=== PATIENT | female | born 1960 | race Caucasian/White ===

== ENCOUNTER 2023-02-24 09:19 | Outpatient (OUT) | payer OTHER, SELFPAY ==
--- NOTE | 2023-02-24 09:27 | XR_ITS ---
The [address] [address] Patient Name: JULIA CHAVARRIA MRN: [id number] date: 1960 Sex: F Assigned Patient Location: [facility] Current Patient Location: RAD Accession/Order Number: [id number] Exam Date: 02/24/2023 09:35 Report Date: 02/24/2023 13:32 At the request of: LATHA HERMOSILLO Procedure: XR hip RT min 2V PROCEDURE: XR hip RT min 2V DATE: 02/24/2023 8:35 AM CDT COMPARISONS: CT abdomen pelvis 03/05/2022 CLINICAL INDICATION: Pain In Right Hip M25.551 FINDINGS: There is no evidence of fractures or other acute osseous abnormalities. There is some spurring of the superior lateral acetabulum on the right. There is slight narrowing of the cephalad aspect of the acetabular femoral joint space finding that was also seen on 03/05/2022. There is diffuse bone demineralization. XR/XR hip RT min 2V IMPRESSION: Evidence of mild right hip degenerative changes. No prominent right hip degenerative changes seen. No evidence of acute osseous abnormalities. Electronically authenticated by: DEVIN TERRAZAS Date: 02/24/2023 13:32
== END 2023-02-24 09:20 | disposition home or self-care (01) ==
PROVIDERS: PCP Nurse Practitioner Family; Visit Provider Nurse Practitioner Family
DX: M25.551 Pain in right hip (principal)
CPT/HCPCS: 73502

== ENCOUNTER 2023-03-12 10:05 | Outpatient (OUT) | payer OTHER, SELFPAY ==
--- NOTE | 2023-03-12 10:19 | MR_ITS ---
The [address] [address] Patient Name: JULIA CHAVARRIA MRN: [facility]:[id number] date: 1960 Sex: F Assigned Patient Location: MRI Current Patient Location: MRI Accession/Order Number: [id number] Exam Date: 03/12/2023 11:00 Report Date: 03/12/2023 12:43 At the request of: LATHA HERMOSILLO Procedure: MR hip RT wo con EXAMINATION: MR hip RT wo con HISTORY: Right Hip Pain M25.551 , right back pain, no known injury COMPARISON: No relevant comparison available. TECHNIQUE: A comprehensive examination was performed utilizing a variety of imaging planes and imaging parameters to optimize visualization of suspected pathology. Images were performed without contrast. FINDINGS: FEMORAL HEAD: Normal. No AVN, fracture, or significant arthropathy. ACETABULUM: Mild edema within the superior-lateral aspect of the acetabulum without visible cartilage defect or fracture. OTHER BONES: Normal appearance of the visualized portion of the pelvis. LABRUM: Normal appearance for a patient in this age group, with no visible tear. EFFUSIONS: None. No synovitis or loose bodies. BURSAE: Normal. No evidence of iliopsoas or trochanteric bursitis. TENDONS: Normal. Normal gluteus tendons, iliopsoas tendon, and hamstring origin. MUSCLES: Normal. No tear or strain. No inappropriate atrophy. OTHER: Numerous prominent diverticula involving the descending and sigmoid colon without acute inflammatory changes. MR/MR hip RT wo con IMPRESSION: 1. Mild subchondral edema within lateral aspect of acetabulum; bone bruising versus none visible cartilage tear. Consider follow-up MRI right hip arthrogram for greater diagnostic sensitivity. Electronically authenticated by: MARIA VICTORIA SAUNDERS Date: 03/12/2023 12:43
== END 2023-03-12 10:06 | disposition home or self-care (01) ==
LOC: MRI 10:06
PROVIDERS: PCP Nurse Practitioner Family; Visit Provider Nurse Practitioner Family
DX: M25.551 Pain in right hip (principal)
CPT/HCPCS: 73721

== ENCOUNTER 2023-09-07 10:05 | Outpatient (OUT) | payer OTHER, SELFPAY ==
[2023-09-07 11:17] LABS: Estimated GFR (African America >60 (>=60); Estimated GFR (Non-African Ame >60 (>=60)
== END 2023-09-07 10:06 | disposition home or self-care (01) ==
LOC: LAB 10:06
PROVIDERS: PCP Nurse Practitioner Family; Visit Provider Student in an Organized Health Care Education/Training Program
DX: M47.16 Other spondylosis with myelopathy, lumbar region (principal)
CPT/HCPCS: 36415; 82565; 84520

== ENCOUNTER 2023-10-13 06:32 | Outpatient (OUT) | payer OTHER, SELFPAY ==
--- OUTSIDE RECORDS SUMMARY | 2023-10-13 06:35 | XMS_ITS | CCD ---
Author Organization [facility] Care Team Providers Care Environmental Health Inspector Name Role Phone Codey, Norbert T Primary Care Provider YOVANI CASEY Referring Unavailable CODEY, NORBERT T Primary Care Unavailable CODEY, NORBERT T Primary Care Unavailable JANETT RODRIGUEZ Attending Unavailable CODEY, NORBERT T Referring Unavailable CODEY, NORBERT T Primary Care Unavailable CODEY, NORBERT T Referring Unavailable CODEY, NORBERT T Primary Care Unavailable João Cruz Attending Provider Janet Hermosillo Primary Care Provider Jaime Riojas Unavailable Prabhu Spring Unavailable Charles Jensen Unavailable DR MARIA VICTORIA SAUNDERS Consulting Unavailable JANET HERMOSILLO Admitting Unavailable JANET HERMOSILLO Attending Unavailable KALEB Larios, DR CASTANEDA Primary Care Unavailable JANET HEMROSILLO Consulting Unavailable ADALBERTO CARVALHO Consulting Unavailable KALEB ., DR CASTANEDA Primary Care Unavailable JEEVAN ., CORAL Admitting Unavailable JEEVAN .CORAL Attending Unavailable JEEVAN .WHITLEYIN Consulting Unavailable JANET HERMOSILLO Attending Unavailable DR EFREN CANADA V Consulting Unavailable JANET HERMOSILLO Admitting Unavailable KALEB .DR CASTANEDA Primary Care Unavailable JANET HERMOSILLO Consulting Unavailable JANET HERMOSILLO Consulting Unavailable JANET HERMOSILLO Admitting Unavailable JANET HERMOSILLO Attending Unavailable KALEB ., DR CASTANEDA Primary Care Unavailable KALEB ., DR CASTANEDA Primary Care Unavailable KALEB ., DR CASTANEDA Admitting Unavailable KALEB ., DR CASTANEDA Attending Unavailable KALEB ., DR CASTANEDA Consulting Unavailable RohitCHIN shane Janet Mady Primary Care Provider [phone] MD Jaime Molina II Attending Provider Jaime Molina II Unavailable Ramu Mancuso Unavailable CHIN Hermosillo Primary Care Provider [phone] MD Ramu Mancuso Attending Provider [phone] Ramu Mancuso Attending Unavailable Rohit, Janet Mady Primary Care Unavailable Ramu Mancuso Admitting Unavailable Rohit, Janet Mady Primary Care Unavailable Jaime Molina II Admitting UnavailJaime To II Attending Unavailjessica e Ramu Mancuso Attending Unavailable Rohit, Janet Mady Primary Care Unavailable Ramu Mancuso Admitting Unavailable Ramu Mancuso Attending Unavailable Rohit, Janet Mady Primary Care Unavailable Ramu Mancuso Admitting Unavailable CHIN Hermosillo Primary Care Provider [phone] MD Ramu Mancuso Attending Provider JR. PALOMINO GEORGE C Attending Unavaila roberto carlos PALOMINO JR., GEORGE C Referring Unavaila ble Allergies Allergy Classification Reported Allergen(s) Allergy Type Date of Onset Reaction(s) Facility Sulfonamides (antibiotic) (2 sources) Sulfonamides (Antibiotic) Drug Allergy 0 [facility] (4 sources) Ciprofloxacin Drug Allergy 2 [place], [place] (4 sources) HYDROcodone / Ibuprofen Drug Allergy 2 [place] (4 sources) Penicillins Propensity to adverse reactions to drug 2 [place], [place] (4 sources) Sulfonamides (Antibiotic) Propensity to adverse reactions to drug 2 [place] (4 sources) Clindamycin/Linco mycin Propensity to adverse reactions to drug 2 [place] (15 sources) Sulfacetamide Drug Allergy 4 [facility] (8 sources) Lisinopril Drug Allergy 4 [facility] (1 source) Sulfonamides (Antibiotic) Drug allergy (disorder) [facility] (3 sources) Sulfonamides (Antibiotic); Translations: [Sulfa (Sulfonamide Antibiotics)] Allergy to substance 2 Rash [facility] (1 source) Lisinopril Drug Allergy 4 [facility] (1 source) Sulfacetamide Drug Allergy 4 [facility] Medications Current Medications Medication Drug Class(es) Dates Sig (Normalized) Sig (Original) cholecalciferol 0.025 mg oral tablet (5 sources) Vitamin D Start: 11-19-2020 take 1 tablet by mouth once daily Cholecalciferol (Vitamin D3) (Vitamin D3) 25 mcg (1,000 unit) Tablet Active 2000 UNIT PO Daily November 19, 2020 11:45am Start: 11-19-2020 take 1 tablet by pam once daily Cholecalciferol (Vitamin D3) (Vitamin D3) 25 mcg (1,000 unit) Tablet Active 125 MCG PO Daily November 19, 2020 12:00am erythromycin 500 mg oral tablet (4 sources) Macrolide, Macrolide Antimicrobial Start: 03-17-2016 erythromycin base (E-MYCIN) 500 MG tablet Indications: Status post total left knee replacement Take 2 tabs 1 hour prior to dental appointment or procedure, then 1 tab twice daily until gone 6 tablet 0 03/17/2016 Active gabapentin 100 mg oral capsule (20 sources) Anti-epileptic Agent Start: 11-19-2020 take 300 mg by mouth once daily Gabapentin Active 300 MG PO Daily November 19, 2020 12:00am Start: 11-19-2020 take 100 mg by mouth once reynaldo y Gabapentin Active 100 MG PO Daily November 19, 2020 11:45am take 1 capsule by mo [facility] twice daily gabapentin (NEURONTIN) 100 MG capsule Take 100 mg by mouth 2 times daily 0 Active gemfibrozil 600 mg oral tablet (19 sources) Peroxisome Proliferator Receptor alpha Agonist Start: 11-19-2020 take 600 mg by mouth twice daily Gemfibrozil Active 600 MG PO Twice daily November 19, 2020 12:00am ibuprofen 600 mg oral tablet (3 sources) Nonsteroidal Anti-inflammatory Drug Start: 03-16-2020 take 1 tablet by mouth every six hours as needed for pain ibuprofen (IBU) 600 MG tablet Take 1 tablet by mouth every 6 hours as needed for Pain 30 tablet 0 03/16/2020 Active irbesartan 150 mg oral tablet (10 sources) Angiotensin 2 Receptor Yecenia Start: 11-06-2021 take 150 mg by mouth once daily Irbesartan Active 150 MG PO Daily November 06, 2021 12:00am levothyroxine sodium 0.125 mg oral tablet (10 sources) l-Thyroxine Start: 07-11-2021 take 125 ug by mouth once daily Levothyroxine Active 125 MCG PO Daily July 11, 2021 1:00am Levothyroxine So dium 125 MCG Oral for 30 Days Active Multivitamin preparation (5 sources) Start: 02-19-2020 take 1 tablet by mouth once daily Multivitamin Active 1 TAB PO Daily February 19, 2020 1:43pm Start: 02-19-2020 take 1 tablet by pam th once daily Multivitamin Active 1 TAB PO Daily February 18, 2020 11:00pm Start: 02-19-2020 take 1 tablet by pam th once daily Multivitamin Active 1 TAB PO Daily February 19, 2020 12:00am omeprazole 20 mg delayed release oral capsule (20 sources) Proton Pump Inhibitor Start: 06-23-2014 take 20 mg by mouth once daily Omeprazole Active 20 MG PO Daily February 19, 2020 12:00am vitamin b12 1 mg/ml injectable solution (20 sources) Vitamin B12 Start: 11-19-2020 inject 1000 ug by intramuscular injection every 30 days Cyanocobalamin (Vitamin B-12) Active 1000 MCG IM Q30D November 19, 2020 12:00am Cyanocobalamin 1 000 MCG/ML Injection for 90 Days Active Cyanocobalamin 1 000 MCG/ML Injection for 90 Days Active Vitamin B-12 Act [place] Cyanocobalamin ( VITAMIN B 12 PO) Take by mouth 0 Active Completed/Discontinued Medications Medication Drug Class(es) Dates Sig (Normalized) Sig (Original) acetaminophen 325 mg / HYDROcodone bitartrate 5 mg oral tablet (12 sources) Opioid Agonist Start: 11-19-2020 End: 12-04-2020 take 1 tablet by mouth every four hours Hydrocodone-Acetami nophen Discontinued 1 TAB PO Q4H November 19, 2020 12:00am December 04, 2020 10:02am Start: 11-14-2020 take 1 tablet by pam th every eight hours HYDROcodone-Acetaminophen 5-325 MG 1 tab let as needed Orally every 8 hrs for 7 days November, Active acetaminophen 325 mg / oxyCODONE hydrochloride 5 mg oral tablet (4 sources) Opioid Agonist Start: 12-04-2020 End: 07-11-2021 take 1 tablet by mouth every four to six hours Oxycodone-Acetaminophen (Percocet) 5-325 mg Tablet Discontinued 1 - 2 TAB PO EVERY 4-6 HOURS 40 7 December 04, 2020 July 11, 2021 3:25pm Start: 03-16-2020 End: 03-19-2020 take 1 tablet by mouth every six hours as needed for pain, then take 1 tablet by mouth as needed for pain oxyCODONE-acetaminophen (PERCOCET) 5-325 MG per tablet Indications: Closed head injury, initial encounter Take 1 tablet by mouth every 6 hours as needed for Pain for up to 3 days. Intended supply: 3 days. Take lowest dose possible to manage pain 12 tablet 0 03/16/2020 03/19/2020 Active aspirin 81 mg delayed release oral tablet (5 sources) Platelet Aggregation Inhibitor, Nonsteroidal Anti-inflammatory Drug Start: 12-04-2020 End: 07-11-2021 take 81 mg by mouth twice daily Aspirin Discontinued 81 MG PO Twice daily December 04, 2020 12:00am July 11, 2021 3:22pm End: 03-16-2020 take 1 tablet by mouth once daily aspirin 81 MG EC tablet Indications: Neck abscess Take 81 mg by mouth daily. 0 03/16/2020 Discontinued (LIST CLEANUP) cephalexin 500 mg oral capsule (3 sources) Cephalosporin Antibacterial Start: 08-15-2021 End: 11-06-2021 take 500 mg by mouth three times daily Cephalexin Discontinued 500 MG PO Three times daily August 15, 2021 1:00am November 06, 2021 7:00am hydrOXYzine pamoate 25 mg oral capsule (3 sources) Antihistamine Start: 12-04-2020 End: 07-11-2021 take 25 mg by mouth every eight hours Hydroxyzine Pamoate Discontinued 25 MG PO Q8H December 04, 2020 12:00am July 11, 2021 3:23pm Ketorolac (8 sources) Nonsteroidal Anti-inflammatory Drug, Cyclooxygenase Inhibitor Start: 07-31-2018 Toradol per 15 mg Jul, 30 mg lisinopril 10 mg oral tablet (12 sources) Angiotensin Converting Enzyme Inhibitor Start: 02-19-2020 End: 11-06-2021 take 10 mg by mouth once daily Lisinopril Discontinued 10 MG PO Daily February 19, 2020 12:00am November 06, 2021 7:02am melatonin 1 mg oral tablet (5 sources) Start: 11-19-2020 End: 09-23-2023 take 1 mg by mouth at bedtime Melatonin Discontinued 1 MG PO Bedtime November 19, 2020 12:00am September 23, 2023 9:41am methocarbamol 750 mg oral tablet (7 sources) Muscle Relaxant take 1 tablet by mouth twice daily Methocarbamol 750 MG take 1 tablet by mouth twice a day if needed Oral for 5 Not-Taking methylPREDNISolone 4 mg oral tablet (1 source) Corticosteroid Start: 08-31-2023 End: 09-23-2023 take 1 tablet by mouth once Methylprednisolone (Medrol (Shan)) 4 mg tablets,dose pack Discontinued 0 PO per package directions August 31, 2023 1:00am September 23, 2023 9:41am PO PER PKG DIR 1 ml morphine sulfate 4 mg/ml injection (1 source) Opioid Agonist Start: 03-16-2020 End: 03-16-2020 morphine sulfate (PF) injection 4 mg naproxen 500 mg oral tablet (11 sources) Nonsteroidal Anti-inflammatory Drug Start: 11-06-2021 End: 09-23-2023 take 500 mg by mouth twice daily Naproxen Discontinued 500 MG PO Twice daily November 06, 2021 12:00am September 23, 2023 9:41am Start: 02-19-2020 End: 12-04-2020 take 500 mg by mouth once daily Naproxen Discontinued 500 MG PO Daily February 19, 2020 12:00am December 04, 2020 10:02am take 600 mg by mouth twice daily NAPROXEN PO Take 600 mg by mouth 2 times daily 0 Active ondansetron 4 mg disintegrating oral tablet (7 sources) Serotonin-3 Receptor Antagonist take 1 tablet by mouth every four hours for nausea Ondansetron 4 MG dissolve 1 tablet ON TONGUE every 4 hours if needed for nausea OR vomiting Oral for 5 Not-Taking oxyCODONE hydrochloride 5 mg oral tablet (3 sources) Opioid Agonist Start: 08-15-19 End: 11-07-19 take 5-10 mg by mouth every six hours Oxycodone Discontinued 5 - 10 MG PO Q6H 30 8 August 15, 2021 November 06, 2021 7:04am 50 ml sodium chloride 9 mg/ml injection (1 source) Start: 03-16-20 End: 03-16-20 0.9 % sodium chloride bolus sucralfate 1000 mg oral tablet (5 sources) Aluminum Complex Start: 02-19-20 End: 11-20-19 take 1 g by mouth once daily Sucralfate Discontinued 1 GM PO Daily February 19, 2020 12:00am November 19, 2020 12:04pm thyroid (fdc) 60 mg oral tablet (16 sources) Start: 02-19-20 End: 07-11-19 take 1 tablet by mouth once daily Thyroid (Pork) (Foley Thyroid) 60 mg tablet Discontinued 90 MG PO Daily February 19, 2020 12:00am July 11, 2021 3:26pm take 1 tablet by mouth once reynaldo y [employer] Thyroid 90 MG take 1 tablet by mouth once daily Oral for 30 Active traMADol hydrochloride 50 mg oral tablet (3 sources) Opioid Agonist Start: 11-11-2021 End: 07-27-2023 take 50 mg by mouth every four hours Tramadol Discontinued 50 MG PO Q4H 10 7 November 11, 2021 12:00am July 27, 2023 9:04am triamcinolone acetonide 40 mg/ml injectable suspension (4 sources) Corticosteroid Start: 04-16-2023 Kenalog-40 Apr, 120 mg Problems Active Problems Problem Classification Problem Date Documented Date Episodic/Chronic Abdominal hernia (14 sources) Hiatal hernia; Translations: [Diaphragmatic hernia without obstruction or gangrene] Episodic Asthma (4 sources) Asthma; Translations: [Asthma] Onset: 2 08-17-2011 Chronic Deficiency and other anemia (1 source) Anemia, unspecified; Translations: [ANEMIA UNSPECIFIED] Onset: 3 Episodic Diabetes mellitus without complication (1 source) Other abnormal glucose; Translations: [OTHER ABNORMAL GLUCOSE] Onset: 3 Episodic Disorders of lipid metabolism (1 source) Pure hypercholesterolemia, unspecified; Translations: [PURE HYPERCHOLESTEROLEMIA UNSPEC] Onset: 3 Chronic Esophageal disorders (20 sources) Gastroesophageal reflux disease; Translations: [Gastro-esophageal reflux disease without esophagitis] Onset: 3 02-20-2020 Chronic Essential hypertension (1 source) Essential (primary) hypertension; Translations: [ESSENTIAL PRIMARY HYPERTENSION] Onset: 3 Chronic Intracranial injury (1 source) Concussion with less than 1 hour loss of consciousness; Translations: [Concussion with loss of consciousness of 30 minutes or less, initial encounter] Episodic Nutritional deficiencies (1 source) Vitamin D deficiency, unspecified; Translations: [VITAMIN D DEFICIENCY UNSPECIFIED] Onset: 3 Chronic Osteoarthritis (20 sources) Osteoarthritis; Translations: [Arthropathy of left shoulder] Onset: 2 08-17-2011 Chronic Other bone disease and musculoskeletal deformities (14 sources) Avascular necrosis of bone; 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] Chronic Other connective tissue disease (17 sources) History of total hip arthroplasty; Translations: [Presence of left artificial hip joint] 12-04-2020 Chronic Other connective tissue disease (8 sources) Trigger thumb of right hand; Translations: [Trigger thumb, right thumb] Episodic Other connective tissue disease (2 sources) Trochanteric bursitis, right hip Onset: 2 Resolved: 2 Episodic Other connective tissue disease (3 sources) Triggering of digit; Translations: [Trigger finger, unspecified finger] 11-11-2021 Episodic Other connective tissue disease (3 sources) Trochanteric bursitis; Translations: [Trochanteric bursitis, unspecified hip] Episodic Other connective tissue disease (2 sources) Trochanteric bursitis, unspecified hip Episodic Other connective tissue disease (1 source) Bursitis of hip; Translations: [Trochanteric bursitis, unspecified hip] 08-31-2023 Episodic Other injuries and conditions due to external causes (1 source) Closed injury of head; Translations: [Closed head injury, initial encounter] Episodic Other nervous system disorders (15 sources) Carpal tunnel syndrome of left wrist; Translations: [Carpal tunnel syndrome, left upper limb] 06-16-2023 Chronic Other nervous system disorders (3 sources) Carpal tunnel syndrome, left upper limb Onset: 1 Resolved: 2 Chronic Other nervous system disorders (8 sources) Carpal tunnel syndrome of right wrist; Translations: [Carpal tunnel syndrome, right upper limb] Chronic Other nervous system disorders (1 source) Carpal tunnel syndrome, right upper limb Onset: 2 Resolved: 2 Chronic Other nervous system disorders (2 sources) Carpal tunnel syndrome; Translations: [Carpal tunnel syndrome, left upper limb] 08-15-2021 Chronic Other nervous system disorders (4 sources) Chronic pain; Translations: [Other chronic pain] 08-31-2023 Chronic Other nervous system disorders (4 sources) Other chronic pain; Translations: [Other chronic pain] Chronic Other nervous system disorders (1 source) Other chronic pain; Translations: [Other chronic pain] Onset: 4 Chronic Other non-traumatic joint disorders (1 source) Pain in right hip Episodic Other non-traumatic joint disorders (4 sources) Arthritis of left knee; Translations: [Arthritis of left knee] Onset: 6 08-27-2015 Other non-traumatic joint disorders (4 sources) Pain in left knee; Translations: [Knee pain, left] Onset: 6 08-27-2015 Other screening for suspected conditions (not mental disorders or infectious disease) (5 sources) Encounter for screening mammogram for malignant neoplasm of breast; Translations: [Encounter for screening for malignant neoplasm of rectum] Onset: 3 Episodic Spondylosis; intervertebral disc disorders; other back problems (12 sources) Solitary sacroiliitis; Translations: [Sacroiliitis, not elsewhere classified] Onset: 4 Chronic Spondylosis; intervertebral disc disorders; other back problems (6 sources) Lumbar radiculopathy; Translations: [Cervicalgia] Onset: 4 Resolved: 1 01-17-2014 Episodic Thyroid disorders (4 sources) Hypothyroidism, unspecified; Translations: [HYPOTHYROIDISM UNSPECIFIED] Onset: 3 Chronic Unclassified (3 sources) CONTACT W/AND (SUSP) EXPOS COVID-19; Translations: [CONTACT W/AND (SUSP) EXPOS COVID-19] Onset: 2 Unclassified (1 source) COUGH, UNSPECIFIED; Translations: [COUGH, UNSPECIFIED] Onset: 2 Unclassified (1 source) Pain in right lower leg; Translations: [Pain in right lower leg] Onset: 4 Unclassified (1 source) Pain in right hip; Translations: [Pain in right hip] Onset: 3 Past or Other Problems Problem Classification Problem Date Documented Date Episodic/Chronic Abdominal pain (1 source) Unspecified abdominal pain; Translations: [UNSPECIFIED ABDOMINAL PAIN] Onset: 03-06-2022 Episodic Calculus of urinary tract (1 source) Personal history of urinary calculi; Translations: [PERSONAL HISTORY OF URINARY CALCULI] Onset: 03-06-2022 Episodic Nausea and vomiting (4 sources) Nausea; Translations: [NAUSEA] Onset: 03-05-2022 Episodic Nonspecific chest pain (4 sources) Chest pain, unspecified; Translations: [Other chest pain] Onset: 08-18-2022 Episodic Other aftercare (1 source) Other fci (current) drug therapy; Translations: [OTH BODY STRAIGHTENER CURRENT DRUG THERAPY] Onset: 08-20-2022 Episodic Other circulatory disease (1 source) Other specified symptoms and signs involving the circulatory and respiratory systems; Translations: [OTH SPEC SX SIGNS INVLV CIRC RS] Onset: 07-01-2022 Episodic Other connective tissue disease (4 sources) Rupture of tendon of biceps; Translations: [Biceps tendon rupture] Onset: 04-27-2016 04-27-2016 Episodic Other connective tissue disease (3 sources) Trigger thumb, right thumb Onset: 10-02-2021 Resolved: 11-24-2021 Episodic Other connective tissue disease (1 source) Pain in right hand Onset: 11-03-2021 Resolved: 11-03-2021 Episodic Residual codes; unclassified (1 source) Other specified postprocedural states Onset: 11-24-2021 Resolved: 11-24-2021 Episodic Screening and history of mental health and substance abuse codes (1 source) Personal history of nicotine dependence; Translations: [PERSONAL HISTORY OF NICOTINE DEPEND] Onset: 08-20-2022 Episodic Skin and subcutaneous tissue infections (4 sources) Abscess of neck; Translations: [Neck abscess] Onset: 08-17-2011 08-17-2011 Episodic Unclassified (1 source) CONTACT W/AND (SUSP) EXPOS COVID-19; Translations: [CONTACT W/AND (SUSP) EXPOS COVID-19] Onset: 06-24-2022 Results Test Name Value Interpretation Reference Range Facility US venous duplex LE RTon US venous duplex LE RT [facility] Main [address] [address] Ultrasound Report Signed Patient: Julia Chavarria MR#: [id number] : 1960 Acct:[id number] Age/Sex: 63 / F ADM Date: 09/14/23 Loc: Room: Type: [facility] CLI Attending Dr: Ramu Mancuso MD Ordering Provider: Ramu Mancuso MD Date of Service: 09/14/23 US/US venous duplex LE RT: M79.661 - Pain in right lower leg Copies to: Ramu Mancuso MD RIGHT LOWER EXTREMITY VENOUS DUPLEX INDICATION: Right leg pain and tenderness for 4 days. Unilateral right lower extremity venous duplex Doppler study was obtained utilizing B-mode, color- flow and spectral Doppler. FINDINGS: The right common femoral, femoral, and popliteal veins showed adequate compressibility, color-flow and augmentation. The right posterior tibial and peroneal veins were compressible, as well as proximal greater saphenous vein. The contralateral left common femoral vein was compressible with color-flow and augmentation. US/US venous duplex LE RT IMPRESSION: NO EVIDENCE OF DEEP VENOUS THROMBOSIS IN THE RIGHT LOWER EXTREMITY. NO SUPERFICIAL THROMBOPHLEBITIS WAS NOTED. Impression dictated by: Christopher Subramanian MD09/15/2023 2:44 PM Dictation Location: [place] [address] Tech: Bessiefay Tenorio Transcribed By: AKILAH 09/15/23 1444 Dictated By: Christopher Subramanian MD 09/15/23 1435 Signed By: 09/15/23 1444 Normal [facility] MR lumbar spine wo/w conon 0 09-10-2023 MR lumbar spine wo/w con [facility] Main [address] [address] MRI Report Signed Patient: Julai Chavarria MR#: [id number] : 1960 Acct:[id number] Age/Sex: 62 / F ADM Date: 09/09/23 Loc: Room: Type: [facility] CLI Attending Dr: Ramu Mancuso MD Copies to: Ramu Mancuso MD Ordering Provider: Ramu Mancuso MD Date of Service: 09/09/23 MR/MR lumbar spine wo/w con: M47.16 MRI lumbar spine without and with intravenous contrast CLINICAL DATA: Chronic back pain with right lower extremity radiculopathy worsening over the past several months. COMPARISON: 03/22/2018 Multiecho imaging in the axial and sagittal plane was performed before and after intravenous administration of 16 MLO ProHance. There is levoscoliotic curvature. There is minor retrolisthesis of L5 on S1. There are no acute compression fractures or marrow edema. There are degenerative endplate signal changes and endplate spurring, greatest at L1-2. The conus medullaris is within normal limits for caliber, position and signal intensity, terminating at L1. There is right renal cortical scarring. No paraspinal soft tissue normalities are present. At T9-T10 and T10-11 on the sagittal images, there are disc bulges which are asymmetric in the left parasagittal region extending to the neural foramen. There is some associated thecal sac effacement and inferior foraminal encroachment. At T12-L1, no disc disease or stenosis is identified. At L1-2, there is loss of the disc space. There is continued disco-osteophytic bulging greater at the right lateral recess and neural foramen where there may be a small focal protrusion. Facet hypertrophy is seen, worse on the right. There is mild thecal sac effacement. The left neural foramen is patent. There is moderate to severe narrowing of the neural foramen on the right. At L2-3, there is slight narrowing of the disc space. There is mild annular disc bulging, greater toward the neural foramen and slightly asymmetric extending laterally on the right. There is facet and ligamentous hypertrophy. There is moderate central stenosis. There is mild to moderate narrowing of the neural foramen bilaterally. At L3-4, there is narrowing of the disc space. Annular disc bulging is still visualized, with a continued broad-based protrusion from right parasagittal region through the neural foramen. This is slightly less prominent. Bilateral facet hypertrophy and thickening of ligamentum flavum is seen. There is currently mild to moderate thecal sac effacement. There is also mild to moderate foraminal encroachment, right worse than left. At L4-5, is narrowing of the disc space. There is some endplate spurring, asymmetric laterally on the left. Annular disc bulging is visualized, slightly less prominent than the comparison. Bilateral facet hypertrophy is seen, greater on the left where there is also no asymmetric ligamentous hypertrophy. There is question of interval partial laminectomy on the right. There is mild thecal sac effacement which is improved since the prior. There is still moderate bilateral foraminal encroachment, slightly greater on the left. At the lumbosacral junction, there is narrowing of the disc space. There is mild disco-osteophytic bulging, greater laterally on both sides. There is facet disease and slight thickening of ligamentum flavum. There is minimal thecal sac effacement. There is moderate narrowing of both neural foramen, left slightly worse than right. MR/MR lumbar spine wo/w con IMPRESSION: SCOLIOSIS. MULTILEVEL DISCOVERTEBRAL DEGENERATIVE CHANGES WITH CONTINUED CENTRAL AND FORAMINAL STENOSIS, DESCRIBED. QUESTION OF INTERVAL POSTOPERATIVE CHANGE AT L4-5 HOWEVER THIS IS NOT REPORTED IN THE HISTORY. CORRELATION IS RECOMMENDED. Impression dictated by: Lilly Carroll M.D.09/10/2023 12:36 PM Dictation Location: [place] [address] Transcribed By: [facility] 09/10/23 1236 Dictated By: Lilly Carroll MD 09/10/23 1213 Signed By: 09/10/23 1236 [facility] Creatinine (Bld) [Mass/Vol]O rdered By: Ramu Mancuso on 2023 Creatinine [Mass/Vol] 1.1 mg/dL 0.6-1.3 [facility] Comment on above: ER/ESD physician is notified/shown all ISTAT results.Critical values may be confirmed by laboratory testing ifdeemed necessary by ER attending doctor. ISTAT XRay CREon 2023 Creatinine [Mass/Vol] 1.1 mg/dL Normal 0.6-1.3 [facility] Comment on above: Result Comment: ER/E SD physician is notified/shown all ISTAT results. Critical values may be confirmed by laboratory testing if deemed necessary by ER attending doctor. Performed By: #### I SCRE #### [facility] [address] [place] [address] ISTAT GFR 56.813 [facility] Comment on above: Result Comment: PERF ORMED BY: [place] [address] PATHOLOGIST [employer] CAROLINE ESCOBAR M.D. Performed By: #### I SCRE #### [address] No Panel InformationOrdered By: Ramu Mancuso on 2023 Bedside Estimated GFR (eGFR) 56.813 [facility] XR hip RT min 2V(w/wo pelvis )*on 04-16-2023 XR hip RT min 2V(w/wo pelvis)* [facility] [place] [address] [place] [address] XRay Report Signed Patient: Julia Chavarria MR#: [id number] : 1960 Acct:[id number] Age/Sex: 62 / F ADM Date: 04/16/23 [place]: [facility] [place] Room: Type: [facility] Attending Dr: Jaime Molina II, MD Copies to: Jaime Molina MD Ordering Provider: Jaime Molina MD Date of Service: 04/16/23 XR/XR hip RT min 2V(w/wo pelvis)*: Right hip pain RIGHT HIP - 2 views: CLINICAL HISTORY: Right hip pain and groin with spasms for months. COMPARISON: Right hip MRI 03/12/2023 FINDINGS: Mild degenerative changes of the right hip without acute bony process. Additional degenerative changes seen along the thoracolumbar spine, SI joints and pubic symphysis. 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 XR/XR hip RT min 2V(w/wo pelvis)* IMPRESSION: MILD DEGENERATIVE CHANGES OF THE RIGHT HIP WITHOUT ACUTE PROCESS.. Impression dictated by: Bravo Conde Jr., D.O.04/16/2023 1:20 PM Dictation Location: [place] [address] Transcribed By: [facility] 04/16/23 1320 Dictated By: Bravo Conde Jr DO 04/16/23 1318 Signed By: 04/16/23 1320 [facility] MG MAMM SCREEN 3D BILL CADon 10-29-2022 MG MAMM SCREEN 3D BILL CAD Patient: JULIA CHAVARRIA Exam Date: 10/29/2022 : 1960 Gender:F Ordering : JANET HERMOSILLO [facility] Admission #: [id number] Family : Order #: [id number] CLICK HERE TO VIEW EXAM RADIOLOGY REPORT PROCEDURE: MAMMOGRAM SCREENING 3D BILATERAL CAD COMPARISON: None. INDICATIONS: Screening mammography Calculator Name NCI Breast Cancer Risk Assessment Tool 5 Year Breast Cancer Risk 1.70% Lifetime Breast Cancer Risk 7.70% Personal Breast Cancer No Personal Ovarian Cancer No Treatments None Family Cancers None LOCATION: [facility] BREAST COMPOSITION: Scattered areas fibroglandular density. FINDINGS: DIAGNOSTIC CATEGORY 2--BENIGN FINDING: Scattered benign-appearing calcifications are present. Scattered benign-appearing lymph nodes are present. RIGHT BREAST: No significant suspicious finding. LEFT BREAST: No significant suspicious finding. RECOMMENDATIONS: ROUTINE MAMMOGRAM AND CLINICAL EVALUATION IN 12 MONTHS. PLEASE NOTE: A NORMAL MAMMOGRAM DOES NOT EXCLUDE THE POSSIBILITY OF BREAST CANCER. A CLINICALLY SUSPICIOUS PALPABLE LUMP SHOULD BE BIOPSIED. Dictated by: Efren Canada MD on 12/01/2022 at 07:05 Approved by: Efren Canada MD on 12/01/2022 at 07:07 Normal [facility] INSULINon 10-22-2022 Insulin 8.9 uIU/mL Normal 2.6-24.9 [facility] Comment on above: Performed By: #### I NSULIN #### [facility] [address] [place] [address] Dr. Natalie oSod CBC AUTO DIFFon 10-21-2022 BASO # 0.1 103/ul Normal 0.0-0.1 [facility] Comment on above: Performed By: #### L IPID, TSH, T7, CMP #### [facility] [address] [place] [address] [address] Natalie Sood Basophils/100 WBC (Bld) 0.9 % Normal 0.2-2.0 [facility] Comment on above: Performed By: #### L IPID, TSH, T7, CMP #### [facility] [address] [place] [address] Dr. Natalie Sood EO # 0.2 103/ul Normal 0.0-0.7 [facility] Comment on above: Performed By: #### L IPID, TSH, T7, CMP #### [facility] [address] [place] [address] [address] Natalie Sood Eosinophils/100 WBC (Bld) 3.2 % Normal 0.9-7.0 [facility] Comment on above: Performed By: #### L IPID, TSH, T7, CMP #### [facility] [address] [place] [address] Dr. Natalie Sood Erythrocyte distribution width (RBC) [Ratio] 12.3 % Normal 11.0-15.0 [facility] Comment on above: Performed By: #### L IPID, TSH, T7, CMP #### [facility] [address] [place] [address] Dr. Natalie Sood Hematocrit (Bld) [Volume fraction] 41.4 % Normal 36.0-48.0 [facility] Comment on above: Performed By: #### L IPID, TSH, T7, CMP #### [facility] [address] [place] [address] Dr. Natalie Sood Hemoglobin (Bld) [Mass/Vol] 13.7 g/dL Normal 12.0-16.0 [facility] Comment on above: Performed By: #### L IPID, TSH, T7, CMP #### [facility] [address] [place] [address] Dr. Natalie Sood IG # 0.04 10e3/ul Critically high 0.00-0.03 [facility] Comment on above: Performed By: #### L IPID, TSH, T7, CMP #### [facility] [address] [place] [address] Dr. Natalie Sood IG % 0.6 % Critically high 0.0-0.5 [facility] Comment on above: Performed By: #### L IPID, TSH, T7, CMP #### [facility] [address] [place] [address] Dr. Natalie Sood LYMPH # 2.0 103/ul Normal 1.2-3.8 [facility] Comment on above: Performed By: #### L IPID, TSH, T7, CMP #### [facility] [address] [place] [address] Dr. Natalie Sood Lymphocytes/100 WBC (Bld) 30.7 % Normal 20.5-60.0 [facility] Comment on above: Performed By: #### L IPID, TSH, T7, CMP #### [facility] [address] [place] [address] Dr. Natalie Sood MANUAL DIFF REQ NO Normal [facility] Comment on above: Performed By: #### L IPID, TSH, T7, CMP #### [facility] [address] [place] [address] Dr. Natalie Sood MCH (RBC) [Entitic mass] 31.6 pg Normal 26.7-34.0 [facility] Comment on above: Performed By: #### L IPID, TSH, T7, CMP #### [facility] [address] [place] [address] Dr. Natalie Sood MCHC (RBC) [Mass/Vol] 33.1 g/dL Normal 29.9-35.2 [facility] Comment on above: Performed By: #### L IPID, TSH, T7, CMP #### [facility] [address] [place] [address] Dr. Natalie Sood MCV (RBC) [Entitic vol] 95.6 fL Normal 81.0-99.0 [facility] Comment on above: Performed By: #### L IPID, TSH, T7, CMP #### [facility] [address] [place] [address] Dr. Natalie Sood MONO # 0.6 103/ul Normal 0.3-0.8 [facility] Comment on above: Performed By: #### L IPID, TSH, T7, CMP #### [facility] [address] [place] [address] Dr. Natalie Sood Monocytes/100 WBC (Bld) 9.5 % Normal 1.7-12.0 [facility] Comment on above: Performed By: #### L IPID, TSH, T7, CMP #### [facility] [address] [place] [address] Dr. Natalie Sood NEUT # 3.7 103/ul Normal 1.4-6.5 [facility] Comment on above: Performed By: #### L IPID, TSH, T7, CMP #### [facility] [address] [place] [address] Dr. Natalie Sood Neutrophils/100 WBC (Bld) 55.1 % Normal 43.0-75.0 [facility] Comment on above: Performed By: #### L IPID, TSH, T7, CMP #### [facility] [address] [place] [address] Dr. Natalie Sood Platelet mean volume (Bld) [Entitic vol] 9.8 fL Normal 9.5-13.5 [facility] Comment on above: Performed By: #### L IPID, TSH, T7, CMP #### [facility] [address] [place] [address] Dr. Natalie Sood PLT 293 103/ul Normal 150-450 [facility] Comment on above: Performed By: #### L IPID, TSH, T7, CMP #### [facility] [address] [place] [address] Dr. Natalie Sood RBC 4.33 106/ul Normal 4.20-5.40 [facility] Comment on above: Performed By: #### L IPID, TSH, T7, CMP #### [facility] [address] [place] [address] Dr. Natalie Sood WBC 6.6 103/ul Normal 4.0-11.0 [facility] Comment on above: Performed By: #### L IPID, TSH, T7, CMP #### [facility] [address] [place] [address] Dr. Natalie Sood FREE THYROXINE INDEX T7on FTI 3.36 Normal 1.30-4.50 [facility] Comment on above: Performed By: #### L IPID, TSH, T7, CMP #### [facility] [address] [place] [address] Dr. Natalie Sood T3U 35.0 % Normal 30.0-39.0 [facility] Comment on above: Performed By: #### L IPID, TSH, T7, CMP #### [facility] [address] [place] [address] [address] Natalie Sood T4 [Mass/Vol] 9.60 ug/dL Normal 4.80-13.90 [facility] Comment on above: Performed By: #### L IPID, TSH, T7, CMP #### [facility] [address] [place] [address] [address] Natalie Sood GLYCOHEMOGLOBIN A1Con 2022 ADA RECOMMENDATION SEE BELOW Normal [facility] Comment on above: Result Comment: ADA RECOMMENDED LIMIT 4.0 - 6.0 ADA THERAPEUTIC TARGET < 7.0 ACTION SUGGESTED > 7.0 Performed By: #### A 1C #### [facility] [address] [place] [address] Dr. Natalie Sood Glucose [Mass/Vol] 97 mg/dL Normal [facility] Comment on above: Performed By: #### A 1C #### [facility] [address] [place] [address] Dr. Natalie Sood HbA1c (Bld) [Mass fraction] 5.0 % Normal 4.5-6.2 [facility] Comment on above: Performed By: #### A 1C #### [facility] [address] [place] [address] Dr. Natalie Sood IRONon 10-21-2022 Iron [Mass/Vol] 126.0 ug/dL Normal 50.0-170.0 [facility] Comment on above: Performed By: #### L IPID, TSH, T7, CMP #### [facility] [address] [place] [address] Dr. Natalie Sood LIPID PROFILEon 10-21-2022 CHOL-HDL RATIO NORM SEE BELOW Normal [facility] Comment on above: Result Comment: 3.3 - 4.4 LOW RISK 4.4 - 7.1 AVERAGE RISK 7.1 - 11.0 MODERATE RISK >11.0 HIGH RISK Performed By: #### L IPID, TSH, T7, CMP #### [facility] [address] [place] [address] [address] Natalie Sood Cholesterol [Mass/Vol] 231 mg/dL Critically high <=200 [facility] Comment on above: Performed By: #### L IPID, TSH, T7, CMP #### [facility] [address] [place] [address] [address] Natalie Sood Cholesterol in HDL [Mass/Vol] 59 mg/dL Normal 40-60 [facility] Comment on above: Performed By: #### L IPID, TSH, T7, CMP #### [facility] [address] [place] [address] [address] Natalie Sood Cholesterol in LDL [Mass/Vol] 144.8 mg/dL Normal [facility] Comment on above: Performed By: #### L IPID, TSH, T7, CMP #### [facility] [address] [place] [address] [address] Natalie Sood Cholesterol.total/Chol esterol in HDL [Mass ratio] 3.9 {ratio} Normal [facility] Comment on above: Performed By: #### L IPID, TSH, T7, CMP #### [facility] [address] [place] [address] [address] Natalie Sood HDL NORMAL > or = 60 mg/dl - LO W CARDIOVASCULAR RISK <40 mg/dl - HIGH CARDIOVASCULAR RISK Normal [facility] Comment on above: Performed By: #### L IPID, TSH, T7, CMP #### [facility] [address] [place] [address] [address] Natalie Sood LDL CALC NORMAL SEE BELOW Normal [facility] Comment on above: Result Comment: <100 mg/dl OPTIMAL 100 - 129 mg/dl NEAR OR ABOVE OPTIMAL 130 - 159 mg/dl BORDERLINE HIGH 160 - 189 mg/dl HIGH >190 mg/dl VERY HIGH Performed By: #### L IPID, TSH, T7, CMP #### [facility] [address] [place] [address] [address] Natalie Sood Triglyceride [Mass/Vol] 136 mg/dL Normal <=150 [facility] Comment on above: Performed By: #### L IPID, TSH, T7, CMP #### [facility] [address] [place] [address] Dr. Natalie Sood VLDL CALC 27.2 mg/dL Normal [facility] Comment on above: Performed By: #### L IPID, TSH, T7, CMP #### [facility] [address] [place] [address] Dr. Natalie Sood OCC BLD IMMUNO SCREENon 10-03 OCCULT BLOOD Negative Normal NEGATIVE [facility] Comment on above: Performed By: #### L IPID, TSH, T7, CMP #### [facility] [address] [place] [address] Dr. Natalie Sood PROF 14(COMP METB)on 023 Albumin [Mass/Vol] 4.0 g/dL Normal 3.4-5.0 [facility] Comment on above: Performed By: #### L IPID, TSH, T7, CMP #### [facility] [address] [place] [address] Dr. Natalie Sood Albumin/Globulin [Mass ratio] 1.1 {ratio} Normal [facility] Comment on above: Performed By: #### L IPID, TSH, T7, CMP #### [facility] [address] [place] [address] Dr. Natalie Sood ALP [Catalytic activity/Vol] 73 U/L Normal 46-116 [facility] Comment on above: Performed By: #### L IPID, TSH, T7, CMP #### [facility] [address] [place] [address] Dr. Natalie Sood ALT [Catalytic activity/Vol] 23 U/L Normal 14-59 [facility] Comment on above: Performed By: #### L IPID, TSH, T7, CMP #### [facility] [address] [place] [address] Dr. Natalie Sood Anion gap [Moles/Vol] 15.1 mmol/L Normal [facility] Comment on above: Performed By: #### L IPID, TSH, T7, CMP #### [facility] [address] [place] [address] Dr. Natalie Sood AST [Catalytic activity/Vol] 14 U/L Critically low 15-37 [facility] Comment on above: Performed By: #### L IPID, TSH, T7, CMP #### [facility] [address] [address] [address] Natalie Sood Bilirubin [Mass/Vol] 1.1 mg/dL Critically high 0.2-1.0 [facility] Comment on above: Performed By: #### L IPID, TSH, T7, CMP #### [facility] [address] [place] [address] Dr. Natalie Sood Calcium [Mass/Vol] 9.7 mg/dL Normal 8.5-10.1 [facility] Comment on above: Performed By: #### L IPID, TSH, T7, CMP #### [facility] [address] [place] [address] Dr. Natalie Sood Chloride [Moles/Vol] 106 mmol/L Normal 98-107 [facility] Comment on above: Performed By: #### L IPID, TSH, T7, CMP #### [facility] [address] [place] [address] Dr. Natalie Sood CO2 [Moles/Vol] 27.2 mmol/L Normal 21.0-32.0 [facility] Comment on above: Performed By: #### L IPID, TSH, T7, CMP #### [facility] [address] [place] [address] Dr. Natalie Sood Creatinine [Mass/Vol] 1.00 mg/dL Normal 0.55-1.02 [facility] Comment on above: Performed By: #### L IPID, TSH, T7, CMP #### [facility] [address] [address] [address] Natalie Sood EGFR-AF BHUTANESE >60 Normal >=60 [facility] Comment on above: Performed By: #### L IPID, TSH, T7, CMP #### [facility] [address] [place] [address] Dr. Natalie Sood EGFR-NON AF BHUTANESE 56 mL/min/1.73m2 Critically low >=60 [facility] Comment on above: Performed By: #### L IPID, TSH, T7, CMP #### [facility] [address] [address] [address] Natalie oSod Globulin (S) [Mass/Vol] 3.6 g/dL Normal [facility] Comment on above: Performed By: #### L IPID, TSH, T7, CMP #### [facility] [address] [address] [address] Natalie Sood Glucose [Mass/Vol] 89 mg/dL Normal 74-106 [facility] Comment on above: Performed By: #### L IPID, TSH, T7, CMP #### [facility] [address] [place] [address] Dr. Natalie Sood Potassium [Moles/Vol] 4.3 mmol/L Normal 3.5-5.1 [facility] Comment on above: Performed By: #### L IPID, TSH, T7, CMP #### [facility] [address] [place] [address] Dr. Natalie Sood Protein [Mass/Vol] 7.6 g/dL Normal 6.4-8.2 [facility] Comment on above: Performed By: #### L IPID, TSH, T7, CMP #### [facility] [address] [place] [address] Dr. Natalie Sood Sodium [Moles/Vol] 144 mmol/L Normal 136-145 [facility] Comment on above: Performed By: #### L IPID, TSH, T7, CMP #### [facility] [address] [place] [address] Dr. Natalie Sood Urea nitrogen [Mass/Vol] 18.0 mg/dL Normal 7.0-18.0 [facility] Comment on above: Performed By: #### L IPID, TSH, T7, CMP #### [facility] [address] [place] [address] Dr. Natalie Sood Urea nitrogen/Creatinine [Mass ratio] 18.0 mg/mg Normal [facility] Comment on above: Performed By: #### L IPID, TSH, T7, CMP #### [facility] [address] [place] [address] Dr. Natalie Sood TSHon 10-21-2022 TSH 0.157 uIU/mL Critically low 0.358-3.740 [facility] Comment on above: Performed By: #### L IPID, TSH, T7, CMP #### [facility] [address] [place] [address] Dr. Natalie Sood VITAMIN B12on 10-21-2022 Cobalamin (Vitamin B12) [Mass/Vol] 1101.0 pg/mL Critically high 193.0-986.0 [facility] Comment on above: Performed By: #### L IPID, TSH, T7, CMP #### [facility] [address] [place] [address] Dr. Natalie Sood VITAMIN D 25 OHon 10-21-2022 VIT D 25-OH 68.0 ng/mL Normal [facility] Comment on above: Performed By: #### L IPID, TSH, T7, CMP #### [facility] [address] [place] [address] Dr. Natalie Sood VIT D RANGES SEE BELOW Normal [facility] Comment on above: Result Comment: <20 ng/mL Vit D deficient 20 - <30 ng/mL Vit D insufficient 30 - 100 ng/mL Vit D sufficient >100 ng/mL Potential Toxicity Performed By: #### L IPID, TSH, T7, CMP #### [facility] [address] [place] [address] Dr. Natalie Sood CBC AUTO DIFFon 08-18-2022 BASO # 0.0 103/ul Normal 0.0-0.1 [facility] Comment on above: Performed By: #### L IPID, TSH, T7, CMP #### [facility] [address] [place] [address] Dr. Natalie Sood Basophils/100 WBC (Bld) 0.2 % Normal 0.2-2.0 [facility] Comment on above: Performed By: #### L IPID, TSH, T7, CMP #### [facility] [address] [place] [address] Dr. Natalie Sood EO # 0.2 103/ul Normal 0.0-0.7 [facility] Comment on above: Performed By: #### L IPID, TSH, T7, CMP #### [facility] [address] [address] [address] Natalie Sood Eosinophils/100 WBC (Bld) 1.0 % Normal 0.9-7.0 [facility] Comment on above: Performed By: #### L IPID, TSH, T7, CMP #### [facility] [address] [address] [address] Natalie Sood Erythrocyte distribution width (RBC) [Ratio] 13.1 % Normal 11.0-15.0 [facility] Comment on above: Performed By: #### L IPID, TSH, T7, CMP #### [facility] [address] [address] [address] Natalie Sood Hematocrit (Bld) [Volume fraction] 44.1 % Normal 36.0-48.0 [facility] Comment on above: Performed By: #### L IPID, TSH, T7, CMP #### [facility] [address] [place] [address] Dr. Natalie Sood Hemoglobin (Bld) [Mass/Vol] 14.6 g/dL Normal 12.0-16.0 [facility] Comment on above: Performed By: #### L IPID, TSH, T7, CMP #### [facility] [address] [address] [address] Natalie Sood IG # 0.11 10e3/ul Critically high 0.00-0.03 [facility] Comment on above: Performed By: #### L IPID, TSH, T7, CMP #### [facility] [address] [address] [address] Natalie Sood IG % 0.7 % Critically high 0.0-0.5 [facility] Comment on above: Performed By: #### L IPID, TSH, T7, CMP #### [facility] [address] [address] [address] Natalie Sood LYMPH # 1.0 103/ul Critically low 1.2-3.8 [facility] Comment on above: Performed By: #### L IPID, TSH, T7, CMP #### [facility] [address] [place] [address] Dr. Natalie Sood Lymphocytes/100 WBC (Bld) 6.1 % Critically low 20.5-60.0 [facility] Comment on above: Performed By: #### L IPID, TSH, T7, CMP #### [facility] [address] [place] [address] Dr. Natalie Sood MANUAL DIFF REQ NO Normal [facility] Comment on above: Performed By: #### L IPID, TSH, T7, CMP #### [facility] [address] [place] [address] Dr. Natalie Sood MCH (RBC) [Entitic mass] 31.1 pg Normal 26.7-34.0 [facility] Comment on above: Performed By: #### L IPID, TSH, T7, CMP #### [facility] [address] [place] [address] Dr. Natalie Sood MCHC (RBC) [Mass/Vol] 33.1 g/dL Normal 29.9-35.2 [facility] Comment on above: Performed By: #### L IPID, TSH, T7, CMP #### [facility] [address] [place] [address] Dr. Natalie Sood MCV (RBC) [Entitic vol] 94.0 fL Normal 81.0-99.0 [facility] Comment on above: Performed By: #### L IPID, TSH, T7, CMP #### [facility] [address] [place] [address] Dr. Natalie Sood MONO # 1.0 103/ul Critically high 0.3-0.8 [facility] Comment on above: Performed By: #### L IPID, TSH, T7, CMP #### [facility] [address] [place] [address] Dr. Natalie Sood Monocytes/100 WBC (Bld) 6.3 % Normal 1.7-12.0 [facility] Comment on above: Performed By: #### L IPID, TSH, T7, CMP #### [facility] [address] [place] [address] Dr. Natalie Sood NEUT # 13.9 103/ul Critically high 1.4-6.5 [facility] Comment on above: Performed By: #### L IPID, TSH, T7, CMP #### [facility] [address] [place] [address] Dr. Natalie Sood Neutrophils/100 WBC (Bld) 85.7 % Critically high 43.0-75.0 [facility] Comment on above: Performed By: #### L IPID, TSH, T7, CMP #### [facility] [address] [place] [address] Dr. Natalie Sood Platelet mean volume (Bld) [Entitic vol] 9.9 fL Normal 9.5-13.5 [facility] Comment on above: Performed By: #### L IPID, TSH, T7, CMP #### [facility] [address] [place] [address] Dr. Natalie Sood PLT 338 103/ul Normal 150-450 [facility] Comment on above: Performed By: #### L IPID, TSH, T7, CMP #### [facility] [address] [place] [address] Dr. Natalie Sood RBC 4.69 106/ul Normal 4.20-5.40 [facility] Comment on above: Performed By: #### L IPID, TSH, T7, CMP #### [facility] [address] [place] [place] [address] Dr. Natalie Sood WBC 16.3 103/ul Critically high 4.0-11.0 [facility] Comment on above: Performed By: #### L IPID, TSH, T7, CMP #### [facility] [address] [place] [address] Dr. Natalie Sood CTA CHEST WO W CONon 023 CTA CHEST WO W CON EXAMINATION: CTA CHEST WO W CON, 08/18/2022 HISTORY: CHEST PAIN, UNSPECIFIED COMPARISON: Chest x-ray from 08/08/2020 TECHNIQUE: CT angiography of the pulmonary arteries following the administration of 100 mL Omnipaque 350 iodine intravenous contrast. Coronal and sagittal MIP (maximum intensity projection) images were performed. Dose reduction techniques were achieved by using automated exposure control and/or adjustment of mA and/or kV according to patient size and/or use of iterative reconstruction technique. FINDINGS: The study is partially limited by motion artifacts. The main pulmonary artery, right and left pulmonary arteries and lobar branches are patent and show no major filling defect to suggest pulmonary thromboembolism. Study is limited for evaluation the segmental and subsegmental pulmonary artery branches. The lung windows demonstrate bilateral patchy ground glass infiltrates could be due to atypical or viral pneumonia. Recommend clinical correlation. The central tracheobronchial airways are patent. The mediastinal windows demonstrate minimal atherosclerosis of the thoracic aorta with patent great vessels. No pleural or pericardial effusion. The esophagus is nondilated. No enlarged lymph node in the axilla, hilar or mediastinal lesion. No acute osseous findings. IMPRESSION: 1. No evidence of major pulmonary thromboembolism. 2. Bilateral mild to moderate patchy groundglass infiltrates, could be due to viral or atypical pneumonia. Electronically authenticated by: ADALBERTO CARVALHO Date: 2022-08-18 13:58 Normal [facility] PROF 14(COMP METB)on 023 Albumin [Mass/Vol] 4.4 g/dL Normal 3.4-5.0 [facility] Comment on above: Performed By: #### C BRIAN MEJÍATROPN #### [facility] [address] [address] [address] Natalie Sood Albumin/Globulin [Mass ratio] 1.3 {ratio} Normal [facility] Comment on above: Performed By: #### C KYM HSTROPN #### [facility] [address] [address] [address] Natalie Sood ALP [Catalytic activity/Vol] 86 U/L Normal 46-116 [facility] Comment on above: Performed By: #### C KYM HSTROPN #### [facility] [address] [address] [address] Natalie Sood ALT [Catalytic activity/Vol] 23 U/L Normal 14-59 [facility] Comment on above: Performed By: #### C KYM HSTROPN #### [facility] [address] [address] [address] Natalie Sood Anion gap [Moles/Vol] 13.7 mmol/L Normal [facility] Comment on above: Performed By: #### C MP, HSTROPN #### [facility] [address] [address] [address] Natalie Sood AST [Catalytic activity/Vol] 19 U/L Normal 15-37 [facility] Comment on above: Performed By: #### C MP, HSTROPN #### [facility] [address] [address] [address] Natalie Sood Bilirubin [Mass/Vol] 1.2 mg/dL Critically high 0.2-1.0 [facility] Comment on above: Performed By: #### C MP, HSTROPN #### [facility] [address] [address] [address] Natalie Sood Calcium [Mass/Vol] 9.3 mg/dL Normal 8.5-10.1 [facility] Comment on above: Performed By: #### C MP, HSTROPN #### [facility] [address] [address] [address] Natalie Sood Chloride [Moles/Vol] 105 mmol/L Normal 98-107 [facility] Comment on above: Performed By: #### C MP, HSTROPN #### [facility] [address] [address] [address] Natalie Sood CO2 [Moles/Vol] 26.7 mmol/L Normal 21.0-32.0 [facility] Comment on above: Performed By: #### C MP, HSTROPN #### [facility] [address] [address] [address] Natalie Sood Creatinine [Mass/Vol] 0.97 mg/dL Normal 0.55-1.02 [facility] Comment on above: Performed By: #### C MP, HSTROPN #### [facility] [address] [address] [address] Natalie Sood EGFR-AF BHUTANESE >60 Normal >=60 [facility] Comment on above: Performed By: #### C MP, HSTROPN #### [facility] [address] [address] [address] Natalie Sood EGFR-NON AF BHUTANESE 58 mL/min/1.73m2 Critically low >=60 [facility] Comment on above: Performed By: #### C MP, HSTROPN #### [facility] [address] [address] [address] Natalie Sood Globulin (S) [Mass/Vol] 3.3 g/dL Normal [facility] Comment on above: Performed By: #### C MP, HSTROPN #### [facility] [address] [address] [address] Natalie Sood Glucose [Mass/Vol] 93 mg/dL Normal 74-106 [facility] Comment on above: Performed By: #### C MP, HSTROPN #### [facility] [address] [address] [address] Natalie Sood Potassium [Moles/Vol] 4.4 mmol/L Normal 3.5-5.1 [facility] Comment on above: Performed By: #### C MP, HSTROPN #### [facility] [address] [place] [address] Dr. Natalie Sood Protein [Mass/Vol] 7.7 g/dL Normal 6.4-8.2 [facility] Comment on above: Performed By: #### C MP, HSTROPN #### [facility] [address] [address] [address] Natalie Sood Sodium [Moles/Vol] 141 mmol/L Normal 136-145 [facility] Comment on above: Performed By: #### C MP, HSTROPN #### [facility] [address] [place] [address] Dr. Natalie Sood Urea nitrogen [Mass/Vol] 24.0 mg/dL Critically high 7.0-18.0 [facility] Comment on above: Performed By: #### C MP, HSTROPN #### [facility] [address] [place] [address] Dr. Natalie Sood Urea nitrogen/Creatinine [Mass ratio] 24.7 mg/mg Normal [facility] Comment on above: Performed By: #### C MP, HSTROPN #### [facility] [address] [place] [address] Dr. Natalie Sood PROTIMEon 08-18-2022 INR Coag (PPP) [Relative time] 0.95 {INR} Normal [facility] Comment on above: Performed By: #### L IPID, TSH, T7, CMP #### [facility] [address] [place] [address] Dr. Natalie Sood INR GUIDELINES SEE BELOW Normal [facility] Comment on above: Result Comment: JEROME RED INR: 2.0 - 3.0 CONDITIONS NOT LISTED BELOW 2.5 - 3.5 FOR PROSTHETIC HEART VALVE REPLACEMENT 2.5 - 3.5 RECURRENT THROMBOSIS Performed By: #### L IPID, TSH, T7, CMP #### [facility] [address] [place] [address] Dr. Natalie Sood PT Coag (PPP) [Time] 10.1 s Normal 9.0-11.6 [facility] Comment on above: Performed By: #### L IPID, TSH, T7, CMP #### [facility] [address] [place] [address] Dr. aNtalie Sood PTTon 08-18-2022 aPTT Coag (Bld) [Time] 26.5 s Normal 22.3-36.[address] [facility] Comment on above: Performed By: #### L IPID, TSH, T7, CMP #### [facility] [address] [place] [address] Dr. Natalie Sood TROPONIN, HIGH SENSITIVITYon 08-18-2022 HSTROP 5.5 pg/mL Normal 4.0-51.3 [facility] Comment on above: Result Comment: CUT- OFF POINTS HAVE BEEN ESTABLISHED BASED ON THE FOURTH UNIVERSAL DEFINITIONS OF MYOCARDIAL INFARCTION. THE UPPER REFERENCE LIMIT (URL) OF TROPONIN, DEFINED THE 99TH PERCENTILE OF cTnI DISTRIBUTION IN A REFERENCE POPULATION, HAS BEEN CONFIRMED THE DECISION THRESHOLD FOR CT DIAGNOSIS. Performed By: #### C MP, HSTROPN #### [facility] [address] [place], [place] [address] Dr. Natalie Sood [facility]05 SARS-CoV-2 (COVID-19) RNA JENNIE+probe Ql (Unsp spec) Not detected Normal NOT DETECTED [facility] Comment on above: Result Comment: When diagnostic testing is negative, the possibility of a false negative should be considered in the context of a patient's recent exposures and the presence of clinical signs and symptoms consistent with SARS-CoV-2. This test is not yet approved or cleared by the [place] FDA. When there are no FDA-approved or cleared tests available, and other criteria are met, FDA can make tests available under an emergency access mechanism called an Emergency Use Authorization (EUA). The EUA for this test is supported by the [employer] Instructor of Health and Human Service's declaration that circumstances exist to justify the emergency use of in vitro diagnostics for the detection and/or diagnosis of the virus that causes COVID-19. This EUA will remain in effect for the duration of the COVID-19 declaration justifying emergency of IVDs, unless it is terminated or revoked by the FDA (after which the test may no longer be used). Performed By: #### C VDTB #### [facility] [address] [place] [address] Dr. Natalie Sood INFLUENZA A AND B AGon 06-24 [facility] SEE BELOW Normal [facility] Comment on above: Result Comment: Nega tive for Flu A protein angiten. Infection due to Flu A cannot be ruled out. Flu A angiten in the sample may be below the detection limit of the test. Performed By: #### L IPID, TSH, T7, CMP #### [facility] [address] [place] [address] Dr. Natalie Sood [facility] SEE BELOW Normal [facility] Comment on above: Result Comment: Nega tive for Flu B protein antigen. Infection due to Flu B cannot be ruled out. Flu B antigen in the sample may be below the detection limit of the test. Performed By: #### L IPID, TSH, T7, CMP #### [facility] [address] [address] [address] Natalie Sood INFLUENZA A AG Negative Normal NEGATIVE SEE COMMENT [facility] Comment on above: Performed By: #### L IPID, TSH, T7, CMP #### [facility] [address] [place], [place] [address] Dr. Natalie Sood INFLUENZA B AG Negative Normal NEGATIVE SEE COMMENT [facility] Comment on above: Performed By: #### L IPID, TSH, T7, CMP #### [facility] [address] [address] [address] Natalie Sood INTERNAL CONTROLS Within Normal Limits Normal Wi thin Normal Limits [facility] Comment on above: Performed By: #### L IPID, TSH, T7, CMP #### [facility] [address] [address] [address] ABD/PELVIS WO CONon 03-05 CT ABD/PELVIS WO CON EXAMINATION: CT ABD/PELVIS WO CON HISTORY: H/O: urinary stone ; left flank pain COMPARISON: No relevant comparison available. TECHNIQUE: Axial, Coronal, and Sagittal images were created without IV contrast. Dose reduction techniques were achieved by using automated exposure control and/or adjustment of mA and/or kV according to patient size and/or use of iterative reconstruction technique. FINDINGS: LUNG BASES: No visible pulmonary or pleural disease. LIVER: No enlargement, atrophy, suspicious density, or significant focal lesion. BILIARY: Cholecystectomy. PANCREAS: No lesion, fluid collection, or abnormal duct dilatation. SPLEEN: No enlargement or focal lesion. ADRENALS: No mass or enlargement. KIDNEYS: No mass, obstruction, or calcification. BOWEL/MESENTERY: Marked diverticulosis of sigmoid colon without acute inflammatory changes. Numerous diverticula scattered throughout length of colon. No visible mass, obstruction, or bowel wall thickening. AORTA/VASCULAR: No aneurysm or dissection. RETROPERITONEUM: No mass or adenopathy. LYMPH NODES: No adenopathy. URINARY BLADDER: No visible focal wall thickening, lesion, or calculus. PELVIC ORGANS: No visible mass. Pelvic organs appropriate for patient age. ABDOMINAL WALL: No mass or hernia. BONES: Marked degenerative disc disease at multiple lumbar levels. Left hip replacement. OTHER: Negative. IMPRESSION: 1. No visible urinary tract calculi. Dilation of the distal left ureter is limited by metallic artifact from left hip prosthesis, but no proximal or mid ureter dilation. 2. Marked sigmoid diverticulosis, but no appreciable diverticulitis; left pelvis is slightly limited by artifact from left hip prosthesis. Electronically authenticated by: MARIA VICTORIA SAUNDERS Date: 2022-03-05 17:03 Normal [facility] CULTURE URINEon 03-05-2022 CULTURE URINE Culture Observations : MODERATE GROWTH OF MIXED GENITAL CRYSTAL. NO POTENTIAL PATHOGENS SEEN. Normal [facility] Comment on above: Performed By: #### L IPID, TSH, T7, CMP #### [facility] [address] [address] [address] Natalie Sood UA RANDOM W/MICROSCOPICon BACTERIA NONE SEEN Normal NONE SEEN [facility] Comment on above: Performed By: #### U AMIC #### [facility] [address] [place] [address] Dr. Natalie Sood Bilirubin Ql (U) Negative Normal NEGATIVE [facility] Comment on above: Performed By: #### U AMIC #### [facility] [address] [place] [address] Dr. Natalie Sood CAST NONE SEEN Normal NONE SEEN [facility] Comment on above: Performed By: #### U AMIC #### [facility] [address] [place] [address] Dr. Natalie Sood Clarity (U) SL CLOUDY Abnormal CLEAR [facility] Comment on above: Performed By: #### U AMIC #### [facility] [address] [place] [address] Dr. Natalie Sood Color (U) LT. YELLOW Normal YELLOW [facility] Comment on above: Performed By: #### U AMIC #### [facility] [address] [place] [address] Dr. Natalie Sood Crystals LM Nom (Urine sed) NONE SEEN Normal NONE SEEN [facility] Comment on above: Performed By: #### U AMIC #### [facility] [address] [place] [address] Dr. Natalie Sood Epithelial cells LM Ql (Urine sed) RARE Normal NONE SEEN /RARE [facility] Comment on above: Performed By: #### U AMIC #### [facility] [address] [address] [address] Natalie Sood Glucose Ql (U) Negative Normal NEGATIVE [facility] Comment on above: Performed By: #### U AMIC #### [facility] [address] [address] [address] Natalie Sood Hemoglobin Ql (U) Negative Normal NEGATIVE [facility] Comment on above: Performed By: #### U AMIC #### [facility] [address] [address] [address] Natalie Sood Ketones Ql (U) Negative Normal NEGATIVE [facility] Comment on above: Performed By: #### U AMIC #### [facility] [address] [address] [address] Natalie Sood LEUKOCYTES Negative Normal NEGATIVE [facility] Comment on above: Performed By: #### U AMIC #### [facility] [address] [address] [address] Natalie Sood MUCOUS MODERATE Abnormal NONE SEEN [facility] Comment on above: Performed By: #### U AMIC #### [facility] [address] [address] [address] Natalie Sood Nitrite Ql (U) Negative Normal NEGATIVE [facility] Comment on above: Performed By: #### U AMIC #### [facility] [address] [address] [address] Natalie Sood pH (U) 6.0 [pH] Normal 5-9 [facility] Comment on above: Performed By: #### U AMIC #### [facility] [address] [address] [address] Natalie Sood RBC 0-2 Normal 0-2 [facility] Comment on above: Performed By: #### U AMIC #### [facility] [address] [address] [address] Natalie Sood SPEC GRAVITY <=1.005 Abnormal 1.005-<=1.025 [facility] Comment on above: Performed By: #### U AMIC #### [facility] [address] [address] [address] Natalie Sood UA PROTEIN Negative Normal NEGATIVE/ TRACE [facility] Comment on above: Performed By: #### U AMIC #### [facility] [address] [address] [address] Natalie Sood Urobilinogen Qn (U) 0.2 {Carlos'U}/dL Normal 0.2 - 1. 0 [facility] Comment on above: Performed By: #### U AMIC #### [facility] [address] [address] [address] Natalie Sood WBC 0-2 Abnormal NONE SEEN [facility] Comment on above: Performed By: #### U AMIC #### [facility] [address] [address] [address] Natalie Sood Basophils Auto (Bld) [#/Vol] on 11-19-2020 Basophils (Bld) [#/Vol] 0.0 10*3/uL 0.0-0.[address] [facility] Basophils/100 WBC Auto (Bld) on 11-19-2020 Basophils/100 WBC (Bld) 0.6 % [facility] Bilirubin Test strip Ql (U)o n 11-19-2020 Bilirubin Ql (U) Negative Negative [facility] Blood hemoglobin measurement (mass/volume)on 11-19-2020 Hemoglobin (Bld) [Mass/Vol] 13.7 g/dL 11.8-15.[address] [facility] Blood leukocytes automated c ount (number/volume)on 11-19-2020 WBC (Bld) [#/Vol] 6.7 10*3/uL 4.5-11.0 [facility] Color Auto (U)on 11-19-2020 Color (U) Yellow Yellow [facility] Creatinine and Glomerular fi ltration rate.predicted panel (S/P/Bld)on 11-19-2020 Creatinine [Mass/Vol] 0.86 mg/dL 0.44-1.03 [facility] Eosinophils Auto (Bld) [#/Vo l]on 11-19-2020 Eosinophils (Bld) [#/Vol] 0.1 10*3/uL 0.0-0.[address] [facility] Eosinophils/100 WBC Auto (Bl d)on 11-19-2020 Eosinophils/100 WBC (Bld) 1.0 % [facility] Erythrocyte distribution wid th Auto (RBC) [Ratio]on 11-19-2020 Erythrocyte distribution width (RBC) [Ratio] 12.2 % 11.9-15.[address] [facility] Estimated glomerular filtrat ion rate (GFR) non- Americanon 11-19-2020 GFR/1.73 sq M.predicted among non-blacks MDRD (S/P/Bld) [Vol rate/Area] > 60 mL/Min [facility] Hematocrit Auto (Bld) [Volum e fraction]on 11-19-2020 Hematocrit (Bld) [Volume fraction] 39.8 % 34.0-46.[address] [facility] Ketones Auto test strip (U) [Mass/Vol]on 11-19-2020 Ketones (U) [Mass/Vol] Negative Negative Fi [facility] - Hematology and Cell countson 11-19-2020 Nucleated RBC/100 WBC (Bld) [Ratio] 0.2 % 0-0.[address] [facility] Lymphocytes Auto (Bld) [#/Vo l]on 11-19-2020 Lymphocytes (Bld) [#/Vol] 2.1 10*3/uL 1.00-4.[address] [facility] Lymphocytes/100 WBC Auto (Bl d)on 11-19-2020 Lymphocytes/100 WBC (Bld) 31.5 % [facility] MCH Auto (RBC) [Entitic mass ]on 11-19-2020 MCH (RBC) [Entitic mass] 32.0 pg 24.7-34.[address] [facility] MCHC Auto (RBC) [Mass/Vol]on 11-19-2020 MCHC (RBC) [Mass/Vol] 34.4 g/dL 32.0-35.0 [facility] MCV Auto (RBC) [Entitic vol] on 11-19-2020 MCV (RBC) [Entitic vol] 93.1 fL 80-[address] [facility] Monocytes Auto (Bld) [#/Vol] on 11-19-2020 Monocytes (Bld) [#/Vol] 0.5 10*3/uL 0.0-0.[address] [facility] Monocytes/100 WBC Auto (Bld) on 11-19-2020 Monocytes/100 WBC (Bld) 8.1 % [facility] Neutrophils Auto (Bld) [#/Vo l]on 11-19-2020 Neutrophils (Bld) [#/Vol] 3.9 10*3/uL 1.8-7.[address] [facility] Neutrophils/100 WBC Auto (Bl d)on 11-19-2020 Neutrophils/100 WBC (Bld) 58.8 % [facility] Nitrite Test strip Ql (U)on 11-19-2020 Nitrite Ql (U) Negative Negative [facility] No Panel Informationon 11-19 Estimated GFR () > 60 mL/Min [facility] Comment on above: GFR estimated refere nce range: According to KDOQI guidelines, <60 ml/min/1.73m2 is sufficient to diagnose a patient with chronic kidney disease. Pharmacy Creatinine Clearance (Chem N/A [facility] Platelet mean volume Auto (B ld) [Entitic vol]on 11-19-2020 Platelet mean volume (Bld) [Entitic vol] 8.0 fL 6.3-10.[address] [facility] Platelets Auto (Bld) [#/Vol] on 11-19-2020 Platelets (Bld) [#/Vol] 339 10*3/uL 150-[address] [facility] Protein Auto test strip (U) [Mass/Vol]on 11-19-2020 Protein (U) [Mass/Vol] Negative Negative [facility] RBC Auto (Bld) [#/Vol]on RBC (Bld) [#/Vol] 4.28 10*6/uL 3.60-5.00 [facility] Serum or plasma calcium tania urement (mass/volume)on 11-19-2020 Calcium [Mass/Vol] 10.2 mg/dL 8.2-10.2 [facility] Serum or plasma chloride parvin surement (moles/volume)on 11-19-2020 Chloride [Moles/Vol] 100 mmol/L 95-114 [facility] Serum or plasma glucose tania urement (mass/volume)on 11-19-2020 Glucose [Mass/Vol] 91 mg/dL 70-100 [facility] Comment on above: ADA recommended refe rence rangeRandom Glucose Reference Range is dependent on time and content of last meal. Glucose of more than 200 mg/dL in a nonstressed, ambulatory subject supports the diagnosis of Diabetes Mellitus. Serum or plasma potassium me asurement (moles/volume)on 11-19-2020 Potassium [Moles/Vol] 4.1 mmol/L 3.5-5.1 [facility] Serum or plasma sodium measu rement (moles/volume)on 11-19-2020 Sodium [Moles/Vol] 139 mmol/L 136-146 [facility] Serum or plasma total carbon dioxide measurement (moles/volume)on 11-19-2020 CO2 [Moles/Vol] 27.6 mmol/L 22.0-30.0 [facility] Serum or plasma urea nitroge n measurement (mass/volume)on 11-19-2020 Urea nitrogen [Mass/Vol] 9 mg/dL 9-[address] [facility] Specific gravity Auto test s trip (U) [Rel density]on 11-19-2020 Specific gravity (U) [Rel density] 1.009 1.001-1.[address] [facility] Urine clarity by refractomet ry automatedon 11-19-2020 Clarity Refractometry automated (U) Clear Clear [facility] Urine glucose measurement by automated test strip (mass/volume)on 11-19-2020 Glucose Auto test strip (U) [Mass/Vol] Normal mg/dL Normal [facility] Urine hemoglobin detection b y automated test stripon 11-19-2020 Hemoglobin Auto test strip Ql (U) Negative Negative [facility] Urine leukocyte esterase det ection by automated test stripon 11-19-2020 Leukocyte esterase Auto test strip Ql (U) Negative Negative [facility] Urobilinogen Auto test strip (U) [Mass/Vol]on 11-19-2020 Urobilinogen (U) [Mass/Vol] Normal mg/dL Normal [facility] pH Auto test strip (U)on pH (U) 7.5 [pH] 5.0-9.0 [facility] Otheron 03-18-2020 1. Lumbar spine: No evidence of acute compression fracture or malalignment. Severe multilevel degenerative changes. 2. Sacrum/coccyx: No acute osseous abnormality. [facility] [place] EXAMINATION: THREE XRAY VIEWS OF THE SACRUM/COCCYX; THREE XRAY VIEWS OF THE LUMBAR SPINE 03/18/2020 12:07 pm COMPARISON: Lumbar spine radiographs dated 05/16/2018 and 01/03/2014, CT abdomen and pelvis dated 01/18/2018 HISTORY: ORDERING SYSTEM PROVIDED HISTORY: Concussion with loss of consciousness of 30 minutes or less, initial encounter TECHNOLOGIST PROVIDED HISTORY: Reason for Exam: Pain, LOC Acuity: Acute Type of Exam: Initial Mechanism of Injury: Fall backwards down stairs x 2 days FINDINGS: Lumbar spine: The vertebral body heights are preserved. There is severe multilevel disc space narrowing, endplate spurring, and facet arthropathy, which has progressed from previous radiographs. There are punctate calcifications in the mid abdomen, possibly pancreatic calcifications versus ingested material. Surgical clips noted in the right upper quadrant. Sacrum/coccyx: Arcuate lines of the sacrum are preserved. Sacroiliac joints are symmetric. Sacrococcygeal alignment is stable. [place], [place] Jimmy, [facility] Incoming Radiant Results From [employer] - 03/18/2020 4:50 PM EDT EXAMINATION: THREE XRAY VIEWS OF THE SACRUM/COCCYX; THREE XRAY VIEWS OF THE LUMBAR SPINE 03/18/2020 12:07 pm COMPARISON: Lumbar spine radiographs dated 05/16/2018 and 01/03/2014, CT abdomen and pelvis dated 01/18/2018 HISTORY: ORDERING SYSTEM PROVIDED HISTORY: Concussion with loss of consciousness of 30 minutes or less, initial encounter TECHNOLOGIST PROVIDED HISTORY: Reason for Exam: Pain, LOC Acuity: Acute Type of Exam: Initial Mechanism of Injury: Fall backwards down stairs x 2 days FINDINGS: Lumbar spine: The vertebral body heights are preserved. There is severe multilevel disc space narrowing, endplate spurring, and facet arthropathy, which has progressed from previous radiographs. There are punctate calcifications in the mid abdomen, possibly pancreatic calcifications versus ingested material. Surgical clips noted in the right upper quadrant. Sacrum/coccyx: Arcuate lines of the sacrum are preserved. Sacroiliac joints are symmetric. Sacrococcygeal alignment is stable. IMPRESSION: 1. Lumbar spine: No evidence of acute compression fracture or malalignment. Severe multilevel degenerative changes. 2. Sacrum/coccyx: No acute osseous abnormality. [facility] [place] XR CERVICAL SPINE (2-3 VIEWS )on 03-18-2020 XR CERVICAL SPINE (2-3 VIEWS) EXAMINATION: 4 XRAY VIEWS OF THE CERVICAL SPINE 03/18/2020 12:07 pm COMPARISON: None. HISTORY: ORDERING SYSTEM PROVIDED HISTORY: Concussion with loss of consciousness of 30 minutes or less, initial encounter TECHNOLOGIST PROVIDED HISTORY: Reason for Exam: Pain, LOC Acuity: Acute Type of Exam: Initial Mechanism of Injury: Fall backwards down stairs x 2 days FINDINGS: Bones are grossly demineralized limiting evaluation. Straightening of the normal cervical lordosis which may relate to muscle spasm. No acute bony process or subluxation is seen. Moderate spondylosis C4 through C7 with associated endplate, uncovertebral and facet joint degenerative changes. No prevertebral soft tissue swelling. Visualized lung apices are clear. IMPRESSION: 1. No acute bony process. 2. Straightening of the normal cervical lordosis which may relate to muscle spasm. 3. Moderate spondylosis C4 through C7. Interpreted by: Bravo Conde Jr., DO Signed by: Bravo Conde Jr., DO 03/18/20 Final result Normal [facility] 1. No acute bony process. 2. Straightening of the normal cervical lordosis which may relate to muscle spasm. 3. Moderate spondylosis C4 through C7. [place] EXAMINATION: 4 XRAY VIEWS OF THE CERVICAL SPINE 03/18/2020 12:07 pm COMPARISON: None. HISTORY: ORDERING SYSTEM PROVIDED HISTORY: Concussion with loss of consciousness of 30 minutes or less, initial encounter TECHNOLOGIST PROVIDED HISTORY: Reason for Exam: Pain, LOC Acuity: Acute Type of Exam: Initial Mechanism of Injury: Fall backwards down stairs x 2 days FINDINGS: Bones are grossly demineralized limiting evaluation. Straightening of the normal cervical lordosis which may relate to muscle spasm. No acute bony process or subluxation is seen. Moderate spondylosis C4 through C7 with associated endplate, uncovertebral and facet joint degenerative changes. No prevertebral soft tissue swelling. Visualized lung apices are clear. [place], [place] Jimmy, Mhpn Incoming Radiant Results From [employer] - 03/18/2020 12:37 PM EDT EXAMINATION: 4 XRAY VIEWS OF THE CERVICAL SPINE 03/18/2020 12:07 pm COMPARISON: None. HISTORY: ORDERING SYSTEM PROVIDED HISTORY: Concussion with loss of consciousness of 30 minutes or less, initial encounter TECHNOLOGIST PROVIDED HISTORY: Reason for Exam: Pain, LOC Acuity: Acute Type of Exam: Initial Mechanism of Injury: Fall backwards down stairs x 2 days FINDINGS: Bones are grossly demineralized limiting evaluation. Straightening of the normal cervical lordosis which may relate to muscle spasm. No acute bony process or subluxation is seen. Moderate spondylosis C4 through C7 with associated endplate, uncovertebral and facet joint degenerative changes. No prevertebral soft tissue swelling. Visualized lung apices are clear. IMPRESSION: 1. No acute bony process. 2. Straightening of the normal cervical lordosis which may relate to muscle spasm. 3. Moderate spondylosis C4 through C7. [facility], [place] XR LUMBAR SPINE (2-3 VIEWS)o n 03-18-2020 XR LUMBAR SPINE (2-3 VIEWS) EXAMINATION: THREE XRAY VIEWS OF THE SACRUM/COCCYX; THREE XRAY VIEWS OF THE LUMBAR SPINE 03/18/2020 12:07 pm COMPARISON: Lumbar spine radiographs dated 05/16/2018 and 01/03/2014, CT abdomen and pelvis dated 01/18/2018 HISTORY: ORDERING SYSTEM PROVIDED HISTORY: Concussion with loss of consciousness of 30 minutes or less, initial encounter TECHNOLOGIST PROVIDED HISTORY: Reason for Exam: Pain, LOC Acuity: Acute Type of Exam: Initial Mechanism of Injury: Fall backwards down stairs x 2 days FINDINGS: Lumbar spine: The vertebral body heights are preserved. There is severe multilevel disc space narrowing, endplate spurring, and facet arthropathy, which has progressed from previous radiographs. There are punctate calcifications in the mid abdomen, possibly pancreatic calcifications versus ingested material. Surgical clips noted in the right upper quadrant. Sacrum/coccyx: Arcuate lines of the sacrum are preserved. Sacroiliac joints are symmetric. Sacrococcygeal alignment is stable. IMPRESSION: 1. Lumbar spine: No evidence of acute compression fracture or malalignment. Severe multilevel degenerative changes. 2. Sacrum/coccyx: No acute osseous abnormality. Interpreted by: Francheska Box DO Signed by: Francheska Box DO 03/18/20 Final result Normal [facility] XR SACRUM COCCYX (MIN 2 VIEW S)on 03-18-2020 XR SACRUM COCCYX (MIN 2 VIEWS) EXAMINATION: THREE XRAY VIEWS OF THE SACRUM/COCCYX; THREE XRAY VIEWS OF THE LUMBAR SPINE 03/18/2020 12:07 pm COMPARISON: Lumbar spine radiographs dated 05/16/2018 and 01/03/2014, CT abdomen and pelvis dated 01/18/2018 HISTORY: ORDERING SYSTEM PROVIDED HISTORY: Concussion with loss of consciousness of 30 minutes or less, initial encounter TECHNOLOGIST PROVIDED HISTORY: Reason for Exam: Pain, LOC Acuity: Acute Type of Exam: Initial Mechanism of Injury: Fall backwards down stairs x 2 days FINDINGS: Lumbar spine: The vertebral body heights are preserved. There is severe multilevel disc space narrowing, endplate spurring, and facet arthropathy, which has progressed from previous radiographs. There are punctate calcifications in the mid abdomen, possibly pancreatic calcifications versus ingested material. Surgical clips noted in the right upper quadrant. Sacrum/coccyx: Arcuate lines of the sacrum are preserved. Sacroiliac joints are symmetric. Sacrococcygeal alignment is stable. IMPRESSION: 1. Lumbar spine: No evidence of acute compression fracture or malalignment. Severe multilevel degenerative changes. 2. Sacrum/coccyx: No acute osseous abnormality. Interpreted by: Francheska Box DO Signed by: Francheska Box DO 03/18/20 Final result Normal [facility] Basic Metabolic Panelon 03-05 Anion gap [Moles/Vol] 13 mmol/L 9 - 17 mmol/L [place] Calcium [Mass/Vol] 9.5 mg/dL 8.6 - 10. 4 mg/dL [place] Chloride [Moles/Vol] 101 mmol/L 98 - 10 7 mmol/L [place] CO2 [Moles/Vol] 24 mmol/L 20 - 31 mmol/L [place] Creatinine [Mass/Vol] 0.96 mg/dL High 0.5 - 0.9 mg/dL [place] GFR >60 >60 mL/min [place] GFR Non- 60 mL/min Low >60 [place] GFR/1.73 sq M predicted among non-blacks MDRD (S/P/Bld) [Vol rate/Area] NOT REPORTED [place] GFR/1.73 sq M predicted among non-blacks MDRD (S/P/Bld) [Vol rate/Area] [place] Comment on above: Average GFR for 50-5 9 years old: 93 mL/min/1.73sq m Chronic Kidney Disease: <60 mL/min/1.73sq m Kidney failure: <15 mL/min/1.73sq m eGFR calculated using average adult body mass. Additional eGFR calculator available at: http://www.[employer]/multiple_crcl_2012.htm Glucose [Mass/Vol] 97 mg/dL 70 - 99 mg/dL [place] Interpretation and review of laboratory results Abnormal [place] Potassium [Moles/Vol] 3.9 mmol/L 3.7 - 5.3 mmol/L [place] Sodium [Moles/Vol] 138 mmol/L 135 - 144 mmol/L [place] Urea nitrogen [Mass/Vol] 14 mg/dL 6 - 20 mg/dL [place] Basic Metabolic Profon 03-16 (cont.) Normal [facility] Comment on above: Result Comment: Aver age GFR for 50-59 years old: 93 mL/min/1.73sq m Chronic Kidney Disease: <60 mL/min/1.73sq m Kidney failure: <15 mL/min/1.73sq m eGFR calculated using average adult body mass. Additional eGFR calculator available at: http://www.[employer]/multiple_crcl_2012.htm Performed By: #### B YVONNE MEJÍA, CDP #### [facility] [address] [place] [address] Zinc Skimmer: Rell Gonzalez DO Anion gap [Moles/Vol] 13 mmol/L Normal 9-17 [facility] Comment on above: Performed By: #### B YVONNE MEJÍA, CDP #### [facility] [address] [place] [address] Zinc Skimmer: Rell Gonzalez DO Calcium [Mass/Vol] 9.5 mg/dL Normal 8.6-10.4 [facility] Comment on above: Performed By: #### B YVONNE MEJÍA, CDP #### [facility] [address] [place] [address] Zinc Skimmer: Rell Gonzalez DO Chloride [Moles/Vol] 101 mmol/L Normal 98-107 [facility] Comment on above: Performed By: #### B YVONNE MEJÍA, CDP #### [facility] [address] [place] [address] Zinc Skimmer: Rell Gonzalez DO CO2 [Moles/Vol] 24 mmol/L Normal 20-31 [facility] Comment on above: Performed By: #### B YVONNE MEJÍA, CDP #### [facility] [address] [place] [address] Zinc Skimmer: Rell Gonzalez DO Creatinine [Mass/Vol] 0.96 mg/dL High 0.50-0.90 [facility] Comment on above: Performed By: #### B YVONNE MEJÍA, CDP #### [facility] [address] [place] [address] Zinc Skimmer: Rell Gonzalez DO GFR, Amer >60 Normal >60 [facility] Comment on above: Performed By: #### B YVONNE MEJÍA, CDP #### [facility] [address] [place] [address] Zinc Skimmer: Rell Gonzalez DO GFR,non Amer 60 mL/min Low >60 [facility] Comment on above: Performed By: #### B KYM, ECBRADY, CDP #### [facility] [address] [place] [address] Zinc Skimmer: Rell Gonzalez DO Glucose [Mass/Vol] 97 mg/dL Normal 70-99 [facility] Comment on above: Performed By: #### B YVONNE MEJÍA, PATTI #### [facility] [address] [place] [address] Zinc Skimmer: Rell Gonzalez DO Potassium [Moles/Vol] 3.9 mmol/L Normal 3.7-5.3 [facility] Comment on above: Performed By: #### B YVONNE MEJÍA, PATTI #### [facility] [address] [place] [address] Zinc Skimmer: Rell Gonzalez DO Sodium [Moles/Vol] 138 mmol/L Normal 135-144 [facility] Comment on above: Performed By: #### B YVONNE MEJÍA, PATTI #### [facility] [address] [place] [address] Zinc Skimmer: Rell Gonzalez DO Urea nitrogen [Mass/Vol] 14 mg/dL Normal 6-20 [facility] Comment on above: Performed By: #### B YVONNE MEJÍA, PATTI #### [facility] [facility] [place] [address] Zinc Skimmer: Rell Gonzalez DO Staging: NOT REPORTED Normal [facility] Comment on above: Performed By: #### B YVONNE MEJÍA, PATTI #### [facility] [address] [facility] [place] [address] Zinc Skimmer: Rell Gonzalez DO Bun/Cre Ratio NOT REPORTED Normal 9-20 [facility] [place] Comment on above: Performed By: #### B YVONNE MEJÍA, CDP #### [facility] [address] [place] [address] Zinc Skimmer: Rell Gonzalez DO CBC Auto Differentialon 03-05 Absolute Bands # 0.10 [place] Bands 1 % 0 - 10 % [place] Basophils (Bld) [#/Vol] 0.00 10*3/uL [place] Basophils/100 WBC (Bld) 0 % 0 - 2 % [place] Differential Type NOT REPORTED [place] Eosinophils (Bld) [#/Vol] 0.19 10*3/uL [place] Eosinophils/100 WBC (Bld) 2 % 0 - 4 % [place] Erythrocyte distribution width (RBC) [Ratio] 12.6 % 11.5 - 14.9 % [place] Hematocrit (Bld) [Volume fraction] 39.6 % 36 - 46 % [place] Hemoglobin (Bld) [Mass/Vol] 13.5 g/dL 12 - 16 g/dL [place] Interpretation and review of laboratory results Abnormal [place] Lymphocytes (Bld) [#/Vol] 2.19 10*3/uL [place] Lymphocytes/100 WBC (Bld) 23 % Low 24 - 44 % [place] MCH (RBC) [Entitic mass] 31.3 pg 26 - 34 pg [place] MCHC (RBC) [Mass/Vol] 34.1 g/dL 31 - 37 g/dL [place] MCV (RBC) [Entitic vol] 91.7 fL 80 - 100 fL [place] Metamyelocytes 2 % High 0 [place], [place] Metamyelocytes Absolute 0.19 High 0 k/uL [place] Monocytes (Bld) [#/Vol] 0.38 10*3/uL [place] Monocytes/100 WBC (Bld) 4 % 1 - 7 % [place] Morphology Reginald (Bld) [Interp] Normal [place] Platelet mean volume (Bld) [Entitic vol] 8.2 fL 6 - 12 fL [place] Platelets (Bld) [#/Vol] 250 10*3/uL [place] RBC (Bld) [#/Vol] 4.32 10*6/uL 4 - 5.2 m/uL [place] Segmented neutrophils/100 WBC (Bld) 68 % High 36 - 66 % [place] Segs Absolute 6.45 [place] WBC (Bld) [#/Vol] NOT REPORTED per 100 WBC [place] WBC (Bld) [#/Vol] 9.5 10*3/uL [place] CBC with Diffon 03-16-2020 Abs. Bands 0.10 k/uL Normal 0.0-1.0 [facility] Comment on above: Performed By: #### B YVONNE MEJÍA, PATTI #### [facility] [place] [address] Zinc Skimmer: eRll Gonzalez DO Abs. Basophil 0.00 k/uL Normal 0.0-0.2 [facility] Comment on above: Performed By: #### B YVONNE MEJÍA, CDP #### [facility] [address] [place] [address] Zinc Skimmer: Rell Gonzalez DO Abs. [place] 0.19 k/uL High 0 [facility] Comment on above: Performed By: #### B YVONNE MEJÍA, PATTI #### [facility] [facility] [place] [address] Zinc Skimmer: Rell Gonzalez DO Abs.Neutrophil (Seg) 6.45 k/uL Normal 1.3-9.1 [facility] Comment on above: Performed By: #### B YVONNE MEJÍA, PATTI #### [facility] [place] [address] Zinc Skimmer: Rell Gonzalez DO Bands 1 % Normal 0-10 [facility] Comment on above: Performed By: #### B YVONNE MEJÍA, CDP #### [facility] [address] [facility] [place] [address] Zinc Skimmer: Rell Gonzalez DO Basophils/100 WBC (Bld) 0 % Normal 0-2 [facility] Comment on above: Performed By: #### B YVONNE MEJÍA, CDP #### [facility] [address] [facility] [place] [address] Zinc Skimmer: Rell Gonzalez DO Eosinophils (Bld) [#/Vol] 0.19 10*3/uL Normal 0.0-0.4 [facility] Comment on above: Performed By: #### B YVONNE MEJÍA, CDP #### [facility] [facility] [place] [address] Zinc Skimmer: Rell Gonzalez DO Eosinophils/100 WBC (Bld) 2 % Normal 0-4 [facility] Comment on above: Performed By: #### B YVONNE MEJÍA, CDP #### [facility] [address] [facility] [place] [address] Zinc Skimmer: Rell Gonzalez DO Lymphocytes (Bld) [#/Vol] 2.19 10*3/uL Normal 1.0-4.8 [facility] Comment on above: Performed By: #### B YVONNE MEJÍA, CDP #### [facility] [facility] [place] [address] Zinc Skimmer: Rell Gonzalez DO Lymphocytes/100 WBC (Bld) 23 % Low 24-44 [facility] Comment on above: Performed By: #### B KYM ECBRADY, CDP #### [facility] [facility] [place] [address] Zinc Skimmer: Rell Gonzalez DO Metamyelocytes/100 WBC (Bld) 2 % High 0 [facility] Comment on above: Performed By: #### B KYM ECBRADY, CDP #### [facility] [address] [facility] [place] [address] Zinc Skimmer: Rell Gonzalez DO Monocytes (Bld) [#/Vol] 0.38 10*3/uL Normal 0.1-1.3 [facility] Comment on above: Performed By: #### B YVONNE MEJÍA, CDP #### [facility] [address] [place] [address] Zinc Skimmer: Rell Gonzalez DO Monocytes/100 WBC (Bld) 4 % Normal 1-7 [facility] Comment on above: Performed By: #### B YVONNE MEJÍA, CDP #### [facility] [facility] [place] [address] Zinc Skimmer: Rell Gonzalez DO Morphology Reginald (Bld) [Interp] Normal Normal [facility] Comment on above: Performed By: #### B YVONNE MEJÍA, CDP #### [facility] [address] [facility] [place] [address] Zinc Skimmer: Rell Gonzalez DO Neutrophil (Seg) 68 % High 36-66 [facility] Comment on above: Performed By: #### B YVONNE MEJÍA, CDP #### [facility] [place] [address] Zinc Skimmer: Rell Gonzalez DO Erythrocyte distribution width (RBC) [Ratio] 12.6 % Normal 11.5-14.9 [facility] Comment on above: Performed By: #### B YVONNE MEJÍA, CDP #### [facility] [facility] [place] [address] Zinc Skimmer: Rell Gonzalez DO Hematocrit (Bld) [Volume fraction] 39.6 % Normal 36-46 [facility] Comment on above: Performed By: #### B YVONNE MEJÍA, CDP #### [facility] [address] [place] [address] Zinc Skimmer: Rell Gonzalez DO Hemoglobin (Bld) [Mass/Vol] 13.5 g/dL Normal 12.0-16.0 [facility] Comment on above: Performed By: #### B YVONNE MEJÍA, PATTI #### [facility] [address] [place] [address] Zinc Skimmer: Rell Gonzalez DO MCH (RBC) [Entitic mass] 31.3 pg Normal 26-34 [facility] Comment on above: Performed By: #### B YVONNE MEJÍA, CDP #### [facility] [address] [place] [address] Zinc Skimmer: Rell Gonzalez DO MCHC (RBC) [Mass/Vol] 34.1 g/dL Normal 31-37 [facility] Comment on above: Performed By: #### B YVONNE MEJÍA, PATTI #### [facility] [address] [place] [address] Zinc Skimmer: Rell Gonzalez DO MCV (RBC) [Entitic vol] 91.7 fL Normal 80-100 [facility] Comment on above: Performed By: #### B YVONNE MEJÍA, PATTI #### [facility] [address] [place] [address] Zinc Skimmer: Rell Gonzalez DO Platelet mean volume (Bld) [Entitic vol] 8.2 fL Normal 6.0-12.0 [facility] Comment on above: Performed By: #### B YVONNE MEJÍA, CDP #### [facility] [address] [place] [address] Zinc Skimmer: Rell Gonzalez DO Platelets (Bld) [#/Vol] 250 10*3/uL Normal 150-450 [facility] Comment on above: Performed By: #### B MP, ECENZ, CDP #### [facility] [address] [place] [address] Zinc Skimmer: Rell Gonzalez DO RBC (Bld) [#/Vol] 4.32 10*6/uL Normal 4.0-5.2 [facility] Comment on above: Performed By: #### B YVONNE MEJÍA, CDP #### [facility] [address] [facility] [place] [address] Zinc Skimmer: Rell Gonzalez DO WBC (Bld) [#/Vol] 9.5 10*3/uL Normal 3.5-11.0 [facility] Comment on above: Performed By: #### B YVONNE MEJÍA, CDP #### [facility] [address] [place] [address]. [place] [address] Zinc Skimmer: Rell Gonzalez DO Abs.Imm.Granulocyte NOT REPORTED Normal 0.00-0.30 [facility] Comment on above: Performed By: #### B YVONNE MEJÍA, CDP #### [facility] [address] [place] [address]. [place] [address] Zinc Skimmer: Rell Gonzalez DO Auto Diff Performed NOT REPORTED Normal [facility] Comment on above: Performed By: #### B YVONNE MEJÍA, CDP #### [facility] [address] [place] [address]. [place] [address] Zinc Skimmer: Rell Gonzalez DO NRBC Automated NOT REPORTED Normal [facility] Comment on above: Performed By: #### B YVONNE MEJÍA, CDP #### [facility] [address] [place] [address]. [place] [address] Zinc Skimmer: Rell Gonzalez DO Immature granulocytes (Bld) [#/Vol] NOT REPORTED Normal 0 [facility], [place] Comment on above: Performed By: #### B YVONNE MEJÍA, CDP #### [facility] [address] [place] [address] Zinc Skimmer: Rell Gonzalez DO Platelets (Bld) [#/Vol] NOT REPORTED Normal [facility], [place] Comment on above: Performed By: #### B YVONNE MEJÍA, CDP #### [facility] [address] [facility] [place] [address] Zinc Skimmer: Rell Gonzalez DO RBC morphology finding Nom (Bld) NOT REPORTED Normal [facility] [place], [place] Comment on above: Performed By: #### B YVONNE MEJÍA, PATTI #### [facility] [address] [facility] [place] [address] Zinc Skimmer: Rell Gonzalez DO WBC Morphology NOT REPORTED Normal [facility] [place], [place] Comment on above: Performed By: #### B YVONNE MEJÍA, CDP #### [facility] [address] [facility] [place] [address] Zinc Skimmer: Rell Gonzalez DO CT HEAD WO CONTRASTon 2019 CT HEAD WO CONTRAST EXAMINATION: CT OF THE HEAD WITHOUT CONTRAST 03/16/2020 12:18 pm TECHNIQUE: CT of the head was performed without the administration of intravenous contrast. Dose modulation, iterative reconstruction, and/or weight based adjustment of the mA/kV was utilized to reduce the radiation dose to as low as reasonably achievable. COMPARISON: 10/25/2012 HISTORY: ORDERING SYSTEM PROVIDED HISTORY: Fall, DISLA TECHNOLOGIST PROVIDED HISTORY: Fall, DISLA Reason for Exam: fall today down three steps his the back of her head and has frontal headache Acuity: Acute Type of Exam: Initial FINDINGS: BRAIN/VENTRICLES: There is no acute intracranial hemorrhage, mass effect or midline shift. No abnormal extra-axial fluid collection. The hernandez-white differentiation is maintained without evidence of an acute infarct. There is no evidence of hydrocephalus. ORBITS: The visualized portion of the orbits demonstrate no acute abnormality. SINUSES: The visualized paranasal sinuses and mastoid air cells demonstrate no acute abnormality. SOFT TISSUES/SKULL: Soft tissue injury overlying the left frontal bone. IMPRESSION: No acute intracranial abnormality. Interpreted by: Poli Guevara MD Signed by: Poli Guevara MD 03/16/20 Final result Normal [facility] Jimmy, M[facility]pn Incoming Radiant Results From [employer] - 03/16/2020 12:30 PM EDT EXAMINATION: CT OF THE HEAD WITHOUT CONTRAST 03/16/2020 12:18 pm TECHNIQUE: CT of the head was performed without the administration of intravenous contrast. Dose modulation, iterative reconstruction, and/or weight based adjustment of the mA/kV was utilized to reduce the radiation dose to as low as reasonably achievable. COMPARISON: 10/25/2012 HISTORY: ORDERING SYSTEM PROVIDED HISTORY: Fall DISLA TECHNOLOGIST PROVIDED HISTORY: Fall, DISLA Reason for Exam: fall today down three steps his the back of her head and has frontal headache Acuity: Acute Type of Exam: Initial FINDINGS: BRAIN/VENTRICLES: There is no acute intracranial hemorrhage, mass effect or midline shift. No abnormal extra-axial fluid collection. The hernandez-white differentiation is maintained without evidence of an acute infarct. There is no evidence of hydrocephalus. ORBITS: The visualized portion of the orbits demonstrate no acute abnormality. SINUSES: The visualized paranasal sinuses and mastoid air cells demonstrate no acute abnormality. SOFT TISSUES/SKULL: Soft tissue injury overlying the left frontal bone. IMPRESSION: No acute intracranial abnormality. [facility] [place] EXAMINATION: CT OF THE HEAD WITHOUT CONTRAST 03/16/2020 12:18 pm TECHNIQUE: CT of the head was performed without the administration of intravenous contrast. Dose modulation, iterative reconstruction, and/or weight based adjustment of the mA/kV was utilized to reduce the radiation dose to as low as reasonably achievable. COMPARISON: 10/25/2012 HISTORY: ORDERING SYSTEM PROVIDED HISTORY: Eduarda DISLA TECHNOLOGIST PROVIDED HISTORY: Fall, DISLA Reason for Exam: fall today down three steps his the back of her head and has frontal headache Acuity: Acute Type of Exam: Initial FINDINGS: BRAIN/VENTRICLES: There is no acute intracranial hemorrhage, mass effect or midline shift. No abnormal extra-axial fluid collection. The hernandez-white differentiation is maintained without evidence of an acute infarct. There is no evidence of hydrocephalus. ORBITS: The visualized portion of the orbits demonstrate no acute abnormality. SINUSES: The visualized paranasal sinuses and mastoid air cells demonstrate no acute abnormality. SOFT TISSUES/SKULL: Soft tissue injury overlying the left frontal bone. [place] No acute intracrania l abnormality. [place] TROP/MYOGLOBINon 03-16-2020 Interpretation and review of laboratory results Abnormal [place] Myoglobin [Mass/Vol] 504 ng/mL High 25 - 58 ng/mL [place] Troponin, High Sensitivity 10 ng/L 0 - 14 ng/L [place] Comment on above: High Sensitivity Troponin values cannot be compared with other Troponin methodologies. Patients with high levels of Biotin oral intake (i.e >5mg/day) may have falsely decreased Troponin levels. Samples collected within 8 hours of biotin intake may require additional information for diagnosis. Trop/Myoglobinon 03-16-2020 Myoglobin [Mass/Vol] 504 ng/mL High 25-58 [facility] Comment on above: Performed By: #### B YVONNE MEJÍA, PATTI #### [facility] [address] [place] [address] Zinc Skimmer: Rell Gonzalez DO Troponin, High Sens 10 ng/L Normal 0-14 [facility] Comment on above: Result Comment: High Sensitivity Troponin values cannot be compared with other Troponin methodologies. Patients with high levels of Biotin oral intake (i.e >5mg/day) may have falsely decreased Troponin levels. Samples collected within 8 hours of biotin intake may require additional information for diagnosis. Performed By: #### B YVONNE MEJÍA, PATTI #### [facility] [address] [place] [address] Zinc Skimmer: Rell Gonzalez DO Troponin I.cardiac [Mass/Vol] NOT REPORTED Normal [place] Comment on above: Performed By: #### B YVONNE MEJÍA, PATTI #### [facility] [address] [place] [address] Zinc Skimmer: Rell Gonzalez DO Troponin T.cardiac [Mass/Vol] NOT REPORTED Normal <0.03 [place] Comment on above: Performed By: #### B YVONNE MEJÍA, CDP #### [facility] [address] [place] [address] Zinc Skimmer: Rell Gonzalez DO XR CHEST PORTABLEon 03-16-20 20 XR CHEST PORTABLE EXAMINATION: ONE XRAY VIEW OF THE CHEST 03/16/2020 12:25 pm COMPARISON: 10/09/2012 HISTORY: ORDERING SYSTEM PROVIDED HISTORY: Syncope TECHNOLOGIST PROVIDED HISTORY: Syncope Reason for Exam: syncope Acuity: Acute Type of Exam: Initial FINDINGS: Shallow inflation. The cardiomediastinal silhouette is within normal limits. There is no consolidation, pneumothorax or evidence for edema. No evidence for effusion. No acute osseous abnormality is identified. IMPRESSION: No acute airspace disease identified. Interpreted by: Bao Sher MD Signed by: Bao Sher MD 03/16/20 Final result Normal [facility] Jimmy, [facility] Incoming Radiant Results From [employer] - 03/16/2020 12:32 PM EDT EXAMINATION: ONE XRAY VIEW OF THE CHEST 03/16/2020 12:25 pm COMPARISON: 10/09/2012 HISTORY: ORDERING SYSTEM PROVIDED HISTORY: Syncope TECHNOLOGIST PROVIDED HISTORY: Syncope Reason for Exam: syncope Acuity: Acute Type of Exam: Initial FINDINGS: Shallow inflation. The cardiomediastinal silhouette is within normal limits. There is no consolidation, pneumothorax or evidence for edema. No evidence for effusion. No acute osseous abnormality is identified. IMPRESSION: No acute airspace disease identified. [place] EXAMINATION: ONE XRA Y VIEW OF THE CHEST 03/16/2020 12:25 pm COMPARISON: 10/09/2012 HISTORY: ORDERING SYSTEM PROVIDED HISTORY: Syncope TECHNOLOGIST PROVIDED HISTORY: Syncope Reason for Exam: syncope Acuity: Acute Type of Exam: Initial FINDINGS: Shallow inflation. The cardiomediastinal silhouette is within normal limits. There is no consolidation, pneumothorax or evidence for edema. No evidence for effusion. No acute osseous abnormality is identified. [place] No acute airspace disease identified. [place] Vital Signs Date Time Vital Sign Value Performing Clinician Facility 09-23-2023 09:29-0400 Body height 162.56 cm HELP DESK ENGINEER-C Janet Hermosillo Work Phone: [facility] 09-23-2023 09:29-0400 Body mass index (BMI) [Ratio] 30.9 kg/m2 HELP DESK ENGINEER-C Janet Rohit Work Phone: [facility] 09-23-2023 09:29-0400 Body weight 81.64 kg HELP DESK ENGINEER-C Janet Rohit Work Phone: [facility] 2023 12:35-0500 Body height 162.56 cm HELP DESK ENGINEER-C Janet Rohit Work Phone: [facility] 2023 12:35-0500 Body weight 77.11 kg HELP DESK ENGINEER-C Janet Rohit Work Phone: [facility] 07-27-2023 09:43-0500 Diastolic blood pressure 77 mm[Hg] HELP DESK ENGINEER-C Janet Rohit Work Phone: [facility] 07-27-2023 09:43-0500 Heart rate 95 /min HELP DESK ENGINEER-C Janet Rohit Work Phone: [facility] 07-27-2023 09:43-0500 Respiratory rate 16 /min HELP DESK ENGINEER-C Janet Rohit Work Phone: [facility] 07-27-2023 09:43-0500 SaO2% (BldA) [Mass fraction] 91 % HELP DESK ENGINEER-C Janet Rohit Work Phone: [facility] 07-27-2023 09:43-0500 Systolic blood pressure 111 mm[Hg] HELP DESK ENGINEER-C Janet Rohit Work Phone: [facility] 07-27-2023 09:06-0500 Inhaled oxygen flow rate 3 L/min HELP DESK ENGINEER-C Janet Rohit Work Phone: [facility] 07-27-2023 07:58-0500 Body height 162.56 cm HELP DESK ENGINEER-C Janet Rohit Work Phone: [facility] 07-27-2023 07:58-0500 Body weight 77.11 kg HELP DESK ENGINEER-C Janet Rohit Work Phone: [facility] 11-24-2021 16:00-0400 Body height 161.29 cm Charles Dacosta [facility] Other 11-24-2021 16:00-0400 Body mass index (BMI) [Ratio] 29.64 kg/m2 Charles Jensen Other [facility] Other 11-24-2021 16:00-0400 Body weight 77.11 kg Charles Jensen Other [facility] Other 11-03-2021 15:00-0400 Body height 161.29 cm Charles Jensen Other [facility] Other 11-03-2021 15:00-0400 Body mass index (BMI) [Ratio] 29.64 kg/m2 Charles Jensen Other [facility] Other 11-03-2021 15:00-0400 Body weight 77.11 kg Charles Jensen Other [facility] Other 10-02-2021 16:40-0400 Body height 161.29 cm Jaime Riojas Other [facility] Other 10-02-2021 16:40-0400 Body mass index (BMI) [Ratio] 29.99 kg/m2 Jaime Riojas Other [facility] Other 10-02-2021 16:40-0400 Body weight 78.02 kg Jaime Riojas Other [facility] Other 08-25-2021 11:30-0500 Body height 161.29 cm Prabhu Spring Other [facility] Other 08-25-2021 11:30-0500 Body mass index (BMI) [Ratio] 29.99 kg/m2 Prabhu Spring Other [facility] Other 08-25-2021 11:30-0500 Body weight 78.02 kg Prbahu Spring Other [facility] Other 07-01-2021 10:00-0500 Body height 161.29 cm Jaime Riojas Other [facility] Other 07-01-2021 10:00-0500 Body mass index (BMI) [Ratio] 29.99 kg/m2 Jaime Riojas Other [facility] Other 07-01-2021 10:00-0500 Body weight 78.02 kg Jaimekalyn Riojas Other [facility] Other 05-23-2021 11:00-0500 Body height 161.29 cm Jaime Riojas Other [facility] Other 05-23-2021 11:00-0500 Body mass index (BMI) [Ratio] 29.99 kg/m2 Jaime Riojas Other [facility] Other 05-23-2021 11:00-0500 Body weight 78.02 kg Jaime Riojas Other [facility] Other 05-23-2021 11:00-0500 Diastolic blood pressure 69 mm[Hg] Jaime Riojas Other [facility] Other 05-23-2021 11:00-0500 Systolic blood pressure 126 mm[Hg] Jaime Riojas Other [facility] Other 03-16-2020 14:31-0400 BP Diastolic 74 mm[Hg] [facility] [place] 03-16-2020 14:31-0400 BP Systolic 132 mm[Hg] [facility] [place] , [place] 03-16-2020 14:31-0400 Pulse (Heart Rate) 81 /min Janett Manriquez [facility], [place] 03-16-2020 14:31-0400 Pulse Oximetry 94 % Janett Manriquez [facility] , [place] 03-16-2020 14:31-0400 Respiratory Rate 16 /min Janett Manriquez [facility] [place] 03-16-2020 11:34-0400 BMI (Body Mass Index) 32.27 kg/m2 Janett Manriquez [facility], [place] 03-16-2020 11:34-0400 Body Temperature 98.01 [degF] Janett Manriquez [facility] [place] 03-16-2020 11:34-0400 Body weight 85.28 kg Janett Manriquez [facility] , [place] 03-16-2020 11:34-0400 Height 162.6 cm Janett Manriquez [facility] , [place] Encounters Encounter Date Encounter Type Care Provider Facility Start: 09-27-2023 End: 09-27-2023 ambulatory SAMMIE ABBOTT Not Available Start: 09-23-2023 End: 09-23-2023 ambulatory HELP DESK ENGINEER-C Janet Hermosillo Work Phone: [facility] Work Phone: Start: 09-23-2023 End: 09-23-2023 Patient encounter procedure HELP DESK ENGINEER-C Janet Hermosillo Work Phone: [facility] Work Phone: Start: 09-14-2023 End: 09-14-2023 ambulatory Ramu Mancuso Facility:[facility] Start: 09-14-2023 End: 09-14-2023 Patient encounter procedure HELP DESK ENGINEER-C Janet Hermosillo Work Phone: [facility] [place] Work Phone: Start: 09-14-2023 End: 09-14-2023 Patient encounter procedure HELP DESK ENGINEER-C Janet Hermosillo Work Phone: [facility] [place] Work Phone: Start: 2023 End: 2023 ambulatory Ramu Velasquezer Facility:[facility] Start: 2023 End: 2023 Patient encounter procedure HELP DESK ENGINEER-C Janet Hermosillo Work Phone: [facility]MRI [facility] [place] Work Phone: Start: 08-31-2023 End: 08-31-2023 Patient encounter procedure HELP DESK ENGINEER-C Janet Hermosillo Work Phone: [facility] Work Phone: Start: 08-04-2023 End: 08-04-2023 ambulatory Ramu Velasquezer Other [facility] Other Start: 08-04-2023 Office outpatient vi sit 25 minutes Ramu Velasquezer [facility] [place] Start: 08-04-2023 Patient encounter procedure HELP DESK ENGINEER-C Janet Hermosillo Work Phone: [facility]- Start: 07-27-2023 (Procedure) Short Ramu Velasquezartur [facility] Start: 07-27-2023 End: 07-27-2023 ambulatory Ramu Velasquezer Facility:[facility] Start: 07-27-2023 End: 07-27-2023 Admission to same day surgery center HELP DESK ENGINEER-C Janet Hermosillo Work Phone: [facility]Digestive Health Work Phone: Start: 07-27-2023 End: 07-27-2023 ambulatory HELP DESK ENGINEER-C Janet Hermosillo Work Phone: [facility] Work Phone: Start: 07-19-2023 End: 07-19-2023 ambulatory Ramu Velasquezer Other [facility] Other Start: 07-19-2023 Office outpatient vi sit 25 minutes Ramu Velasquezartur [facility] [place] Start: 07-19-2023 End: 07-19-2023 Patient encounter procedure HELP DESK ENGINEER-C Janet Hermosillo Work Phone: [facility] [place] Work Phone: Start: 06-16-2023 End: 06-16-2023 ambulatory Jaime Jesse LUCERO Other [facility] Other Start: 06-16-2023 Office outpatient vi sit 15 minutes Jaime Molina II [facility] Start: 04-16-2023 End: 04-16-2023 ambulatory Janet Tejadae Rohit Facility:[facility] Start: 04-16-2023 End: 04-16-2023 ambulatory HELP DESK ENGINEER-C Janet Hermosillo Work Phone: [facility] Work Phone: Start: 04-16-2023 End: 04-16-2023 Patient encounter procedure HELP DESK ENGINEER-C Janet Arayamer Work Phone: [facility] Start: 10-29-2022 End: 10-30-2022 ambulatory JANET HERMOSILLO Facility:[facility] Start: 10-21-2022 End: 10-22-2022 ambulatory JANET HERMOSILLO Facility:[facility] Start: 08-18-2022 End: 08-18-2022 ambulatory ADALBERTO CARVALHO Facility:[facility] Start: 06-24-2022 End: 06-24-[address] LEONEL MANUEL . Facility:[facility] Start: 03-05-2022 End: 03-06-[address] MARIA VICTORIA SAUNDERS Facility:[facility] Start: 11-24-2021 End: 11-24-2021 ambulatory Charles Jensen Other [facility] Other Start: 11-24-2021 Postop follow up vis it related to original px Charles Jensen [facility] Start: 11-04-2021 End: 11-04-2021 ambulatory Charles Jensen Other [facility] Other Start: 11-04-2021 Telephone encounter Charles PATTERSON [employer] Start: 11-03-2021 End: 11-03-2021 ambulatory Charles Jensen Other [facility] Other Start: 11-03-2021 Encounter for other preprocedural examination Charles Jensen [facility] Start: 11-03-2021 Office outpatient vi sit 15 minutes Charles Jensen [facility] Start: 10-02-2021 End: 10-02-2021 ambulatory Jaime Riojas Other [facility] Other Start: 10-02-2021 Postop follow up vis it related to original px Jaime Riojas [facility] Neurosurgery Start: 08-25-2021 End: 08-25-2021 ambulatory Prabhu Spring Other [facility] Other Start: 08-25-2021 Postop follow up vis it related to original px Prabhu Spring [facility] Start: 08-15-2021 Admission to [facility] Jaime Riojas [facility] Neurosurgery Start: 08-15-2021 End: 08-15-2021 ambulatory Jaime Riojas Other [facility] Other Start: 08-06-2021 End: 08-06-2021 ambulatory Jaime Riojas Other [facility] Other Start: 08-06-2021 Telephone encounter Jaime Riojas [facility] Neurosurgery Start: 07-08-2021 End: 07-08-2021 ambulatory Jaime Riojas Other [facility] Other Start: 07-08-2021 Telephone encounter Jaime Riojas [facility] Neurosurgery Start: 07-01-2021 End: 07-01-2021 ambulatory Jaime Riojas Other [facility] Other Start: 07-01-2021 Office outpatient ne w 45 minutes Jaime Riojas [facility] Neurosurgery Start: 05-23-2021 End: 05-23-2021 ambulatory Jaime Riojas Other [facility] Other Start: 05-23-2021 Office outpatient vi sit 15 minutes Jaime BRADFORD [facility] Neurosurgery Start: 11-27-2020 End: 11-27-2020 Patient encounter procedure João Cruz Work Phone: -[facility] Start: 11-27-2020 Registered Recurring João montanez Work Phone: -Physical Therapy [place] Start: 11-19-2020 End: 11-19-2020 Patient encounter procedure João Cruz Work Phone: -Pre-Surgical Testing Start: 03-18-2020 End: 03-21-2020 Patient encounter procedure [facility] Start: 03-18-2020 End: 03-20-2020 Subsequent hospital visit by physician Kevin Xr Room 4 [facility] Comment on above: Concussion with loss of consciousness of 30 minutes or less, initial encounter Start: 03-16-2020 End: 03-16-2020 Emergency department patient visit [facility] Start: 03-16-2020 End: 03-16-2020 Emergency department patient visit Janett Solorio Jeevan [facility] Comment on above: Closed head injury, initial encounter (Primary Dx) Start: 02-10-2020 End: 02-15-2020 Patient encounter procedure YOVANI Fonseca CASEY [facility] Start: 02-10-2020 End: 02-14-2020 Subsequent hospital visit by physician Zachary Andres Rm 4 [facility] PRE-ADMIT TESTING Procedures Date Procedure Procedure Detail Performing Clinician Start: 09-14-2023 Duplex scan of lower limb veins HELP DESK ENGINEER-C Janet Hermosillo Work Phone: Start: 2023 MRI of lumbar spine with contrast HELP DESK ENGINEER-C Janet Hermosillo Work Phone: Start: 07-27-2023 Injection of local anesthetic into sacroiliac joint HELP DESK ENGINEER-C Janet Hermosillo Work Phone: Start: 04-16-2023 Plain X-ray of right hip HELP DESK ENGINEER-C Janet Hermosillo Work Phone: Start: 11-27-2020 Plain X-ray of left hip João Cruz Work Phone: Start: 03-18-2020 Radex sacrum & coccy x minimum 2 views NORBERT CODEY Start: 03-18-2020 Radex spine cervical 2 or 3 views NORBERT CODEY Start: 03-18-2020 Radex spine lumbosac ral 2/3 views NORBERT CODEY Start: 03-18-2020 Radex sacrum & coccy x minimum 2 views Norbert T Codey Other Phone: Start: 03-18-2020 Radex spine cervical 2 or 3 views Norbert T Codey Other Phone: Start: 03-18-2020 Radex spine lumbosac ral 2/3 views Norbert T Codey Other Phone: Start: 03-16-2020 Radiologic exam ches t single view NORBERT CODEY Start: 03-16-2020 Ct head/brain w/o co ntrast material NORBERT CODEY Start: 03-16-2020 TROP/MYOGLOBIN NORBERT O DEH Start: 03-16-2020 Ecg routine ecg w/le ast 12 lds w/i&r NORBERT CODEY Start: 03-16-2020 INSERT PERIPHERAL IV NE CARRIE CODEY Start: 03-16-2020 Radiologic exam ches t single view Janett R Jeevan Start: 03-16-2020 Ct head/brain w/o co ntrast material Janett R Jeevan Start: 03-16-2020 Basic metabolic pane l calcium total Janett R Jeevan Start: 03-16-2020 Blood count complete auto&auto difrntl wbc Janett R Jeevan Start: 03-16-2020 TROP/MYOGLOBIN Janett R Jeevan Start: 03-16-2020 Ecg routine ecg w/le ast 12 lds w/i&r Janett R Jeevan Start: 02-09-2020 COVID-19 YOVANI HAGAN Plan of Treatment Date Care Activity Detail Author Start: 07-27-2023 [facility] Start: 10-24-2022 Screening for malign ant neoplasm of colon Colon cancer screen colonoscopy [place] Start: 04-04-2021 Lipid panel Lipid screen [place], [place] Start: 03-05-2020 Influenza vaccination Flu vaccine (# 1) [place] Start: 04-02-2018 Screening for malign ant neoplasm of breast Breast cancer screen [place] Start: 2010 Shingles Vaccine (1 of 2) Shingles Vaccine (1 of 2) [place] Start: 2000 Diabetes screen Diabetes screen [place], [place] Start: 1981 Screening for malign ant neoplasm of cervix Cervical cancer screen [place] Start: 09-10-1979 DTaP/Tdap/Td vaccine (1 - Tdap) DTaP/Tdap/Td vaccine (1 - Tdap) [place] Start: 1966 Pneumococcal 0-64 ye ars Vaccine (1 of 1 - PPSV23) Pneumococcal 0-64 years Vaccine (1 of 1 - PPSV23) [place] Start: 1960 Hepatitis C screening Hepatitis C sc reen [place] End: 02-10-2020 COVID-19 COVID-19 Lab Routine Tomorrow AM for 1 Occurrences starting 02/10/2020 until 02/10/2020 [place] Comment on above: Tomorrow AM for 1 Oc currences starting 02/10/2020 until 02/10/2020 End: 03-16-2020 EKG 12 Lead EKG 12 Lead ECG STAT Every 2hr for 2 Occurrences starting 03/16/2020 until 03/16/2020, 1 completed [place] Comment on above: Every 2hr for 2 Occu rrences starting 03/16/2020 until 03/16/2020, 1 completed EKG 12 Lead EKG 12 Lead ECG STAT 03/16/2020 11:50 AM EDT [place] MR Lumbar spine WO a nd W contrast IV [facility] Patient Education Felter Non Gabriella gnostic Block [facility] Work Phone: Patient referral [facility] Work Phone: Immunizations Immunization Date Immunization Notes Care Provider Rufino ramos 08-13-2021 COVID-19 John mcguire Other [facility] 10-12-2020 COVID-19 mRNA-1273 (Moderna) João Cruz Work Phone: [facility] 09-14-2020 COVID-19 mRNA-1273 (Moderna) João Cruz Work Phone: [facility] Payers Date Payer Category Payer [employer] others) [id number] 2023 [employer] ( [employer] others) [id number] 2023 Self-pay [id number] 2017 [employer] ( and others) [id number] 2015 Unknown [id number] 1960 Unknown [id number] [id number] 1960 Unknown [id number] [id number] 1960 Unknown [id number] [id number] 1960 Unknown [id number] [id number] 1960 Unknown [id number] [id number] 1960 Unknown [id number] [id number] 1960 Unknown [id number] [id number] 1960 Unknown [id number] [id number] 1960 Unknown [id number] [id number] 1960 Unknown [id number] [id number] 1960 Unknown [id number] 1959 [employer] ( and others) [id number] [employer] ( and others) [id number] Unknown [id number] Unknown [id number] Unknown [id number] Unknown [id number] Social History Date Type Detail Facility Start: 04-27-2016 End: 07-27-2023 Tobacco smoking status NHIS Former smoker [facility] End: 07-05-1993 History of tobacco use Current smoker [place] Start: 04-27-2016 End: 03-16-2020 Cigarettes smoked current (pack per day) - Reported [place] Start: 04-27-2016 End: 03-16-2020 Tobacco use and exposure Never used [place] Start: 04-27-2016 End: 03-16-2020 Alcohol intake Current drinker of alcohol (finding) [place] Start: 01-19-2013 Alcohol Comment occasionally [place] Sex Assigned At Not on file [place] Exposure to SARS-CoV -2 (event) Not sure [place] Start: 1960 Sex Assigned At Female [facility] Sex Assigned At Sex Assigned At Bir [facility] Other Medical Equipment Procedure Code Equipment Code Equipment Origin al Text Equipment Identifier Dates Arthroplasty, hip, total, anterior approach Acetabular shell [id number] FDA Start: 12-03-2020 Arthroplasty, hip, total, anterior approach Non-constrained polyethylene acetabular liner ()[id number] FDA Start: 12-03-2020 Arthroplasty, hip, total, anterior approach Coated hip femur prosthesis, modular ()[id number] FDA Start: 12-03-2020 Arthroplasty, hip, total, anterior approach Ceramic femoral head prosthesis ()[id number] FDA Start: 12-03-2020 Arthroplasty, hip, total, anterior approach Orthopaedic bone screw, non-bioabsorbable, sterile ()[id number] FDA Start: 12-03-2020 Arthroplasty, hip, total, anterior approach Orthopaedic bone wire ()[id number] FDA Start: 12-03-2020 Goals Date Patient Goal Desired Activity /State Clinical Notes 05-23-2021 to 08-04-2023 Note Date & Type Note Facility 08-04-2023 Evaluation note Encounter Date Diagnosis Assessment Notes Jul, Sacroiliitis (ICD-10 - M46.1) Patients primary complaint today remains severe right lumbar and gluteal pain. She shows notable tenderness over the right sacroiliac joint on exam. Based on recent positive results, as well as location of pain and exam findings, patient is a candidate for a right sacral lateral branch block which we will proceed with. Risks and benefits of procedure explained to patient; patient verbalizes understanding. It was further explained should this provide significant, short term relief we will proceed with a non-pulsed radiofrequency ablation. Anatomy of spine discussed in detail with patient in regards to patients condition. Jul, Trochanteric bursitis (ICD-10 - M70.60) Tolerable at this time following recent trochanteric bursa injection. We will continue to monitor. Jul, Osteoarthritis of right hip (ICD-10 - M16.11) Patient was recently experiencing right hip and groin pain however this has largely resolved following a previous intra-articular steroid injection with orthopedics. We will continue to monitor. Jul, Other chronic pain (ICD-10 - G89.29) Jul, Other Above note written by Jer Sepulveda MA, [employer]. Edited and approved by Dr. Rmau Mancuso MD. [facility] Other 01-15-2024 Evaluation note* Encounter Date Diagnosis Assessment Notes Treatment Notes Treatment Clinical Notes Jul, Sacroiliitis (ICD-10 - M46.1) Patients primary complaint today is severe right lumbar and gluteal pain. She shows notable tenderness over the right sacroiliac joint on exam. Based on location of pain and exam findings, patient is a candidate for a right sacroiliac joint injection which we will proceed with. Risks and benefits of procedure explained to patient; patient verbalizes understanding. Anatomy of spine discussed in detail with patient in regards to patients condition. Jul, Trochanteric bursitis (ICD-10 - M70.60) Patient is also experiencing some pain over the lateral right hip, consistent with trochanteric bursitis. Based on location of pain and exam findings, patient is a candidate for a right trochanteric bursa injection which we will proceed with. Risks and benefits of procedure explained to patient; patient verbalizes understanding. Jul, Osteoarthritis of right hip (ICD-10 - M16.11) Patient was recently experiencing right hip and groin pain however this has largely resolved following a previous intra-articular steroid injection with orthopedics. We will continue to monitor. Jul, Other chronic pain (ICD-10 - G89.29) Jul, Other Above note written by Jer Sepulveda MA, [employer]. Edited and approved by Dr. Ramu Mancuso MD. Medical decision making shows a new problem to me with further workup planned or suggested with the potential for extensive treatment options that were considered with the most applicable given this patient's situation as noted above. Treatment options considered include a combination of physical therapy approaches, pharmacologic management, and interventional procedures. Those most applicable to the patient were discussed at this time. Risk of complications and/or morbidity and mortality is high given that acute and chronic pain poses a threat to life and bodily function if undertreated, poorly treated or with failure to maintain adequate treatment and timely followup. Given the serious and fluctuating nature of pain with extensive consideration for whenever pain changes, there always remains the possibility of prolonged functional impairment requiring constant patient reassessment and high-level medical decision making. The amount and complexity of data reviewed is high given that patient labs, radiology reports, and other test were obtained, reviewed and summarized as applicable from the physician portal and/or outside medical records. Pertinent positive and negative findings were considered in medical decision-making. [facility] Other 12-13-2023 Evaluation note* Encounter Date Diagnosis Assessment Notes Treatment Notes Treatment Clinical Notes Jun, Right hip pain (ICD-10 - M25.551) Jun, Primary osteoarthritis of right hip (ICD-10 - M16.11) Jun, Greater trochanteric bursitis of right hip (ICD-10 - M70.61) Jun, Pain of right sacroiliac joint (ICD-10 - M53.3) Jun, Other In regards to h er right hip osteoarthritis and explained to her again that I think this is very mild based on her x-rays and her MRI. Fortunately it sounds like her groin pain has improved drastically with the intra-articular injection. Unfortunately, her right SI joint seems to be inflamed and her right hip bursa seems to be inflamed as well. I would recommend evaluation by Dr. Mancuso for consideration of right SI joint and right bursa steroid injections. [facility] Other 05-23-2022 Evaluation note* Encounter Date Diagnosis Assessment Notes Treatment Notes Treatment Clinical Notes November, Trigger finger of right thumb (ICD-10 - M65.311) Alessandra returns 1 week s/p right thumb trigger finger release. She is doing great. Her incision is benign and sutures been removed. Her range of motion is pretty much full right now without any active triggering. She is slowly returning to normal activities without issues. She is very happy with where she is at. I will have her follow-up as needed for now. Patient is to continue to exercise the hand/fingers to prevent stiffness. She can f/u prn in the future if needed. November, Other specified postprocedural states (ICD-10 - Z98.890) November, Other See orders for this visit as documented in the electronic medical record. [facility] Other 05-02-2022 Evaluation note* Encounter Date Diagnosis Assessment Notes Treatment Notes Treatment Clinical Notes November, Right hand pain (ICD-10 - M79.641) November, Trigger finger of right thumb (ICD-10 - M65.311) Julia presents with right thumb trigger finger. This was supposedly released years ago but has returned. At this juncture we have discussed the findings and diagnosis as well as personally reviewed appropriate imaging and performed interpretation of related testing and examination with the patient in office today. Prior medical notes from [facility] and history have been reviewed. At this time I would recommend trigger finger release. The finding and diagnosis of trigger finger has been discussed at length with the patient. The mechanism of stenosing tenosynovitis and the effect on smooth tendon glide at the level of the A1 crescencio have been discussed with the patient. Nonoperative treatment including splinting, activity modification and NSAIDs have been discussed with the patient. Cortisone injections have been discussed and offered as well and the risks of fat atrophy, tendon rupture and transient hyperglycemia were discussed and understood. The surgical release of the A1 cresecncio has been discussed along with possible complications and risks including digital nerve injury, bowstringing, wound healing issues, postoperative pain and stiffness and the possibility of the need for therapy. At this time the patient elects to proceed with trigger finger release at this time. At this juncture we have discussed the findings and diagnosis as well as reviewed appropriate imaging and performed interpretation of testing. Surgical intervention is recommended. Prior medical notes and history have been reviewed. Surgical versus non-operative management have been discussed in detail and non-operative management was given as an option. The risks of surgical intervention were given. Pre-operative optimization will be done prior to surgical procedure to limit ann marie-operative risks. I have discussed the planned procedure, how and who performs the procedure, and the personnel involved. Cardiovascular, pulmonary, and other life threatening episodes can occur during surgery although there is a low risk of these happening. Surgical risks including bleeding, neurovascular injury, wound closure problems and infection were discussed. Ann Marie-operative risks including infection, bleeding, wound healing problems, and need for further surgery were discussed. It was discussed that there is a possibility of blood transfusion with any surgical procedure and the risks involved in receiving a blood transfusion. Possibility of, and need for, future bracing or DME use, physical or occupational therapy, mental therapy, rehabilitation, pain management and need for secondary procedures was discussed. I have warned against smoking and the use of tobacco products due to the risks associated with them, in particular, poor healing. I have advised against the manager intermediate use of narcotic pain medication. I have advised to follow all post-operative instructions in order to obtain the best outcome. Informed consent has been verbally affirmed and signed as indicated. The patient has been involved in our cooperative treatment plan and agrees to move forward with treatment at this time. All treatment options as well as risks of the proposed procedure were thoroughly discussed with the patient including bleeding, nerve and vessel injury, infection, persistent pain, stiffness, failure of procedure, mechanical failure, need for further surgery, DVT, as well as risks of anesthesia. Patient has admitted full understanding of these risks and would like to proceed. Discussed with patient to call for off work note November, Pre-op examination (ICD-10 - Z01.818) November, Other See orders for this visit as documented in the electronic medical record. [facility] Other 03-31-2022 Evaluation note* Encounter Date Diagnosis Assessment Notes Treatment Notes Treatment Clinical Notes Sep, Right carpal tunnel syndrome (ICD-10 - G56.01) This patient has good range of motion of her right hand, carpal tunnel symptoms have resolved, and she has done well. Sep, Trigger finger of right thumb (ICD-10 - M65.311) She has apparently a recurrent trigger finger on her right thumb which is easily visible. I will send her to a hand surgeon. Sep, Greater trochanteric bursitis of right hip (ICD-10 - M70.61) She also has tenderness on the right lateral hip which is consistent with trochanteric bursitis on the right. I explained to her the issues [facility] Other 02-21-2022 Evaluation note* Encounter Date Diagnosis Assessment Notes Treatment Notes Treatment Clinical Notes Aug, Left carpal tunnel syndrome (ICD-10 - G56.02) Patient will begin to increase use of her hand, she will still keep it covered and protected to keep it mostly dry and we will see her back in 1 month's time. [facility] Other 12-28-2021 Evaluation note* Encounter Date Diagnosis Assessment Notes Treatment Notes Treatment Clinical Notes Jun, Left carpal tunnel syndrome (ICD-10 - G56.02) I have independently reviewed the EMG of the left upper extremity and the report. On physical exam the patient has a positive Phalen's on the left. She has overall good median nerve strength. She is significantly bothered by carpal tunnel symptoms on a nightly basis and would like decompression she understands the indication operation postop course risk benefits of surgery to include RSD of the nerve infection or incomplete relief of symptoms. Patient would like to proceed with surgical intervention. [facility] Other 11-19-2021 Evaluation note* Encounter Date Diagnosis Assessment Notes Treatment Notes Treatment Clinical Notes May, Left carpal tunnel syndrome (ICD-10 - G56.02) Clinically and by physical exam this patient has a left carpal tunnel syndrome. She is now aware of this and will pay attention to her symptoms; at this point she does not desire surgical decompression. I did refer her for a EMG of the left upper extremity to determine the extent. I will see her back once results are available May, Neck pain (ICD-10 - M54.2) I have independently reviewed the MRI of the cervical spine and the report. 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 Overall canal diameter is adequate without cervical cord compression. She does not have a true radiculopathy. I think her pain would best be treated with pain management and this has been discussed and a referral given. [facility] Other evaluation noteNo assessment information available [facility] noteNo InformationNort [employer] Other evaluation note* Diagnosis Onset Date Resolution Status Lumbar spondylosis with myelopathy acute Other chronic pain acute Sacroiliitis acute Lumbar spondylosis with myelopathy acute Other chronic pain acute Sacroiliitis acute [facility] Work Phone: History general Narrative - Reported* Type Description Date Medical History vitamin B12 deficiency Medical History Hypothyroidism Medical History HTN Medical History acid reflux Medical History Hiatal hernia Medical History Arthritis Medical History degenerative disc disease Surgical History back surgery Surgical History cholecystectomy Surgical History appendectomy Surgical History ureters replanted in bladder Surgical History left knee arthroplasty Surgical History C section Surgical History left total hip 12/03/20 Hospitalization History see above [employer] Other Advance Directives No Advanced Directives Records FoundDocuments on File Type Date Recorded Patient Vegetable Washer Expl anation Advance Directives and Living Will Power of Assistant Executive Housekeeper Latest Code Status on File Code Status Date Activated Date Inactivated Comments Full Code 11/06/2015 11:33 AM 11/08/2015 6:10 PM Documents on File Type Date Recorded Patient Vegetable Washer Expl anation ACP-Advance Directive ACP-Power of Assistant Executive Housekeeper Advance Directive Response Recorded Date/ Time Advance Directives No November 12 10:57am Advance Directive Response Recorded Date/ Time Advance Directives No November 12 9:57am Summary Purpose Family History No Family History Records Found Relationship Condition Age at Onset Recorded Date/T tulio natural son Status post reimplantation of ureter Unkn own father Myocardial infarction Unknown Not Specified Atrial fibrillation Unknown grandparent Malignant neoplasm Unknown Heart disease Unknown Relationship Condition Age at Onset Recorded Date/T tulio natural son Status post reimplantation of ureter Unkn own father Myocardial infarction Unknown Not Specified Atrial fibrillation Unknown grandparent Malignant neoplasm Unknown Heart disease Unknown father Unknown Not Specified Unknown Discharge Instructions * Attachments The following attachments cannot be sent through Care Everywhere. * Head Injury: Closed: General Info (Japanese) documented in this encounter Assessments Diagnosis Closed head injury, initial encounter Diagnosis Concussion with loss of consciousness of 30 minutes or less, initial encounter Chief Complaint and Reason for Visit Chief Complaint Hip pain Chief Complaint Hip pain Left MARIZOL/pre-op Chief Complaint Consult Dr Molina Discuss Rt Si Joint Pain Chief Complaint Consult Dr Molina Discuss Rt Si Joint Pain M47.16 mri results M79.661 - Pain in right lower leg low back pain, mri done 09/09/23 Reason for Visit Lumbar spondylosis w ith myelopathy Other chronic pain Sacroiliitis Lumbar spondylosis with myelopathy Other chronic pain Sacroiliitis Reason for Referral Reason *FU 06/11 Evaluate EMG LUE Diagnosis 1 Left carpal tunnel s yndrome (G56.02) Referral Organization [facility] urosurgery Referring Provider First Name Jaime Referring Provider Last Name Shine Referring Provider Specialty Neurologica l Surgery Referred Organization [facility] Referred Provider José Miguel Bryan Referred Address [address] [place],[id number] Referred Provider Specialty Neurology Referral Priority Routine General Notes Lucinda Infante 11:18:02 AM >Received today. Went to get prior auth forNeurology but stated; Auth Not RequiredThis patient is not enrolled in [facility] so no referral is required for the requested services.Lucinda Infante 05/27/2021 11:25:55 AM >[facility] be [facility] 02:24:04 PM >[facility] request us to fill out their form and attach to Referral and send it to them and they will call patient to schedule. Referral was sent P2P Reason *FU 06/11 Evaluate and Treat Diagnosis 1 Neck pain (M54.2) Referral Organization [facility] urosurgery Referring Provider First Name Jaime Referring Provider Last Name Shine Referring Provider Specialty Neurologica l Surgery Referred Organization [facility] Referred Provider Jr. Lomeli William Referred Address [address] Referred Provider Specialty Pain Medicin e Referral Priority Routine General Notes Lucinda Infante 11:18:47 AM >Received today. Went to get prior auth for Pain Medicine but stated; Auth Not RequiredThis patient is not enrolled in [facility] so no referral is required for the requested services.Lucinda Infante 05/27/2021 11:28:48 AM >Waiting for office notes to be locked [facility] 06/03/2021 02:23:26 PM >Dr. Lomeli's office request us to fill out form and fax referral to them and they will review the referral and call patient. Referral was fax Reason *Waiting for appt Evaluate and Treat Diagnosis 1 Trigger finger of ri ght thumb (M65.311) Referral Organization [facility] u[facility]urgery Referring Provider First Name Jaime Referring Provider Last Name Shine Referring Provider Specialty Neurologica l Surgery Referred Organization [facility] Referred Provider Erica Prasad Referred Address [address] [place],[address] Referred Provider Specialty Hand Surgery Referral Priority Routine General Notes Lucinda Infante 022 04:02:06 PM >Received today. Per [employer] : Auth Not RequiredThis patient is not enrolled in [facility] so no referral is required for the requested services. Referral was sent P2P Additional Source Comments INFORMATION SOURCE (unrecogn ized section and content) DATE [facility] DATE CREATED AUTHOR AUTHOR'S ORGANIZ ATION 03/21/2020 [facility] DATE CREATED AUTHOR AUTHOR'S ORGANIZ ATION 12/11/2022 [facility] DATE CREATED AUTHOR AUTHOR'S ORGANIZ ATION 09/17/2023 [facility] DATE CREATED AUTHOR AUTHOR'S ORGANIZ ATION 09/27/2023 [facility] EPIC Reason for Visit (unrecogniz ed section and content) Reason Comments Fall Loss of Consciousness Goals (unrecognized section and content) Goals may be documented in a n alternate sectionGoals may be documented in an alternate sectionNo InformationNo InformationNo InformationNo InformationNo InformationNo InformationNo InformationNo InformationNo InformationNo InformationGoals may be documented in an alternate sectionNo InformationNo InformationNo InformationNo Information Care Teams (unrecognized sec tion and content) Team Status: Active Member Role Status Dates Janet Hermosillo NP-[facility] Primary Care Provider Active Team Status: Inactive Member Role Status Dates Janet Hermosillo NP-[facility] Primary Care Provider Active Jaime Molina II, MD Attending Provider Active Team Status: Inactive Member Role Status Dates Ramu Mancuso MD Attending Provider Active Sta rt: July 19, 2023 End: July 19, 2023 Team Status: Inactive Member Role Status Dates CHIN Hartman Primary Care Provider Active Start: July 27, 2023 End: July 27, 2023 Ramu Mancuso MD Attending Provider Active Sta rt: July 27, 2023 End: July 27, 2023 Team Status: Active Member Role Status Dates Provider Conversion Attending Provider Active St art: August 04, 2023 Team Status: Inactive Member Role Status Dates CHIN Hartman Primary Care Provider Active Start: August 31, 2023 End: August 31, 2023 Ramu Mancuso MD Attending Provider Active Sta rt: August 31, 2023 End: August 31, 2023 Team Status: Inactive Member Role Status Dates CHIN Hartman Primary Care Provider Active Start: 2023 End: 2023 Ramu Mancuso MD Attending Provider Active Sta rt: 2023 End: 2023 Team Status: Inactive Member Role Status Dates CHIN Hartman Primary Care Provider Active Start: September 14, 2023 End: September 14, 2023 Ramu Mancuso MD Attending Provider Active Sta rt: September 14, 2023 End: September 14, 2023 Team Status: Inactive Member Role Status Dates CHIN Hartman Primary Care Provider Active Start: September 23, 2023 End: September 23, 2023 Jaime Riojas MD Attending Provider Active Star t: September 23, 2023 End: September 23, 2023 FOR RECORDS PERTAINING TO PATIENTS WHO ARE OR HAVE BEEN ENROLLED IN A CHEMICAL DEPENDENCY/SUBSTANCEABUSE PROGRAM, SOME INFORMATION MAY BE OMITTED. This clinical summary was aggregated from multiple sources. Caution should be exercised in using it in the provision of clinical care. This summary normalizes information from multiple sources, and as a consequence, information in this document may materially change the coding, format and clinical context of patient data. In addition, data may be omitted in some cases. CLINICAL DECISIONS SHOULD BE BASED ON THE PRIMARY CLINICAL RECORDS. [facility] [employer] [facility]. provides no warranty or guarantee of the accuracy or completeness of information in this document.
--- NOTE | 2023-10-13 07:30 | CA_ITS ---
[facility] Test Date: 2023-10-13 Pat Name: JULIA CHAVARRIA Department: Room: - Gender: Female Account Retention Representative: : 1960 Requested By: 2050 Order Number: [id number] Reading MD: JARRED BRYAN Interpretive Statements Biphasic doppler waveforms. PVR waveforms with normal upstroke, amplitude and dicrotic notch. Right: - significant pressure gradient between the thigh and calf cuff - normal ELIZABETH Left: - significant pressure gradient between the thigh and calf cuff - normal ELIZABETH Impression: - increased indices (B/L thigh, left calf) consistent with calcified, noncompressible arterial tran, which may underestimate the degree of arterial disease present - normal artrial evaluation of the lower extremities without hemodynamic impairment of the B/L lower extremities at rest (right ELIZABETH 1.12, left ELIZABETH 1.20) Electronically Signed On 10-14-2023 7:04:04 EDT by JARRED BRYAN
== END 2023-10-13 06:33 | disposition home or self-care (01) ==
LOC: CARD 06:32
PROVIDERS: PCP Nurse Practitioner Family; Visit Provider Orthopaedic Surgery
DX: I73.9 Peripheral vascular disease, unspecified (principal); Z01.89 Encounter for other specified special examinations
CPT/HCPCS: 36415; 80053; 80061; 82306; 83036; 83525; 83540; 84436; 84443; 84481; 85025; 93923

== ENCOUNTER 2023-10-13 06:35 | Outpatient (OUT) | payer OTHER, SELFPAY ==
--- OUTSIDE RECORDS SUMMARY | 2023-10-13 06:39 | XMS_ITS | CCD ---
Author Organization [facility] Care Team Providers Care [employer] Dowel Drawing Operator Name Role Phone Codey, Norbert T Primary Care Provider [phone] YOVANI CASEY Referring Unavailable CODEY, NORBERT T Primary Care Unavailable CODEY, NORBERT T Primary Care Unavailable JANETT RODRIGUEZ Attending Unavailable CODEY, NORBERT T Referring Unavailable CODEY, NORBERT T Primary Care Unavailable CODEY, NORBERT T Referring Unavailable CODEY, NORBERT T Primary Care Unavailable Jãoo Cruz Attending Provider [phone] Janet Hermosillo Primary Care Provider [phone] Jaime Riojas Unavailable Prabhu [place] Unavailable Charles Jensen Unavailable DR MARIA VICTORIA SAUNDERS Consulting Unavailable JANET HERMOSILLO Admitting Unavailable JANET HERMOSILLO Attending Unavailable KALEB Larios, DR CASTANEDA Primary Care Unavailable JANET HERMOSILLO Consulting Unavailable ADALBERTO CARVALHO Consulting Unavailable KALEB [...] RohitCHIN shane Janet Mady Primary Care Provider MD Jaime Molina II Attending Provider Jaime Molina II Unavailable Ramu Mancuso Unavailable CHIN Hermosillo Primary Care Provider [phone] MD Ramu Mancuso Attending Provider Ramu Mancuso Attending Unavailable Rohit, Janet Mady [...] Unavailable CHIN Hermosillo Primary Care Provider [phone] MD Ramu Mancuso Attending Provider [phone] PALOM[address] GEORGE C Attending Unavaila roberto carlos PALOMINO JR., GEORGE C Referring Unavaila ble Allergies Allergy Classification Reported Allergen(s) Allergy Type Date of Onset Reaction(s) Facility Sulfonamides (antibiotic) (2 sources) Sulfonamides (Antibiotic) Drug Allergy 0 [facility] (4 sources) Ciprofloxacin Drug Allergy 2 [place] (4 sources) HYDROcodone / Ibuprofen Drug Allergy 2 [place] (4 sources) Penicillins Propensity to adverse reactions to drug 2 [place], [place] (4 sources) Sulfonamides (Antibiotic) Propensity to adverse reactions to drug 2 [place] (4 sources) Clindamycin/Linco mycin Propensity to adverse reactions to drug 2 [place] (15 sources) Sulfacetamide Drug Allergy 4 [facility] (8 sources) Lisinopril Drug Allergy 4 [facility] (1 source) Sulfonamides (Antibiotic) Drug allergy (disorder) [facility] (3 sources) Sulfonamides (Antibiotic); Translations: [Sulfa (Sulfonamide Antibiotics)] Allergy to substance 2 Rash [facility] (1 source) Lisinopril Drug Allergy 4 [facility] Rep[facility] (1 source) Sulfacetamide Drug Allergy 4 [facility] Repository Medications Current Medications Medication Drug Class(es) [...] 2020 11:45am take 1 capsule by mo [facility] twice daily gabapentin (NEURONTIN) 100 MG capsule [...] 2020 12:00am November 19, 2020 12:04pm thyroid (fci) 60 mg oral tablet (16 sources) Start: 02-19-20 End: 07-11-19 take 1 tablet by mouth once daily Thyroid (Pork) ([place] Thyroid) 60 mg tablet Discontinued 90 MG PO Daily February 19, 2020 12:00am July 11, 2021 3:26pm take 1 tablet by mouth once reynaldo y G[employer]ING [employer]OX PERSON Thyroid 90 MG take 1 tablet by [...] 08-18-2022 Episodic Other aftercare (1 source) Other fpc (current) drug therapy; 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] Onset: 08-20-2022 Episodic Other [...] LE RTon US venous duplex LE RT [facility] Main [address] [address] Ultrasound Report Signed Patient: Julia Chavarria MR#: [id number] : 1960 Acct:[id number] Age/Sex: 63 / F ADM Date: 09/14/23 Loc: Room: Type: [facility] CLI Attending Dr: Ramu Mancuso MD Ordering [...] Christopher Subramanian MD09/15/2023 2:44 PM Dictation Location: [place] [address] Tech: Bessiefay Tenorio Transcribed By: AKILAH 09/15/23 1444 Dictated By: Christopher Subramanian MD 09/15/23 1435 Signed By: 09/15/23 1444 Normal [facility] MR lumbar spine wo/w conon 0 09-10-2023 MR lumbar spine wo/w con [facility] Main [address] [address] MRI Report Signed Patient: Julia Chavarria MR#: [id number] : 1960 Acct:[id number] Age/Sex: 62 / F ADM Date: 09/09/23 Loc: Room: Type: [facility] CLI Attending Dr: Ramu Mancuso MD Copies [...] Lilly Carroll M.D.09/10/2023 12:36 PM Dictation Location: [place] [address] Transcribed By: [facility] 09/10/23 1236 Dictated By: Lilly Carroll MD 09/10/23 1213 Signed By: 09/10/23 1236 [facility] Creatinine (Bld) [Mass/Vol]O rdered By: Ramu Mancuso on 2023 Creatinine [Mass/Vol] 1.1 mg/dL 0.6-1.3 [facility] Comment on above: ER/ESD physician is notified/shown all ISTAT results.Critical values may be confirmed by laboratory testing ifdeemed necessary by ER attending doctor. ISTAT XRay CREon 2023 Creatinine [Mass/Vol] 1.1 mg/dL Normal 0.6-1.3 [facility] Comment on above: Result Comment: ER/E SD physician is notified/shown all ISTAT results. Critical values may be confirmed by laboratory testing if deemed necessary by ER attending doctor. Performed By: #### I SCRE #### [facility] [address] [place] [address] ISTAT GFR 56.813 [facility] Comment on above: Result Comment: PERF ORMED BY: [place] [address] PATHOLOGIST PATROL DEPUTY SHERIFF CAROLINE ESCOBAR M.D. Performed By: #### I SCRE #### [address] No Panel InformationOrdered By: Ramu Mancuso on 2023 Bedside Estimated GFR (eGFR) 56.813 [facility] XR hip RT min 2V(w/wo pelvis )*on 04-16-2023 XR hip RT min 2V(w/wo pelvis)* [facility] Main [place] [address] [place] [address] XRay Report Signed Patient: Julia Chavarria MR#: [id number] : 1960 Acct:[id number] Age/Sex: 62 / F ADM Date: 04/16/23 Loc: [facility] Room: Type: [facility] Attending Dr: Jaime Molina II, MD Copies [...] Conde Jr., D.O.04/16/2023 1:20 PM Dictation Location: [place] [address] Transcribed By: [facility] 04/16/23 1320 Dictated By: Bravo Conde Jr DO 04/16/23 1318 Signed By: 04/16/23 1320 [facility] MG MAMM SCREEN 3D BILL CADon 10-29-2022 MG MAMM SCREEN 3D BILL CAD Patient: JULIA CHAVARRIA Exam Date: 10/29/2022 : 1960 Gender:F Ordering : JANET HERMOSILLO [facility] Admission #: [id number] Family : Order #: [id number] CLICK HERE TO VIEW EXAM RADIOLOGY REPORT PROCEDURE: MAMMOGRAM SCREENING 3D BILATERAL CAD COMPARISON: None. INDICATIONS: Screening mammography Calculator Name NCI Breast Cancer Risk Assessment Tool 5 Year Breast Cancer Risk 1.70% Lifetime Breast Cancer Risk 7.70% Personal Breast Cancer No Personal Ovarian Cancer No Treatments None Family Cancers None LOCATION: [facility] BREAST COMPOSITION: Scattered areas fibroglandular density. FINDINGS: [...] MD on 12/01/2022 at 07:07 Normal [facility] INSULINon 10-22-2022 Insulin 8.9 uIU/mL Normal 2.6-24.9 [facility] Comment on above: Performed By: #### I NSULIN #### [facility] [address] [place] [address] Dr. Natalie Sood CBC AUTO DIFFon 10-21-2022 BASO # 0.1 103/ul Normal 0.0-0.1 [facility] Comment on above: Performed By: #### L IPID, TSH, T7, CMP #### [facility] [address] [place] [address] [address] Natalei Sood Basophils/100 WBC (Bld) 0.9 % Normal 0.2-2.0 [facility] Comment on above: Performed By: #### L IPID, TSH, T7, CMP #### [facility] [address] [place] [address] Dr. Natalie Sood EO # 0.2 103/ul Normal 0.0-0.7 [facility] Comment on above: Performed By: #### L IPID, TSH, T7, CMP #### [facility] [address] [place] [address] [address] Natalie Sood Eosinophils/100 WBC (Bld) 3.2 % Normal 0.9-7.0 [facility] Comment on above: Performed By: #### L IPID, TSH, T7, CMP #### [facility] [address] [place] [address] Dr. Natalie Sood Erythrocyte distribution width (RBC) [Ratio] 12.3 % Normal 11.0-15.0 [facility] Comment on above: Performed By: #### L IPID, TSH, T7, CMP #### [facility] [address] [place] [address] Dr. Natalie Sood Hematocrit (Bld) [Volume fraction] 41.4 % Normal 36.0-48.0 [facility] Comment on above: Performed By: #### L IPID, TSH, T7, CMP #### [facility] [address] [place] [address] Dr. Natalie Sood Hemoglobin (Bld) [Mass/Vol] 13.7 g/dL Normal 12.0-16.0 [facility] Comment on above: Performed By: #### L IPID, TSH, T7, CMP #### [facility] [address] [place] [address] Dr. Natalie Sood IG # 0.04 10e3/ul Critically high 0.00-0.03 [facility] Comment on above: Performed By: #### L IPID, TSH, T7, CMP #### [facility] [address] [place] [address] Dr. Natalie Sood IG % 0.6 % Critically high 0.0-0.5 [facility] Comment on above: Performed By: #### L IPID, TSH, T7, CMP #### [facility] [address] [place] [address] Dr. Natalie Sood LYMPH # 2.0 103/ul Normal 1.2-3.8 [facility] Comment on above: Performed By: #### L IPID, TSH, T7, CMP #### [facility] [address] [place] [address] Dr. Natalie Sood Lymphocytes/100 WBC (Bld) 30.7 % Normal 20.5-60.0 [facility] Comment on above: Performed By: #### L IPID, TSH, T7, CMP #### [facility] [address] [place] [address] Dr. Natalie Sood MANUAL DIFF REQ NO Normal [facility] Comment on above: Performed By: #### L IPID, TSH, T7, CMP #### [facility] [address] [place] [address] Dr. Natalie Sood MCH (RBC) [Entitic mass] 31.6 pg Normal 26.7-34.0 [facility] Comment on above: Performed By: #### L IPID, TSH, T7, CMP #### [facility] [address] [place] [address] Dr. Natalie Sood MCHC (RBC) [Mass/Vol] 33.1 g/dL Normal 29.9-35.2 [facility] Comment on above: Performed By: #### L IPID, TSH, T7, CMP #### [facility] [address] [place] [address] Dr. Natalie Sood MCV (RBC) [Entitic vol] 95.6 fL Normal 81.0-99.0 [facility] Comment on above: Performed By: #### L IPID, TSH, T7, CMP #### [facility] [address] [place] [address] Dr. Natalie Sood MONO # 0.6 103/ul Normal 0.3-0.8 [facility] Comment on above: Performed By: #### L IPID, TSH, T7, CMP #### [facility] [address] [place] [address] Dr. Natalie Sood Monocytes/100 WBC (Bld) 9.5 % Normal 1.7-12.0 [facility] Comment on above: Performed By: #### L IPID, TSH, T7, CMP #### [facility] [address] [place] [address] Dr. Natalie Sood NEUT # 3.7 103/ul Normal 1.4-6.5 [facility] Comment on above: Performed By: #### L IPID, TSH, T7, CMP #### [facility] [address] [place] [address] Dr. Natalie Sood Neutrophils/100 WBC (Bld) 55.1 % Normal 43.0-75.0 [facility] Comment on above: Performed By: #### L IPID, TSH, T7, CMP #### [facility] [address] [place] [address] Dr. Natalie Sood Platelet mean volume (Bld) [Entitic vol] 9.8 fL Normal 9.5-13.5 [facility] Comment on above: Performed By: #### L IPID, TSH, T7, CMP #### [facility] [address] [place] [address] Dr. Natalie Sood PLT 293 103/ul Normal 150-450 [facility] Comment on above: Performed By: #### L IPID, TSH, T7, CMP #### [facility] [address] [place] [address] Dr. Natalie Sood RBC 4.33 106/ul Normal 4.20-5.40 [facility] Comment on above: Performed By: #### L IPID, TSH, T7, CMP #### [facility] [address] [place] [address] Dr. Natalie Sood WBC 6.6 103/ul Normal 4.0-11.0 [facility] Comment on above: Performed By: #### L IPID, TSH, T7, CMP #### [facility] [address] [place] [address] Dr. Natalie Sood FREE THYROXINE INDEX T7on FTI 3.36 Normal 1.30-4.50 [facility] Comment on above: Performed By: #### L IPID, TSH, T7, CMP #### [facility] [address] [place] [address] Dr. Natalie Sood T3U 35.0 % Normal 30.0-39.0 [facility] Comment on above: Performed By: #### L IPID, TSH, T7, CMP #### [facility] [address] [place] [address] [address] Natalie Sood T4 [Mass/Vol] 9.60 ug/dL Normal 4.80-13.90 [facility] Comment on above: Performed By: #### L IPID, TSH, T7, CMP #### [facility] [address] [place] [address] [address] Natalie Sood GLYCOHEMOGLOBIN A1Con 2022 ADA RECOMMENDATION SEE BELOW Normal [facility] Comment on above: Result Comment: ADA RECOMMENDED LIMIT 4.0 - 6.0 ADA THERAPEUTIC TARGET < 7.0 ACTION SUGGESTED > 7.0 Performed By: #### A 1C #### [facility] [address] [place] [address] Dr. Natalie Sood Glucose [Mass/Vol] 97 mg/dL Normal [facility] Comment on above: Performed By: #### A 1C #### [facility] [address] [place] [address] Dr. Natalie Sood HbA1c (Bld) [Mass fraction] 5.0 % Normal 4.5-6.2 [facility] Comment on above: Performed By: #### A 1C #### [facility] [address] [place] [address] Dr. Natalie Sood IRONon 10-21-2022 Iron [Mass/Vol] 126.0 ug/dL Normal 50.0-170.0 [facility] Comment on above: Performed By: #### L IPID, TSH, T7, CMP #### [facility] [address] [place] [address] Dr. Natalie Sood LIPID PROFILEon 10-21-2022 CHOL-HDL RATIO NORM SEE BELOW Normal [facility] Comment on above: Result Comment: 3.3 - 4.4 LOW RISK 4.4 - 7.1 AVERAGE RISK 7.1 - 11.0 MODERATE RISK >11.0 HIGH RISK Performed By: #### L IPID, TSH, T7, CMP #### [facility] [address] [place] [address] [address] Natalie Sood Cholesterol [Mass/Vol] 231 mg/dL Critically high <=200 [facility] Comment on above: Performed By: #### L IPID, TSH, T7, CMP #### [facility] [address] [place] [address] [address] Natalie Sood Cholesterol in HDL [Mass/Vol] 59 mg/dL Normal 40-60 [facility] Comment on above: Performed By: #### L IPID, TSH, T7, CMP #### [facility] [address] [place] [address] [address] Natalie Sood Cholesterol in LDL [Mass/Vol] 144.8 mg/dL Normal [facility] Comment on above: Performed By: #### L IPID, TSH, T7, CMP #### [facility] [address] [place] [address] [address] Natalie Sood Cholesterol.total/Chol esterol in HDL [Mass ratio] 3.9 {ratio} Normal [facility] Comment on above: Performed By: #### L IPID, TSH, T7, CMP #### [facility] [address] [place] [address] [address] Natalie Sood HDL NORMAL > or = 60 mg/dl - LO W CARDIOVASCULAR RISK <40 mg/dl - HIGH CARDIOVASCULAR RISK Normal [facility] Comment on above: Performed By: #### L IPID, TSH, T7, CMP #### [facility] [address] [place] [address] [address] Natalie Sood LDL CALC NORMAL SEE BELOW Normal [facility] Comment on above: Result Comment: <100 mg/dl OPTIMAL 100 - 129 mg/dl NEAR OR ABOVE OPTIMAL 130 - 159 mg/dl BORDERLINE HIGH 160 - 189 mg/dl HIGH >190 mg/dl VERY HIGH Performed By: #### L IPID, TSH, T7, CMP #### [facility] [address] [place] [address] [address] Natalie Sood Triglyceride [Mass/Vol] 136 mg/dL Normal <=150 [facility] Comment on above: Performed By: #### L IPID, TSH, T7, CMP #### [facility] [address] [place] [address] Dr. Natalie Sood VLDL CALC 27.2 mg/dL Normal [facility] Comment on above: Performed By: #### L IPID, TSH, T7, CMP #### [facility] [address] [place] [address] Dr. Natalie Sood OCC BLD IMMUNO SCREENon 10-03 OCCULT BLOOD Negative Normal NEGATIVE [facility] Comment on above: Performed By: #### L IPID, TSH, T7, CMP #### [facility] [address] [place] [address] Dr. Natalie Sood PROF 14(COMP METB)on 023 Albumin [Mass/Vol] 4.0 g/dL Normal 3.4-5.0 [facility] Comment on above: Performed By: #### L IPID, TSH, T7, CMP #### [facility] [address] [place] [address] Dr. Natalie Sood Albumin/Globulin [Mass ratio] 1.1 {ratio} Normal [facility] Comment on above: Performed By: #### L IPID, TSH, T7, CMP #### [facility] [address] [place] [address] Dr. Natalie Sood ALP [Catalytic activity/Vol] 73 U/L Normal 46-116 [facility] Comment on above: Performed By: #### L IPID, TSH, T7, CMP #### [facility] [address] [place] [address] Dr. Natalie Sood ALT [Catalytic activity/Vol] 23 U/L Normal 14-59 [facility] Comment on above: Performed By: #### L IPID, TSH, T7, CMP #### [facility] [address] [place] [address] Dr. Natalie Sood Anion gap [Moles/Vol] 15.1 mmol/L Normal [facility] Comment on above: Performed By: #### L IPID, TSH, T7, CMP #### [facility] [address] [place] [address] Dr. Natalie Sood AST [Catalytic activity/Vol] 14 U/L Critically low 15-37 [facility] Comment on above: Performed By: #### L IPID, TSH, T7, CMP #### [facility] [address] [place] [address] [address] Natalie Sood Bilirubin [Mass/Vol] 1.1 mg/dL Critically high 0.2-1.0 [facility] Comment on above: Performed By: #### L IPID, TSH, T7, CMP #### [facility] [address] [place] [address] Dr. Natalie Sood Calcium [Mass/Vol] 9.7 mg/dL Normal 8.5-10.1 [facility] Comment on above: Performed By: #### L IPID, TSH, T7, CMP #### [facility] [address] [place] [address] Dr. Natalie Sood Chloride [Moles/Vol] 106 mmol/L Normal 98-107 [facility] Comment on above: Performed By: #### L IPID, TSH, T7, CMP #### [facility] [address] [place] [address] Dr. Natalie Sood CO2 [Moles/Vol] 27.2 mmol/L Normal 21.0-32.0 [facility] Comment on above: Performed By: #### L IPID, TSH, T7, CMP #### [facility] [address] [place] [address] Dr. Natalie Sood Creatinine [Mass/Vol] 1.00 mg/dL Normal 0.55-1.02 [facility] Comment on above: Performed By: #### L IPID, TSH, T7, CMP #### [facility] [address] [place] [address] [address] Natalie Sood EGFR-AF HONDURAN >60 Normal >=60 [facility] Comment on above: Performed By: #### L IPID, TSH, T7, CMP #### [facility] [address] [place] [address] Dr. Natalie Sood EGFR-NON AF HONDURAN 56 mL/min/1.73m2 Critically low >=60 [facility] Comment on above: Performed By: #### L IPID, TSH, T7, CMP #### [facility] [address] [address] [address] Natalie Sood Globulin (S) [Mass/Vol] 3.6 g/dL Normal [facility] Comment on above: Performed By: #### L IPID, TSH, T7, CMP #### [facility] [address] [address] [address] Natalie Sood Glucose [Mass/Vol] 89 mg/dL Normal 74-106 [facility] Comment on above: Performed By: #### L IPID, TSH, T7, CMP #### [facility] [address] [place] [address] Dr. Natalie Sood Potassium [Moles/Vol] 4.3 mmol/L Normal 3.5-5.1 [facility] Comment on above: Performed By: #### L IPID, TSH, T7, CMP #### [facility] [address] [place] [address] Dr. Natalie Sood Protein [Mass/Vol] 7.6 g/dL Normal 6.4-8.2 [facility] Comment on above: Performed By: #### L IPID, TSH, T7, CMP #### [facility] [address] [place] [address] Dr. Natalie Sood Sodium [Moles/Vol] 144 mmol/L Normal 136-145 [facility] Comment on above: Performed By: #### L IPID, TSH, T7, CMP #### [facility] [address] [place] [address] Dr. Natalie Sood Urea nitrogen [Mass/Vol] 18.0 mg/dL Normal 7.0-18.0 [facility] Comment on above: Performed By: #### L IPID, TSH, T7, CMP #### [facility] [address] [place] [address] Dr. Natalie Sood Urea nitrogen/Creatinine [Mass ratio] 18.0 mg/mg Normal [facility] Comment on above: Performed By: #### L IPID, TSH, T7, CMP #### [facility] [address] [place] [address] Dr. Natalie Sood TSHon 10-21-2022 TSH 0.157 uIU/mL Critically low 0.358-3.740 [facility] Comment on above: Performed By: #### L IPID, TSH, T7, CMP #### [facility] [address] [place] [address] Dr. Natalie Sood VITAMIN B12on 10-21-2022 Cobalamin (Vitamin B12) [Mass/Vol] 1101.0 pg/mL Critically high 193.0-986.0 [facility] Comment on above: Performed By: #### L IPID, TSH, T7, CMP #### [facility] [address] [place] [address] Dr. Natalie Sood VITAMIN D 25 OHon 10-21-2022 VIT D 25-OH 68.0 ng/mL Normal [facility] Comment on above: Performed By: #### L IPID, TSH, T7, CMP #### [facility] [address] [place] [address] Dr. Natalie Sood VIT D RANGES SEE BELOW Normal [facility] Comment on above: Result Comment: <20 ng/mL Vit D deficient 20 - <30 ng/mL Vit D insufficient 30 - 100 ng/mL Vit D sufficient >100 ng/mL Potential Toxicity Performed By: #### L IPID, TSH, T7, CMP #### [facility] [address] [place] [address] Dr. Natalie Sood CBC AUTO DIFFon 08-18-2022 BASO # 0.0 103/ul Normal 0.0-0.1 [facility] Comment on above: Performed By: #### L IPID, TSH, T7, CMP #### [facility] [address] [place] [address] Dr. Natalie Sood Basophils/100 WBC (Bld) 0.2 % Normal 0.2-2.0 [facility] Comment on above: Performed By: #### L IPID, TSH, T7, CMP #### [facility] [address] [place] [address] Dr. Natalie Sood EO # 0.2 103/ul Normal 0.0-0.7 [facility] Comment on above: Performed By: #### L IPID, TSH, T7, CMP #### [facility] [address] [address] [address] Natalie Sood Eosinophils/100 WBC (Bld) 1.0 % Normal 0.9-7.0 [facility] Comment on above: Performed By: #### L IPID, TSH, T7, CMP #### [facility] [address] [address] [address] Natalie Sood Erythrocyte distribution width (RBC) [Ratio] 13.1 % Normal 11.0-15.0 [facility] Comment on above: Performed By: #### L IPID, TSH, T7, CMP #### [facility] [address] [address] [address] Natalie Sood Hematocrit (Bld) [Volume fraction] 44.1 % Normal 36.0-48.0 [facility] Comment on above: Performed By: #### L IPID, TSH, T7, CMP #### [facility] [address] [place] [address] Dr. Natalie Sood Hemoglobin (Bld) [Mass/Vol] 14.6 g/dL Normal 12.0-16.0 [facility] Comment on above: Performed By: #### L IPID, TSH, T7, CMP #### [facility] [address] [address] [address] Natalie Sood IG # 0.11 10e3/ul Critically high 0.00-0.03 [facility] Comment on above: Performed By: #### L IPID, TSH, T7, CMP #### [facility] [address] [address] [address] Natalie Sood IG % 0.7 % Critically high 0.0-0.5 [facility] Comment on above: Performed By: #### L IPID, TSH, T7, CMP #### [facility] [address] [address] [address] Natalie Sood LYMPH # 1.0 103/ul Critically low 1.2-3.8 [facility] Comment on above: Performed By: #### L IPID, TSH, T7, CMP #### [facility] [address] [place] [address] Dr. Natalie Sood Lymphocytes/100 WBC (Bld) 6.1 % Critically low 20.5-60.0 [facility] Comment on above: Performed By: #### L IPID, TSH, T7, CMP #### [facility] [address] [place] [address] Dr. Natalie Sood MANUAL DIFF REQ NO Normal [facility] Comment on above: Performed By: #### L IPID, TSH, T7, CMP #### [facility] [address] [place] [address] Dr. Natalie Sood MCH (RBC) [Entitic mass] 31.1 pg Normal 26.7-34.0 [facility] Comment on above: Performed By: #### L IPID, TSH, T7, CMP #### [facility] [address] [place] [address] Dr. Natalie Sood MCHC (RBC) [Mass/Vol] 33.1 g/dL Normal 29.9-35.2 [facility] Comment on above: Performed By: #### L IPID, TSH, T7, CMP #### [facility] [address] [place] [address] Dr. Natalie Sood MCV (RBC) [Entitic vol] 94.0 fL Normal 81.0-99.0 [facility] Comment on above: Performed By: #### L IPID, TSH, T7, CMP #### [facility] [address] [place] [address] Dr. Natalie Sood MONO # 1.0 103/ul Critically high 0.3-0.8 [facility] Comment on above: Performed By: #### L IPID, TSH, T7, CMP #### [facility] [address] [place] [address] Dr. Natalie Sood Monocytes/100 WBC (Bld) 6.3 % Normal 1.7-12.0 [facility] Comment on above: Performed By: #### L IPID, TSH, T7, CMP #### [facility] [address] [place] [address] Dr. Natalie Sood NEUT # 13.9 103/ul Critically high 1.4-6.5 [facility] Comment on above: Performed By: #### L IPID, TSH, T7, CMP #### [facility] [address] [place] [address] Dr. Natalie Sood Neutrophils/100 WBC (Bld) 85.7 % Critically high 43.0-75.0 [facility] Comment on above: Performed By: #### L IPID, TSH, T7, CMP #### [facility] [address] [place] [address] Dr. Natalie Sood Platelet mean volume (Bld) [Entitic vol] 9.9 fL Normal 9.5-13.5 [facility] Comment on above: Performed By: #### L IPID, TSH, T7, CMP #### [facility] [address] [place] [address] Dr. Natalie Sood PLT 338 103/ul Normal 150-450 [facility] Comment on above: Performed By: #### L IPID, TSH, T7, CMP #### [facility] [address] [place] [address] Dr. Natalie Sood RBC 4.69 106/ul Normal 4.20-5.40 [facility] Comment on above: Performed By: #### L IPID, TSH, T7, CMP #### [facility] [address] [place] [address] Dr. Natalie Sood WBC 16.3 103/ul Critically high 4.0-11.0 [facility] Comment on above: Performed By: #### L IPID, TSH, T7, CMP #### [facility] [address] [place] [address] Dr. Natalie Sood CTA CHEST WO W [...] ADALBERTO CARVALHO Date: 2022-08-18 13:58 Normal [facility] PROF 14(COMP METB)on 023 Albumin [Mass/Vol] 4.4 g/dL Normal 3.4-5.0 [facility] Comment on above: Performed By: #### C BRIAN MEJÍATROPN #### [facility] [address] [address] [address] Natalie Sood Albumin/Globulin [Mass ratio] 1.3 {ratio} Normal [facility] Comment on above: Performed By: #### C KYM HSTROPN #### [facility] [address] [address] [address] Natalie Sood ALP [Catalytic activity/Vol] 86 U/L Normal 46-116 [facility] Comment on above: Performed By: #### C KYM HSTROPN #### [facility] [address] [address] [address] Natalie Sood ALT [Catalytic activity/Vol] 23 U/L Normal 14-59 [facility] Comment on above: Performed By: #### C KYM HSTROPN #### [facility] [address] [address] [address] Natalie Sood Anion gap [Moles/Vol] 13.7 mmol/L Normal [facility] Comment on above: Performed By: #### C MP, HSTROPN #### [facility] [address] [address] [address] Natalie Sood AST [Catalytic activity/Vol] 19 U/L Normal 15-37 [facility] Comment on above: Performed By: #### C MP, HSTROPN #### [facility] [address] [address] [address] Natalie Sood Bilirubin [Mass/Vol] 1.2 mg/dL Critically high 0.2-1.0 [facility] Comment on above: Performed By: #### C MP, HSTROPN #### [facility] [address] [address] [address] Natalie Sood Calcium [Mass/Vol] 9.3 mg/dL Normal 8.5-10.1 [facility] Comment on above: Performed By: #### C MP, HSTROPN #### [facility] [address] [address] [address] Natalie Sood Chloride [Moles/Vol] 105 mmol/L Normal 98-107 [facility] Comment on above: Performed By: #### C MP, HSTROPN #### [facility] [address] [address] [address] Natalie Sood CO2 [Moles/Vol] 26.7 mmol/L Normal 21.0-32.0 [facility] Comment on above: Performed By: #### C MP, HSTROPN #### [facility] [address] [address] [address] Natalie Sood Creatinine [Mass/Vol] 0.97 mg/dL Normal 0.55-1.02 [facility] Comment on above: Performed By: #### C MP, HSTROPN #### [facility] [address] [address] [address] Natalie Sood EGFR-AF HONDURAN >60 Normal >=60 [facility] Comment on above: Performed By: #### C MP, HSTROPN #### [facility] [address] [address] [address] Natalie Sood EGFR-NON AF HONDURAN 58 mL/min/1.73m2 Critically low >=60 [facility] Comment on above: Performed By: #### C MP, HSTROPN #### [facility] [address] [address] [address] Natalie Sood Globulin (S) [Mass/Vol] 3.3 g/dL Normal [facility] Comment on above: Performed By: #### C MP, HSTROPN #### [facility] [address] [address] [address] Natalie Sood Glucose [Mass/Vol] 93 mg/dL Normal 74-106 [facility] Comment on above: Performed By: #### C MP, HSTROPN #### [facility] [address] [address] [address] Natalie Sood Potassium [Moles/Vol] 4.4 mmol/L Normal 3.5-5.1 [facility] Comment on above: Performed By: #### C MP, HSTROPN #### [facility] [address] [place] [address] Dr. Natalie Sood Protein [Mass/Vol] 7.7 g/dL Normal 6.4-8.2 [facility] Comment on above: Performed By: #### C MP, HSTROPN #### [facility] [address] [address] [address] Natalie Sood Sodium [Moles/Vol] 141 mmol/L Normal 136-145 [facility] Comment on above: Performed By: #### C MP, HSTROPN #### [facility] [address] [place] [address] Dr. Natalie Sood Urea nitrogen [Mass/Vol] 24.0 mg/dL Critically high 7.0-18.0 [facility] Comment on above: Performed By: #### C MP, HSTROPN #### [facility] [address] [place] [address] Dr. Natalie Sood Urea nitrogen/Creatinine [Mass ratio] 24.7 mg/mg Normal [facility] Comment on above: Performed By: #### C MP, HSTROPN #### [facility] [address] [place] [address] Dr. Natalie Sood PROTIMEon 08-18-2022 INR Coag (PPP) [Relative time] 0.95 {INR} Normal [facility] Comment on above: Performed By: #### L IPID, TSH, T7, CMP #### [facility] [address] [place] [address] Dr. Natalie Sood INR GUIDELINES SEE BELOW Normal [facility] Comment on above: Result Comment: JEROME RED INR: 2.0 - 3.0 CONDITIONS NOT LISTED BELOW 2.5 - 3.5 FOR PROSTHETIC HEART VALVE REPLACEMENT 2.5 - 3.5 RECURRENT THROMBOSIS Performed By: #### L IPID, TSH, T7, CMP #### [facility] [address] [place] [address] Dr. Natalie Sood PT Coag (PPP) [Time] 10.1 s Normal 9.0-11.6 [facility] Comment on above: Performed By: #### L IPID, TSH, T7, CMP #### [facility] [address] [place] [address] Dr. Natalie Sood PTTon 08-18-2022 aPTT Coag (Bld) [Time] 26.5 s Normal 22.3-36.2 [facility] Comment on above: Performed By: #### L IPID, TSH, T7, CMP #### [facility] [address] [place] [address] Dr. Natalie Sood TROPONIN, HIGH SENSITIVITYon 08-18-2022 HSTROP 5.5 pg/mL Normal 4.0-51.3 [facility] Comment on above: Result Comment: CUT- OFF POINTS HAVE BEEN ESTABLISHED BASED ON THE FOURTH UNIVERSAL DEFINITIONS OF MYOCARDIAL INFARCTION. THE UPPER REFERENCE LIMIT (URL) OF TROPONIN, DEFINED THE 99TH PERCENTILE OF cTnI DISTRIBUTION IN A REFERENCE POPULATION, HAS BEEN CONFIRMED THE DECISION THRESHOLD FOR [place] DIAGNOSIS. Performed By: #### C MP, HSTROPN #### [facility] [address] [place], [place] [address] Dr. Natalie Sood Covid-19 PCR ([facility])on 06-05 SARS-CoV-2 (COVID-19) RNA JENNIE+probe Ql (Unsp spec) Not detected Normal NOT DETECTED [facility] Comment on above: Result Comment: When diagnostic [...] for this test is supported by the [place] of Health and Human Service's declaration that [...] used). Performed By: #### C VDTB #### [facility] [address] [place] [address] Dr. Natalie Sood INFLUENZA A AND B AGon 06-24 [facility] SEE BELOW Normal [facility] Comment on above: Result Comment: Nega tive for Flu A protein angiten. Infection due to Flu A cannot be ruled out. Flu A angiten in the sample may be below the detection limit of the test. Performed By: #### L IPID, TSH, T7, CMP #### [facility] [address] [place] [address] Dr. Natalie [facility]OW Normal [facility] Comment on above: Result Comment: Nega tive for Flu B protein antigen. Infection due to Flu B cannot be ruled out. Flu B antigen in the sample may be below the detection limit of the test. Performed By: #### L IPID, TSH, T7, CMP #### [facility] [address] [address] [address] Natalie Sood INFLUENZA A AG Negative Normal NEGATIVE SEE COMMENT [facility] Comment on above: Performed By: #### L IPID, TSH, T7, CMP #### [facility] [address] [place], [place] [address] Dr. Natalie Sood INFLUENZA B AG Negative Normal NEGATIVE SEE COMMENT [facility] Comment on above: Performed By: #### L IPID, TSH, T7, CMP #### [facility] [address] [address] [address] Natalie Sood INTERNAL CONTROLS Within Normal Limits Normal Wi thin Normal Limits [facility] Comment on above: Performed By: #### L IPID, TSH, T7, CMP #### [facility] [address] [address] [address] ABD/PELVIS WO CONon [...] VICTORIA SAUNDERS Date: 2022-03-05 17:03 Normal [facility] CULTURE URINEon 03-05-2022 CULTURE URINE Culture Observations : MODERATE GROWTH OF MIXED GENITAL CRYSTAL. NO POTENTIAL PATHOGENS SEEN. Normal [facility] Comment on above: Performed By: #### L IPID, TSH, T7, CMP #### [facility] [address] [address] [address] Natalie Sood UA RANDOM W/MICROSCOPICon BACTERIA NONE SEEN Normal NONE SEEN [facility] Comment on above: Performed By: #### U AMIC #### [facility] [address] [place] [address] Dr. Natalie Sood Bilirubin Ql (U) Negative Normal NEGATIVE [facility] Comment on above: Performed By: #### U AMIC #### [facility] [address] [place] [address] Dr. Natalie Sood CAST NONE SEEN Normal NONE SEEN [facility] Comment on above: Performed By: #### U AMIC #### [facility] [address] [place] [address] Dr. Natalie Sood Clarity (U) SL CLOUDY Abnormal CLEAR [facility] Comment on above: Performed By: #### U AMIC #### [facility] [address] [place] [address] Dr. Natalie Sood Color (U) LT. YELLOW Normal YELLOW [facility] Comment on above: Performed By: #### U AMIC #### [facility] [address] [place] [address] Dr. Natalie Sood Crystals LM Nom (Urine sed) NONE SEEN Normal NONE SEEN [facility] Comment on above: Performed By: #### U AMIC #### [facility] [address] [place] [address] Dr. Natalie Sood Epithelial cells LM Ql (Urine sed) RARE Normal NONE SEEN /RARE [facility] Comment on above: Performed By: #### U AMIC #### [facility] [address] [address] [address] Natalie Sood Glucose Ql (U) Negative Normal NEGATIVE [facility] Comment on above: Performed By: #### U AMIC #### [facility] [address] [address] [address] Natalie Sood Hemoglobin Ql (U) Negative Normal NEGATIVE [facility] Comment on above: Performed By: #### U AMIC #### [facility] [address] [address] [address] Natalie Sood Ketones Ql (U) Negative Normal NEGATIVE [facility] Comment on above: Performed By: #### U AMIC #### [facility] [address] [address] [address] Natalie Sood LEUKOCYTES Negative Normal NEGATIVE [facility] Comment on above: Performed By: #### U AMIC #### [facility] [address] [address] [address] Natalie Sood MUCOUS MODERATE Abnormal NONE SEEN [facility] Comment on above: Performed By: #### U AMIC #### [facility] [address] [address] [address] Natalie Sood Nitrite Ql (U) Negative Normal NEGATIVE [facility] Comment on above: Performed By: #### U AMIC #### [facility] [address] [address] [address] Natalie Sood pH (U) 6.0 [pH] Normal 5-9 [facility] Comment on above: Performed By: #### U AMIC #### [facility] [address] [address] [address] Natalie Sood RBC 0-2 Normal 0-2 [facility] Comment on above: Performed By: #### U AMIC #### [facility] [address] [address] [address] Natalie Sood SPEC GRAVITY <=1.005 Abnormal 1.005-<=1.025 [facility] Comment on above: Performed By: #### U AMIC #### [facility] [address] [address] [address] Natalie Sood UA PROTEIN Negative Normal NEGATIVE/ TRACE [facility] Comment on above: Performed By: #### U AMIC #### [facility] [address] [address] [address] Natalie Sood Urobilinogen Qn (U) 0.2 {Carlos'U}/dL Normal 0.2 - 1. 0 [facility] Comment on above: Performed By: #### U AMIC #### [facility] [address] [address] [address] Natalie Sood WBC 0-2 Abnormal NONE SEEN [facility] Comment on above: Performed By: #### U AMIC #### [facility] [address] [address] [address] Natalie Sood Basophils Auto (Bld) [#/Vol] on 11-19-2020 Basophils (Bld) [#/Vol] 0.0 10*3/uL 0.0-0.2 [facility] Basophils/100 WBC Auto (Bld) on 11-19-2020 Basophils/100 WBC (Bld) 0.6 % [facility] Bilirubin Test strip Ql (U)o n 11-19-2020 Bilirubin Ql (U) Negative Negative [facility] Blood hemoglobin measurement (mass/volume)on 11-19-2020 Hemoglobin (Bld) [Mass/Vol] 13.7 g/dL 11.8-15.4 [facility] Blood leukocytes automated c ount (number/volume)on 11-19-2020 WBC (Bld) [#/Vol] 6.7 10*3/uL 4.5-11.0 [facility] Color Auto (U)on 11-19-2020 Color (U) Yellow Yellow [facility] Creatinine and Glomerular fi ltration rate.predicted panel (S/P/Bld)on 11-19-2020 Creatinine [Mass/Vol] 0.86 mg/dL 0.44-1.03 [facility] Eosinophils Auto (Bld) [#/Vo l]on 11-19-2020 Eosinophils (Bld) [#/Vol] 0.1 10*3/uL 0.0-0.45 [facility] Eosinophils/100 WBC Auto (Bl d)on 11-19-2020 Eosinophils/100 WBC (Bld) 1.0 % [facility] Erythrocyte distribution wid th Auto (RBC) [Ratio]on 11-19-2020 Erythrocyte distribution width (RBC) [Ratio] 12.2 % 11.9-15.3 [facility] Estimated glomerular filtrat ion rate (GFR) non- Americanon 11-19-2020 GFR/1.73 sq M.predicted among non-blacks MDRD (S/P/Bld) [Vol rate/Area] > 60 mL/Min [facility] Hematocrit Auto (Bld) [Volum e fraction]on 11-19-2020 Hematocrit (Bld) [Volume fraction] 39.8 % 34.0-46.4 [facility] Ketones Auto test strip (U) [Mass/Vol]on 11-19-2020 Ketones (U) [Mass/Vol] Negative Negative Fi [facility] - Hematology and Cell countson 11-19-2020 Nucleated RBC/100 WBC (Bld) [Ratio] 0.2 % 0-0.5 [facility] Lymphocytes Auto (Bld) [#/Vo l]on 11-19-2020 Lymphocytes (Bld) [#/Vol] 2.1 10*3/uL 1.00-4.8 [facility] Lymphocytes/100 WBC Auto (Bl d)on 11-19-2020 Lymphocytes/100 WBC (Bld) 31.5 % [facility] MCH Auto (RBC) [Entitic mass ]on 11-19-2020 MCH (RBC) [Entitic mass] 32.0 pg 24.7-34.3 [facility] MCHC Auto (RBC) [Mass/Vol]on 11-19-2020 MCHC (RBC) [Mass/Vol] 34.4 g/dL 32.0-35.0 [facility] MCV Auto (RBC) [Entitic vol] on 11-19-2020 MCV (RBC) [Entitic vol] 93.1 fL 80-100 [facility] Monocytes Auto (Bld) [#/Vol] on 11-19-2020 Monocytes (Bld) [#/Vol] 0.5 10*3/uL 0.0-0.8 [facility] Monocytes/100 WBC Auto (Bld) on 11-19-2020 Monocytes/100 WBC (Bld) 8.1 % [facility] Neutrophils Auto (Bld) [#/Vo l]on 11-19-2020 Neutrophils (Bld) [#/Vol] 3.9 10*3/uL 1.8-7.7 [facility] Neutrophils/100 WBC Auto (Bl d)on 11-19-2020 Neutrophils/100 WBC (Bld) 58.8 % [facility] Nitrite Test strip Ql (U)on 11-19-2020 Nitrite Ql (U) Negative Negative [facility] No Panel Informationon 11-19 Estimated GFR () > 60 mL/Min [facility] Comment on above: GFR estimated refere nce range: According to KDOQI guidelines, <60 ml/min/1.73m2 is sufficient to diagnose a patient with chronic kidney disease. Pharmacy Creatinine Clearance (Chem N/A [facility] Platelet mean volume Auto (B ld) [Entitic vol]on 11-19-2020 Platelet mean volume (Bld) [Entitic vol] 8.0 fL 6.3-10.7 [facility] Platelets Auto (Bld) [#/Vol] on 11-19-2020 Platelets (Bld) [#/Vol] 339 10*3/uL 150-450 [facility] Protein Auto test strip (U) [Mass/Vol]on 11-19-2020 Protein (U) [Mass/Vol] Negative [facility] RBC Auto (Bld) [#/Vol]on RBC (Bld) [#/Vol] 4.28 10*6/uL 3.60-5.00 [facility] Serum or plasma calcium tania urement (mass/volume)on 11-19-2020 Calcium [Mass/Vol] 10.2 mg/dL 8.2-10.2 [facility] Serum or plasma chloride parvin surement (moles/volume)on 11-19-2020 Chloride [Moles/Vol] 100 mmol/L 95-114 [facility] Serum or plasma glucose tania urement (mass/volume)on 11-19-2020 Glucose [Mass/Vol] 91 mg/dL 70-100 [facility] Comment on above: ADA recommended refe rence rangeRandom Glucose Reference Range is dependent on time and content of last meal. Glucose of more than 200 mg/dL in a nonstressed, ambulatory subject supports the diagnosis of Diabetes Mellitus. Serum or plasma potassium me asurement (moles/volume)on 11-19-2020 Potassium [Moles/Vol] 4.1 mmol/L 3.5-5.1 [facility] Serum or plasma sodium measu rement (moles/volume)on 11-19-2020 Sodium [Moles/Vol] 139 mmol/L 136-146 [facility] Serum or plasma total carbon dioxide measurement (moles/volume)on 11-19-2020 CO2 [Moles/Vol] 27.6 mmol/L 22.0-30.0 [facility] Serum or plasma urea nitroge n measurement (mass/volume)on 11-19-2020 Urea nitrogen [Mass/Vol] 9 mg/dL 9-23 [facility] Specific gravity Auto test s trip (U) [Rel density]on 11-19-2020 Specific gravity (U) [Rel density] 1.009 1.001-1.030 [facility] Urine clarity by refractomet ry automatedon 11-19-2020 Clarity Refractometry automated (U) Clear Clear [facility] Urine glucose measurement by automated test strip (mass/volume)on 11-19-2020 Glucose Auto test strip (U) [Mass/Vol] Normal mg/dL Normal [facility] Urine hemoglobin detection b y automated test stripon 11-19-2020 Hemoglobin Auto test strip Ql (U) Negative Negative [facility] Urine leukocyte esterase det ection by automated test stripon 11-19-2020 Leukocyte esterase Auto test strip Ql (U) Negative Negative [facility] Urobilinogen Auto test strip (U) [Mass/Vol]on 11-19-2020 Urobilinogen (U) [Mass/Vol] Normal mg/dL Normal [facility] pH Auto test strip (U)on pH (U) 7.5 [pH] 5.0-9.0 [facility] Otheron 03-18-2020 1. Lumbar spine: No evidence of acute compression fracture or malalignment. Severe multilevel degenerative changes. 2. Sacrum/coccyx: No acute osseous abnormality. [facility] [place] EXAMINATION: THREE XRAY VIEWS OF THE SACRUM/COCCYX; [...] joints are symmetric. Sacrococcygeal alignment is stable. [place], [place] Jimmy, Mhpn Incoming Radiant Results From [employer] - 03/18/2020 4:50 PM EDT EXAMINATION: THREE [...] changes. 2. Sacrum/coccyx: No acute osseous abnormality. [facility] XR CERVICAL SPINE (2-3 VIEWS )on 03-18-2020 [...] Conde Jr., DO 03/18/20 Final result Normal [facility] 1. No acute bony process. 2. Straightening of the normal cervical lordosis which may relate to muscle spasm. 3. Moderate spondylosis C4 through C7. [place], [place] EXAMINATION: 4 XRAY VIEWS OF THE [...] tissue swelling. Visualized lung apices are clear. [place], [place] Jimmy, Mhpn Incoming Radiant Results From [employer] - 03/18/2020 12:37 PM EDT EXAMINATION: 4 [...] spasm. 3. Moderate spondylosis C4 through C7. [facility] [place] XR LUMBAR SPINE (2-3 VIEWS)o n 03-18-2020 [...] Francheska Box DO 03/18/20 Final result Normal [facility] XR SACRUM COCCYX (MIN 2 VIEW S)on [...] Francheska Box DO 03/18/20 Final result Normal [facility] Basic Metabolic Panelon 03-05 Anion gap [Moles/Vol] 13 mmol/L 9 - 17 mmol/L [place], [place] Calcium [Mass/Vol] 9.5 mg/dL 8.6 - 10. 4 mg/dL [place] Chloride [Moles/Vol] 101 mmol/L 98 - 10 7 mmol/L [place] CO2 [Moles/Vol] 24 mmol/L 20 - 31 mmol/L [place] Creatinine [Mass/Vol] 0.96 mg/dL High 0.5 - 0.9 mg/dL [place] GFR >60 >60 mL/min [place], [place] GFR Non- 60 mL/min Low >60 [place] GFR/1.73 sq M predicted among non-blacks MDRD (S/P/Bld) [Vol rate/Area] NOT REPORTED [place] GFR/1.73 sq M predicted among non-blacks MDRD (S/P/Bld) [Vol rate/Area] [place] Comment on above: Average GFR for 50-5 9 years old: 93 mL/min/1.73sq m Chronic Kidney Disease: <60 mL/min/1.73sq m Kidney failure: <15 mL/min/1.73sq m eGFR calculated using average adult body mass. Additional eGFR calculator available at: http://www.CultureMap/multiple_crcl_2012.htm Glucose [Mass/Vol] 97 mg/dL 70 - 99 mg/dL [place], [place] Interpretation and review of laboratory results Abnormal [place] Potassium [Moles/Vol] 3.9 mmol/L 3.7 - 5.3 mmol/L [place] Sodium [Moles/Vol] 138 mmol/L 135 - 144 mmol/L [place] Urea nitrogen [Mass/Vol] 14 mg/dL 6 - 20 mg/dL [place] Basic Metabolic Profon 03-16 (cont.) Normal [facility] Comment on above: Result Comment: Aver age GFR for 50-59 years old: 93 mL/min/1.73sq m Chronic Kidney Disease: <60 mL/min/1.73sq m Kidney failure: <15 mL/min/1.73sq m eGFR calculated using average adult body mass. Additional eGFR calculator available at: http://www.CultureMap/multiple_crcl_2012.htm Performed By: #### B YVONNE MEJÍA, CDP #### [facility] [address] [facility] [place] [address] Load Builder: Rell Gonzalez DO Anion gap [Moles/Vol] 13 mmol/L Normal 9-17 [facility] Comment on above: Performed By: #### B YVONNE MEJÍA, CDP #### [facility] [address] [facility] [place] [address] Load Builder: Rell Gonzalez DO Calcium [Mass/Vol] 9.5 mg/dL Normal 8.6-10.4 [facility] Comment on above: Performed By: #### B YVONNE MEJÍA, CDP #### [facility] [address] [address] Load Builder: Rell Gonzalez DO Chloride [Moles/Vol] 101 mmol/L Normal 98-107 [facility] Comment on above: Performed By: #### B YVONNE MEJÍA, CDP #### [facility] [address] [place] [address] Load Builder: Rell Gonzalez DO CO2 [Moles/Vol] 24 mmol/L Normal 20-31 [facility] Comment on above: Performed By: #### B YVONNE MEJÍA, CDP #### [facility] [address] [place] [address] Load Builder: Rell Gonzalez DO Creatinine [Mass/Vol] 0.96 mg/dL High 0.50-0.90 [facility] Comment on above: Performed By: #### B YVONNE MEJÍA, CDP #### [facility] [address] [place] [address] Load Builder: Rell Gonzalez DO GFR, Amer >60 Normal >60 [facility] Comment on above: Performed By: #### B YVONNE MEJÍA, CDP #### [facility] [address] [place] [address] Load Builder: Rell Gonzalez DO GFR,non Amer 60 mL/min Low >60 [facility] Comment on above: Performed By: #### B KYM, ECBRADY, CDP #### [facility] [address] [place] [address] Load Builder: Rell Gonzalez DO Glucose [Mass/Vol] 97 mg/dL Normal 70-99 [facility] Comment on above: Performed By: #### B YVONNE MEJÍA, PATTI #### [facility] [address] [place] [address] Load Builder: Rell Gonzalez DO Potassium [Moles/Vol] 3.9 mmol/L Normal 3.7-5.3 [facility] Comment on above: Performed By: #### B YVONNE MEJÍA, PATTI #### [facility] [address] [facility] [place] [address] Load Builder: Rell Gonzalez DO Sodium [Moles/Vol] 138 mmol/L Normal 135-144 [facility] Comment on above: Performed By: #### B YVONNE MEJÍA, PATTI #### [facility] [address] [facility] [place] [address] Load Builder: Rell Gonzalez DO Urea nitrogen [Mass/Vol] 14 mg/dL Normal 6-20 [facility] Comment on above: Performed By: #### B YVONNE MEJÍA, PATTI #### [facility] Formerly named [facility] [address] [facility] [place] [address] Load Builder: Rell Gonzalez DO Staging: NOT REPORTED Normal [facility] Comment on above: Performed By: #### B YVONNE MEJÍA, PATTI #### [facility] [address] [facility] [place] [address] Load Builder: Rell Gonzalez DO Bun/Cre Ratio NOT REPORTED Normal 9-20 [facility] [place] Comment on above: Performed By: #### B YVONNE MEJÍA, CDP #### [facility] [address] [facility] [place] [address] Load Builder: Rell Gonzalez DO CBC Auto Differentialon 03-05 Absolute Bands # 0.10 [place] Bands 1 % 0 - 10 % [place] Basophils (Bld) [#/Vol] 0.00 10*3/uL [place] Basophils/100 WBC (Bld) 0 % 0 - 2 % [place] Differential Type NOT REPORTED [place] Eosinophils (Bld) [#/Vol] 0.19 10*3/uL [place] Eosinophils/100 WBC (Bld) 2 % 0 - 4 % [place] Erythrocyte distribution width (RBC) [Ratio] 12.6 % 11.5 - 14.9 % [place] Hematocrit (Bld) [Volume fraction] 39.6 % 36 - 46 % [place] Hemoglobin (Bld) [Mass/Vol] 13.5 g/dL 12 - 16 g/dL [place] Interpretation and review of laboratory results Abnormal [place] Lymphocytes (Bld) [#/Vol] 2.19 10*3/uL [place] Lymphocytes/100 WBC (Bld) 23 % Low 24 - 44 % [place] MCH (RBC) [Entitic mass] 31.3 pg 26 - 34 pg [place] MCHC (RBC) [Mass/Vol] 34.1 g/dL 31 - 37 g/dL [place] MCV (RBC) [Entitic vol] 91.7 fL 80 - 100 fL [place] Metamyelocytes 2 % High 0 [place], [place] Metamyelocytes Absolute 0.19 High 0 k/uL [place] Monocytes (Bld) [#/Vol] 0.38 10*3/uL [place] Monocytes/100 WBC (Bld) 4 % 1 - 7 % [place] Morphology Reginald (Bld) [Interp] Normal [place] Platelet mean volume (Bld) [Entitic vol] 8.2 fL 6 - 12 fL [place] Platelets (Bld) [#/Vol] 250 10*3/uL [place] RBC (Bld) [#/Vol] 4.32 10*6/uL 4 - 5.2 m/uL [place] Segmented neutrophils/100 WBC (Bld) 68 % High 36 - 66 % [place] Segs Absolute 6.45 [place], [place] WBC (Bld) [#/Vol] NOT REPORTED per 100 WBC [place] WBC (Bld) [#/Vol] 9.5 10*3/uL [place] CBC with Diffon 03-16-2020 Abs. Bands 0.10 k/uL Normal 0.0-1.0 [facility] Comment on above: Performed By: #### B YVONNE MEJÍA, PATTI #### [facility] Former[facility] [place] [address] Load Builder: Rell Gonzalez DO Abs. Basophil 0.00 k/uL Normal 0.0-0.2 [facility] Comment on above: Performed By: #### B YVNONE MEJÍA, CDP #### [facility] [address] [facility] [place] [address] Load Builder: Rell Gonzalez DO Abs. Grubbs 0.19 k/uL High 0 [facility] Comment on above: Performed By: #### B YVONNE MEJÍA, PATTI #### [facility] Former[facility] named [facility]0 [facility] [place] [address] Load Builder: Rell Gonzalez DO Abs.Neutrophil (Seg) 6.45 k/uL Normal 1.3-9.1 [facility] Comment on above: Performed By: #### B YVONNE MEJÍA, PATTI #### [facility] Formerly named [facility] [place] [address] Load Builder: Rell Gonzalez DO Bands 1 % Normal 0-10 [facility] Comment on above: Performed By: #### B YVONNE MEJÍA, CDP #### [facility] [address] [facility] [place] [address] Load Builder: Rell Gonzalez DO Basophils/100 WBC (Bld) 0 % Normal 0-2 [facility] Comment on above: Performed By: #### B YVONNE MEJÍA, CDP #### [facility] [address] [facility] [place] [address] Load Builder: Rell Gonzalez DO Eosinophils (Bld) [#/Vol] 0.19 10*3/uL Normal 0.0-0.4 [facility] Comment on above: Performed By: #### B YVONNE MEJÍA, CDP #### [facility] Formerly named [facility]0 [facility] [place] [address] Load Builder: Rell Gonzalez DO Eosinophils/100 WBC (Bld) 2 % Normal 0-4 [facility] Comment on above: Performed By: #### B YVONNE MEJÍA, CDP #### [facility] [address] [facility] [place] [address] Load Builder: Rell Gonzalez DO Lymphocytes (Bld) [#/Vol] 2.19 10*3/uL Normal 1.0-4.8 [facility] Comment on above: Performed By: #### B YVONNE MEJÍA, CDP #### [facility] Former[facility] named [facility] [place] [address] Load Builder: Rell Gonzalez DO Lymphocytes/100 WBC (Bld) 23 % Low 24-44 [facility] Comment on above: Performed By: #### B KYM ECBRADY, CDP #### [facility] Formerly named [facility] [place] [address] Load Builder: Rell Gonzalez DO Metamyelocytes/100 WBC (Bld) 2 % High 0 [facility] Comment on above: Performed By: #### B KYM ECBRADY, CDP #### [facility] [address] [facility] [place] [address] Load Builder: Rell Gonzalez DO Monocytes (Bld) [#/Vol] 0.38 10*3/uL Normal 0.1-1.3 [facility] Comment on above: Performed By: #### B YVONNE MEJÍA, CDP #### [facility] [address] [facility] [place] [address] Load Builder: Rell Gonzalez DO Monocytes/100 WBC (Bld) 4 % Normal 1-7 [facility] Comment on above: Performed By: #### B YVONNE MEJÍA, CDP #### [facility] Formerly named [facility] [place] [address] Load Builder: Rell Gonzalez DO Morphology Reginald (Bld) [Interp] Normal Normal [facility] Comment on above: Performed By: #### B YVONNE MEJÍA, CDP #### [facility] [address] [facility] [place] [address] Load Builder: Rell Gonzalez DO Neutrophil (Seg) 68 % High 36-66 [facility] Comment on above: Performed By: #### B YVONNE MEJÍA, CDP #### [facility] Formerly named [facility] [place] [address] Load Builder: Rell Gonzalez DO Erythrocyte distribution width (RBC) [Ratio] 12.6 % Normal 11.5-14.9 [facility] Comment on above: Performed By: #### B YVONNE MEJÍA, CDP #### [facility] Formerly named [facility]0 [facility] [place] [address] Load Builder: Rell Gonzalez DO Hematocrit (Bld) [Volume fraction] 39.6 % Normal 36-46 [facility] Comment on above: Performed By: #### B YVONNE MEJÍA, CDP #### [facility] [address] [place] [address] Load Builder: Rell Gonzalez DO Hemoglobin (Bld) [Mass/Vol] 13.5 g/dL Normal 12.0-16.0 [facility] Comment on above: Performed By: #### B YVONNE MEJÍA, PATTI #### [facility] [address] [place] [address] Load Builder: Rell Gonzalez DO MCH (RBC) [Entitic mass] 31.3 pg Normal 26-34 [facility] Comment on above: Performed By: #### B YVONNE MEJÍA, CDP #### [facility] [address] [place] [address] Load Builder: Rell Gonzalez DO MCHC (RBC) [Mass/Vol] 34.1 g/dL Normal 31-37 [facility] Comment on above: Performed By: #### B YVONNE MEJÍA, PATTI #### [facility] [address] [place] [address] Load Builder: Rell Gonzalez DO MCV (RBC) [Entitic vol] 91.7 fL Normal 80-100 [facility] Comment on above: Performed By: #### B YVONNE MEJÍA, PATTI #### [facility] [address] [place] [address] Load Builder: Rell Gonzalez DO Platelet mean volume (Bld) [Entitic vol] 8.2 fL Normal 6.0-12.0 [facility] Comment on above: Performed By: #### B YVONNE MEJÍA, CDP #### [facility] [address] [place] [address] Load Builder: Rell Gonzalez DO Platelets (Bld) [#/Vol] 250 10*3/uL Normal 150-450 [facility] Comment on above: Performed By: #### B MP, ECENZ, CDP #### [facility] [address] [facility] [place] [address] Load Builder: Rell Gonzalez DO RBC (Bld) [#/Vol] 4.32 10*6/uL Normal 4.0-5.2 [facility] Comment on above: Performed By: #### B YVONNE MEJÍA, CDP #### [facility] [address] [facility] [place] [address] Load Builder: Rell Gonzalez DO WBC (Bld) [#/Vol] 9.5 10*3/uL Normal 3.5-11.0 [facility] Comment on above: Performed By: #### B YVONNE MEJÍA, CDP #### [facility] [address] [place] [address]. [place] [address] Load Builder: Rell oGnzalez DO Abs.Imm.Granulocyte NOT REPORTED Normal 0.00-0.30 [facility] Comment on above: Performed By: #### B YVONNE MJEÍA, CDP #### [facility] [address] [place] [address]. [place] [address] Load Builder: Rell Gonzalez DO Auto Diff Performed NOT REPORTED Normal [facility] Comment on above: Performed By: #### B YVONNE MEJÍA, CDP #### [facility] [address] [place] [address]. [place] [address] Load Builder: Rell Gonzalez DO NRBC Automated NOT REPORTED Normal [facility] Comment on above: Performed By: #### B YVONNE MEJÍA, CDP #### [facility] [address] [place] [address]. [place] [address] Load Builder: Rell Gonzalez DO Immature granulocytes (Bld) [#/Vol] NOT REPORTED Normal 0 [facility], [place] Comment on above: Performed By: #### B YVONNE MEJÍA, CDP #### [facility] [address] [place] [address] Load Builder: Rell Gonzalez DO Platelets (Bld) [#/Vol] NOT REPORTED Normal [facility], [place] Comment on above: Performed By: #### B YVONNE MEJÍA, CDP #### [facility] [address] [facility] [place] [address] Load Builder: Rell Gonazlez DO RBC morphology finding Nom (Bld) NOT REPORTED Normal [facility] [place], [place] Comment on above: Performed By: #### B YVONNE MEJÍA, PATTI #### [facility] [address] [facility] [place] [address] Load Builder: Rell Gonzalez DO WBC Morphology NOT REPORTED Normal [facility] [place], [place] Comment on above: Performed By: #### B YVONNE MEJÍA, CDP #### [facility] [address] [facility] [place] [address] Load Builder: Rell Gonzalez DO CT HEAD WO CONTRASTon [...] Poli Guevara MD 03/16/20 Final result Normal [facility] Jimmy, Mhpn Incoming Radiant Results From [facility] - 03/16/2020 12:30 PM EDT EXAMINATION: CT [...] frontal bone. IMPRESSION: No acute intracranial abnormality. [facility] [place] EXAMINATION: CT OF THE HEAD WITHOUT CONTRAST [...] tissue injury overlying the left frontal bone. [place] No acute intracrania l abnormality. [place] TROP/MYOGLOBINon 03-16-2020 Interpretation and review of laboratory results Abnormal [place] Myoglobin [Mass/Vol] 504 ng/mL High 25 - 58 ng/mL [place] Troponin, High Sensitivity 10 ng/L 0 - 14 ng/L [place] Comment on above: High Sensitivity Troponin values cannot be compared with other Troponin methodologies. Patients with high levels of Biotin oral intake (i.e >5mg/day) may have falsely decreased Troponin levels. Samples collected within 8 hours of biotin intake may require additional information for diagnosis. Trop/Myoglobinon 03-16-2020 Myoglobin [Mass/Vol] 504 ng/mL High 25-58 [facility] Comment on above: Performed By: #### B YVONNE MEJÍA, PATTI #### [facility] [address] [facility] [place] [address] Load Builder: Rell Gonzalez DO Troponin, High Sens 10 ng/L Normal 0-14 [facility] Comment on above: Result Comment: High Sensitivity Troponin values cannot be compared with other Troponin methodologies. Patients with high levels of Biotin oral intake (i.e >5mg/day) may have falsely decreased Troponin levels. Samples collected within 8 hours of biotin intake may require additional information for diagnosis. Performed By: #### B YVONNE MEJÍA, PATTI #### [facility] [address] [facility] [place] [address] Load Builder: Rell Gonzalez DO Troponin I.cardiac [Mass/Vol] NOT REPORTED Normal [place] Comment on above: Performed By: #### B YVONNE MEJÍA, PATTI #### [facility] [address] [facility] [place] [address] Load Builder: Rell Gonzalez DO Troponin T.cardiac [Mass/Vol] NOT REPORTED Normal <0.03 [place] Comment on above: Performed By: #### B YVONNE MEJÍA, CDP #### [facility] [address] [place] [address] Load Builder: Rell Gonzalez DO XR CHEST PORTABLEon 03-16-20 [...] Bao Sher MD 03/16/20 Final result Normal [facility] Jimmy, M[facility]pn Incoming Radiant Results From [facility] - 03/16/2020 12:32 PM EDT EXAMINATION: ONE [...] identified. IMPRESSION: No acute airspace disease identified. [place] EXAMINATION: ONE XRA Y VIEW OF THE CHEST 03/16/2020 12:25 pm COMPARISON: 10/09/2012 HISTORY: ORDERING SYSTEM PROVIDED HISTORY: Syncope TECHNOLOGIST PROVIDED HISTORY: Syncope Reason for Exam: syncope Acuity: Acute Type of Exam: Initial FINDINGS: Shallow inflation. The cardiomediastinal silhouette is within normal limits. There is no consolidation, pneumothorax or evidence for edema. No evidence for effusion. No acute osseous abnormality is identified. [place] No acute airspace disease identified. [place] Vital Signs Date Time Vital Sign Value Performing Clinician Facility 09-23-2023 09:29-0400 Body height 162.56 cm [employer] Janet Hermosillo Work Phone: [facility] 09-23-2023 09:29-0400 Body mass index (BMI) [Ratio] 30.9 kg/m2 [employer] Janet Rohit Work Phone: [facility] 09-23-2023 09:29-0400 Body weight 81.64 kg [employer] Janet Rohit Work Phone: [facility] 2023 12:35-0500 Body height 162.56 cm [employer] Janet Rohit Work Phone: [facility] 2023 12:35-0500 Body weight 77.11 kg [employer] Janet Rohit Work Phone: [facility] 07-27-2023 09:43-0500 Diastolic blood pressure 77 mm[Hg] [employer] Janet Rohit Work Phone: [facility] 07-27-2023 09:43-0500 Heart rate 95 /min [employer] Janet Rohit Work Phone: [facility] 07-27-2023 09:43-0500 Respiratory rate 16 /min [employer] Janet Orhit Work Phone: [facility] 07-27-2023 09:43-0500 SaO2% (BldA) [Mass fraction] 91 % [employer] Janet Rohit Work Phone: [facility] 07-27-2023 09:43-0500 Systolic blood pressure 111 mm[Hg] [employer] Janet Rohit Work Phone: [facility] 07-27-2023 09:06-0500 Inhaled oxygen flow rate 3 L/min [employer] Janet Rohit Work Phone: [facility] 07-27-2023 07:58-0500 Body height 162.56 cm [employer] Janet Rohit Work Phone: [facility] 07-27-2023 07:58-0500 Body weight 77.11 kg [employer] Janet Rohit Work Phone: [facility] 11-24-2021 16:00-0400 Body height 161.29 cm Charles Dacosta [facility] Other 11-24-2021 16:00-0400 Body mass index (BMI) [Ratio] 29.64 kg/m2 Charles Jensen Other [facility] Other 11-24-2021 16:00-0400 Body weight 77.11 kg Charles Jensen Other [facility] Other 11-03-2021 15:00-0400 Body height 161.29 cm Charles Jensen Other [facility] Other 11-03-2021 15:00-0400 Body mass index (BMI) [Ratio] 29.64 kg/m2 Charles Jensen Other [facility] Other 11-03-2021 15:00-0400 Body weight 77.11 kg Charles Jensen Other [facility] Other 10-02-2021 16:40-0400 Body height 161.29 cm Jaime Riojas Other [facility] Other 10-02-2021 16:40-0400 Body mass index (BMI) [Ratio] 29.99 kg/m2 Jaime Riojas Other [facility] Other 10-02-2021 16:40-0400 Body weight 78.02 kg Jaime Riojas Other [facility] Other 08-25-2021 11:30-0500 Body height 161.29 cm Prabhu Spring Other [facility] Other 08-25-2021 11:30-0500 Body mass index (BMI) [Ratio] 29.99 kg/m2 Prabhu Spring Other [facility] Other 08-25-2021 11:30-0500 Body weight 78.02 kg Prabhu Spring Other [facility] Other 07-01-2021 10:00-0500 Body height 161.29 cm Jaime Riojas Other [facility] Other 07-01-2021 10:00-0500 Body mass index (BMI) [Ratio] 29.99 kg/m2 Jaime Riojas Other [facility] Other 07-01-2021 10:00-0500 Body weight 78.02 kg Jaimekalyn Riojas Other [facility] Other 05-23-2021 11:00-0500 Body height 161.29 cm Jaime Riojas Other [facility] Other 05-23-2021 11:00-0500 Body mass index (BMI) [Ratio] 29.99 kg/m2 Jaime Riojas Other [facility] Other 05-23-2021 11:00-0500 Body weight 78.02 kg Jaime Riojsa Other [facility] Other 05-23-2021 11:00-0500 Diastolic blood pressure 69 mm[Hg] Jaime Riojas Other [facility] Other 05-23-2021 11:00-0500 Systolic blood pressure 126 mm[Hg] Jaime Riojas Other [facility] Other 03-16-2020 14:31-0400 BP Diastolic 74 mm[Hg] [facility] , [place] 03-16-2020 14:31-0400 BP Systolic 132 mm[Hg] [facility] [place] , [place] 03-16-2020 14:31-0400 Pulse (Heart Rate) 81 /min Janett Manriquez [facility], [place] 03-16-2020 14:31-0400 Pulse Oximetry 94 % Janett Manriquez [facility] , [place] 03-16-2020 14:31-0400 Respiratory Rate 16 /min Janett Manriquez [facility] [place] 03-16-2020 11:34-0400 BMI (Body Mass Index) 32.27 kg/m2 Janett Manriquez [facility], [place] 03-16-2020 11:34-0400 Body Temperature 98.01 [degF] Janett Manriquez [facility] [place] , [place] 03-16-2020 11:34-0400 Body weight 85.28 kg Janett Manriquez [facility] , [place] 03-16-2020 11:34-0400 Height 162.6 cm Janett Manriquez [facility] , [place] Encounters Encounter Date Encounter Type Care Provider Facility Start: 09-27-2023 End: 09-27-2023 ambulatory SAMMIE ABBOTT Not Available Start: 09-23-2023 End: 09-23-2023 ambulatory [employer]C Janet Hermosillo Work Phone: [facility] Work Phone: Start: 09-23-2023 End: 09-23-2023 Patient encounter procedure [employer]ERSON[employer]C Janet Hermosillo Work Phone: [facility] Work Phone: Start: 09-14-2023 End: 09-14-2023 ambulatory Ramu Mancuso Facility:[facility] Start: 09-14-2023 End: 09-14-2023 Patient encounter procedure [employer]ERSON[employer]C Janet Hermosillo Work Phone: [facility] [place] Work Phone: Start: 09-14-2023 End: 09-14-2023 Patient encounter procedure [employer]ERSON[employer]C Janet Hermosillo Work Phone: [facility] [place] Work Phone: Start: 2023 End: 2023 ambulatory Ramu Velasquezer Facility:[facility] Start: 2023 End: 2023 Patient encounter procedure [employer] PERSON[employer]C Janet Hermosillo Work Phone: [facility] [place] Work Phone: Start: 08-31-2023 End: 08-31-2023 Patient encounter procedure [employer] PERSON[employer]C Janet Hermosillo Work Phone: [facility] [place] Work Phone: Start: 08-04-2023 End: 08-04-2023 ambulatory Ramu Velasquezer Other [facility] Other Start: 08-04-2023 Office outpatient vi sit 25 minutes Ramu Velasquezer [facility] [place] Start: 08-04-2023 Patient encounter procedure GAMBLING BOX PERSON-C Janet Hermosillo Work Phone: [facility] Start: 07-27-2023 (Procedure) Short Ramu Velasquezartur [facility] Start: 07-27-2023 End: 07-27-2023 ambulatory Ramu Velasquezer Facility:[facility] Start: 07-27-2023 End: 07-27-2023 Admission to same day surgery center GAMBLING BOX PERSON-C Janet Hermosillo Work Phone: [facility] Work Phone: Start: 07-27-2023 End: 07-27-2023 ambulatory GAMBLING BOX PERSON-C Janet Hermosillo Work Phone: [facility] Work Phone: Start: 07-19-2023 End: 07-19-2023 ambulatory Ramu Velasquezer Other [facility] Other Start: 07-19-2023 Office outpatient vi sit 25 minutes Ramu Velasquezartur [facility] [place] Start: 07-19-2023 End: 07-19-2023 Patient encounter procedure GAMBLING BOX PERSON-C Janet Hermosillo Work Phone: [facility] Work Phone: Start: 06-16-2023 End: 06-16-2023 ambulatory Jaime Jesse LUCERO Other [facility] Other Start: 06-16-2023 Office outpatient vi sit 15 minutes Jaime Molina II [facility] Start: 04-16-2023 End: 04-16-2023 ambulatory Janet Tejadae Rohit Facility:[facility] Start: 04-16-2023 End: 04-16-2023 ambulatory GAMBLING BOX PERSON-C Janet Hermosillo Work Phone: [facility] Work Phone: Start: 04-16-2023 End: 04-16-2023 Patient encounter procedure GAMBLING BOX PERSON-C Janet Arayamer Work Phone: [facility] Start: 10-29-2022 End: 10-30-2022 ambulatory JANET HERMOSILLO Facility:[facility] Start: 10-21-2022 End: 10-22-2022 ambulatory JANET HERMOSILLO Facility:[facility] Start: 08-18-2022 End: 08-18-2022 ambulatory ADALBERTO CARVALHO Facility:[facility] Start: 06-24-2022 End: 06-24-[address] LEONEL MANUEL . Facility:[facility] Start: 03-05-2022 End: 03-06-[address] MARIA VICTORIA SAUNDERS Facility:[facility] Start: 11-24-2021 End: 11-24-2021 ambulatory Charles Jensen Other [facility] Other Start: 11-24-2021 Postop follow up vis it related to original px Charlse Jensen [facility] Start: 11-04-2021 End: 11-04-2021 ambulatory Charles Jensen Other [facility] Other Start: 11-04-2021 Telephone encounter Charles PATTERSON [facility] Start: 11-03-2021 End: 11-03-2021 ambulatory Charles Jensen Other [facility] Other Start: 11-03-2021 Encounter for other preprocedural examination Charles Jensen [facility] Start: 11-03-2021 Office outpatient vi sit 15 minutes Charles Jensen [facility] Start: 10-02-2021 End: 10-02-2021 ambulatory Jaime Riojas Other [facility] Other Start: 10-02-2021 Postop follow up vis it related to original px Jaime Riojas [facility] Start: 08-25-2021 End: 08-25-2021 ambulatory Prabhu Spring Other [facility] Other Start: 08-25-2021 Postop follow up vis it related to original px Prabhu Spring [facility] Start: 08-15-2021 Admission to [facility] Jaime Riojas [facility] Start: 08-15-2021 End: 08-15-2021 ambulatory Jaime Riojas Other [facility] Other Start: 08-06-2021 End: 08-06-2021 ambulatory Jaime Riojas Other [facility] Other Start: 08-06-2021 Telephone encounter Jaime Riojas [facility] Start: 07-08-2021 End: 07-08-2021 ambulatory Jaime Riojas Other [facility] Other Start: 07-08-2021 Telephone encounter Jaime Riojas [facility] Start: 07-01-2021 End: 07-01-2021 ambulatory Jaime Riojas Other [facility] Other Start: 07-01-2021 Office outpatient ne w 45 minutes Jaime Riojas [facility] Start: 05-23-2021 End: 05-23-2021 ambulatory Jaime Riojas Other [facility] Other Start: 05-23-2021 Office outpatient vi sit 15 minutes Jaime BRADFORD [facility] Start: 11-27-2020 End: 11-27-2020 Patient encounter procedure João Cruz Work Phone: [facility] Start: 11-27-2020 Registered Recurring João montanez Work Phone: -[facility] [place] Start: 11-19-2020 End: 11-19-2020 Patient encounter procedure João Cruz Work Phone: -Pre-Surgical Testing Start: 03-18-2020 End: 03-21-[address] [facility] Start: 03-18-2020 End: 03-20-2020 Subsequent hospital visit by physician Kevin Xr Room 4 [facility] Comment on above: Concussion with loss of consciousness of 30 minutes or less, initial encounter Start: 03-16-2020 End: 03-16-2020 Emergency department patient visit [facility] Start: 03-16-2020 End: 03-16-2020 Emergency department patient visit Janett Solorio Jeevan [facility] ED Comment on above: Closed head injury, initial encounter (Primary Dx) Start: 02-10-2020 End: 02-15-2020 Patient encounter procedure YOVANI Fonseca CASEY [facility] Start: 02-10-2020 End: 02-14-2020 Subsequent hospital visit by physician Zachary Andres Rm 4 [facility] PRE-ADMIT TESTING Procedures Date Procedure Procedure Detail Performing Clinician Start: 09-14-2023 Duplex scan of lower limb veins GAMBLING BOX PERSON-C Janet Hermosillo Work Phone: Start: 2023 MRI of lumbar spine with contrast GAMBLING BOX PERSON-C Janet Hermosillo Work Phone: Start: 07-27-2023 Injection of local anesthetic into sacroiliac joint GAMBLING BOX PERSON-C Janet Hermosillo Work Phone: Start: 04-16-2023 Plain X-ray of right hip GAMBLING BOX PERSON-C Janet Hermosillo Work Phone: Start: 11-27-2020 Plain [...] Date Care Activity Detail Author Start: 07-27-2023 [facility] Start: 10-24-2022 Screening for malign ant neoplasm of colon Colon cancer screen colonoscopy [place], [place] Start: 04-04-2021 Lipid panel Lipid screen [place], [place] Start: 03-05-2020 Influenza vaccination Flu vaccine (# 1) [place], [place] Start: 04-02-2018 Screening for malign ant neoplasm of breast Breast cancer screen [place], [place] Start: 2010 Shingles Vaccine (1 of 2) Shingles Vaccine (1 of 2) [place] Start: 2000 Diabetes screen Diabetes screen [place], [place] Start: 1981 Screening for malign ant neoplasm of cervix Cervical cancer screen [place], [place] Start: 09-10-1979 DTaP/Tdap/Td vaccine (1 - Tdap) DTaP/Tdap/Td vaccine (1 - Tdap) [place] Start: 1966 Pneumococcal 0-64 ye ars Vaccine (1 of 1 - PPSV23) Pneumococcal 0-64 years Vaccine (1 of 1 - PPSV23) [place], [place] Start: 1960 Hepatitis C screening Hepatitis C sc reen [place], [place] End: 02-10-2020 COVID-19 COVID-19 Lab Routine Tomorrow AM for 1 Occurrences starting 02/10/2020 until 02/10/2020 [place] Comment on above: Tomorrow AM for 1 Oc currences starting 02/10/2020 until 02/10/2020 End: 03-16-2020 EKG 12 Lead EKG 12 Lead ECG STAT Every 2hr for 2 Occurrences starting 03/16/2020 until 03/16/2020, 1 completed [place] Comment on above: Every 2hr for 2 Occu rrences starting 03/16/2020 until 03/16/2020, 1 completed EKG 12 Lead EKG 12 Lead ECG STAT 03/16/2020 11:50 AM EDT [place], [place] MR Lumbar spine WO a nd W contrast IV [facility] Patient Education Felter Non Gabriella gnostic Block [facility] Work Phone: Patient referral [facility] Work Phone: Immunizations Immunization Date Immunization Notes Care Provider Rufion ramos 08-13-2021 COVID-19 John mcguire Other [facility] 10-12-2020 COVID-19 mRNA-1273 (Moderna) João Cruz Work Phone: [facility] 09-14-2020 COVID-19 mRNA-1273 (Moderna) João Cruz Work Phone: [facility] Payers Date Payer Category Payer [employer] others) [id number] 2023 [employer] [id number] 2023 Self-pay [id number] 2017 [employer] others) [id number] 2015 Unknown [id number] 71.315 1960 Unknown [id number] [id number]7 1960 Unknown [id number] 2.16.840.1.225687.3.579.2.176 1960 Unknown [id number] 2.16.840.1.427274.3.579.2.176 1960 Unknown [id number] 2.16.840.1.468359.3.579.2.176 1960 Unknown [id number] 2.16.840.1.660571.3.579.2.593 1960 Unknown [id number] 2.16.840.1.615700.3.579.2.593 1960 Unknown [id number] 2.16.840.1.149144.3.579.2.593 1960 Unknown [id number] 2.16.840.1.089687.3.579.2.593 1960 Unknown [id number] 2.16.840.1.511397.3.579.2.593 1960 Unknown [id number] 2.16.840.1.340126.3.579.2.1259 1960 Unknown [id number] 2.16.840.1.741288.3.579.2.1259 1959 [employer] others) [id number] [employer] ( [employer] others) [id number] Unknown [id number] 2.16.840.1.654965.3.579.2.531 Unknown [id number] 2.16.840.1.937287.3.579.2.531 Unknown [id number] [id number] Unknown [id number] [id number] Social History Date Type Detail Facility Start: 04-27-2016 End: 07-27-2023 Tobacco smoking status NHIS Former smoker [facility] End: 07-05-1993 History of tobacco use Current smoker [place], [place] Start: 04-27-2016 End: 03-16-2020 Cigarettes smoked current (pack per day) - Reported [place] Start: 04-27-2016 End: 03-16-2020 Tobacco use and exposure Never used [place] Start: 04-27-2016 End: 03-16-2020 Alcohol intake Current drinker of alcohol (finding) [place] Start: 01-19-2013 Alcohol Comment occasionally [place] Sex Assigned At Not on file [place] Exposure to SARS-CoV -2 (event) Not sure [place], [place] Start: 1960 Sex Assigned At Female [facility] Sex Assigned At Sex Assigned At Bir [facility] Other Medical Equipment Procedure Code Equipment Code Equipment Origin al Text Equipment Identifier Dates Arthroplasty, hip, total, anterior approach Acetabular shell [id number] FDA Start: 12-03-2020 Arthroplasty, hip, total, anterior approach Non-constrained polyethylene acetabular liner ()[id number] FDA Start: 12-03-2020 Arthroplasty, hip, total, anterior approach Coated hip femur prosthesis, modular ()[id number] FDA Start: 12-03-2020 Arthroplasty, hip, total, anterior approach Ceramic femoral head prosthesis ()[id number] FDA Start: 12-03-2020 Arthroplasty, hip, total, anterior approach Orthopaedic bone screw, non-bioabsorbable, sterile ()[id number] FDA Start: 12-03-2020 Arthroplasty, hip, total, anterior approach Orthopaedic bone wire ()[id number] FDA Start: 12-03-2020 Goals Date Patient Goal [...] Above note written by Jer Sepulveda MA, High Cl[employer]. Edited and approved by Dr. Ramu Mancuso MD. [facility] Other 01-15-2024 Evaluation note* Encounter Date Diagnosis [...] Above note written by Jer Sepulveda MA, High Climber. Edited and approved by Dr. Ramu Mancuso [...] negative findings were considered in medical decision-making. [facility] Other 12-13-2023 Evaluation note* Encounter Date Diagnosis [...] SI joint and right bursa steroid injections. [facility] Other 05-23-2022 Evaluation note* Encounter Date Diagnosis [...] as documented in the electronic medical record. [facility] Other 05-02-2022 Evaluation note* Encounter Date Diagnosis [...] understood. The surgical release of the A1 crescencio has been discussed along with possible complications [...] poor healing. 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 I have [...] as documented in the electronic medical record. [facility] Other 03-31-2022 Evaluation note* Encounter Date Diagnosis [...] right. I explained to her the issues [facility] Other 02-21-2022 Evaluation note* Encounter Date Diagnosis Assessment Notes Treatment Notes Treatment Clinical Notes Aug, Left carpal tunnel syndrome (ICD-10 - G56.02) Patient will begin to increase use of her hand, she will still keep it covered and protected to keep it mostly dry and we will see her back in 1 month's time. [facility] Other 12-28-2021 Evaluation note* Encounter Date Diagnosis [...] would like to proceed with surgical intervention. [facility] Other 11-19-2021 Evaluation note* Encounter Date Diagnosis [...] has been discussed and a referral given. [facility] Other evaluation noteNo assessment information available [facility] note[facility] InformationNort [facility] Other evaluation note* Diagnosis Onset Date Resolution Status Lumbar spondylosis with myelopathy acute Other chronic pain acute Sacroiliitis acute Lumbar spondylosis with myelopathy acute Other chronic pain acute Sacroiliitis acute [facility] Work Phone: History general Narrative - Reported* [...] total hip 12/03/20 Hospitalization History see above [place] [employer] [facility] [employer] Other Advance Directives No Advanced Directives Records FoundDocuments on File Type Date Recorded Patient Lead Systems Engineer Expl anation Advance Directives and Living Will Power of Regulatory Compliance Director Latest Code Status on File Code Status Date Activated Date Inactivated Comments Full Code 11/06/2015 11:33 AM 11/08/2015 6:10 PM Documents on File Type Date Recorded Patient Lead Systems Engineer Expl anation ACP-Advance Directive ACP-Power of Regulatory Compliance Director Advance Directive Response Recorded Date/ Time Advance [...] Everywhere. * Head Injury: Closed: General Info (Serbian) documented in this encounter Assessments Diagnosis Closed [...] carpal tunnel s yndrome (G56.02) Referral Organization [facility] Referring Provider First Name Jaime Referring Provider Last Name Shine Referring Provider Specialty Neurologica l Surgery Referred Organization [facility] Referred Provider José Miguel Bryan Referred Address [address] [place],[address] Referred Provider Specialty Neurology Referral Priority Routine General Notes Lucinda Infante 11:18:02 AM >Received today. Went to get prior auth forNeurology but stated; Auth Not RequiredThis patient is not enrolled in [facility] so no referral is required for the requested services.Lucinda Infante 05/27/2021 11:25:55 AM >Waiting for office notes to be locked [facility]/03/2021 02:24:04 PM >[facility] request us to fill out their form and attach to Referral and send it to them and they will call patient to schedule. Referral was sent P2P Reason *FU 06/11 Evaluate and Treat Diagnosis 1 Neck pain (M54.2) Referral Organization [facility] Referring Provider First Name Jaime Referring Provider Last Name Shine Referring Provider Specialty Neurologica l Surgery Referred Organization [facility] Referred Provider Jr. Lomeli William Referred Address [address],[place] Referred Provider Specialty Pain Medicin e Referral Priority Routine General Notes Lucinda Infante 11:18:47 AM >Received today. Went to get prior auth for Pain Medicine but stated; Auth Not RequiredThis patient is not enrolled in [facility] so no referral is required for the requested services.Lucinda Infante 05/27/2021 11:28:48 AM >Waiting for office notes to be locked before [facility] 06/03/2021 02:23:26 PM >Dr. Lomeli's office request us to fill out form and fax referral to them and they will review the referral and call patient. Referral was fax Reason *Waiting for appt Evaluate and Treat Diagnosis 1 Trigger finger of ri ght thumb (M65.311) Referral Organization [facility] Referring Provider First Name Jaime Referring Provider Last Name Shine Referring Provider Specialty Neurologica l Surgery Referred Organization [facility] Referred Provider Erica Prasad Referred Address [address] [place],[address] Referred Provider Specialty Hand Surgery Referral Priority Routine General Notes Lucinda Infante 022 04:02:06 PM >Received today. Per [employer] : Auth Not RequiredThis patient is not enrolled in [facility] so no referral is required for the requested services. Referral was sent P2P Additional Source Comments INFORMATION SOURCE (unrecogn ized section and content) DATE CREATED AUTHOR [facility]15[facility] [facility] DATE CREATED AUTHOR AUTHOR'S ORGANIZ ATION 03/21/2020 [facility] DATE CREATED AUTHOR AUTHOR'S ORGANIZ ATION 12/11/2022 [facility] DATE CREATED AUTHOR AUTHOR'S ORGANIZ ATION 09/17/2023 [facility] DATE CREATED AUTHOR AUTHOR'S ORGANIZ ATION 09/27/2023 [facility] EPIC Reason for Visit [...] September 23, 2023 End: September 23, 2023 Jaiem Riojas MD Attending Provider Active Star t: [...] BE BASED ON THE PRIMARY CLINICAL RECORDS. [facility]. provides no warranty or guarantee of the accuracy or completeness of information in this document.
[2023-10-13 06:57] LABS: Basophils Percent Auto 0.6 % (0.2-2.0); Eosinophils Absolute Auto 0.2 10^3/uL (0.0-0.7); Eosinophils Percent Auto 2.1 % (0.9-7.0); Hematocrit 39.8 % (36.0-48.0); Hemoglobin 13.1 g/dL (12.0-16.0); Immature Granulocytes Abs Auto 0.05 10^3/uL (0.00-0.03); Immature Granulocytes Pct Auto 0.7 % (0.0-0.5); Lymphocytes Absolute Auto 2.3 10^3/uL (1.2-3.8); Lymphocytes Percent Auto 32.1 % (20.5-60.0); Mean Corpuscular HGB Conc 32.9 g/dL (29.9-35.2); Mean Corpuscular Hemoglobin 31.4 pg (26.7-34.0); Mean Corpuscular Volume 95.4 fL (81.0-99.0); Mean Platelet Volume 10.2 fL (9.5-13.5); Monocytes Absolute Auto 0.7 10^3/uL (0.3-0.8); Monocytes Percent Auto 9.4 % (1.7-12.0); Neutrophils Percent Auto 55.1 % (43.0-75.0); Platelet Count 305 10^3/uL (150-450); Red Blood Count 4.17 10^6/uL (4.20-5.40); Red Cell Distribution Width 12.3 % (11.0-15.0); White Blood Count 7.3 10^3/uL (4.0-11.0)
[2023-10-13 07:43] LABS: Estimated Average Glucose 105 mg/dL; Glycohemoglobin A1C 5.3 % (4.5-6.2)
[2023-10-13 08:51] LABS: Alanine Aminotransferase 22 U/L (14-59); Albumin Globulin Ratio 1.1; Albumin Level 3.7 g/dL (3.4-5.0); Alkaline Phosphatase 74 U/L (46-116); Anion Gap 12.3; Aspartate Amino Transferase 16 U/L (15-37); BUN Creatinine Ratio 16.5; Calcium 9.6 mg/dL (8.5-10.1); Carbon Dioxide 29.3 mmol/L (21.0-32.0); Chloride 105 mmol/L (98-107); Chol HDL Ratio 3.5; Cholesterol 205 mg/dL (<=200); Estimated GFR (African America >60 (>=60); Estimated GFR (Non-African Ame >60 (>=60); Free T3 3.23 pg/mL (2.18-3.98); Globulin 3.5 g/dL; Glucose 82 mg/dL (74-106); HDL Cholesterol 59 mg/dL (40-60); Potassium 3.6 mmol/L (3.5-5.1); Sodium 143 mmol/L (136-145); Thyroid Stimulating Hormone 0.066 uIU/mL (0.358-3.740); Total Protein 7.2 g/dL (6.4-8.2); Triglycerides 115 mg/dL (<=150)
[2023-10-14 09:08] LABS: Insulin 9.1 uIU/mL (2.6-24.9)
== END 2023-10-13 06:36 | disposition home or self-care (01) ==
LOC: LAB 06:36
PROVIDERS: PCP Nurse Practitioner Family; Visit Provider Nurse Practitioner Family
DX: Z01.89 Encounter for other specified special examinations (principal)
CPT/HCPCS: 36415; 80053; 80061; 82306; 83036; 83525; 83540; 84436; 84443; 84481; 85025

== ENCOUNTER 2023-11-12 10:17 | Outpatient (OUT) | payer OTHER, SELFPAY ==
--- NOTE | 2023-11-12 10:21 | MM_ITS ---
Patient Name: JULIA CHAVARRIA MR#: [id number] : 1960 Exam Date: 11/12/2023 Ordering Doctor: LATHA HERMOSILLO CNP RADIOLOGY REPORT PROCEDURE: MM TOMOSYNTHESIS SCREENING BI COMPARISON: MG MAMM SCREEN 3D BILL CAD, 10/29/2022. INDICATIONS: Screening Calculator Name NCI Breast Cancer Risk Assessment Tool 5 Year Breast Cancer Risk 1.70% Lifetime Breast Cancer Risk 7.40% Personal Breast Cancer No Personal Ovarian Cancer No Treatments None Family Cancers None LOCATION: [facility] BREAST COMPOSITION: There are scattered areas of fibroglandular density. FINDINGS: DIAGNOSTIC CATEGORY 1--NEGATIVE. RIGHT BREAST: No significant suspicious finding. No significant change has occurred. LEFT BREAST: No significant suspicious finding. No significant change has occurred. RECOMMENDATIONS: ROUTINE MAMMOGRAM AND CLINICAL EVALUATION IN 12 MONTHS. PLEASE NOTE: A NORMAL MAMMOGRAM DOES NOT EXCLUDE THE POSSIBILITY OF BREAST CANCER. A CLINICALLY SUSPICIOUS PALPABLE LUMP SHOULD BE BIOPSIED. Dictated by: Tj Franco M.D. on 11/12/2023 at 15:29 Approved by: Tj Franco M.D. on 11/12/2023 at 15:32
== END 2023-11-12 10:18 | disposition home or self-care (01) ==
LOC: MAMMO 10:17
PROVIDERS: PCP Nurse Practitioner Family; Visit Provider Nurse Practitioner Family
DX: Z12.31 Encounter for screening mammogram for malignant neoplasm of breast (principal)
CPT/HCPCS: 77063; 77067

== ENCOUNTER 2023-11-12 10:18 | Outpatient (OUT) | payer OTHER, SELFPAY ==
--- NOTE | 2023-11-12 10:22 | XR_ITS ---
[address] [address] Patient Name: JULIA CHAVARRIA MRN: [id number] date: 1960 Sex: F Assigned Patient Location: [facility] Current Patient Location: Accession/Order Number: [id number] Exam Date: 11/12/2023 10:40 Report Date: 11/14/2023 05:23 At the request of: NON-STAFF PHYSICIAN Procedure: XR lumbar spine bending only EXAMINATION: XR lumbar spine bending only HISTORY: Lumbar Back Pain M54.50 ; pain and tingling radiating down both legs ; no known injury COMPARISON: No relevant comparison available. FINDINGS: BONES: Lateral views only of the lumbar spine obtained during flexion and extension. No fracture, listhesis, or change in alignment during flexion and extension. Moderate degenerative facet arthropathy L2-L3 through L5-S1. DISC SPACES: Marked narrowing L1-L2, L5-S1. Mild to moderate narrowing at remaining levels. PARASPINOUS: Negative. No paraspinous abnormality is seen. OTHER: Negative. XR/XR lumbar spine bending only IMPRESSION: 1. Multilevel degenerative changes. 2. No listhesis or appreciable change in alignment. Electronically authenticated by: MARIA VICTORIA SAUNDERS Date: 11/14/2023 05:23
== END 2023-11-12 10:19 | disposition home or self-care (01) ==
LOC: RAD 10:18
PROVIDERS: PCP Nurse Practitioner Family
DX: Z12.31 Encounter for screening mammogram for malignant neoplasm of breast (principal); M54.50 Low back pain, unspecified; M51.36 Other intervertebral disc degeneration, lumbar region
CPT/HCPCS: 72120; 77063; 77067

== ENCOUNTER 2024-10-10 07:31 | Outpatient (OUT) | payer OTHER, SELFPAY ==
--- OUTSIDE RECORDS SUMMARY | 2024-10-10 07:36 | XMS_ITS | CCD ---
Author Organization [facility] Care Team Providers Care Vegetable Tester Name Role Phone Codey, Norbert T Primary Care Provider YOVANI CASEY Referring Unavailable CODEY, NORBERT T Primary Care Unavailable CODEY, NORBERT T Primary Care Unavailable JANETT CHEW Attending Unavailable CODEY, NORBERT T Referring Unavailable CODEY, NORBERT T Primary Care Unavailable CODEY, NORBERT T Referring Unavailable CODEY, NORBERT T Primary Care Unavailable João Cruz Attending Provider [phone] Janet Hermosillo Primary Care Provider Jaime Riojas Unavailable Prabhu Spring Unavailable Charles Jensen Unavailable DR MARIA VICTORIA SAUNDERS Consulting Unavailable JANET HERMOSILLO Admitting Unavailable JANET HERMOSILLO Attending Unavailable KALEB ., DR CASTANEDA Primary Care Unavailable JANET HERMOSILLO Consulting Unavailable ADALBERTO CARVALHO Consulting Unavailable KALEB ., DR CASTANEAD Primary Care Unavailable CORAL ANN Admitting Unavailable CORAL ANN Attending Unavailable CORAL ANN Consulting Unavailable JANET HERMOSILLO Attending Unavailable DR EFREN FUNES V Consulting Unavailable JANET HERMOSILLO Admitting Unavailable KALEB ., DR CASTANEDA Primary Care Unavailable JANET HERMOSILLO Consulting Unavailable BAY JANET Consulting Unavailable JANET HERMOSILLO Admitting Unavailable JANET HERMOSILLO Attending Unavailable KALEB Larios, DR CASTANEDA Primary Care Unavailable KALEB ., DR CSATANEDA Primary Care Unavailable HOMaksim ., DR CASTANEDA Admitting Unavailable KALEB ., DR CASTANEDA Attending Unavailable KALEB Larios, DR CASTANEDA Consulting Unavailable Bay, AZURE ARCHITECT-C Janet Earl Primary Care Provider [phone] MD Jaime Molina II Attending Provider [phone] Jaime Molina II Unavailable [phone] Ramu Mancuso Unavailable CHIN Hermosillo Primary Care Provider [phone] MD Ramu Mancuso Attending Provider [phone] CHIN Hermosillo Primary Care Provider [phone] MD Ramu Mancuso Attending Provider [phone] CODEY, NORBERT T Referring Unavailable CODEY, NORBERT T Primary Care Unavailable CODEY, NORBETR T Referring Unavailable CODEY, NORBERT T Primary Care Unavailable DENI REYNOSO W Attending Unavailable SAMMIE DUONG JR Referring Unavailabl e CODEY, NORBERT T Primary Care Unavailable ANIBAL REYNOSORICK W Referring Unavailable CODEY, NORBERT T Primary Care Unavailable REYNOSO, DENI W Referring Unavailable CODEY, NORBERT T Primary Care Unavailable CHIN Hermosillo Primary Care Provider MD Ramu Mancuso Attending Provider MD Jaime Tomas Attending Provider Janet Hermosillo Primary Care Unavailable Ramu Mancuso Admitting Unavailable Ramu Mancuso Attending Unavailable Jaime Tomas Admitting Unavailable Jaime Tomas Attending Unavailable Bay, Janet Mady Primary Care Unavailable Bay, Janet Mady Primary Care Unavailable Jaime Molina II Admitting Unavailabl Jaime Jessica II Attending Unavailabl e Bay, Janet Mady Primary Care Unavailable Ramu Mancuso Admitting Unavailable Ramu Mancuso Attending Unavailable Bay, Janet Mady Primary Care Unavailable Ramu Mancuso Admitting Unavailable Ramu Mancuso Attending Unavailable DENI REYNOSO W Referring Unavailable CODEY, NORBERT T Primary Care Unavailable STEPROMMEL SAMMIE C Attending Unavailable STEPROMMEL SAMMIE C Referring Unavailable CODEY, NORBERT T Primary Care Unavailable STEPSAMMIE CARNEY C Attending Unavailable STEPANIC, SAMMIE C Referring Unavailable CODEY, NORBERT T Primary Care Unavailable Janet Hermosillo CNP Primary Care Provider Leonel Manuel MD Primary Care Provider [phone] Janet Hermosillo MD Unavailable JANET HERMOSILLO Primary Care Unavailable FOSTER, FELICIANO Referring Unavailable FOSTER, FELICIANO Attending Unavailable RUFF, CADY Attending Unavailable BROCWELL, BESSIE M Referring Unavailable BERNARD, JESSE Attending Unavailable BROCWELL, BESSIE M Referring Unavailable BERNARD, JESSE Attending Unavailable BROCWELL, BESSIE M Referring Unavailable RUFF, CADY Attending Unavailable BROCWELL, BESSIE M Referring Unavailable BERNARD, JESSE Attending Unavailable BROCWELL, BESSIE M Referring Unavailable BERNARD, JESSE Attending Unavailable BROCWELL, BESSIE M Referring Unavailable BERNARD, JESSE Attending Unavailable BROCWELL, BESSIE M Referring Unavailable BERNARD, JESSE Attending Unavailable BROCWELL, BESSIE M Referring Unavailable RUFF, CADY Attending Unavailable BROCWELL, BESSIE M Referring Unavailable BERNARD, JESSE Attending Unavailable BROCWELL, BESSIE M Referring Unavailable BERNARD, JESSE Attending Unavailable BROCWELL, BESSIE M Referring Unavailable BERNARD, JESSE Attending Unavailable BROCWELL, BESSIE M Referring Unavailable KELBLEY, SIMONA Attending Unavailable BROCWELL, BESSIE M Referring Unavailable BERNARD, JESSE Attending Unavailable BROCWELL, BESSIE M Referring Unavailable BERNARD, JESSE Attending Unavailable BROCWELL, BESSIE M Referring Unavailable BERNARD, JESSE Attending Unavailable BROCWELL, BESSIE M Referring Unavailable BERNARD, JESSE Attending Unavailable BROCWELL, BESSIE M Referring Unavailable BERNARD, JESSE Attending Unavailable BROCWELL, BESSIE M Referring Unavailable JR. CANDELARIO, SAMMIE Cevallos Attending Unavaila roberto carlos DUONG JR., SAMMIE Cevallos Referring Unavaila YAMILET Raymundo Attending Unavailable JR. CANDELARIO, SAMMIE Cevallos Attending Unavaila roberto carlos DUONG JR., SAMMIE Cevallos Attending Unavaila roberto carlos DUONG JR., SAMMIE Cevallos Attending Unavaila roberto carlos DUONG JR., SAMMIE Cevallos Attending Unavaila PETAR Moeller Attending Unavailable FOSTER, FELICIANO Referring Unavailable KELBLEY, SIMONA Attending Unavailable FOSTER, FELICIANO Referring Unavailable PETAR OLIVARES Attending Unavailable FOSTER, FELICIANO Referring Unavailable LINDSAY RODRIGUEZ Attending Unavailable FOSTER, FELICIANO Referring Unavailable KELBLEY, SIMONA Attending Unavailable FOSTER, FELICIANO Referring Unavailable LINDSAY RODRIGUEZ Attending Unavailable FOSTER, FELICIANO Referring Unavailable KELBLEY, SIMONA Attending Unavailable FOSTER, FELICIANO Referring Unavailable KELBLEY, SIMONA Attending Unavailable FOSTER, FELICIANO Referring Unavailable KELBLEY, SIMONA Attending Unavailable FOSTER, FELICIANO Referring Unavailable FOSTER, FELICIANO Referring Unavailable JESSE WAGNER Attending Unavailable BLACKSTON, PETAR T Attending Unavailable FOSTER, FELICIANO Referring Unavailable KELBLEY, SIMONA Attending Unavailable FOSTER, FELICIANO Referring Unavailable KELBLEY, SIMONA Attending Unavailable FOSTER, FELICIANO Referring Unavailable KELBLEY, SIMONA Attending Unavailable FOSTER, FELICIANO Referring Unavailable KELBLEY, SIMONA Attending Unavailable FOSTER, FELICIANO Referring Unavailable BLACKSTON, PETAR T Attending Unavailable FOSTER, FELICIANO Referring Unavailable Bay ROLLED GOLD PLATER, Janet S Primary Care Provider FOSTER, FELICIANO Referring Unavailable BAY, JANET S Primary Care Unavailable FOSTER, FELICIANO Attending Unavailable FOSTER, FELICIANO Referring Unavailable FOSTER, FELICIANO Attending Unavailable BAY, JANET S Primary Care Unavailable BAY, JANET S Primary Care Unavailable BROCWELL, BESSIE Attending Unavailable BROCWELL, BESSIE Referring Unavailable BAY, JANET S Primary Care Unavailable BROCWELL, BESSIE Attending Unavailable BROCWELL, BESSIE Referring Unavailable SELF, SELF Referring Unavailable BAY, JANET S Primary Care Unavailable BROCWELL, BESSIE Attending Unavailable BAY, JANET S Primary Care Unavailable BROCWELL, BESSIE Attending Unavailable BROCWELL, BESSIE Referring Unavailable BAY, JANET S Primary Care Unavailable FOSTER, FELICIANO Attending Unavailable SELF, SELF Referring Unavailable FOSTER, FELICIANO Referring Unavailable BAY, JANET S Primary Care Unavailable FOSTER, FELICIANO Attending Unavailable SAMMIE DUONG JR. Referring Unavailable BAY, JANET S Primary Care Unavailable FOSTER, FELICIANO Attending Unavailable FOSTER, FELICIANO Referring Unavailable BAY, JANET S Primary Care Unavailable FOSTER, FELICIANO Attending Unavailable FOSTER, FELICIANO Admitting Unavailable FOSTER, FELICIANO Attending Unavailable BAY, JANET S Primary Care Unavailable Allergies Allergy Classification Reported Allergen(s) Allergy Type Date of Onset Reaction(s) Facility Sulfonamides (antibiotic) (2 sources) Sulfonamides (Antibiotic) Drug Allergy 02-19-20 [facility] (4 sources) Ciprofloxacin Drug Allergy 08-26-19 [place], [place] (7 sources) HYDROcodone / Ibuprofen; Translations: [HYDROCODONE-IBUPROF EN] Drug Allergy 08-26-19 [place] (4 sources) Penicillins Propensity to adverse reactions to drug 08-17-19 [place], [place] (4 sources) Sulfonamides (Antibiotic) Propensity to adverse reactions to drug 08-17-19 12 [place] (4 sources) Clindamycin/Lincomyc in Propensity to adverse reactions to drug 08-26-19 12 [place] (16 sources) Sulfacetamide Drug Allergy 09-23-19 24 [facility] (9 sources) Lisinopril Drug Allergy 09-23-19 [facility] (1 source) Sulfonamides (Antibiotic) Drug allergy (disorder) [facility] Rep[facility] (7 sources) Sulfonamides (Antibiotic); Translations: [SULFA (SULFONAMIDE ANTIBIOTICS)] Allergy to substance 05-18-20 [facility] (3 sources) Ciprofloxacin; Translations: [CIPROFLOXACIN (MIXTURE)] Drug Allergy 08-26-19 12 [facility] Rep[facility] (3 sources) Lincomycin; Translations: [LINCOMYCIN] Drug Allergy 08-26-19 12 [facility] (13 sources) Sulfamethoxazole / Trimethoprim; Translations: [SULFAMETHOXAZOLE-TR IMETHOPRIM] Drug Allergy 04-19-20 [facility] (1 source) Lisinopril Drug Allergy 09-23-19 [facility] Rep[facility] (1 source) Sulfacetamide Drug Allergy 09-23-19 [facility] Rep[facility] (20 sources) Sulfonamides (Antibiotic) Propensity to adverse reactions to drug 08-17-19 12 [facility] Medications Current Medications Medication Drug Class(es) Dates Sig (Normalized) Sig (Original) acetaminophen 325 mg oral tablet (13 sources) Start: 05-29-2024 take 2 tablets by mouth every four hours as needed Acetaminophen 325 MG tablet Take 2 tablets by mouth every 4 hours as needed for Mild Pain. Do not exceed 4000mg of Tylenol in 24 hour period. 50 tablet 1 05/29/2024 Active Start: 05-29-2024 End: 05-29-2024 take 1 tablet by mouth every six hours 1,000 mg, Oral, EVERY 6 HOURS NON-STANDARD, First dose on 05/29/24 at 1230, Until Discontinued, Maximum dose of acetaminophen is 4000 mg from all sources in 24 hours., Post-op/Post-Proc Start: 05-29-2024 take 1 dose by mouth every hour 1,000 mg, Oral, ONCE DIRECTED, 1 dose, Starting on Wed05/29/24 at 0543, Until Wed05/29/24 at 0604, See admin instructions, Administer 1 hour preop., Pre-op/Pre-Proc End: 05-29-2024 take 1 tablet by mouth every six hours as needed acetaminophen 500 MG tablet Take 1 tablet by mouth Every 6 hours as needed. 05/29/2024 Discontinued (Stop Taking at Discharge) acetaminophen 325 mg / HYDROcodone bitartrate 5 mg oral tablet (17 sources) Opioid Agonist Start: 05-29-2024 End: 06-05-2024 take 1 tablet by mouth once daily as needed hydroCODone-acetaminophen 5-325 MG tablet Indications: Acute postoperative pain of right hip Take 1-2 tablets by mouth every 6 hours as needed for Severe Pain for up to 7 days. Do not take over 4000mg acetaminophen daily. 10 tablet 05/29/2024 Active Start: 11-19-2020 End: 12-04-2020 take 1 tablet by mouth every four hours Hydrocodone-Acetaminophen Discontinued 1 TAB PO Q4H November 19, 2020 12:00am December 04, 2020 10:02am Start: 11-14-2020 take 1 tablet by pam th every eight hours HYDROcodone-Acetaminophen 5-325 MG 1 tab let as needed Orally every 8 hrs for 7 days November, Active aspirin 81 mg delayed release oral tablet (12 sources) Platelet Aggregation Inhibitor, Nonsteroidal Anti-inflammatory Drug Start: 05-30-2024 End: 05-29-2024 take 81 mg by mouth every twelve hours in the morning 81 mg, Oral, EVERY 12 HOURS, First dose on Wed05/30/24 at 0900, Until Discontinued, Start in AM day after surgery, Post-op/Post-Proc Start: 05-29-2024 End: 06-28-2024 take 1 tablet by mouth twice daily Aspirin [address] tablet Take 1 tablet by mouth 2 times daily. This medication is for blood clot prevention. Take with food. 60 tablet 05/29/2024 Active Start: 12-04-2020 End: 07-11-2021 take 81 mg by mouth twice daily Aspirin Discontinued 8 1 MG PO Twice daily December 04, 2020 12:00am July 11, 2021 3:22pm End: 03-16-2020 take 1 tablet by mouth once daily aspirin 81 MG EC tablet Indications: Neck abscess Take 81 mg by mouth daily. 0 03/16/2020 Discontinued (LIST CLEANUP) calcium carbonate 1500 mg oral tablet (20 sources) calcium carbonat e 1500 (600 Ca) MG tablet 1 (one) time each day at the same time Active cephalexin 500 mg oral capsule (5 sources) Cephalosporin Antibacterial Start: End: take 1 capsule by mouth every six hours cephALEXin 500 MG capsule Take 1 capsule by mouth every 6 hours for 3 doses. Start 6 hours after last dose of IV antibiotics. 3 capsule 05/29/2024 05/30/2024 Active Start: 08-15-2021 End: 11-06-2021 take 500 mg by mouth three times daily Cephalexin Discontinued 500 MG PO Three times daily August 15, 2021 1:00am November 06, 2021 7:00am cholecalciferol 0.025 mg oral tablet (11 sources) Vitamin D Start: 11-19-2020 take 1 tablet by mouth once daily Cholecalciferol (Vitamin D3) (Vitamin D3) 25 mcg (1,000 unit) Tablet Active 2000 UNIT PO Daily November 19, 2020 11:45am Start: 11-19-2020 take 1 tablet by pam th once daily Cholecalciferol (Vitamin D3) (Vitamin D3) 25 mcg (1,000 unit) Tablet Active 125 MCG PO Daily November 19, 2020 12:00am End: 05-29-2024 take 1 capsule by mouth once daily cholecalciferol (D2000 Ultra Strength) 50 MCG (2000 UT) capsule Take 1 capsule by mouth daily. 05/29/2024 Discontinued (Stop Taking at Discharge) docusate sodium 100 mg oral capsule (7 sources) Start: 05-29-2024 End: 05-29-2024 take 1 capsule by mouth twice daily Docusate 100 MG capsule Take 1 capsule by mouth 2 times daily. Hold for loose stools. 60 capsule 05/29/2024 Active ergocalciferol 1.25 mg oral capsule (20 sources) Provitamin D2 Compound ergocalciferol (Vitamin D2) 1.25 MG (93220 UT) capsule 1 capsule 1 (one) time each day at the same time Active erythromycin 500 mg oral tablet (4 sources) Macrolide, Macrolide Antimicrobial Start: 03-17-2016 erythromycin base (E-MYCIN) 500 MG tablet Indications: Status post total left knee replacement Take 2 tabs 1 hour prior to dental appointment or procedure, then 1 tab twice daily until gone 6 tablet 0 03/17/2016 Active ferrous sulfate (10 sources) take 1 tablet by mouth once daily Ferrous Sulfate (IRON PO) Take 1 tablet by mouth daily. Active gabapentin 100 mg oral capsule (20 sources) Anti-epileptic Agent Start: 04-19-2024 take 1 capsule by mouth twice daily Gabapentin 100 MG capsule Take 1 capsule by mouth 2 times daily. 04/19/2024 Active Start: 11-19-2020 take 100 mg by mouth once reynaldo y Gabapentin Active 100 MG PO Daily November 19, 2020 11:45am Start: 11-19-2020 take 300 mg by mouth once reynaldo y Gabapentin Active 300 MG PO Daily November 19, 2020 12:00am take 1 capsule by [facility] twice daily gabapentin (NEURONTIN) 100 MG capsule Take 100 mg by mouth 2 times daily 0 Active gemfibrozil 600 mg oral tablet (20 sources) Peroxisome Proliferator Receptor alpha Agonist Start: [...] 03/16/2020 Active irbesartan 150 mg oral tablet (20 sources) Angiotensin 2 Receptor Yecenia Start: 11-06-2021 take 150 mg by mouth once daily Irbesartan Active 150 MG PO Daily November 06, 2021 12:00am levothyroxine sodium 0.125 mg oral tablet (20 sources) l-Thyroxine Start: 07-11-2021 take 125 ug by mouth once daily Levothyroxine Active 125 MCG PO Daily July 11, 2021 1:00am Levothyroxine So dium 125 MCG Oral for 30 Days Active meloxicam 7.5 mg oral tablet (12 sources) Nonsteroidal Anti-inflammatory Drug Start: 05-29-2024 take 1 tablet by mouth once daily at mealtime Meloxicam 7.5 MG tablet Take 1 tablet by mouth daily. Take with food. 30 tablet 05/29/2024 Active Start: 05-29-2024 take 1 dose by mouth every two hours 7.5 mg, Oral, ONCE DIRECTED, 1 dose, Starting on Wed05/29/24 at 0543, Until Wed05/29/24 at 0604, See admin instructions, Administer 2 hours preop, Pre-op/Pre-Proc Start: 02-10-2024 End: 05-29-2024 take 1 tablet by mouth once daily at mealtime Meloxicam 15 MG tablet Take 1 tablet by mouth daily. Take with food 30 tablet 1 02/10/2024 05/29/2024 Discontinued (Stop Taking at Discharge) Multiple Vitamin (Multi Vitamin) tablet (20 sources) Multiple Vitamin (Multi Vitamin) tablet 1 (one) time each day at the same time Active Multivitamin preparation (6 sources) Start: 02-19-2020 take 1 tablet by mouth once daily Multivitamin Active 1 TAB PO Daily February 19, 2020 1:43pm Start: 02-19-2020 take 1 tablet by pam th once daily Multivitamin Active 1 TAB PO Daily February 18, 2020 11:00pm Start: 02-19-2020 take 1 tablet by pam th once daily Multivitamin Active 1 TAB PO Daily February 19, 2020 12:00am omeprazole 40 mg delayed release oral capsule (20 sources) Proton Pump Inhibitor Start: 01-04-2024 take 1 capsule by mouth once daily omeprazole [address] capsule Take 1 capsule by mouth daily. 01/04/2024 Active Start: 06-23-2014 take 20 mg by mouth once daily Omeprazole Active 20 MG PO Daily February 19, 2020 12:00am ondansetron 4 mg oral tablet (15 sources) Serotonin-3 Receptor Antagonist Start: 05-29-2024 take 1 tablet by mouth every eight hours as needed Ondansetron 4 MG tablet Take 1 tablet by mouth every 8 hours as needed for Nausea / Vomiting. 6 tablet 05/29/2024 Active Start: 05-29-2024 End: 05-29-2024 take 4 mg intravenously every four hours as needed 4 mg, Intravenous, EVERY 4 HOURS NEEDED, Starting on Wed05/29/24 at 1028, Until Wed05/29/24 at 1835, Nausea / Vomiting, Post-op/Post-Proc Start: 05-29-2024 End: 05-29-2024 4 mg, Intravenous, ONCE N EEDED, 1 dose, Starting on Wed05/29/24 at 0934, Until Wed05/29/24 at 1835, Nausea / Vomiting, Recovery take 1 tablet by pam th every four hours for nausea Ondansetron 4 MG dissolve 1 tablet ON TONGUE every 4 hours if needed for nausea OR vomiting Oral for 5 Not-Taking Potassium (20 sources) POTASSIUM PO Otc daily Active Potassium 99 MG tablet 1 (one) time each day at the same time Active POTASSIUM PO 1 ( one) time each day at the same time Active therapeutic multivitamin-minerals tablet (6 sources) Start: 05-29-2024 take 1 tablet by mouth at bedtime therapeutic multivitamin-minerals tablet Take 1 tablet by mouth at bedtime. 30 tablet 05/29/2024 Active traMADol hydrochloride 50 mg oral tablet (9 sources) Opioid Agonist Start: 05-29-2024 End: 06-05-2024 traMADol 50 MG tablet Indications: Acute postoperative pain of right hip 1-2 tabs every 6 hours as needed for mild/moderate pain. 20 tablet 05/29/2024 Active Start: 11-11-2021 End: 07-27-2023 take 50 mg by mouth every four hours Tramadol Discontinued 50 MG PO Q4H 10 November 11, 2021 12:00am July 27, 2023 9:04am traZODone hydrochloride 100 mg oral tablet (6 sources) Serotonin Reuptake Inhibitor Start: 04-19-2024 take 1 tablet by mouth at bedtime as needed traZODone 100 MG tablet Take 1 tablet by mouth at bedtime as needed. 04/19/2024 Active Completed/Discontinued Medications Medication Drug Class(es) Dates Sig (Normalized) Sig (Original) acetaminophen 325 mg / oxyCODONE hydrochloride 5 mg oral tablet (5 sources) Opioid Agonist Start: 12-04-2020 End: 07-11-2021 take 1 tablet by mouth every four to six hours Oxycodone-Acetamino phen (Percocet) 5-325 mg Tablet Discontinued 1 - [...] pain 12 tablet 0 03/16/2020 03/19/2020 Active bisacodyl 10 mg rectal suppository (1 source) Stimulant Laxative Start: 05-29-2024 End: 05-29-2024 take 10 mg rectal route once daily as needed for constipation 10 mg, Rectal, DAILY NEEDED, Starting on Wed05/29/24 at 1028, Until Wed05/29/24 at 1835, constipation, Post-op/Post-Proc calcium chloride 0.0014 meq/ml / potassium chloride 0.004 meq/ml / sodium chloride 0.103 meq/ml / sodium lactate 0.028 meq/ml injectable solution (1 source) Start: 05-29-2024 End: 05-29-2024 Intravenous, at 75 mL/hr, CONTINUOUS, Starting on Wed05/29/24 at 0545, Until Wed05/29/24 at 1835, Pre-op/Pre-Proc ceFAZolin 2000 mg injection (1 source) Cephalosporin Antibacterial Start: 05-29-2024 End: 05-29-2024 take 2 g intravenously every eight hours 2 g, Intravenous, Administer over 30 Minutes, EVERY 8 HOURS NON-STANDARD, 3 doses, First dose on Wed05/29/24 at 1530, Last dose on Wed05/30/24 at 0730, Post-op/Post-Proc dexamethasone phosphate 10 mg/ml injectable solution (6 sources) Corticosteroid Start: 05-29-2024 End: 05-29-2024 10 mg, Intravenous, ONCE DIRECTED, 1 dose, Starting on Wed05/29/24 at 1028, Until Wed05/29/24 at 1416, 30 minutes prior to Discharge., One dose 30 minutes prior to discharge, Post-op/Post-Proc Start: 02-10-2024 End: 05-29-2024 dexAMETHasone 4 MG/ML Soluti on injection 1 mL by Other route As directed for 18 doses. (1 cc 3 x a week at physical therapy via iontophoresis) for up to 18 doses. 30 mL 02/10/2024 05/29/2024 Discontinued (Stop Taking at Discharge) docusate sodium 50 mg / sennosides, prison 8.6 mg oral tablet (1 source) Start: 05-29-2024 End: 05-29-2024 take 2 tablets by mouth twice daily as needed for constipation 2 tablet, Oral, 2 TIMES DAILY NEEDED, Starting on Wed05/29/24 at 1028, Until Wed05/29/24 at 1835, constipation, Post-op/Post-Proc 1 ml HYDROmorphone hydrochloride 1 mg/ml cartridge (1 source) Opioid Agonist Start: 05-29-2024 End: 05-29-2024 take 0.5 mg intravenously every four hours as needed 0.5 mg, Intravenous, EVERY 4 HOURS NEEDED, Starting on Wed05/29/24 at 1028, Until Wed05/29/24 at 1835, Severe Pain, Post-op/Post-Proc HYDROmorphone (DILAUDID) injection 0.2 mg (1 source) Start: 05-29-2024 End: 05-29-2024 HYDROmorphone (DILAUDID) injection 0.2 mg hydrOXYzine pamoate 25 mg oral capsule (4 sources) Antihistamine Start: 12-04-2020 End: 07-11-2021 take 25 mg by mouth every eight hours Hydroxyzine Pamoate Discontinued 25 MG PO Q8H December 04, 2020 12:00am July 11, 2021 3:23pm 1 ml ketorolac tromethamine 30 mg/ml cartridge (9 sources) Nonsteroidal Anti-inflammatory Drug, Cyclooxygenase Inhibitor Start: 05-29-2024 End: 05-29-2024 7.5 mg, Intravenous, EVERY 6 HOURS, 12 doses, First dose on Wed05/29/24 at 1200, Last dose on Odette 06/01/24 at 0600, Post-op/Post-Proc Start: 07-31-2018 Toradol per 15 mg Jul, 30 mg lisinopril 10 mg oral tablet (13 sources) Angiotensin Converting Enzyme Inhibitor Start: 02-19-2020 End: 11-06-2021 take 10 mg by mouth once daily Lisinopril Discontinued 10 MG PO Daily February 19, 2020 12:00am November 06, 2021 7:02am melatonin 1 mg oral tablet (6 sources) Start: 11-19-2020 End: 09-23-2023 take 1 [...] 5 Not-Taking methylPREDNISolone 4 mg oral tablet (2 sources) Corticosteroid Start: 08-31-2023 End: 09-23-2023 take 1 tablet by mouth once Methylprednisolone (Medrol (Shan)) 4 mg tablets,dose pack Discontinued 0 PO per package directions August 31, 2023 1:00am September 23, 2023 9:41am PO PER PKG DIR 1 ml morphine sulfate 4 mg/ml injection (1 source) Opioid Agonist Start: 03-16-2020 End: 03-16-2020 morphine sulfate (PF) injection 4 mg naproxen 500 mg oral tablet (13 sources) Nonsteroidal Anti-inflammatory Drug Start: 11-06-2021 End: [...] by mouth 2 times daily 0 Active oxyCODONE hydrochloride 5 mg oral tablet (4 sources) Opioid Agonist Start: 08-15-2021 End: 11-06-2021 take 5-10 mg by mouth every six hours Oxycodone Discontinued 5 - 10 MG PO Q6H 30 8 August 15, 2021 November 06, 2021 7:04am Promethazine (PHENERGAN) 6.25 mg in Sodium chloride 0.9%, with overfill 60.25 mL (total volume) IVPB (1 source) Start: 05-29-2024 End: 05-29-2024 take 6.25 mg intravenously every hour as needed 6.25 mg, Intravenous, at 180.8 mL/hr, Administer over 20 Minutes, EVERY 1 HOUR NEEDED, 2 doses, Starting on Wed05/29/24 at 0934, Until Wed05/29/24 at 1835, Other, Nausea and vomiting, Extravasation Risk, Recovery 1000 ml sodium chloride 9 mg/ml injection (2 sources) Start: 05-29-2024 End: 05-29-2024 Intravenous, at 100 mL/hr, CONTINUOUS, Starting on Wed05/29/24 at 1030, Until Wed05/29/24 at 1835, Convert IV to PRN adapter once bag from OR complete. Notify provider if inadequate oral intake, Post-op/Post-Proc Start: 03-16-2020 End: 03-16-2020 0.9 % sodium chloride bolus sodium phosphate, dibasic 35.5 mg/ml / sodium phosphate, monobasic 96.4 mg/ml enema (1 source) Start: 05-29-2024 End: 05-29-2024 1 enema, Rectal, DAILY NEEDED, Starting on Wed05/29/24 at 1028, Until Wed05/29/24 at 1835, Refractory Constipation, use per package instructions, Post-op/Post-Proc sucralfate 1000 mg oral tablet (6 sources) Aluminum Complex Start: 02-19-2020 End: 11-19-2020 take 1 g by mouth once daily Sucralfate Discontinued 1 GM PO Daily February 19, 2020 12:00am November 19, 2020 12:04pm thyroid (prison) 60 mg oral tablet (17 sources) Start: 02-19-2020 End: 07-11-2021 take 1 tablet by mouth once daily Thyroid (Pork) ([place] Thyroid) 60 mg tablet Discontinued 90 MG PO Daily February 19, 2020 12:00am July 11, 2021 3:26pm take 1 tablet by mouth once reynaldo y [employer]CH[employer]ECT Thyroid 90 MG take 1 tablet by mouth once daily Oral for 30 Active total joint mixture (no clonidine) premade bag 1 Bag (1 source) Start: 05-29-2024 End: 05-29-2024 total joint mixture (no clonidine) premade bag 1 Bag tranexamic acid 650 mg oral tablet (1 source) Antifibrinolytic Agent Start: 05-29-2024 End: 05-29-2024 take 1 dose by mouth every two hours 1,950 mg, Oral, ONCE DIRECTED, 1 dose, Starting on Wed05/29/24 at 0543, Until Wed05/29/24 at 0604, See admin instructions, Administer 2 hours preop, Pre-op/Pre-Proc triamcinolone acetonide 40 mg/ml injectable suspension (4 sources) Corticosteroid Start: 04-16-2023 Kenalog-40 13 Apr, 2023 120 mg Vitamin B 12 (20 sources) Vitamin B12 Start: 10-09-2023 End: 05-29-2024 inject 1 mL by intramuscular injection every 30 days Cyanocobalamin 1000 MCG/ML Solution Inject 1 mL intramuscularly every 30 days. 10/09/2023 05/29/2024 Discontinued (Stop Taking at Discharge) Start: 10-09-2023 inject 1 mL by intra muscular injection every 30 days Cyanocobalamin 1000 MCG/ML Solution Inject 1 mL intramuscularly every 30 days. 10/09/2023 Active Start: 11-19-2020 inject 1000 ug by in tramuscular injection every 30 days Cyanocobalamin (Vitamin B-12) Active 1000 MCG IM Q30D November 19, 2020 12:00am Cyanocobalamin 1 00 MCG lozenge Active Cyanocobalamin 1 000 MCG/ML Injection for 90 Days Active Cyanocobalamin 1 000 MCG/ML Injection for 90 Days Active Vitamin B-12 Act [place] Cyanocobalamin ( VITAMIN B 12 PO) Take by mouth 0 Active zolpidem tartrate 5 mg oral tablet (1 source) gamma-Aminobutyric Acid-ergic Agonist Start: 05-29-2024 End: 05-29-2024 take 5 mg by mouth once daily at bedtime as needed for sleep 5 mg, Oral, DAILY AT BEDTIME NEEDED, Starting on Wed05/29/24 at 1028, Until Wed05/29/24 at 1835, Sleep, Post-op/Post-Proc Problems Active Problems Problem Classification Problem Date Documented Date Episodic/Chronic Abdominal hernia (14 sources) Hiatal hernia; Translations: [Diaphragmatic hernia without obstruction or gangrene] Episodic Asthma (10 sources) Asthma; Translations: [Unspecified asthma, uncomplicated] Onset: 08-17-2011 08-17-2011 Chronic Deficiency and other anemia (1 source) Anemia, unspecified; Translations: [ANEMIA UNSPECIFIED] Onset: 10-26-2022 Episodic Diabetes mellitus without complication (1 source) Other abnormal glucose; Translations: [OTHER ABNORMAL GLUCOSE] Onset: 10-26-2022 Episodic Disorders of lipid metabolism (8 sources) Pure hypercholesterolemia, unspecified; Translations: [Hyperlipidemia] Onset: 05-01-2020 05-18-2024 Chronic Esophageal disorders (20 sources) Gastroesophageal reflux disease; Translations: [Gastro-esophageal reflux disease without esophagitis] Onset: 05-01-2020 02-20-2020 Chronic Essential hypertension (7 sources) Essential (primary) hypertension; Translations: [Essential hypertension] Onset: 05-01-2020 05-29-2024 Chronic Immunizations and screening for infectious disease (1 source) Raised antibody titer; Translations: [Raised antibody titer] Onset: 11-25-2023 Episodic Intracranial injury (1 source) Concussion with less than 1 hour loss of consciousness; Translations: [Concussion with loss of consciousness of 30 minutes or less, initial encounter] Episodic Nutritional deficiencies (7 sources) Vitamin D deficiency, unspecified; Translations: [Vitamin D deficiency] Onset: 05-01-2020 05-29-2024 Chronic Osteoarthritis (20 sources) Osteoarthritis; Translations: [Arthropathy of left shoulder] Onset: 08-17-2011 08-17-2011 Chronic Other bone disease and musculoskeletal deformities (14 sources) Avascular necrosis of bone; 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] Chronic Other bone disease and musculoskeletal deformities (1 source) Other specified disorders of bone, other site; Translations: [Other specified disorders of bone, other site] Onset: 11-17-2023 Episodic Other connective tissue disease (20 sources) History of total hip arthroplasty; Translations: [Presence of left artificial hip joint] Onset: 05-18-2024 12-04-2020 Chronic Other connective tissue disease (8 sources) Trigger thumb of right hand; Translations: [Trigger thumb, right thumb] Episodic Other connective tissue disease (2 sources) Trochanteric bursitis, right hip Onset: 10-02-2021 Resolved: 10-02-2021 Episodic Other connective tissue disease (4 sources) Triggering of digit; Translations: [Trigger finger, unspecified finger] 11-11-2021 Episodic Other connective tissue disease (3 sources) Trochanteric bursitis; Translations: [Trochanteric bursitis, unspecified hip] Episodic Other connective tissue disease (3 sources) Trochanteric bursitis, unspecified hip; Translations: [Enthesopathy of hip region] Episodic Other connective tissue disease (20 sources) Pain in buttock; Translations: [Myalgia, other site] 04-04-2024 Episodic Other connective tissue disease (20 sources) Muscle weakness of limb; Translations: [Muscle weakness (generalized)] 04-04-2024 Episodic Other injuries and conditions due to external causes (1 source) Closed injury of head; Translations: [Closed head injury, initial encounter] Episodic Other nervous system disorders (20 sources) Carpal tunnel syndrome of left wrist; Translations: [Carpal tunnel syndrome, left upper limb] Onset: 10-21-2023 06-16-2023 Chronic Other nervous system disorders (3 sources) Carpal tunnel syndrome, left upper limb Onset: 05-23-2021 Resolved: 08-25-2021 Chronic Other nervous system disorders (8 sources) Carpal tunnel syndrome of right wrist; Translations: [Carpal tunnel syndrome, right upper limb] Chronic Other nervous system disorders (1 source) Carpal tunnel syndrome, right upper limb Onset: 10-02-2021 Resolved: 10-02-2021 Chronic Other nervous system disorders (2 sources) Carpal tunnel syndrome; Translations: [Carpal tunnel syndrome, left upper limb] 08-15-2021 Chronic Other nervous system disorders (5 sources) Chronic pain; Translations: [Other chronic pain] 08-31-2023 Chronic Other nervous system disorders (6 sources) Other chronic pain; Translations: [Other chronic pain] Chronic Other nervous system disorders (1 source) Other chronic pain; Translations: [Other chronic pain] Onset: 07-27-2023 Chronic Other nervous system disorders (7 sources) Polyneuropathy; Translations: [Polyneuropathy, unspecified] Onset: 05-01-2020 05-18-2024 Chronic Other non-traumatic joint disorders (20 sources) Hip pain; Translations: [Pain in right hip] Onset: 10-21-2023 10-21-2023 Episodic Other non-traumatic joint disorders (4 sources) Arthritis of left knee; Translations: [Arthritis of left knee] Onset: 08-27-2015 08-27-2015 Other non-traumatic joint disorders (4 sources) Pain in left knee; Translations: [Knee pain, left] Onset: 08-27-2015 08-27-2015 Other screening for suspected conditions (not mental disorders or infectious disease) (5 sources) Encounter for screening mammogram for malignant neoplasm of breast; Translations: [Encounter for screening for malignant neoplasm of rectum] Onset: 10-26-2022 Episodic Residual codes; unclassified (1 source) Pain, unspecified; Translations: [Pain, unspecified] Onset: 10-27-2023 Episodic Spondylosis; intervertebral disc disorders; other back problems (20 sources) Solitary sacroiliitis; Translations: [Sacroiliitis, not elsewhere classified] Onset: 2023 Chronic Sprains and strains (20 sources) Tendon rupture - hip; Translations: [Strain of muscle, fascia and tendon of right hip, initial encounter] Onset: 10-04-2024 06-07-2024 Episodic Thyroid disorders (11 sources) Hypothyroidism, unspecified; Translations: [Hypothyroidism] Onset: 05-01-2020 Chronic Unclassified (3 sources) CONTACT W/AND (SUSP) EXPOS COVID-19; Translations: [CONTACT W/AND (SUSP) EXPOS COVID-19] Onset: 07-01-2022 Unclassified (1 source) COUGH, UNSPECIFIED; Translations: [COUGH, UNSPECIFIED] Onset: 07-01-2022 Unclassified (1 source) Consult Onset: 11-17-2023 Unclassified (1 source) Pain in right lower leg; Translations: [Pain in right lower leg] Onset: 09-14-2023 Unclassified (1 source) Pain in right hip; Translations: [Pain in right hip] Onset: 04-16-2023 Past or Other Problems Problem Classification Problem [...] 08-18-2022 Episodic Other aftercare (1 source) 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; Translations: [OTH ASSISTED CURRENT DRUG THERAPY] Onset: 08-20-2022 Episodic Other circulatory disease (1 source) Other specified symptoms and signs involving the circulatory and respiratory systems; Translations: [OTH SPEC SX SIGNS INVLV CIRC RS] Onset: 07-01-2022 Episodic Other connective tissue disease (11 sources) Rupture of tendon of biceps; Translations: [Strain of muscle, fascia and tendon of other parts of biceps, unspecified arm, initial encounter] Onset: 04-27-2016 04-27-2016 Episodic Other connective tissue disease (3 sources) Trigger thumb, right thumb Onset: 10-02-2021 Resolved: 11-24-2021 Episodic Other connective tissue disease (1 source) Pain in right hand Onset: 11-03-2021 Resolved: 11-03-2021 Episodic Other connective tissue disease (8 sources) Bursitis of hip; Translations: [Trochanteric bursitis, unspecified hip] Onset: 05-29-2024 08-31-2023 Episodic Other connective tissue disease (6 sources) Muscle weakness; Translations: [Muscle weakness (generalized)] Onset: 05-01-2020 05-29-2024 Episodic Other nervous system disorders (20 sources) Paresthesia; Translations: [Paresthesia of skin] Onset: 10-21-2023 10-21-2023 Episodic Other nervous system disorders (2 sources) Other acute postprocedural pain; Translations: [Other acute postprocedural pain] Onset: 05-29-2024 Episodic Other non-traumatic joint disorders (8 sources) Pain in right hip; Translations: [Pain in right hip] Onset: 11-17-2023 Episodic Other non-traumatic joint disorders (17 sources) Pain in right hip joint; Translations: [Pain in right hip] Onset: 10-21-2023 01-31-2024 Episodic Residual codes; unclassified (1 source) Other specified postprocedural states Onset: 11-24-2021 Resolved: 11-24-2021 Episodic Screening and history of mental health and substance abuse codes (1 source) Personal history of nicotine dependence; Translations: [PERSONAL HISTORY OF NICOTINE DEPEND] Onset: 08-20-2022 Episodic Skin and subcutaneous tissue infections (10 sources) Abscess of neck; Translations: [Cutaneous abscess of neck] Onset: 08-17-2011 08-17-2011 Episodic Spondylosis; intervertebral disc disorders; other back problems (14 sources) Lumbar radiculopathy; Translations: [Cervicalgia] Onset: 01-17-2014 Resolved: 05-23-2021 01-17-2014 Episodic Unclassified (1 source) CONTACT W/AND (SUSP) EXPOS COVID-19; Translations: [CONTACT W/AND (SUSP) EXPOS COVID-19] Onset: 06-24-2022 Results Test Name Value Interpretation Reference Range Facility XR PELVIS 1-2 VIEWSon 2023 XR PELVIS 1-2 VIEWS EXAM: XR PELVIS 1-2 VIEWS HISTORY: post op COMPARISON: 02/10/2024 TECHNIQUE: An AP view of the pelvis is performed. FINDINGS: There are postoperative changes of left total hip arthroplasty. The orthopedic hardware is intact. There are mild degenerative changes within the right hip. There is a small amount of soft tissue gas along the lateral aspect of the right hip. Degenerative changes are seen within the visualized lumbar spine. IMPRESSION: Small amount of soft tissue gas along the lateral aspect of the right hip consistent with recent surgery. Postoperative changes of left total hip arthroplasty with intact orthopedic hardware. Normal [facility] CBCon 05-18-2024 ABSOLUTE BAS 0.1 10*3/uL Normal 0.0-0.2 [facility] Comment on above: Performed By: #### C MPF, ACBC, PT #### Testing performed at [address] [address] ABSOLUTE EOS 0.1 10*3/uL Normal 0.0-0.7 [facility] Comment on above: Performed By: #### C MPF, ACBC, PT #### Testing performed at [address] [address] ABSOLUTE NEUTROPHIL COUNT 5.3 10*3/uL Normal 1.4-6.5 [facility] Comment on above: Performed By: #### C MPF, ACBC, PT #### Testing performed at [address] [address] Basophils/100 WBC (Bld) 0.9 % Normal 0.0-2.0 [facility] Comment on above: Performed By: #### C MPF, ACBC, PT #### Testing performed at [address] [address] DTYPE AUTO DIFF Normal [facility] Comment on above: Performed By: #### C MPF, ACBC, PT #### Testing performed at [address] [address] Eosinophils/100 WBC (Bld) 1.7 % Normal 0.0-11.0 [facility] Comment on above: Performed By: #### C MPF, ACBC, PT #### Testing performed at [address] [address] Lymphocytes (Bld) [#/Vol] 1.9 10*3/uL Normal 1.2-3.4 [facility] Comment on above: Performed By: #### C MPF, ACBC, PT #### Testing performed at [address] [address] Lymphocytes/100 WBC (Bld) 23.0 % Normal 20.0-55.0 [facility] Comment on above: Performed By: #### C MPF, ACBC, PT #### Testing performed at [address] [address] Monocytes (Bld) [#/Vol] 0.7 10*3/uL Normal 0.0-0.7 [facility] Comment on above: Performed By: #### C MPF, ACBC, PT #### Testing performed at [address] [address] Monocytes/100 WBC (Bld) 9.1 % Normal 0.0-10.0 [facility] Comment on above: Performed By: #### C MPF, ACBC, PT #### Testing performed at [address] [address] Neutrophils/100 WBC (Bld) 65.3 % Normal 37.0-75.0 [facility] Comment on above: Performed By: #### C MPF, ACBC, PT #### Testing performed at [address] [address] Erythrocyte distribution width (RBC) [Ratio] 12.5 % Normal 11.5-14.5 [facility] Comment on above: Performed By: #### C MPF, ACBC, PT #### Testing performed at [address] [address] Hematocrit (Bld) [Volume fraction] 40.5 % Normal 36.0-48.0 [facility] Comment on above: Performed By: #### C MPF, ACBC, PT #### Testing performed at [address] [address] Hemoglobin (Bld) [Mass/Vol] 13.6 g/dL Normal 12.0-16.0 [facility] Comment on above: Performed By: #### C MPF, ACBC, PT #### Testing performed at [address] [address] MCH (RBC) [Entitic mass] 31.2 pg Normal 26.0-35.0 [facility] Comment on above: Performed By: #### C MPF, ACBC, PT #### Testing performed at [address] [address] MCHC (RBC) [Mass/Vol] 33.6 g/dL Normal 27.0-37.0 [facility] Comment on above: Performed By: #### C MPF, ACBC, PT #### Testing performed at [address] [address] MCV (RBC) [Entitic vol] 93.0 fL Normal 80.0-100.0 [facility] Comment on above: Performed By: #### C MPF, ACBC, PT #### Testing performed at [address] [address] Platelet mean volume (Bld) [Entitic vol] 8.9 fL Normal 7.4-11.0 [facility] Comment on above: Performed By: #### C MPF, ACBC, PT #### Testing performed at [address] [address] Platelets (Bld) [#/Vol] 351 10*3/uL Normal 130-400 [facility] Comment on above: Performed By: #### C MPF, ACBC, PT #### Testing performed at [address] [address] RBC (Bld) [#/Vol] 4.36 10*6/uL Normal 4.0-5.4 [facility] Comment on above: Performed By: #### C MPF, ACBC, PT #### Testing performed at [address] [address] WBC (Bld) [#/Vol] 8.1 10*3/uL Normal 3.6-11.0 [facility] Comment on above: Performed By: #### C MPF, ACBC, PT #### Testing performed at [address] [address] CMP FASTINGon 05-18-2024 A:G RATIO 1.7 RATIO Normal [facility] Comment on above: Performed By: #### C MPF, ACBC, PT #### Testing performed at [address] [address] ALBUMIN 4.7 G/dl Normal 3.5-5.0 [facility] Comment on above: Performed By: #### C MPF, ACBC, PT #### Testing performed at [address] [address] ALP [Catalytic activity/Vol] 82 U/L Normal 38-126 [facility] Comment on above: Performed By: #### C MPF, ACBC, PT #### Testing performed at [address] [address] ALT [Catalytic activity/Vol] 22 U/L Normal <35 [facility] Comment on above: Performed By: #### C MPF, ACBC, PT #### Testing performed at [address] [address] AST [Catalytic activity/Vol] 29 U/L Normal 14-36 [facility] Comment on above: Performed By: #### C MPF, ACBC, PT #### Testing performed at [address] [address] Bilirubin [Mass/Vol] 0.7 mg/dL Normal 0.2-1.3 [facility] Comment on above: Performed By: #### C MPF, ACBC, PT #### Testing performed at [address] [address] Calcium [Mass/Vol] 10.1 mg/dL Normal 8.4-10.2 [facility] Comment on above: Performed By: #### C MPF, ACBC, PT #### Testing performed at [address] [address] Chloride [Moles/Vol] 106 mmol/L Normal 98-107 [facility] Comment on above: Result Comment: Filemon zapata note: Triglyceride levels of 600mg/dL or higher may positively bias chloride results by approximately 2.1 mmol Performed By: #### C MPF, ACBC, PT #### [place] [address] CO2 [Moles/Vol] 29 mmol/L Normal 22-30 [facility] Comment on above: Performed By: #### C MPF, ACBC, PT #### [place] [address] Creatinine [Mass/Vol] 1.00 mg/dL Normal 0.70-1.20 [facility] Comment on above: Performed By: #### C MPF, ACBC, PT #### Testing performed at [address] [address] EST. GFR, 72 ml/min/1.73sq.m [facility] Comment on above: Performed By: #### C MPF, ACBC, PT #### Testing performed at [place] [id number] EST. GFR,Non 60 ml/min/1.73sq.m [facility] Comment on above: Performed By: #### C MPF, ACBC, PT #### Testing performed at [address] [address] GFR Information Average GFR for 60-69 years old = 85. Normal [facility] Comment on above: Result Comment: Medical Office Scheduler elsie Kidney disease, GFR = <60. Kidney failure, GFR = <15. The GFR estimate is not adjusted for extreme body surface area or acute process, nor has it been validated for women or ethnic groups other than and . Performed By: #### C MPF, ACBC, PT #### [place] [address] Glucose [Mass/Vol] 104 mg/dL High 70-100 [facility] Comment on above: Result Comment: NORMAL <100 mg/dL PREDIABETES 101-126 mg/dL DIABETES 126 mg/dL or higher Performed By: #### C MPFred ACBC, PT #### Testing performed at [address] [address] Potassium [Moles/Vol] 4.2 mmol/L Normal 3.5-5.1 [facility] Comment on above: Performed By: #### C MPF ACBC, PT #### Testing performed at [address] [address] Protein [Mass/Vol] 7.5 g/dL Normal 6.3-8.2 [facility] Comment on above: Performed By: #### C MPFred ACBC, PT #### Testing performed at [address] [address] Sodium [Moles/Vol] 142 mmol/L Normal 137-145 [facility] Comment on above: Performed By: #### C MPFred ACBC, PT #### Testing performed at [address] [address] Urea nitrogen [Mass/Vol] 16 mg/dL Normal 7-20 [facility] Comment on above: Performed By: #### C MARTHA OWEN, PT #### Testing performed at [address] [address] HEMOGLOBIN A1Con 05-18-2024 Glucose [Mass/Vol] 117 mg/dL Normal [facility] Comment on above: Performed By: #### H A1CT #### Testing performed at [address] [place] [address] HbA1c (Bld) [Mass fraction] 5.7 % Normal 0-6 [facility] Comment on above: Result Comment: NORMAL <5.7% PREDIABETES 5.7-6.4% DIABETES 6.5% OR HIGHER Performed By: #### H A1CT #### Testing performed at [address] [place] [address] MRSA SCREENon 05-18-2024 MRSA DNA JENNIE+probe Ql (Unsp spec) Negative Normal NEGATIVE [facility] Comment on above: Performed By: #### M RSAST #### Testing performed at [address] [place] [address] STAPH AUREUS SCREEN Negative Normal NEGATIVE [facility] Comment on above: Result Comment: TEST ING PERFORMED BY PCR Performed By: #### M RSAST #### Testing performed at [address] [address] PROTIMEon 05-18-2024 INR Coag (PPP) [Relative time] 0.89 {INR} Normal 0.85-1.10 [facility] Comment on above: Result Comment: 2.0-3.0 THERAPEUTIC RANGE 2.5-3.5 MECHANICAL VALVE RANGE Performed By: #### C MPF, ACBC, PT #### Testing performed at [address] [address] PT Coag (PPP) [Time] 12.1 s Normal 11.8-14.4 [facility] Comment on above: Performed By: #### C MPF, ACBC, PT #### Testing performed at [address] [address] URINE MACROSCOPICon 05-18-20 Bilirubin Ql (U) Negative Normal NEGATIVE [facility] Comment on above: Performed By: #### U ISAI, UMAC #### Testing performed at [address] [address] Clarity (U) CLEAR Normal CLEAR [facility] Comment on above: Performed By: #### U ISAI, UMAC #### Testing performed at [address] [address] Color (U) YELLOW Normal YELLOW [facility] Comment on above: Performed By: #### U ISAI, UMAC #### Testing performed at [address] [address] Glucose Ql (U) 100 mg/dl Abnormal NEGATIVE [facility] Comment on above: Performed By: #### U ISAI, UMAC #### Testing performed at [address] [address] pH (U) 7.0 [pH] Normal 5.0-7.0 [facility] Comment on above: Performed By: #### U ISAI, UMAC #### Testing performed at [address] [place] [address] URINE HEMOGLOBIN Negative Normal NEGATIVE [facility] Comment on above: Performed By: #### U ISAI, UMAC #### Testing performed at [address] [place] [address] URINE KETONE Negative Normal NEGATIVE [facility] Comment on above: Performed By: #### U ISAI, UMAC #### Testing performed at [address] [place] [address] URINE LEUKOTEST Negative Normal NEGATIVE [facility] Comment on above: Performed By: #### U ISAI, UMAC #### Testing performed at [address] [place] [address] URINE NITRATES Negative Normal NEGATIVE [facility] Comment on above: Performed By: #### U ISAI, UMAC #### Testing performed at [address] [address] URINE SPEC GRAVITY 1.015 Normal 1.010-1.025 [facility] Comment on above: Performed By: #### U ISAI, UMAC #### Testing performed at [address] [place] [address] URINE TOTAL PROTEIN Negative Normal NEGATIVE [facility] Comment on above: Performed By: #### U ISAI, UMAC #### Testing performed at [address] [address] Urobilinogen Qn (U) 0.2 {Carlos'U}/dL Normal 0.2-1.0 [facility] Comment on above: Performed By: #### U ISAI, UMAC #### Testing performed at [address] [address] URINE MICROSCOPICon 05-18-20 24 BACTERIA TRACE Abnormal NEGATIVE [facility] Comment on above: Performed By: #### U ISAI, UMAC #### Testing performed at [address] [address] CASTS NONE Normal [facility] Comment on above: Performed By: #### U ISAI, UMAC #### Testing performed at [address] [place] [address] CRYSTAL NONE Normal NONE [facility] Comment on above: Performed By: #### U ISAI, UMAC #### Testing performed at [address] [address] Epithelial cells LM Ql (Urine sed) 5 TO 10 Normal [facility] Comment on above: Performed By: #### U ISAI, UMAC #### Testing performed at [address] [address] Mucus Ql (Urine sed) Negative Normal NEGATIVE [facility] Comment on above: Performed By: #### U ISAI, UMAC #### Testing performed at [address] [address] URINE COMMENT CULTURE CRITERIA NOT MET, NO CULTURE PERFORMED. Normal [facility] Comment on above: Performed By: #### U ISAI, UMAC #### Testing performed at [address] [address] URINE RBC'S Negative Normal NEGATIVE [facility] Comment on above: Performed By: #### U ISAI, UMAC #### Testing performed at [address] [address] URINE WBC'S Negative Normal NEGATIVE [facility] Comment on above: Performed By: #### U ISAI, UMAC #### Testing performed at [address] [address] MRI HIP RIGHT WITHOUT CONTRA STon 05-05-2024 MRI HIP RIGHT WITHOUT CONTRAST EXAM: MRI HIP RIGHT WITHOUT CONTRAST HISTORY: R hip pain. COMPARISON: 02/10/2024. TECHNIQUE: MRI images obtained with multiple sequences. MRI of the right hip without contrast. Sequences obtained by standard department protocol. FINDINGS: Moderate degeneration at the L4-L5 and L5-S1 disc spaces. Mild degeneration of the sacroiliac joints. Left total hip arthroplasty hardware. No apparent hardware complication. Sigmoid diverticulosis. No diverticulitis. Bilateral hamstring origins are intact. Normal alignment of the right hip joint. Bilateral iliopsoas tendons are intact. Bilateral rectus femoris origins are intact. Bilateral hamstring origins are intact. Sacroiliac joints are normal. Moderate to severe atrophy of the right gluteus medius muscle belly. Partial-thickness/hi gh-grade tearing of the right gluteus medius tendon. Left abductor tendons are intact. No inguinal or pelvic adenopathy. Sacroiliac joints are normal. No acute edema of the pelvic bones or proximal femurs. No acute fractures. IMPRESSION: 1. Partial-thickness/hi gh-grade tearing of the right gluteus medius tendon. 2. Sigmoid diverticulosis. No diverticulitis. 3. No acute fractures. 4. Overlying bowel gas pattern is nonspecific and nonobstructive. 5. Other findings as described. Normal [facility] MR PELVIS W WO CONTon 2023 MR PELVIS W WO CONT MR PELVIS W WO CONT Chronic sciatic pain on the right Comparison right hip x-ray November 16 PROCEDURE: Multiplanar multisequence images performed through the pelvis without with IV contrast without complications FINDINGS: [Left hip largely obscured by hardware artifact Right hip joint is unremarkable. Physiologic amount joint fluid. No arthritic findings No fracture or destructive lesion Bony pelvis is unremarkable Abnormal signal involving the right gluteus herson and gluteus medius musculature consistent with a strain and superimposed tendinopathy at the gluteus medius insertion upon the greater trochanter with a large amount of surrounding effusion consistent with severe right greater trochanteric bursitis. All of this process enhances. Infection less likely but not completely excluded within the musculature and findings best assessed in combination with other clinical data Soft tissues central pelvis unremarkable IMPRESSION: Abnormal signal involving the right gluteus herson and gluteus medius musculature consistent with a acute or subacute strain and superimposed tendinopathy at the gluteus medius insertion upon the greater trochanter with a large amount of surrounding effusion consistent with severe right greater trochanteric bursitis. All of this process enhances. Infection less likely but not completely excluded within the musculature and findings best assessed in combination with other clinical data Finalized by Eric Watt MD on 11/30/2023 4:52 PM Normal [facility] LINA Antinuclear Antibodieson 11-25-2023 Antinuclear Abs, IFA Positive Critically abnormal . [facility] Comment on above: Result Comment: Nega tive <1:80 Borderline 1:80 Positive >1:80 Performed By: #### E SR, CBC, CRP, ADDONUAPLUS, CMP ####[facility] [id number]#### LINA, CH50, C3, C4 ####[facility] , Note 1 Normal . [facility] Comment on above: Result Comment: Katie lawson Potential Disease Association Homogeneous Systemic Lupus Erythematosus, Drug Induced Systemic Lupus Erythematosus, Chronic Autoimmune hepatitis, Juvenile Idiopathic Arthritis Speckled Sjogren Syndrome, Systemic Lupus Erythematosus, Subacute Cutaneous Lupus, Lupus, Congenital Heart Block, Mixed Connective Tissue Disease, Scleroderma-diffuse, Scleroderma-Autoimmune Myositis Overlap Syndrome, Systemic Lupus Oroftyjkrnlhz-Cnfezbfgtbf-Pqnkgpmdqn Myositis Overlap Syndrome, Systemic Autoimmune Rheumatic Disease, Undifferentiated Connective Tissue Disease Nucleolar Systemic Sclerosis, Scleroderma-Autoimmune Myositis Overlap Syndrome, Sjogren Syndrome, Raynaud phenomenon, Pulmonary Arterial Hypertension, Systemic Autoimmune Rheumatic Disease, Cancer Centromere Scleroderma-CREST, Limited Cutaneous SSc, Raynaud's Phenomenon, Primary Biliary Cholangitis Nuclear Dot Primary Biliary Cholangitis Nuclear Primary Biliary Cholangitis, Autoimmune Membrane Hepatitis/Liver disease, Systemic Autoimmune Rheumatic Disease, Autoimmune Cytopenias, Linear Scleroderma, Antiphospholipid Syndrome Performed at: - [facility] [id number] [address] Landscape Architect: Joe Castillo PhD, Phone: [phone] Performed By: #### E SR, CBC, CRP, ADDONUAPLUS, CMP ####[address]#### L[place], CH50, C3, C4 ####[facility] , Speckled Pattern 1:160 High . [facility] Comment on above: Result Comment: Dens e Fine Speckled pattern is noted. This pattern suggests the presence of DFS70 antibody which has a low prevalence in systemic autoimmune rheumatic diseases. ICAP nomenclature: [id number],5,29 Performed By: #### E SR, CBC, CRP, ADDONUAPLUS, CMP ####[address]#### LINA, CH50, C3, C4 ####[facility] , Alanine aminotransferase [En zymatic activity/volume] in Serum or PlasmaOrdered By: Jaime Tomas on 11-25-2023 ALT [Catalytic activity/Vol] 16 U/L Normal 7-52 [facility] Comment on above: Performed By: #### E SR, CBC, CRP, ADDONUAPLUS, CMP #### [place] [address] [place] #### LINA, CH50, C3, C4 #### [facility] , Albumin [Mass/volume] in Ser um or Plasma by Bromocresol green (BCG) dye binding methoOrdered By: Jaime Tomas on 11-25-2023 Albumin BCG dye [Mass/Vol] 5.0 g/dL 3.5-5.7 [facility] Alkaline phosphatase [Enzyma tic activity/volume] in Serum or PlasmaOrdered By: Jaime Tomas on 11-25-2023 ALP [Catalytic activity/Vol] 70 U/L Normal 34-104 [facility] Comment on above: Performed By: #### E SR, CBC, CRP, ADDONUAPLUS, CMP #### [facility] [address] [place] [address] [place] #### LINA, CH50, C3, C4 #### [facility] , Aspartate aminotransferase [ Enzymatic activity/volume] in Serum or PlasmaOrdered By: Jaime Tomas on 11-25-2023 AST [Catalytic activity/Vol] 18 U/L Normal 13-39 [facility] Comment on above: Performed By: #### E SR, CBC, CRP, ADDONUAPLUS, CMP #### [facility] [address] [place] [address] [place] #### LINA, CH50, C3, C4 #### [facility] , Automated basophil %Ordered By: Jaime Tomas on 11-25-2023 Basophils/100 WBC (Bld) 1.1 % Normal . [facility] Comment on above: Performed By: #### E SR, CBC, CRP, ADDONUAPLUS, CMP #### [place] [address] [place] #### LINA, CH50, C3, C4 #### [facility] , Automated basophil countOrde red By: Jaime Tomas on 11-25-2023 Basophils (Bld) [#/Vol] 0.1 10*3/uL Normal 0.0-0.2 [facility] Comment on above: Performed By: #### E SR, CBC, CRP, ADDONUAPLUS, CMP #### [place] [address] [place] #### LINA, CH50, C3, C4 #### [facility] , Automated blood monocyte cou ntOrdered By: Jaime Tomas on 11-25-2023 Monocytes (Bld) [#/Vol] 0.7 10*3/uL Normal 0.0-0.8 [facility] Comment on above: Performed By: #### E SR, CBC, CRP, ADDONUAPLUS, CMP #### [address] #### L[place], CH50, C3, C4 #### [facility] , Automated eosinophil %Ordere d By: Jaime Tomas on 11-25-2023 Eosinophils/100 WBC (Bld) 2.0 % Normal . [facility] Comment on above: Performed By: #### E SR, CBC, CRP, ADDONUAPLUS, CMP #### [facility] [address] [place] [address] [place] #### LINA, CH50, C3, C4 #### [facility] , Automated eosinophil countOr dered By: Jaime Tomas on 11-25-2023 Eosinophils (Bld) [#/Vol] 0.1 10*3/uL Normal 0.0-0.45 [facility] Comment on above: Performed By: #### E SR, CBC, CRP, ADDONUAPLUS, CMP #### [facility] [address] [place] [address] [place] #### LINA, CH50, C3, C4 #### [facility] , Automated epithelial cells c ount in urine sediment (number/area)Ordered By: Jaime Tomas on 11-25-2023 Epithelial cells Auto (Urine sed) [#/Area] None seen [HPF] 0-2 [facility] Automated monocyte %Ordered By: Jaime Tomas on 11-25-2023 Monocytes/100 WBC (Bld) 10.1 % Normal . [facility] Comment on above: Performed By: #### E SR, CBC, CRP, ADDONUAPLUS, CMP #### [place] [address] [place] #### LINA, CH50, C3, C4 #### [facility] , Automated neutrophil %Ordere d By: Jaime Tomas on 11-25-2023 Neutrophils/100 WBC (Bld) 54.2 % Normal . [facility] Comment on above: Performed By: #### E SR, CBC, CRP, ADDONUAPLUS, CMP #### [facility] [address] [place] [address] #### LINA, CH50, C3, C4 #### [facility] , Bacteria [Presence] in Urine by AutomatedOrdered By: Jaime Tomas on 11-25-2023 Bacteria Auto Ql (U) None seen [HPF] None Seen [facility] Bilirubin Test strip Ql (U)O rdered By: Jaime Tomas on 11-25-2023 Bilirubin Ql (U) Negative Negative [facility] Bilirubin.total [Mass/volume ] in Serum or PlasmaOrdered By: Jaime Tomas on 11-25-2023 Bilirubin [Mass/Vol] 0.7 mg/dL Normal 0.3-1.0 [facility] Comment on above: Performed By: #### E SR, CBC, CRP, ADDONUAPLUS, CMP #### [facility] [address] [place] [address] #### LINA, CH50, C3, C4 #### [facility] , C reactive protein [Mass/vol ume] in Serum or PlasmaOrdered By: Jaime Tomas on 11-25-2023 CRP [Mass/Vol] < 0.5 mg/dL 0.0-0.5 [facility] C-Reactive Proteinon 024 CRP [Mass/Vol] mg/L Normal 0.0-0.5 [facility] Comment on above: Result Comment: PERF ORMED BY: [place] [address] PATHOLOGIST BOOMSWING OPERATOR CAROLINE ESCOBAR M.D. Performed By: #### E SR, CBC, CRP, ADDONUAPLUS, CMP #### [place] [address] [place] #### LINA, CH50, C3, C4 #### [facility] , Calcium [Mass/volume] in Ser um or PlasmaOrdered By: Jaime Tomas on 11-25-2023 Calcium [Mass/Vol] 10.4 mg/dL High 8.6-10.3 [facility] Comment on above: Performed By: #### E SR, CBC, CRP, ADDONUAPLUS, CMP #### [place] [address] [place] #### LINA, CH50, C3, C4 #### [facility] , Carbon dioxide, total [Moles /volume] in Serum or PlasmaOrdered By: Jaime Tomas on 11-25-2023 CO2 [Moles/Vol] 29.6 mmol/L Normal 21.0-31.0 [facility] Comment on above: Performed By: #### E SR, CBC, CRP, ADDONUAPLUS, CMP #### [address] #### [place], CH50, C3, C4 #### [facility] , Chloride [Moles/volume] in S melanie or PlasmaOrdered By: Jaime Tomas on 11-25-2023 Chloride [Moles/Vol] 103 mmol/L Normal 98-107 [facility] Comment on above: Performed By: #### E SR, CBC, CRP, ADDONUAPLUS, CMP #### [place] [address] [place] #### LINA, CH50, C3, C4 #### [facility] , Color of Urine by AutoOrdere d By: Jaime Tomas on 11-25-2023 Color (U) Yellow Normal Yellow [facility] Comment on above: Order Comment: Name Collection Type:: Clean-Voided Midstream Performed By: #### E SR, CBC, CRP, ADDONUAPLUS, CMP #### [place] [address] [place] #### LINA, CH50, C3, C4 #### [facility] , Complement C3on 11-25-2023 Complement C3 162 mg/dL Normal 82-167 [facility] Comment on above: Result Comment: Perf ormed at: [facility] [id number] [address] Landscape Architect: Joe Castillo PhD, Phone: [phone] Performed By: #### E SR, CBC, CRP, ADDONUAPLUS, CMP ####[address]#### L[place], CH50, C3, C4 ####[facility] , Complement C4on 11-25-2023 Complement C4 29 mg/dL Normal 12-38 [facility] Comment on above: Result Comment: PERF ORMED BY: [place] [address] PATHOLOGIST BOOMSWING OPERATOR CAROLINE ESCOBAR M.D. Performed By: #### E SR, CBC, CRP, ADDONUAPLUS, CMP ####[address]#### L[place], CH50, C3, C4 ####[facility] , Complement Total (CH50)on Complement Total (CH50) >60 Normal >41 [facility] Comment on above: Result Comment: Age Male Female 1 - 30 days Not Estab. Not Estab. 31 days - 6 months >32 >20 7 months - 17 years >39 >39 >17 years >41 >41 NOTE: The adult ( >17 years ) reference interval range is used to flag abnormals on this report. If the patient is 17 years old or younger, use the table above to determine out of range values. Performed at: - [facility] [id number] [address] Landscape Architect: Joe Castillo PhD, Phone: [phone] PERFORMED BY: [place] [address] PATHOLOGIST BOOMSWING OPERATOR CAROLINE ESCOBAR M.D. Performed By: #### E SR, CBC, CRP, ADDONUAPLUS, CMP #### [place] [address] [place] #### LINA, CH50, C3, C4 #### [facility] , Complete Blood Count Auto Di ffon 11-25-2023 Mean Corpuscular HGB Conc 34.0 g/dL Normal 32.0-35.0 [facility] Comment on above: Performed By: #### E SR, CBC, CRP, ADDONUAPLUS, CMP #### [facility] [address] [place] [address] #### LINA, CH50, C3, C4 #### [facility] , NRBC% 0.1 /100{WBC} Normal 0-0.5 [facility] Comment on above: Performed By: #### E SR, CBC, CRP, ADDONUAPLUS, CMP #### [place] [address] [place] #### LINA, CH50, C3, C4 #### [facility] , Comprehensive Metabolic Pane nathalie 11-25-2023 Albumin [Mass/Vol] 5.0 g/dL Normal 3.5-5.7 [facility] Comment on above: Performed By: #### E SR, CBC, CRP, ADDONUAPLUS, CMP #### [address] #### L[place], CH50, C3, C4 #### [facility] , GFR/1.73 sq M.predicted MDRD (S/P/Bld) [Vol rate/Area] mL/min/{1.73_m2} Normal [facility] Comment on above: Performed By: #### E SR, CBC, CRP, ADDONUAPLUS, CMP #### [facility] [address] [place] [address] [place] #### LINA, CH50, C3, C4 #### [facility] , Creatinine [Mass/volume] in Serum or PlasmaOrdered By: Jaime Tomas on 11-25-2023 Creatinine [Mass/Vol] 0.93 mg/dL Normal 0.60-1.20 [facility] Comment on above: Performed By: #### E SR, CBC, CRP, ADDONUAPLUS, CMP #### [address] #### L[place], CH50, C3, C4 #### [facility] , Dipstick and Microscopicon 0 11-25-2023 Appearance (U) Clear Normal Clear [facility] Comment on above: Order Comment: Name Collection Type:: Clean-Voided Midstream Performed By: #### E SR, CBC, CRP, ADDONUAPLUS, CMP #### [address] #### L[place], CH50, C3, C4 #### [facility] , Bacteria,Urine None Seen Normal None Seen [facility] Comment on above: Order Comment: Name Collection Type:: Clean-Voided Midstream Performed By: #### E SR, CBC, CRP, ADDONUAPLUS, CMP #### [address] #### L[place], CH50, C3, C4 #### [facility] , Bilirubin,Urine Negative Normal Negative [facility] Comment on above: Order Comment: Name Collection Type:: Clean-Voided Midstream Performed By: #### E SR, CBC, CRP, ADDONUAPLUS, CMP #### [address] #### L[place], CH50, C3, C4 #### [facility] , Glucose Ql (U) Normal Normal Normal [facility] Comment on above: Order Comment: Name Collection Type:: Clean-Voided Midstream Performed By: #### E SR, CBC, CRP, ADDONUAPLUS, CMP #### [place] [address] [place] #### LINA, CH50, C3, C4 #### [facility] , Hyaline Casts,Urine None Seen Normal 0-8 [facility] Comment on above: Order Comment: Name Collection Type:: Clean-Voided Midstream Result Comment: PERF ORMED BY: [place] [address] PATHOLOGIST BOOMSWING OPERATOR CAROLINE ESCOBAR M.D. Performed By: #### E SR, CBC, CRP, ADDONUAPLUS, CMP #### [address] #### [place], CH50, C3, C4 #### [facility] , Ketones Ql (U) Negative Normal Negative [facility] Comment on above: Order Comment: Name Collection Type:: Clean-Voided Midstream Performed By: #### E SR, CBC, CRP, ADDONUAPLUS, CMP #### [address] #### [place], CH50, C3, C4 #### [facility] , Leukocyte esterase Test strip Ql (U) Negative Normal Negative [facility] Comment on above: Order Comment: Name Collection Type:: Clean-Voided Midstream Performed By: #### E SR, CBC, CRP, ADDONUAPLUS, CMP #### [address] #### [place], CH50, C3, C4 #### [facility] , Nitrite,Urine Negative Normal Negative [facility] Comment on above: Order Comment: Name Collection Type:: Clean-Voided Midstream Performed By: #### E SR, CBC, CRP, ADDONUAPLUS, CMP #### [address] #### [place], CH50, C3, C4 #### [facility] , Occult Blood,Urine Negative Normal Negative [facility] Comment on above: Order Comment: Name Collection Type:: Clean-Voided Midstream Performed By: #### E SR, CBC, CRP, ADDONUAPLUS, CMP #### [address] [place] [address] [place] #### LINA, CH50, C3, C4 #### [facility] , Protein,Urine Negative Normal Negative [facility] Comment on above: Order Comment: Name Collection Type:: Clean-Voided Midstream Performed By: #### E SR, CBC, CRP, ADDONUAPLUS, CMP #### [address] #### [place], CH50, C3, C4 #### [facility] , RBC,Urine None Seen Normal 0-4 [facility] Comment on above: Order Comment: Name Collection Type:: Clean-Voided Midstream Performed By: #### E SR, CBC, CRP, ADDONUAPLUS, CMP #### [address] #### [place], CH50, C3, C4 #### [facility] , Specificy [place],Urine 1.004 Normal 1.001-1.030 [facility] Comment on above: Order Comment: Name Collection Type:: Clean-Voided Midstream Performed By: #### E SR, CBC, CRP, ADDONUAPLUS, CMP #### [address] #### [place], CH50, C3, C4 #### [facility] , Squamous Epithelial Cell,Urine None Seen Normal 0-2 [facility] Comment on above: Order Comment: Name Collection Type:: Clean-Voided Midstream Performed By: #### E SR, CBC, CRP, ADDONUAPLUS, CMP #### [address] #### [place], CH50, C3, C4 #### [facility] , Urobilinogen,Urine Normal Normal Normal [facility] Comment on above: Order Comment: Name Collection Type:: Clean-Voided Midstream Performed By: #### E SR, CBC, CRP, ADDONUAPLUS, CMP #### [facility] [address] #### LINA, CH50, C3, C4 #### [facility] , WBC,Urine None Seen Normal 0-4 [facility] Comment on above: Order Comment: Name Collection Type:: Clean-Voided Midstream Performed By: #### E SR, CBC, CRP, ADDONUAPLUS, CMP #### [address] #### [place], CH50, C3, C4 #### [facility] , Erythrocyte Sedimentation Ra jennifer 11-25-2023 ESR (Bld) [Velocity] 26 mm/h Normal 0-29 [facility] Comment on above: Result Comment: PERF ORMED BY: [place] [address] PATHOLOGIST BOOMSWING OPERATOR CAROLINE ESCOBAR M.D. Performed By: #### E SR, CBC, CRP, ADDONUAPLUS, CMP #### [address] #### [place], CH50, C3, C4 #### [facility] , Erythrocyte distribution wid th [Ratio] by Automated countOrdered By: Jaime Tomas on 11-25-2023 Erythrocyte distribution width (RBC) [Ratio] 12.4 % Normal 11.9-15.3 [facility] Comment on above: Performed By: #### E SR, CBC, CRP, ADDONUAPLUS, CMP #### [address] #### L[place], CH50, C3, C4 #### [facility] , Erythrocyte sedimentation ra te by Photometric methodOrdered By: Jaime Tomas on 11-25-2023 ESR Photometric method (Bld) [Velocity] 26 mm/hr 0-29 [facility] Erythrocytes [#/area] in Uri ne sediment by Automated countOrdered By: Jaime Tomas on 11-25-2023 RBC Auto (Urine sed) [#/Area] None seen [HPF] 0-4 [facility] Erythrocytes [#/volume] in B lood by Automated countOrdered By: Jaime Tomas on 11-25-2023 RBC (Bld) [#/Vol] 4.50 10*6/uL Normal 3.60-5.00 [facility] Comment on above: Performed By: #### E SR, CBC, CRP, ADDONUAPLUS, CMP #### [address] #### [place], CH50, C3, C4 #### [facility] , Glucose [Mass/volume] in Ser um or PlasmaOrdered By: Jaime Tomas on 11-25-2023 Glucose [Mass/Vol] 89 mg/dL Normal 70-100 [facility] Comment on above: ADA recommended refe rence rangeRandom Glucose Reference Range is dependent on time and content of last meal. Glucose of more than 200 mg/dL in a nonstressed, ambulatory subject supports the diagnosis of Diabetes Mellitus. Result Comment: [place] om Glucose Reference Range is dependent on time and content of last meal. Glucose of more than 200 mg/dL in a nonstressed, ambulatory subject supports the diagnosis of Diabetes Mellitus. ADA recommended reference range Performed By: #### E SR, CBC, CRP, ADDONUAPLUS, CMP #### [address] #### [place], CH50, C3, C4 #### [facility] , Hematocrit [Volume Fraction] of Blood by Automated countOrdered By: Jaime Tomas on 11-25-2023 Hematocrit (Bld) [Volume fraction] 42.0 % Normal 34.0-46.4 [facility] Comment on above: Performed By: #### E SR, CBC, CRP, ADDONUAPLUS, CMP #### [place] [address] [place] #### LINA, CH50, C3, C4 #### [facility] , Hemoglobin [Mass/volume] in BloodOrdered By: Jaime Tomas on 11-25-2023 Hemoglobin (Bld) [Mass/Vol] 14.3 g/dL Normal 11.8-15.4 [facility] Comment on above: Performed By: #### E SR, CBC, CRP, ADDONUAPLUS, CMP #### [facility] [address] [place] [address] [place] #### LINA, CH50, C3, C4 #### [facility] , Ketones Auto test strip (U) [Mass/Vol]Ordered By: Jaime Tomas on 11-25-2023 Ketones (U) [Mass/Vol] Negative Negative [facility] - UrinalysisOrder ed By: Jaime Tomas on 11-25-2023 Hyaline casts LM Ql (Urine sed) None seen [LPF] 0-8 [facility] Leukocytes [#/area] in Urine sediment by Automated countOrdered By: Jaime Tomas on 11-25-2023 WBC Auto (Urine sed) [#/Area] None seen [HPF] 0-4 [facility] Leukocytes [#/volume] correc uriah for nucleated erythrocytes in Blood by Automated counOrdered By: Jaime Tomas on 11-25-2023 WBC corrected for nucl RBC Auto (Bld) [#/Vol] 7.3 10*3/uL 3.8-11.6 [facility] Leukocytes [#/volume] in Blo od by Automated countOrdered By: Jaime Tomas on 11-25-2023 WBC (Bld) [#/Vol] 7.3 10*3/uL Normal 3.8-11.6 [facility] Comment on above: Performed By: #### E SR, CBC, CRP, ADDONUAPLUS, CMP #### [facility] [address] [place] [address] [place] #### LINA, CH50, C3, C4 #### [facility] , Lymphocytes [#/volume] in Bl ood by Automated countOrdered By: Jaime Tomas on 11-25-2023 Lymphocytes (Bld) [#/Vol] 2.4 10*3/uL Normal 1.00-4.8 [facility] Comment on above: Performed By: #### E SR, CBC, CRP, ADDONUAPLUS, CMP #### [place] [address] [place] #### LINA, CH50, C3, C4 #### [facility] , Lymphocytes/100 leukocytes i n Blood by Automated countOrdered By: Jaime Tomas on 11-25-2023 Lymphocytes/100 WBC (Bld) 32.6 % Normal . [facility] Comment on above: Performed By: #### E SR, CBC, CRP, ADDONUAPLUS, CMP #### [place] [address] [place] #### LINA, CH50, C3, C4 #### [facility] , MCH [Entitic mass] by Automa uriah countOrdered By: Jaime Tomas on 11-25-2023 MCH (RBC) [Entitic mass] 31.7 pg Normal 24.7-34.3 [facility] Comment on above: Performed By: #### E SR, CBC, CRP, ADDONUAPLUS, CMP #### [address] #### LINA, CH50, C3, C4 #### [facility] , MCHC Auto (RBC) [Mass/Vol]Or dered By: Jaime Tomas on 11-25-2023 MCHC (RBC) [Mass/Vol] 34.0 g/dL 32.0-35.0 [facility] MCV [Entitic volume] by Auto mated countOrdered By: Jaime Tomas on 11-25-2023 MCV (RBC) [Entitic vol] 93.2 fL Normal 80-100 [facility] Comment on above: Performed By: #### E SR, CBC, CRP, ADDONUAPLUS, CMP #### [place] [address] [place] #### LINA, CH50, C3, C4 #### [facility] , Neutrophils [#/volume] in Bl ood by Automated countOrdered By: Jaime Tomas on 11-25-2023 Neutrophils (Bld) [#/Vol] 3.9 10*3/uL Normal 1.8-7.7 [facility] Comment on above: Performed By: #### E SR, CBC, CRP, ADDONUAPLUS, CMP #### [address] #### LINA, CH50, C3, C4 #### [facility] , Nitrite Test strip Ql (U)Ord ered By: Jaime Tomas on 11-25-2023 Nitrite Ql (U) Negative Negative [facility] No Panel InformationOrdered By: Jaime Tomas on 11-25-2023 Estimated GFR (CKD-EPI) > 60.0 mL/Min [facility] Creatinine Clearance (Chem N/A [facility] Nucleated erythrocytes [Pres ence] in Blood by Automated countOrdered By: Jaime Tomas on 11-25-2023 Nucleated RBC Auto Ql (Bld) 0.1 /100{WBC} 0-0.5 [facility] Platelet mean volume [Entiti c volume] in Blood by Automated countOrdered By: Jaime Tomas on 11-25-2023 Platelet mean volume (Bld) [Entitic vol] 9.2 fL Normal 6.3-10.7 [facility] Comment on above: Performed By: #### E SR, CBC, CRP, ADDONUAPLUS, CMP #### [facility] [address] [place] [address] [place] #### LINA, CH50, C3, C4 #### [facility] , Platelets [#/volume] in Bloo d by Automated countOrdered By: Jaime Tomas on 11-25-2023 Platelets (Bld) [#/Vol] 336 10*3/uL Normal 150-450 [facility] Comment on above: Performed By: #### E SR, CBC, CRP, ADDONUAPLUS, CMP #### [place] [address] [place] #### LINA, CH50, C3, C4 #### [facility] , Potassium [Moles/volume] in Serum or PlasmaOrdered By: Jaime Tomas on 11-25-2023 Potassium [Moles/Vol] 4.8 mmol/L Normal 3.5-5.1 [facility] Comment on above: Performed By: #### E SR, CBC, CRP, ADDONUAPLUS, CMP #### [address] #### LINA, CH50, C3, C4 #### [facility] , Protein Auto test strip (U) [Mass/Vol]Ordered By: Jaime Tomas on 11-25-2023 Protein (U) [Mass/Vol] Negative Negative [facility] Protein [Mass/volume] in Ser um or PlasmaOrdered By: Jaime Tomas on 11-25-2023 Protein [Mass/Vol] 7.6 g/dL Normal 6.4-8.9 [facility] Comment on above: Performed By: #### E SR, CBC, CRP, ADDONUAPLUS, CMP #### [place] [address] [place] #### LINA, CH50, C3, C4 #### [facility] , Serum globulin measurement b y calculation (mass/volume)Ordered By: Jaime Tomas on 11-25-2023 Globulin (S) [Mass/Vol] 2.6 g/dL Normal [facility] Comment on above: Performed By: #### E SR, CBC, CRP, ADDONUAPLUS, CMP #### [place] [address] [place] #### LINA, CH50, C3, C4 #### [facility] , Serum or plasma albumin/glob ulin mass ratioOrdered By: Jaime Tomas on 11-25-2023 Albumin/Globulin [Mass ratio] 1.9 {ratio} Normal [facility] Comment on above: Performed By: #### E SR, CBC, CRP, ADDONUAPLUS, CMP #### [place] [address] [place] #### LINA, CH50, C3, C4 #### [facility] , Serum or plasma anion gap de terminationOrdered By: Jaime Tomas on 11-25-2023 Anion gap [Moles/Vol] 13.2 mmol/L Normal 6.0-15.0 [facility] Comment on above: Performed By: #### E SR, CBC, CRP, ADDONUAPLUS, CMP #### [place] [address] [place] #### LINA, CH50, C3, C4 #### [facility] , Sodium [Moles/volume] in Ser um or PlasmaOrdered By: Jaime Tomas on 11-25-2023 Sodium [Moles/Vol] 141 mmol/L Normal 136-145 [facility] Comment on above: Performed By: #### E SR, CBC, CRP, ADDONUAPLUS, CMP #### [place] [address] [place] #### LINA, CH50, C3, C4 #### [facility] , Specific gravity Auto test s trip (U) [Rel density]Ordered By: Jaime Tomas on 11-25-2023 Specific gravity (U) [Rel density] 1.004 1.001-1.030 [facility] Urea nitrogen [Mass/volume] in Serum or PlasmaOrdered By: Jaime Tomas on 11-25-2023 Urea nitrogen [Mass/Vol] 19 mg/dL Normal 7-25 [facility] Comment on above: Performed By: #### E SR, CBC, CRP, ADDONUAPLUS, CMP #### [place] [address] [place] #### LINA, CH50, C3, C4 #### [facility] , Urine clarity by refractomet ry automatedOrdered By: Jaime Tomas on 11-25-2023 Clarity Refractometry automated (U) Clear Clear [facility] Urine glucose measurement by automated test strip (mass/volume)Ordered By: Jaime Tomas on 11-25-2023 Glucose Auto test strip (U) [Mass/Vol] Normal mg/dL Normal [facility] Urine hemoglobin detection b y automated test stripOrdered By: Jaime Tomas on 11-25-2023 Hemoglobin Auto test strip Ql (U) Negative Negative [facility] Urine leukocyte esterase det ection by automated test stripOrdered By: Jaime Tomas on 11-25-2023 Leukocyte esterase Auto test strip Ql (U) Negative Negative [facility] Urine pH measurement by auto mated test stripOrdered By: Jaime Tomas on 11-25-2023 pH (U) 7.5 [pH] Normal 5.0-9.0 [facility] Comment on above: Order Comment: Name Collection Type:: Clean-Voided Midstream Performed By: #### E SR, CBC, CRP, ADDONUAPLUS, CMP #### [address] #### LINA, CH50, C3, C4 #### [facility] , Urobilinogen Auto test strip (U) [Mass/Vol]Ordered By: Jaime Tomas on 11-25-2023 Urobilinogen (U) [Mass/Vol] Normal mg/dL Normal [facility] XR HIP RT 2-3 VIEWS W OR WO PELVISon 11-18-2023 XR HIP RT 2-3 VIEWS W OR WO PELVIS XR HIP RT 2-3 VIEWS W OR WO PELVIS History: Right hip pain Exam/Technique: AP pelvis and AP and frog-leg views the right hip were obtained. Comparison: None Findings: There is a left hip arthroplasty in place. There is no evidence for an acute osseous adenopathy. No significant degenerative changes are seen in the right hip. The remainder the visualized osseous structures are intact. There is evidence of degenerative disc disease in the visualized portions of the lumbar spine. IMPRESSION: * Normal pelvis and right hip * Left hip arthroplasty in place. * Evidence of degenerative disc disease in the lower lumbar spine. Finalized by Efren Vivar MD on 11/18/2023 9:43 AM Normal [facility] US venous duplex LE RTon US venous duplex LE RT [facility] Main [place] [address] [place] [address] Ultrasound Report Signed Patient: Julia Chavarria MR#: [id number] : 1960 Acct:[id number] Age/Sex: 63 / F ADM Date: 09/14/23 Loc: Room: Type: [facility] CLI Attending Dr: Ramu Mancuso MD [...] Christopher Subramanian MD09/15/2023 2:44 PM Dictation Location: [place] [address] Tech: Bessiefay Tenorio Transcribed By: [facility] 09/15/23 1444 Dictated By: Christopher Subramanian MD 09/15/23 1435 Signed By: 09/15/23 1444 Normal [facility] MR lumbar spine wo/w conon 0 09-10-2023 MR lumbar spine wo/w con [facility] Main [address] [address] MRI Report Signed Patient: Julia Chavarria MR#: [id number] : 1960 Acct:[id number] Age/Sex: 62 / F ADM Date: 09/09/23 Loc: Room: Type: [facility] CLI Attending Dr: Ramu Mancuso MD [...] Lilly Carroll M.D.09/10/2023 12:36 PM Dictation Location: [place] [address] Transcribed By: [facility] 09/10/23 1236 Dictated By: Lilly Carroll MD 09/10/23 1213 Signed By: 09/10/23 1236 Normal [facility] ISTAT XRay CREon 2023 ISTAT GFR 56.813 Normal [facility] Comment on above: Result Comment: PERF ORMED BY: [place] [address] PATHOLOGIST BOOMSWING OPERATOR CAROLINE ESCOBAR M.D. Performed By: #### I SCRE #### [address] No Panel InformationOrdered By: Ramu Mancuso on 2023 Bedside Estimated GFR (eGFR) 56.813 [facility] Whole blood creatinine measu rementOrdered By: Ramu Mancuso on 2023 Creatinine [Mass/Vol] 1.1 mg/dL Normal 0.6-1.3 [facility] Comment on above: ER/ESD physician is notified/shown all ISTAT results.Critical values may be confirmed by laboratory testing ifdeemed necessary by ER attending doctor. Result Comment: ER/E SD physician is notified/shown all ISTAT results. Critical values may be confirmed by laboratory testing if deemed necessary by ER attending doctor. Performed By: #### I SCRE #### [place] [id number] [facility] XR hip RT min 2V(w/wo pelvis )*on 04-16-2023 XR hip RT min 2V(w/wo pelvis)* [facility] Main [place] [address] [place] [address] XRay Report Signed Patient: Julia Chavarria MR#: [id number] : 1960 Acct:[id number] Age/Sex: 62 / F ADM Date: 04/16/23 Loc: [facility] Room: Type: [facility] Attending Dr: Jaime Molina II, MD Copies [...] Conde Jr., D.O.04/16/2023 1:20 PM Dictation Location: [place] [address] Transcribed By: [facility] 04/16/23 1320 Dictated By: Bravo Conde Jr, DO 04/16/23 1318 Signed By: 04/16/23 1320 Normal [facility] MG MAMM SCREEN 3D BILL CADon 10-29-2022 MG MAMM SCREEN 3D BILL CAD Patient: JULIA CHAVARRIA. Exam Date: 10/29/2022 : 1960 Gender:F Ordering : JANET HERMOSILLO [facility] Admission #: [id number] Family : Order #: [id number] CLICK HERE TO VIEW EXAM RADIOLOGY REPORT PROCEDURE: MAMMOGRAM SCREENING 3D BILATERAL CAD COMPARISON: None. INDICATIONS: Screening mammography Calculator Name NCI Breast Cancer Risk Assessment Tool 5 Year Breast Cancer Risk 1.70% Lifetime Breast Cancer Risk 7.70% Personal Breast Cancer No Personal Ovarian Cancer No Treatments None Family Cancers None LOCATION: [facility] BREAST COMPOSITION: Scattered areas fibroglandular density. FINDINGS: [...] LUMP SHOULD BE BIOPSIED. Dictated by: Efren Funes MD on 12/01/2022 at 07:05 Approved by: Efren Funes MD on 12/01/2022 at 07:07 Normal [facility] INSULINon 10-22-2022 Insulin 8.9 uIU/mL Normal 2.6-24.9 [facility] Comment on above: Performed By: #### I NSULIN #### [facility] [address] [place] [address] Dr. Natalie Sood CBC AUTO DIFFon 10-21-2022 BASO # 0.1 103/ul Normal 0.0-0.1 [facility] Comment on above: Performed By: #### L IPID, TSH, T7, CMP #### [facility] [address] [place] [address] Dr. Natalie Sood Basophils/100 WBC (Bld) 0.9 % Normal 0.2-2.0 [facility] Comment on above: Performed By: #### L IPID, TSH, T7, CMP #### [facility] [address] [place] [address] Dr. Natalie Sood EO # 0.2 103/ul Normal 0.0-0.7 [facility] Comment on above: Performed By: #### L IPID, TSH, T7, CMP #### [facility] [address] [place] [address] Dr. Natalie Sood Eosinophils/100 WBC (Bld) 3.2 % Normal 0.9-7.0 [facility] Comment on above: Performed By: #### L IPID, TSH, T7, CMP #### [facility] [address] [place] [address] Dr. Natalie Sood Erythrocyte distribution width (RBC) [Ratio] 12.3 % Normal 11.0-15.0 [facility] Comment on above: Performed By: #### L IPID, TSH, T7, CMP #### [facility] [address] [place] [address] Dr. Natalie Sood Hematocrit (Bld) [Volume fraction] 41.4 % Normal 36.0-48.0 [facility] Comment on above: Performed By: #### L IPID, TSH, T7, CMP #### [facility] [address] [place] [address] Dr. Natalie Sood Hemoglobin (Bld) [Mass/Vol] 13.7 g/dL Normal 12.0-16.0 [facility] Comment on above: Performed By: #### L IPID, TSH, T7, CMP #### [facility] [address] [place] [address] Dr. Natalie Sood IG # 0.04 10e3/ul Critically high 0.00-0.03 [facility] Comment on above: Performed By: #### L IPID, TSH, T7, CMP #### [facility] [address] [place] [address] Dr. Natalie Sood IG % 0.6 % Critically high 0.0-0.5 [facility] Comment on above: Performed By: #### L IPID, TSH, T7, CMP #### [facility] [address] [place] [address] Dr. Natalie Sood LYMPH # 2.0 103/ul Normal 1.2-3.8 [facility] Comment on above: Performed By: #### L IPID, TSH, T7, CMP #### [facility] [address] [place] [address] Dr. Natalie Sood Lymphocytes/100 WBC (Bld) 30.7 % Normal 20.5-60.0 [facility] Comment on above: Performed By: #### L IPID, TSH, T7, CMP #### [facility] [address] [place] [address] Dr. Natalie Sood MANUAL DIFF REQ NO Normal [facility] Comment on above: Performed By: #### L IPID, TSH, T7, CMP #### [facility] [address] [place] [address] Dr. Natalie Sood MCH (RBC) [Entitic mass] 31.6 pg Normal 26.7-34.0 [facility] Comment on above: Performed By: #### L IPID, TSH, T7, CMP #### [facility] [address] [place] [address] Dr. Natalie Sood MCHC (RBC) [Mass/Vol] 33.1 g/dL Normal 29.9-35.2 [facility] Comment on above: Performed By: #### L IPID, TSH, T7, CMP #### [facility] [address] [place] [address] Dr. Natalie Sood MCV (RBC) [Entitic vol] 95.6 fL Normal 81.0-99.0 [facility] Comment on above: Performed By: #### L IPID, TSH, T7, CMP #### [facility] [address] [place] [address] Dr. Natalie Sood MONO # 0.6 103/ul Normal 0.3-0.8 [facility] Comment on above: Performed By: #### L IPID, TSH, T7, CMP #### [facility] [address] [place] [address] Dr. Natalie Sood Monocytes/100 WBC (Bld) 9.5 % Normal 1.7-12.0 [facility] Comment on above: Performed By: #### L IPID, TSH, T7, CMP #### [facility] [address] [place] [address] Dr. Natalie Sood NEUT # 3.7 103/ul Normal 1.4-6.5 [facility] Comment on above: Performed By: #### L IPID, TSH, T7, CMP #### [facility] [address] [place] [address] [address] Natalie Sood Neutrophils/100 WBC (Bld) 55.1 % Normal 43.0-75.0 [facility] Comment on above: Performed By: #### L IPID, TSH, T7, CMP #### [facility] [address] [place] [address] Dr. Natalie Sood Platelet mean volume (Bld) [Entitic vol] 9.8 fL Normal 9.5-13.5 [facility] Comment on above: Performed By: #### L IPID, TSH, T7, CMP #### [facility] [address] [place] [address] Dr. Natalie Sood PLT 293 103/ul Normal 150-450 [facility] Comment on above: Performed By: #### L IPID, TSH, T7, CMP #### [facility] [address] [place] [address] Dr. Natalie Sood RBC 4.33 106/ul Normal 4.20-5.40 [facility] Comment on above: Performed By: #### L IPID, TSH, T7, CMP #### [facility] [address] [place] [address] Dr. Natalie Sood WBC 6.6 103/ul Normal 4.0-11.0 [facility] Comment on above: Performed By: #### L IPID, TSH, T7, CMP #### [facility] [address] [place] [address] Dr. Natalie Sood FREE THYROXINE INDEX T7on FTI 3.36 Normal 1.30-4.50 [facility] Comment on above: Performed By: #### L IPID, TSH, T7, CMP #### [facility] [address] [place] [address] Dr. Natalie Sood T3U 35.0 % Normal 30.0-39.0 [facility] Comment on above: Performed By: #### L IPID, TSH, T7, CMP #### [facility] [address] [place] [address] [address] Natalie Sood T4 [Mass/Vol] 9.60 ug/dL Normal 4.80-13.90 [facility] Comment on above: Performed By: #### L IPID, TSH, T7, CMP #### [facility] [address] [place] [address] [address] Natalie Sood GLYCOHEMOGLOBIN A1Con 2022 ADA RECOMMENDATION SEE BELOW Normal [facility] Comment on above: Result Comment: ADA RECOMMENDED LIMIT 4.0 - 6.0 ADA THERAPEUTIC TARGET < 7.0 ACTION SUGGESTED > 7.0 Performed By: #### A 1C #### [facility] [address] [place] [address] [address] Natalie Sood Glucose [Mass/Vol] 97 mg/dL Normal [facility] Comment on above: Performed By: #### A 1C #### [facility] [address] [place] [address] Dr. Natalie Sood HbA1c (Bld) [Mass fraction] 5.0 % Normal 4.5-6.2 [facility] Comment on above: Performed By: #### A 1C #### [facility] [address] [place] [address] [address] Natalie Sood IRONon 10-21-2022 Iron [Mass/Vol] 126.0 ug/dL Normal 50.0-170.0 [facility] Comment on above: Performed By: #### L IPID, TSH, T7, CMP #### [facility] [address] [place] [address] Dr. Natalie Sood LIPID PROFILEon 10-21-2022 CHOL-HDL RATIO NORM SEE BELOW Normal [facility] Comment on above: Result Comment: 3.3 - 4.4 LOW RISK 4.4 - 7.1 AVERAGE RISK 7.1 - 11.0 MODERATE RISK >11.0 HIGH RISK Performed By: #### L IPID, TSH, T7, CMP #### [facility] [address] [place] [address] Dr. Natalie Sood Cholesterol [Mass/Vol] 231 mg/dL Critically high <=200 [facility] Comment on above: Performed By: #### L IPID, TSH, T7, CMP #### [facility] [address] [place] [address] [address] Natalie Sood Cholesterol in HDL [Mass/Vol] 59 mg/dL Normal 40-60 [facility] Comment on above: Performed By: #### L IPID, TSH, T7, CMP #### [facility] [address] [place] [address] [address] Natalie Sood Cholesterol in LDL [Mass/Vol] 144.8 mg/dL Normal [facility] Comment on above: Performed By: #### L IPID, TSH, T7, CMP #### [facility] [address] [place] [address] [address] Natalie Sood Cholesterol.total/Choles terol in HDL [Mass ratio] 3.9 {ratio} Normal [facility] Comment on above: Performed By: #### L IPID, TSH, T7, CMP #### [facility] [address] [place] [address] [address] Natalie Sood HDL NORMAL > or = 60 mg/dl - LOW CARDIOVASCULAR RISK <40 mg/dl - HIGH CARDIOVASCULAR RISK Normal [facility] Comment on above: Performed By: #### L IPID, TSH, T7, CMP #### [facility] [address] [place] [address] [address] Natalie Sood LDL CALC NORMAL SEE BELOW Normal [facility] Comment on above: Result Comment: <100 mg/dl OPTIMAL 100 - 129 mg/dl NEAR OR ABOVE OPTIMAL 130 - 159 mg/dl BORDERLINE HIGH 160 - 189 mg/dl HIGH >190 mg/dl VERY HIGH Performed By: #### L IPID, TSH, T7, CMP #### [facility] [address] [place] [address] [address] Natalie Sood Triglyceride [Mass/Vol] 136 mg/dL Normal <=[address] [facility] Comment on above: Performed By: #### L IPID, TSH, T7, CMP #### [facility] [address] [place] [address] [address] Natalie Sood VLDL CALC 27.2 mg/dL Normal [facility] Comment on above: Performed By: #### L IPID, TSH, T7, CMP #### [facility] [address] [place] [address] Dr. Natalie Sood OCC BLD IMMUNO SCREENon 10-03 OCCULT BLOOD Negative Normal NEGATIVE [facility] Comment on above: Performed By: #### L IPID, TSH, T7, CMP #### [facility] [address] [place] [address] Dr. Natalie Sood PROF 14(COMP METB)on 023 Albumin [Mass/Vol] 4.0 g/dL Normal 3.4-5.0 [facility] Comment on above: Performed By: #### L IPID, TSH, T7, CMP #### [facility] [address] [place] [address] Dr. Natalie Sood Albumin/Globulin [Mass ratio] 1.1 {ratio} Normal [facility] Comment on above: Performed By: #### L IPID, TSH, T7, CMP #### [facility] [address] [place] [address] Dr. Natalie Sood ALP [Catalytic activity/Vol] 73 U/L Normal 46-116 [facility] Comment on above: Performed By: #### L IPID, TSH, T7, CMP #### [facility] [address] [place] [address] Dr. Natalie Sood ALT [Catalytic activity/Vol] 23 U/L Normal 14-59 [facility] Comment on above: Performed By: #### L IPID, TSH, T7, CMP #### [facility] [address] [place] [address] Dr. Natalie Sood Anion gap [Moles/Vol] 15.1 mmol/L Normal [facility] Comment on above: Performed By: #### L IPID, TSH, T7, CMP #### [facility] [address] [place] [address] Dr. Natalie Sood AST [Catalytic activity/Vol] 14 U/L Critically low 15-37 [facility] Comment on above: Performed By: #### L IPID, TSH, T7, CMP #### [facility] [address] [place] [address] [address] Natalie Sood Bilirubin [Mass/Vol] 1.1 mg/dL Critically high 0.2-1.0 [facility] Comment on above: Performed By: #### L IPID, TSH, T7, CMP #### [facility] [address] [place] [address] [address] Natalie Sood Calcium [Mass/Vol] 9.7 mg/dL Normal 8.5-10.1 [facility] Comment on above: Performed By: #### L IPID, TSH, T7, CMP #### [facility] [address] [place] [address] Dr. Natalie Sood Chloride [Moles/Vol] 106 mmol/L Normal 98-107 [facility] Comment on above: Performed By: #### L IPID, TSH, T7, CMP #### [facility] [address] [place] [address] Dr. Natalie Sood CO2 [Moles/Vol] 27.2 mmol/L Normal 21.0-32.0 [facility] Comment on above: Performed By: #### L IPID, TSH, T7, CMP #### [facility] [address] [place] [address] [address] Natalie Sood Creatinine [Mass/Vol] 1.00 mg/dL Normal 0.55-1.02 [facility] Comment on above: Performed By: #### L IPID, TSH, T7, CMP #### [facility] [address] [place] [address] Dr. Natalie Sood EGFR-AF CYMRAES >60 Normal >=60 [facility] Comment on above: Performed By: #### L IPID, TSH, T7, CMP #### [facility] [address] [place] [address] Dr. Natalie Sood EGFR-NON AF CYMRAES 56 mL/min/1.73m2 Critically low >=60 [facility] Comment on above: Performed By: #### L IPID, TSH, T7, CMP #### [facility] [address] [place] [address] Dr. Natalie Sood Globulin (S) [Mass/Vol] 3.6 g/dL Normal T he [facility] Comment on above: Performed By: #### L IPID, TSH, T7, CMP #### [facility] [address] [address] [address] Natalie Sood Glucose [Mass/Vol] 89 mg/dL Normal 74-106 [facility] Comment on above: Performed By: #### L IPID, TSH, T7, CMP #### [facility] [address] [address] [address] Natalie oSod Potassium [Moles/Vol] 4.3 mmol/L Normal 3.5-5.1 [facility] Comment on above: Performed By: #### L IPID, TSH, T7, CMP #### [facility] [address] [place] [address] Dr. Natalie Sood Protein [Mass/Vol] 7.6 g/dL Normal 6.4-8.2 [facility] Comment on above: Performed By: #### L IPID, TSH, T7, CMP #### [facility] [address] [address] [address] Natalie Sood Sodium [Moles/Vol] 144 mmol/L Normal 136-145 [facility] Comment on above: Performed By: #### L IPID, TSH, T7, CMP #### [facility] [address] [address] [address] Natalie Sood Urea nitrogen [Mass/Vol] 18.0 mg/dL Normal 7.0-18.0 [facility] Comment on above: Performed By: #### L IPID, TSH, T7, CMP #### [facility] [address] [place] [address] Dr. Natalie Sood Urea nitrogen/Creatinine [Mass ratio] 18.0 mg/mg Normal [facility] Comment on above: Performed By: #### L IPID, TSH, T7, CMP #### [facility] [address] [address] [address] Natalie Sood TSHon 10-21-2022 TSH 0.157 uIU/mL Critically low 0.358-3.740 [facility] Comment on above: Performed By: #### L IPID, TSH, T7, CMP #### [facility] [address] [address] [address] Natalie Sood VITAMIN B12on 10-21-2022 Cobalamin (Vitamin B12) [Mass/Vol] 1101.0 pg/mL Critically high 193.0-986.0 [facility] Comment on above: Performed By: #### L IPID, TSH, T7, CMP #### [facility] [address] [place] [address] Dr. Natalie Sood VITAMIN D 25 OHon 10-21-2022 VIT D 25-OH 68.0 ng/mL Normal [facility] Comment on above: Performed By: #### L IPID, TSH, T7, CMP #### [facility] [address] [place] [address] Dr. Natalie Sood VIT D RANGES SEE BELOW Normal [facility] Comment on above: Result Comment: <20 ng/mL Vit D deficient 20 - <30 ng/mL Vit D insufficient 30 - 100 ng/mL Vit D sufficient >100 ng/mL Potential Toxicity Performed By: #### L IPID, TSH, T7, CMP #### [facility] [address] [place] [address] Dr. Natalie Sood CBC AUTO DIFFon 08-18-2022 BASO # 0.0 103/ul Normal 0.0-0.1 [facility] Comment on above: Performed By: #### L IPID, TSH, T7, CMP #### [facility] [address] [place] [address] Dr. Natalie Sood Basophils/100 WBC (Bld) 0.2 % Normal 0.2-2.0 [facility] Comment on above: Performed By: #### L IPID, TSH, T7, CMP #### [facility] [address] [place] [address] Dr. Natalie Sood EO # 0.2 103/ul Normal 0.0-0.7 [facility] Comment on above: Performed By: #### L IPID, TSH, T7, CMP #### [facility] [address] [place] [address] Dr. Natalie Sood Eosinophils/100 WBC (Bld) 1.0 % Normal 0.9-7.0 [facility] Comment on above: Performed By: #### L IPID, TSH, T7, CMP #### [facility] [address] [place] [address] Dr. Natalie Sood Erythrocyte distribution width (RBC) [Ratio] 13.1 % Normal 11.0-15.0 [facility] Comment on above: Performed By: #### L IPID, TSH, T7, CMP #### [facility] [address] [place] [address] Dr. Natalie Sood Hematocrit (Bld) [Volume fraction] 44.1 % Normal 36.0-48.0 [facility] Comment on above: Performed By: #### L IPID, TSH, T7, CMP #### [facility] [address] [place] [address] Dr. Natalie Sood Hemoglobin (Bld) [Mass/Vol] 14.6 g/dL Normal 12.0-16.0 [facility] Comment on above: Performed By: #### L IPID, TSH, T7, CMP #### [facility] [address] [place] [address] Dr. Natalie Sood IG # 0.11 10e3/ul Critically high 0.00-0.03 [facility] Comment on above: Performed By: #### L IPID, TSH, T7, CMP #### [facility] [address] [place] [address] Dr. Natalie Sood IG % 0.7 % Critically high 0.0-0.5 [facility] Comment on above: Performed By: #### L IPID, TSH, T7, CMP #### [facility] [address] [place] [address] Dr. Natalie Sood LYMPH # 1.0 103/ul Critically low 1.2-3.8 [facility] Comment on above: Performed By: #### L IPID, TSH, T7, CMP #### [facility] [address] [place] [address] Dr. Natalie Sood Lymphocytes/100 WBC (Bld) 6.1 % Critically low 20.5-60.0 [facility] Comment on above: Performed By: #### L IPID, TSH, T7, CMP #### [facility] [address] [place] [address] Dr. Natalie Sood MANUAL DIFF REQ NO Normal [facility] Comment on above: Performed By: #### L IPID, TSH, T7, CMP #### [facility] [address] [place] [address] Dr. Natalie Sood MCH (RBC) [Entitic mass] 31.1 pg Normal 26.7-34.0 [facility] Comment on above: Performed By: #### L IPID, TSH, T7, CMP #### [facility] [address] [place] [address] Dr. Natalie Sood MCHC (RBC) [Mass/Vol] 33.1 g/dL Normal 29.9-35.2 [facility] Comment on above: Performed By: #### L IPID, TSH, T7, CMP #### [facility] [address] [place] [address] Dr. Natalie Sood MCV (RBC) [Entitic vol] 94.0 fL Normal 81.0-99.0 [facility] Comment on above: Performed By: #### L IPID, TSH, T7, CMP #### [facility] [address] [place] [address] Dr. Natalie Sood MONO # 1.0 103/ul Critically high 0.3-0.8 [facility] Comment on above: Performed By: #### L IPID, TSH, T7, CMP #### [facility] [address] [place] [address] Dr. Natalie Sood Monocytes/100 WBC (Bld) 6.3 % Normal 1.7-12.0 [facility] Comment on above: Performed By: #### L IPID, TSH, T7, CMP #### [facility] [address] [place] [address] Dr. Natalie Sood NEUT # 13.9 103/ul Critically high 1.4-6.5 [facility] Comment on above: Performed By: #### L IPID, TSH, T7, CMP #### [facility] [address] [place] [address] Dr. Natalie Sood Neutrophils/100 WBC (Bld) 85.7 % Critically high 43.0-75.0 [facility] Comment on above: Performed By: #### L IPID, TSH, T7, CMP #### [facility] [address] [place] [address] Dr. Natalie Sood Platelet mean volume (Bld) [Entitic vol] 9.9 fL Normal 9.5-13.5 [facility] Comment on above: Performed By: #### L IPID, TSH, T7, CMP #### [facility] [address] [place] [address] Dr. Natalie Sood PLT 338 103/ul Normal 150-450 [facility] Comment on above: Performed By: #### L IPID, TSH, T7, CMP #### [facility] [address] [place] [address] Dr. Natalie Sood RBC 4.69 106/ul Normal 4.20-5.40 [facility] Comment on above: Performed By: #### L IPID, TSH, T7, CMP #### [facility] [address] [place] [address] Dr. Natalie Sood WBC 16.3 103/ul Critically high 4.0-11.0 [facility] Comment on above: Performed By: #### L IPID, TSH, T7, CMP #### [facility] [address] [place] [address] Dr. Natalie Sood CTA CHEST WO W [...] ADALBERTO CARVALHO Date: 2022-08-18 13:58 Normal [facility] PROF 14(COMP METB)on 023 Albumin [Mass/Vol] 4.4 g/dL Normal 3.4-5.0 [facility] Comment on above: Performed By: #### C KYM, HSTROPN #### [facility] [address] [place] [address] Dr. Natalie Sood Albumin/Globulin [Mass ratio] 1.3 {ratio} Normal [facility] Comment on above: Performed By: #### C KYM, HSTROPN #### [facility] [address] [place] [address] Dr. Natalie Sood ALP [Catalytic activity/Vol] 86 U/L Normal 46-116 [facility] Comment on above: Performed By: #### C KYM, HSTROPN #### [facility] [address] [address] [address] Natalie Sood ALT [Catalytic activity/Vol] 23 U/L Normal 14-59 [facility] Comment on above: Performed By: #### C KYM, HSTROPN #### [facility] [address] [address] [address] Natalie Sood Anion gap [Moles/Vol] 13.7 mmol/L Normal [facility] Comment on above: Performed By: #### C KYM, HSTROPN #### [facility] [address] [address] [address] Natalie Sood AST [Catalytic activity/Vol] 19 U/L Normal 15-37 [facility] Comment on above: Performed By: #### C MP, HSTROPN #### [facility] [address] [address] [address] Natalie Sood Bilirubin [Mass/Vol] 1.2 mg/dL Critically high 0.2-1.0 [facility] Comment on above: Performed By: #### C MP, HSTROPN #### [facility] [address] [address] [address] Natalie Sood Calcium [Mass/Vol] 9.3 mg/dL Normal 8.5-10.1 [facility] Comment on above: Performed By: #### C MP, HSTROPN #### [facility] [address] [place] [address] Dr. Natalie Sood Chloride [Moles/Vol] 105 mmol/L Normal 98-107 [facility] Comment on above: Performed By: #### C MP, HSTROPN #### [facility] [address] [place] [address] Dr. Natalie Sood CO2 [Moles/Vol] 26.7 mmol/L Normal 21.0-32.0 [facility] Comment on above: Performed By: #### C MP, HSTROPN #### [facility] [address] [place] [address] Dr. Natalie Sood Creatinine [Mass/Vol] 0.97 mg/dL Normal 0.55-1.02 [facility] Comment on above: Performed By: #### C MP, HSTROPN #### [facility] [address] [place] [address] Dr. Natalie Sood EGFR-AF CYMRAES >60 Normal >=60 [facility] Comment on above: Performed By: #### C MP, HSTROPN #### [facility] [address] [place] [address] Dr. Natalie Sood EGFR-NON AF CYMRAES 58 mL/min/1.73m2 Critically low >=60 [facility] Comment on above: Performed By: #### C KYM, HSTROPN #### [facility] [address] [address] [address] Natalie Sood Globulin (S) [Mass/Vol] 3.3 g/dL Normal T [facility] Comment on above: Performed By: #### C KYM, HSTROPN #### [facility] [address] [address] [address] Natalie Sood Glucose [Mass/Vol] 93 mg/dL Normal 74-106 [facility] Comment on above: Performed By: #### C KYM, HSTROPN #### [facility] [address] [place] [address] Dr. Natalie Sood Potassium [Moles/Vol] 4.4 mmol/L Normal 3.5-5.1 [facility] Comment on above: Performed By: #### C KYM, HSTROPN #### [facility] [address] [place] [address] Dr. Natalie Sood Protein [Mass/Vol] 7.7 g/dL Normal 6.4-8.2 [facility] Comment on above: Performed By: #### C KYM, HSTROPN #### [facility] [address] [place] [address] Dr. Natalie Sood Sodium [Moles/Vol] 141 mmol/L Normal 136-145 [facility] Comment on above: Performed By: #### C KYM, HSTROPN #### [facility] [address] [place] [address] Dr. Natalie Sood Urea nitrogen [Mass/Vol] 24.0 mg/dL Critically high 7.0-18 .0 [facility] Comment on above: Performed By: #### C KYM, HSTROPN #### [facility] [address] [place] [address] Dr. Natalie Sood Urea nitrogen/Creatinine [Mass ratio] 24.7 mg/mg Normal [facility] Comment on above: Performed By: #### C KYM, HSTROPN #### [facility] [address] [place] [address] Dr. Natalie Sood PROTIMEon 08-18-2022 INR Coag (PPP) [Relative time] 0.95 {INR} Normal [facility] Comment on above: Performed By: #### L IPID, TSH, T7, CMP #### [facility] [address] [place] [address] Dr. Natalie Sood INR GUIDELINES SEE BELOW Normal [facility] Comment on above: Result Comment: JEROME RED INR: 2.0 - 3.0 CONDITIONS NOT LISTED BELOW 2.5 - 3.5 FOR PROSTHETIC HEART VALVE REPLACEMENT 2.5 - 3.5 RECURRENT THROMBOSIS Performed By: #### L IPID, TSH, T7, CMP #### [facility] [address] [place] [address] Dr. Natalie Sood PT Coag (PPP) [Time] 10.1 s Normal 9.0-11.6 [facility] Comment on above: Performed By: #### L IPID, TSH, T7, CMP #### [facility] [address] [place] [address] Dr. Natalie Sood PTTon 08-18-2022 aPTT Coag (Bld) [Time] 26.5 s Normal 22.3-36.2 Th e [facility] Comment on above: Performed By: #### L IPID, TSH, T7, CMP #### [facility] [address] [place] [address] Dr. Natalie Sood TROPONIN, HIGH SENSITIVITYon 08-18-2022 HSTROP 5.5 pg/mL Normal 4.0-51.3 [facility] Comment on above: Result Comment: CUT- OFF POINTS HAVE BEEN ESTABLISHED BASED ON THE FOURTH UNIVERSAL DEFINITIONS OF MYOCARDIAL INFARCTION. THE UPPER REFERENCE LIMIT (URL) OF TROPONIN, DEFINED THE 99TH PERCENTILE OF cTnI DISTRIBUTION IN A REFERENCE POPULATION, HAS BEEN CONFIRMED THE DECISION THRESHOLD FOR [place] DIAGNOSIS. Performed By: #### C MP, HSTROPN #### [facility] [address] [place] [address] Dr. Natalie Sood Covid-19 PCR (CVDTBH)on 06-05 SARS-CoV-2 (COVID-19) RNA JENNIE+probe Ql (Unsp spec) Not detected Normal NOT DETECTED [facility] Comment on above: Result Comment: When diagnostic [...] for this test is supported by the [place] of [employer] and Human Service's declaration that [...] longer be used). Performed By: #### C VDTBH #### [facility] [address] [place] [address] Dr. Natalie Sood INFLUENZA A AND B AGon 06-[facility] SEE BELOW Normal [facility] Comment on above: Result Comment: Nega tive for Flu A protein angiten. Infection due to Flu A cannot be ruled out. Flu A angiten in the sample may be below the detection limit of the test. Performed By: #### L IPID, TSH, T7, CMP #### [facility] [address] [place] [address] Dr. Natalie Sood INFLUBNEG SEE BELOW Normal [facility] Comment on above: Result Comment: Nega tive for Flu B protein antigen. Infection due to Flu B cannot be ruled out. Flu B antigen in the sample may be below the detection limit of the test. Performed By: #### L IPID, TSH, T7, CMP #### [facility] [address] [place] [address] Dr. Natalie Sood INFLUENZA A AG Negative Normal NEGATIVE SEE COMMENT [facility] Comment on above: Performed By: #### L IPID, TSH, T7, CMP #### [facility] [address] [place], [place] [address] Dr. Natalie Sood INFLUENZA B AG Negative Normal NEGATIVE SEE COMMENT [facility] Comment on above: Performed By: #### L IPID, TSH, T7, CMP #### [facility] [address] [place], [place] [address] Dr. Natalie Sood INTERNAL CONTROLS Within Normal Limits Normal Wi thin Normal Limits [facility] Comment on above: Performed By: #### L IPID, TSH, T7, CMP #### [facility] [address] [place], [place] [address] ABD/PELVIS WO CONon [...] VICTORIA SAUNDERS Date: 2022-03-05 17:03 Normal [facility] CULTURE URINEon 03-05-2022 CULTURE URINE Culture Observations: MODERATE GROWTH OF MIXED GENITAL CRYSTAL. NO POTENTIAL PATHOGENS SEEN. Normal [facility] Comment on above: Performed By: #### L IPID, TSH, T7, CMP #### [facility] [address] [address] [address] Natalie Sood UA RANDOM W/MICROSCOPICon BACTERIA NONE SEEN Normal NONE SEEN [facility] Comment on above: Performed By: #### U AMIC #### [facility] [address] [address] [address] Natalie Sood Bilirubin Ql (U) Negative Normal NEGATIVE [facility] Comment on above: Performed By: #### U AMIC #### [facility] [address] [place] [address] Dr. Natalie Sood CAST NONE SEEN Normal NONE SEEN [facility] Comment on above: Performed By: #### U AMIC #### [facility] [address] [address] [address] Natalie Sood Clarity (U) SL CLOUDY Abnormal CLEAR [facility] Comment on above: Performed By: #### U AMIC #### [facility] [address] [place] [address] Dr. Natalie Sood Color (U) LT. YELLOW Normal YELLOW [facility] Comment on above: Performed By: #### U AMIC #### [facility] [address] [place] [address] Dr. Natalie Sood Crystals LM Nom (Urine sed) NONE SEEN Normal NONE SEEN [facility] Comment on above: Performed By: #### U AMIC #### [facility] [address] [address] [address] Natalie Sood Epithelial cells LM Ql (Urine sed) RARE Normal NONE SEEN /RARE [facility] Comment on above: Performed By: #### U AMIC #### [facility] [address] [place] [address] Dr. Natalie Sood Glucose Ql (U) Negative Normal NEGATIVE [facility] Comment on above: Performed By: #### U AMIC #### [facility] [address] [address] [address] Natalie Sood Hemoglobin Ql (U) Negative Normal NEGATIVE [facility] Comment on above: Performed By: #### U AMIC #### [facility] [address] [address] [address] Natalie Sood Ketones Ql (U) Negative Normal NEGATIVE [facility] Comment on above: Performed By: #### U AMIC #### [facility] [address] [address] [address] Natalie Sood LEUKOCYTES Negative Normal NEGATIVE [facility] Comment on above: Performed By: #### U AMIC #### [facility] [address] [address] [address] Natalie Sood MUCOUS MODERATE Abnormal NONE SEEN [facility] Comment on above: Performed By: #### U AMIC #### [facility] [address] [address] [address] Natalie Sood Nitrite Ql (U) Negative Normal NEGATIVE [facility] Comment on above: Performed By: #### U AMIC #### [facility] [address] [address] [address] Natalie Sood pH (U) 6.0 [pH] Normal 5-9 [facility] Comment on above: Performed By: #### U AMIC #### [facility] [address] [place] [address] Dr. Natalie Sood RBC 0-2 Normal 0-2 [facility] Comment on above: Performed By: #### U AMIC #### [facility] [address] [place] [address] Dr. Natalie Sood SPEC GRAVITY <=1.005 Abnormal 1.005-<=1.02 5 [facility] Comment on above: Performed By: #### U AMIC #### [facility] [address] [place] [address] Dr. Naatlie Sood UA PROTEIN Negative Normal NEGATIVE/ TRACE [facility] Comment on above: Performed By: #### U AMIC #### [facility] [address] [place] [address] Dr. Natalie Sood Urobilinogen Qn (U) 0.2 {Carlos'U}/dL Normal 0.2 - 1. 0 [facility] Comment on above: Performed By: #### U AMIC #### [facility] [address] [address] [address] Natalie Sood WBC 0-2 Abnormal NONE SEEN [facility] Comment on above: Performed By: #### U AMIC #### [facility] Laboratory [address] [address] [address] Natalie Sood Basophils Auto (Bld) [#/Vol] on 11-19-2020 Basophils (Bld) [#/Vol] 0.0 10*3/uL 0.0-0.2 [facility] Basophils/100 WBC Auto (Bld) on 11-19-2020 Basophils/100 WBC (Bld) 0.6 % F [facility] Bilirubin Test strip Ql (U)o n 11-19-2020 Bilirubin Ql (U) Negative Negative [facility] Blood hemoglobin measurement (mass/volume)on 11-19-2020 Hemoglobin (Bld) [Mass/Vol] 13.7 g/dL 11.8-15.4 [facility] Blood leukocytes automated c ount (number/volume)on 11-19-2020 WBC (Bld) [#/Vol] 6.7 10*3/uL 4.5-11.0 [facility] Color Auto (U)on 11-19-2020 Color (U) Yellow Yellow [facility] Creatinine and Glomerular fi ltration rate.predicted panel (S/P/Bld)on 11-19-2020 Creatinine [Mass/Vol] 0.86 mg/dL 0.44-1.03 [facility] Eosinophils Auto (Bld) [#/Vo l]on 11-19-2020 Eosinophils (Bld) [#/Vol] 0.1 10*3/uL 0.0-0.45 [facility] Eosinophils/100 WBC Auto (Bl d)on 11-19-2020 Eosinophils/100 WBC (Bld) 1.0 % [facility] Erythrocyte distribution wid th Auto (RBC) [Ratio]on 11-19-2020 Erythrocyte distribution width (RBC) [Ratio] 12.2 % 11.9-15.3 [facility] Estimated glomerular filtrat ion rate (GFR) non- Americanon 11-19-2020 GFR/1.73 sq M.predicted among non-blacks MDRD (S/P/Bld) [Vol rate/Area] > 60 mL/Min [facility] Hematocrit Auto (Bld) [Volum e fraction]on 11-19-2020 Hematocrit (Bld) [Volume fraction] 39.8 % 34.0-46.4 [facility] Ketones Auto test strip (U) [Mass/Vol]on 11-19-2020 Ketones (U) [Mass/Vol] Negative Negative Fi [facility] - Hematology and Cell countson 11-19-2020 Nucleated RBC/100 WBC (Bld) [Ratio] 0.2 % 0-0.5 [facility] Lymphocytes Auto (Bld) [#/Vo l]on 11-19-2020 Lymphocytes (Bld) [#/Vol] 2.1 10*3/uL 1.00-4.8 [facility] Lymphocytes/100 WBC Auto (Bl d)on 11-19-2020 Lymphocytes/100 WBC (Bld) 31.5 % [facility] MCH Auto (RBC) [Entitic mass ]on 11-19-2020 MCH (RBC) [Entitic mass] 32.0 pg 24.7-34.3 [facility] MCHC Auto (RBC) [Mass/Vol]on 11-19-2020 MCHC (RBC) [Mass/Vol] 34.4 g/dL 32.0-35.0 [facility] MCV Auto (RBC) [Entitic vol] on 11-19-2020 MCV (RBC) [Entitic vol] 93.1 fL 80-100 F [facility] Monocytes Auto (Bld) [#/Vol] on 11-19-2020 Monocytes (Bld) [#/Vol] 0.5 10*3/uL 0.0-0.8 [facility] Monocytes/100 WBC Auto (Bld) on 11-19-2020 Monocytes/100 WBC (Bld) 8.1 % F [facility] Neutrophils Auto (Bld) [#/Vo l]on 11-19-2020 Neutrophils (Bld) [#/Vol] 3.9 10*3/uL 1.8-7.7 [facility] Neutrophils/100 WBC Auto (Bl d)on 11-19-2020 Neutrophils/100 WBC (Bld) 58.8 % [facility] Nitrite Test strip Ql (U)on 11-19-2020 Nitrite Ql (U) Negative Negative [facility] No Panel Informationon 11-19 Estimated GFR () > 60 mL/Min [facility] Comment on above: GFR estimated refere nce range: According to KDOQI guidelines, <60 ml/min/1.73m2 is sufficient to diagnose a patient with chronic kidney disease. Pharmacy Creatinine Clearance (Chem N/A [facility] Platelet mean volume Auto (B ld) [Entitic vol]on 11-19-2020 Platelet mean volume (Bld) [Entitic vol] 8.0 fL 6.3-10.7 [facility] Platelets Auto (Bld) [#/Vol] on 11-19-2020 Platelets (Bld) [#/Vol] 339 10*3/uL 150-450 [facility] Protein Auto test strip (U) [Mass/Vol]on 11-19-2020 Protein (U) [Mass/Vol] Negative [facility] RBC Auto (Bld) [#/Vol]on RBC (Bld) [#/Vol] 4.28 10*6/uL 3.60-5.00 [facility] Serum or plasma calcium tania urement (mass/volume)on 11-19-2020 Calcium [Mass/Vol] 10.2 mg/dL 8.2-10.2 [facility] Serum or plasma chloride parvin surement (moles/volume)on 11-19-2020 Chloride [Moles/Vol] 100 mmol/L 95-114 [facility] Serum or plasma glucose tania urement (mass/volume)on 11-19-2020 Glucose [Mass/Vol] 91 mg/dL 70-100 [facility] Comment on above: ADA recommended refe rence rangeRandom Glucose Reference Range is dependent on time and content of last meal. Glucose of more than 200 mg/dL in a nonstressed, ambulatory subject supports the diagnosis of Diabetes Mellitus. Serum or plasma potassium me asurement (moles/volume)on 11-19-2020 Potassium [Moles/Vol] 4.1 mmol/L 3.5-5.1 [facility] Serum or plasma sodium measu rement (moles/volume)on 11-19-2020 Sodium [Moles/Vol] 139 mmol/L 136-146 [facility] Serum or plasma total carbon dioxide measurement (moles/volume)on 11-19-2020 CO2 [Moles/Vol] 27.6 mmol/L 22.0-30.0 [facility] Serum or plasma urea nitroge n measurement (mass/volume)on 11-19-2020 Urea nitrogen [Mass/Vol] 9 mg/dL 9-23 [facility] Specific gravity Auto test s trip (U) [Rel density]on 11-19-2020 Specific gravity (U) [Rel density] 1.009 1.001-1.030 [facility] Urine clarity by refractomet ry automatedon 11-19-2020 Clarity Refractometry automated (U) Clear Clear [facility] Urine glucose measurement by automated test strip (mass/volume)on 11-19-2020 Glucose Auto test strip (U) [Mass/Vol] Normal mg/dL Normal [facility] Urine hemoglobin detection b y automated test stripon 11-19-2020 Hemoglobin Auto test strip Ql (U) Negative Negative [facility] Urine leukocyte esterase det ection by automated test stripon 11-19-2020 Leukocyte esterase Auto test strip Ql (U) Negative Negative [facility] Urobilinogen Auto test strip (U) [Mass/Vol]on 11-19-2020 Urobilinogen (U) [Mass/Vol] Normal mg/dL Normal [facility] pH Auto test strip (U)on pH (U) 7.5 [pH] 5.0-9.0 [facility] Otheron 03-18-2020 1. Lumbar spine: No evidence of acute compression fracture or malalignment. Severe multilevel degenerative changes. 2. Sacrum/coccyx: No acute osseous abnormality. [facility] [place] EXAMINATION: THREE XRAY VIEWS OF THE SACRUM/COCCYX; [...] joints are symmetric. Sacrococcygeal alignment is stable. [place], [place] Jimmy, Mhpn Incoming Radiant Results From [employer] - 03/18/2020 4:50 PM EDT EXAMINATION: THREE [...] changes. 2. Sacrum/coccyx: No acute osseous abnormality. [place] XR CERVICAL SPINE (2-3 VIEWS )on 03-18-2020 [...] Conde Jr., DO 03/18/20 Final result Normal [facility] 1. No acute bony process. 2. Straightening of the normal cervical lordosis which may relate to muscle spasm. 3. Moderate spondylosis C4 through C7. [place] EXAMINATION: 4 XRAY VIEWS OF THE [...] tissue swelling. Visualized lung apices are clear. [place] Jimmy, Mhpn Incoming Radiant Results From [employer] - 03/18/2020 12:37 PM EDT EXAMINATION: 4 [...] spasm. 3. Moderate spondylosis C4 through C7. [facility], [place] XR LUMBAR SPINE (2-3 VIEWS)o n 03-18-2020 [...] Francheska Box DO 03/18/20 Final result Normal [facility] XR SACRUM COCCYX (MIN 2 VIEW S)on [...] Sacrum/coccyx: No acute osseous abnormality. Interpreted by: Franchseka Box DO Signed by: Francheska Box DO 03/18/20 Final result Normal [facility] Basic Metabolic Panelon 03-05 Anion gap [Moles/Vol] 13 mmol/L 9 - 17 mmol/L [place] Calcium [Mass/Vol] 9.5 mg/dL 8.6 - 10. 4 mg/dL [place] Chloride [Moles/Vol] 101 mmol/L 98 - 10 7 mmol/L [place] CO2 [Moles/Vol] 24 mmol/L 20 - 31 mmol/L [place] Creatinine [Mass/Vol] 0.96 mg/dL High 0.5 - 0.9 mg/dL [place] GFR >60 >60 mL/min [place] GFR Non- 60 mL/min Low >60 [place] GFR/1.73 sq M predicted among non-blacks MDRD (S/P/Bld) [Vol rate/Area] NOT REPORTED [place] GFR/1.73 sq M predicted among non-blacks MDRD (S/P/Bld) [Vol rate/Area] [place] Comment on above: Average GFR for 50-5 9 years old: 93 mL/min/1.73sq m Chronic Kidney Disease: <60 mL/min/1.73sq m Kidney failure: <15 mL/min/1.73sq m eGFR calculated using average adult body mass. Additional eGFR calculator available at: http://www.Artward[employer]/multiple_crcl_2012.htm Glucose [Mass/Vol] 97 mg/dL 70 - 99 mg/dL [place] Interpretation and review of laboratory results Abnormal [place] Potassium [Moles/Vol] 3.9 mmol/L 3.7 - 5.3 mmol/L [place] Sodium [Moles/Vol] 138 mmol/L 135 - 144 mmol/L [place] Urea nitrogen [Mass/Vol] 14 mg/dL 6 - 20 mg/d L [place] Basic Metabolic Profon 03-16 (cont.) Normal [facility] Comment on above: Result Comment: Aver age GFR for 50-59 years old: 93 mL/min/1.73sq m Chronic Kidney Disease: <60 mL/min/1.73sq m Kidney failure: <15 mL/min/1.73sq m eGFR calculated using average adult body mass. Additional eGFR calculator available at: http://www.Artwardly/multiple_crcl_2012.htm Performed By: #### B YVONNE MEJÍA CDP #### [facility] [address] [facility]. [place], [place] [address] Highway Landscape Architect: Bernard Gonzalez DO Anion gap [Moles/Vol] 13 mmol/L Normal 9-17 [facility] Comment on above: Performed By: #### B YVONNE MEJÍA CDP #### [facility] [address] [facility] [place] [address] Highway Landscape Architect: Bernard Gonzalez DO Calcium [Mass/Vol] 9.5 mg/dL Normal 8.6-10.4 [facility] Comment on above: Performed By: #### B YVONNE MEJÍA, CDP #### [facility] [address] [place] [address] Highway Landscape Architect: Bernard Gonzalez DO Chloride [Moles/Vol] 101 mmol/L Normal 98-107 [facility] Comment on above: Performed By: #### B YVONNE MEJÍA, CDP #### [facility] [address] [place] [address] Highway Landscape Architect: Bernard Gonzalez DO CO2 [Moles/Vol] 24 mmol/L Normal 20-31 [facility] Comment on above: Performed By: #### B YVONNE MEJÍA, CDP #### [facility] [address] [place] [address] Highway Landscape Architect: Bernard Gonzalez DO Creatinine [Mass/Vol] 0.96 mg/dL High 0.50-0.90 [facility] Comment on above: Performed By: #### B YVONNE MEJÍA, CDP #### [facility] [address] [place] [address] Highway Landscape Architect: Bernard Gonzalez DO GFR, Amer >60 Normal >60 [facility] Comment on above: Performed By: #### B YVONNE MEJÍA, CDP #### [facility] [address] [facility] [place] [address] Highway Landscape Architect: Bernard Gonzalez DO GFR,non Amer 60 mL/min Low >60 [facility] Comment on above: Performed By: #### B YVONNE MEJÍA, CDP #### [facility] [address] [place] [address] Highway Landscape Architect: Bernard Gonzalez DO Glucose [Mass/Vol] 97 mg/dL Normal 70-99 [facility] Comment on above: Performed By: #### B YVONNE MEJÍA, PATTI #### [facility] [address] [place] [address] Highway Landscape Architect: Bernard Gonzalez DO Potassium [Moles/Vol] 3.9 mmol/L Normal 3.7-5.3 [facility] Comment on above: Performed By: #### B YVONNE MEJÍA, PATTI #### [facility] [address] [place] [address] Highway Landscape Architect: Bernard Gonzalez DO Sodium [Moles/Vol] 138 mmol/L Normal 135-144 [facility] Comment on above: Performed By: #### B YVONNE MEJÍA, PATTI #### [facility] [address] [place] [address] Highway Landscape Architect: Bernard Gonzalez DO Urea nitrogen [Mass/Vol] 14 mg/dL Normal 6-20 [facility] Comment on above: Performed By: #### B YVONNE MEJÍA, PATTI #### [facility] [address] [place] [address] Highway Landscape Architect: Bernard Gonzalez DO Staging: NOT REPORTED Normal [facility] Comment on above: Performed By: #### B YVONNE MEJÍA, PATTI #### [facility] [facility] [place] [address] Highway Landscape Architect: Bernard Gonzalez DO Bun/Cre Ratio NOT REPORTED Normal 9-20 [place] Comment on above: Performed By: #### B YVONNE MEJÍA, PATTI #### [facility] [address] [facility] [place] [address] Highway Landscape Architect: Bernard Gonzalez DO CBC Auto Differentialon - Absolute Bands # 0.10 [facility] [place] Bands 1 % 0 - 10 % [facility], [place] Basophils (Bld) [#/Vol] 0.00 10*3/uL [place] Basophils/100 WBC (Bld) 0 % 0 - 2 % M [place] Differential Type NOT REPORTED [place] Eosinophils (Bld) [#/Vol] 0.19 10*3/uL [place] Eosinophils/100 WBC (Bld) 2 % 0 - 4 % [place] Erythrocyte distribution width (RBC) [Ratio] 12.6 % 11.5 - 14.9 % [place] Hematocrit (Bld) [Volume fraction] 39.6 % 36 - 46 % [place] Hemoglobin (Bld) [Mass/Vol] 13.5 g/dL 12 - 16 g/dL [place] Interpretation and review of laboratory results Abnormal [place] Lymphocytes (Bld) [#/Vol] 2.19 10*3/uL [place] Lymphocytes/100 WBC (Bld) 23 % Low 24 - 44 % [place] MCH (RBC) [Entitic mass] 31.3 pg 26 - 34 pg [place] MCHC (RBC) [Mass/Vol] 34.1 g/dL 31 - 37 g/dL [place] MCV (RBC) [Entitic vol] 91.7 fL 80 - 100 fL [place] Metamyelocytes 2 % High 0 [place] Metamyelocytes Absolute 0.19 High 0 k/uL [place] Monocytes (Bld) [#/Vol] 0.38 10*3/uL [place] Monocytes/100 WBC (Bld) 4 % 1 - 7 % [place] Morphology Reginald (Bld) [Interp] Normal [place] Platelet mean volume (Bld) [Entitic vol] 8.2 fL 6 - 12 fL [place] Platelets (Bld) [#/Vol] 250 10*3/uL [place] RBC (Bld) [#/Vol] 4.32 10*6/uL 4 - 5.2 m/uL [place] Segmented neutrophils/100 WBC (Bld) 68 % High 36 - 66 % [place] Segs Absolute 6.45 [place] WBC (Bld) [#/Vol] NOT REPORTED per 100 WBC [place] WBC (Bld) [#/Vol] 9.5 10*3/uL [place] CBC with Diffon 03-16-2020 Abs. Bands 0.10 k/uL Normal 0.0-1.0 [facility] Comment on above: Performed By: #### B YVONNE MEJÍA, PATTI #### [facility] [address] [facility] [place] [address] Highway Landscape Architect: Bernard Gonzalez DO Abs. Basophil 0.00 k/uL Normal 0.0-0.2 [facility] Comment on above: Performed By: #### B YVONNE MEJÍA, PATTI #### [facility] [address] [facility] [place] [address] Highway Landscape Architect: Bernard Gonzalez DO Abs. [place] 0.19 k/uL High 0 [facility] Comment on above: Performed By: #### B YVONNE MEJÍA, PATTI #### [facility] [place] [address] Highway Landscape Architect: Bernard Gonzalez DO Abs.Neutrophil (Seg) 6.45 k/uL Normal 1.3-9.1 [facility] Comment on above: Performed By: #### B YVONNE MEJÍA, PATTI #### [facility] [address] [place] [address] Highway Landscape Architect: Bernard Gonzalez DO Bands 1 % Normal 0-10 [facility] Comment on above: Performed By: #### B YVONNE MEJÍA, CDP #### [facility] [address] [place] [address] Highway Landscape Architect: Bernard Gonzalez DO Basophils/100 WBC (Bld) 0 % Normal 0-2 [facility] Comment on above: Performed By: #### B YVONNE MEJÍA, CDP #### [facility] [address] [facility] [place] [address] Highway Landscape Architect: Bernard Gonzalez DO Eosinophils (Bld) [#/Vol] 0.19 10*3/uL Normal 0.0-0.4 [facility] Comment on above: Performed By: #### B YVONNE MEJÍA, CDP #### [facility] [address] [facility] [place] [address] Highway Landscape Architect: Bernard Gonzalez DO Eosinophils/100 WBC (Bld) 2 % Normal 0-4 [facility] Comment on above: Performed By: #### B YVONNE MEJÍA, CDP #### [facility] [place] [address] Highway Landscape Architect: Bernard Gonzalez DO Lymphocytes (Bld) [#/Vol] 2.19 10*3/uL Normal 1.0-4.8 [facility] Comment on above: Performed By: #### B YVONNE MEJÍA, CDP #### [facility] [place] [address] Highway Landscape Architect: Bernard Gonzalez DO Lymphocytes/100 WBC (Bld) 23 % Low 24-44 [facility] Comment on above: Performed By: #### B YVONNE MEJÍA, CDP #### [facility] [place] [address] Highway Landscape Architect: Bernard Gonzalez DO Metamyelocytes/100 WBC (Bld) 2 % High 0 [facility] Comment on above: Performed By: #### B YVONNE MEJÍA, CDP #### [facility] [address] [facility] [place] [address] Highway Landscape Architect: Bernard Gonzalez DO Monocytes (Bld) [#/Vol] 0.38 10*3/uL Normal 0.1-1.3 [facility] Comment on above: Performed By: #### B YVONNE MEJÍA, PATTI #### [facility] [place] [address] Highway Landscape Architect: Bernard Gonzalez DO Monocytes/100 WBC (Bld) 4 % Normal 1-7 M [facility] Comment on above: Performed By: #### B YVONNE MEJÍA, CDP #### [facility] [address] [place] [address] Highway Landscape Architect: Bernard Gonzalez DO Morphology Reginald (Bld) [Interp] Normal Normal [facility] Comment on above: Performed By: #### B YVONNE MEJÍA, CDP #### [facility] [address] [place] [address] [address] Landscape Architect: Bernard Gonzalez DO Neutrophil (Seg) 68 % High 36-66 [facility] Comment on above: Performed By: #### B YVONNE MEJÍA, PATTI #### [facility] [address] [place] [address] [address] Landscape Architect: Bernard Gonzalez DO Erythrocyte distribution width (RBC) [Ratio] 12.6 % Normal 11.5-14.9 [facility] Comment on above: Performed By: #### B YVONNE MEJÍA, PATTI #### [facility] [address] [place] [address] [address] Landscape Architect: Bernard Gonzalez DO Hematocrit (Bld) [Volume fraction] 39.6 % Normal 36-46 [facility] Comment on above: Performed By: #### B YVONNE MEJÍA, CDP #### [facility] [place] [address] Highway Landscape Architect: Bernard Gonzalez DO Hemoglobin (Bld) [Mass/Vol] 13.5 g/dL Normal 12.0-16.0 [facility] Comment on above: Performed By: #### B YVONNE MEJÍA, PATTI #### [facility] [place] [address] Highway Landscape Architect: Bernard Gonzalez DO MCH (RBC) [Entitic mass] 31.3 pg Normal 26-34 [facility] Comment on above: Performed By: #### B YVONNE MEJÍA, CDP #### [facility] [address] [place] [address] [address] [address] Landscape Architect: Bernard Gonzalez DO MCHC (RBC) [Mass/Vol] 34.1 g/dL Normal 31-37 [facility] Comment on above: Performed By: #### B YVONNE MEJÍA, CDP #### [facility] [address] [place] [address] [address] [address] Landscape Architect: Bernard Gonzalez DO MCV (RBC) [Entitic vol] 91.7 fL Normal 80-100 M [facility] Comment on above: Performed By: #### B YVONNE MEJÍA, PATTI #### [facility] [address] [place] [address] [address] [address] Landscape Architect: Bernard Gonzalez DO Platelet mean volume (Bld) [Entitic vol] 8.2 fL Normal 6.0-12.0 [facility] Comment on above: Performed By: #### B YVONNE MEJÍA, PATTI #### [facility] [address] [place] [address] [address] [address] Landscape Architect: Bernard Gonzalez DO Platelets (Bld) [#/Vol] 250 10*3/uL Normal 150-450 [facility] Comment on above: Performed By: #### B YVONNE MEJÍA, PATTI #### [facility] [address] [place] [address] [address] [address] Landscape Architect: Bernard Gonzalez DO RBC (Bld) [#/Vol] 4.32 10*6/uL Normal 4.0-5.2 [facility] Comment on above: Performed By: #### B YVONNE MEJÍA, PATTI #### [facility] [address] [place] [address] Highway Landscape Architect: Bernard Gonzalez DO WBC (Bld) [#/Vol] 9.5 10*3/uL Normal 3.5-11.0 [facility] Comment on above: Performed By: #### B YVONNE MEJÍA, PATTI #### [facility] [place] [address] Highway Landscape Architect: Bernard Gonzalez DO Abs.Imm.Granulocyte NOT REPORTED Normal 0.00-0.30 [facility] Comment on above: Performed By: #### B YVONNE MEJÍA, PATTI #### [facility] [place] [address] Highway Landscape Architect: Bernard Gonzalez DO Auto Diff Performed NOT REPORTED Normal [facility] Comment on above: Performed By: #### B YVONNE MEJÍA, PATTI #### [facility] [place] [address] Highway Landscape Architect: Bernard Gonzalez DO NRBC Automated NOT REPORTED Normal [facility] Comment on above: Performed By: #### B YVONNE MEJÍA, CDP #### [facility] [place] [address] Highway Landscape Architect: Bernard Gonzalez DO Immature granulocytes (Bld) [#/Vol] NOT REPORTED Normal 0 [facility] [place] Comment on above: Performed By: #### B YVONNE MEJÍA, PATTI #### [facility] [place] [address] Highway Landscape Architect: Bernard Gonzalez DO Platelets (Bld) [#/Vol] NOT REPORTED Normal [place] Comment on above: Performed By: #### B YVONNE MEJÍA, CDP #### [facility] [address] [facility] [place] [address] Highway Landscape Architect: Bernard Gonzalez DO RBC morphology finding Nom (Bld) NOT REPORTED Normal [place] Comment on above: Performed By: #### B YVONNE MEJÍA, CDP #### [facility] [address] [facility] [place] [address] Highway Landscape Architect: Bernard Gonzalez DO WBC Morphology NOT REPORTED Normal [place] Comment on above: Performed By: #### B YVONNE MEJÍA, CDP #### [facility] [address] [facility] [place] [address] Highway Landscape Architect: Bernard Gonzalez DO CT HEAD WO CONTRASTon 2019 [...] Poli Guevara MD 03/16/20 Final result Normal [facility] Jimmy, Mhpn Incoming Radiant Results From [facility] - 03/16/2020 12:30 PM EDT EXAMINATION: CT OF THE HEAD WITHOUT CONTRAST 03/16/2020 12:18 pm TECHNIQUE: CT of the head was performed without the administration of intravenous contrast. Dose modulation, iterative reconstruction, and/or weight based adjustment of the mA/kV was utilized to reduce the radiation dose to as low as reasonably achievable. COMPARISON: 10/25/2012 HISTORY: ORDERING SYSTEM PROVIDED HISTORY: NAIF Lerner TECHNOLOGIST PROVIDED HISTORY: Fall, DISLA Reason for [...] frontal bone. IMPRESSION: No acute intracranial abnormality. [place], [place] EXAMINATION: CT OF THE HEAD WITHOUT CONTRAST 03/16/2020 12:18 pm TECHNIQUE: CT of the head was performed without the administration of intravenous contrast. Dose modulation, iterative reconstruction, and/or weight based adjustment of the mA/kV was utilized to reduce the radiation dose to as low as reasonably achievable. COMPARISON: 10/25/2012 HISTORY: ORDERING SYSTEM PROVIDED HISTORY: NAIF Lerner TECHNOLOGIST PROVIDED HISTORY: Fall, DISLA Reason for [...] tissue injury overlying the left frontal bone. [place], [place] No acute intracranial abnormality. [place] TROP/MYOGLOBINon 03-16-2020 Interpretation and review of laboratory results Abnormal [place] Myoglobin [Mass/Vol] 504 ng/mL High 25 - 58 ng/mL [place] Troponin, High Sensitivity 10 ng/L 0 - 14 ng/L [place] Comment on above: High Sensitivity Troponin values cannot be compared with other Troponin methodologies. Patients with high levels of Biotin oral intake (i.e >5mg/day) may have falsely decreased Troponin levels. Samples collected within 8 hours of biotin intake may require additional information for diagnosis. Trop/Myoglobinon 03-16-2020 Myoglobin [Mass/Vol] 504 ng/mL High 25-58 [facility] Comment on above: Performed By: #### B YVONNE MEJÍA, PATTI #### [facility] [address] [place] [address] Highway Landscape Architect: Bernard Gonzalez DO Troponin, High Sens 10 ng/L Normal 0-14 [facility] Comment on above: Result Comment: High Sensitivity Troponin values cannot be compared with other Troponin methodologies. Patients with high levels of Biotin oral intake (i.e >5mg/day) may have falsely decreased Troponin levels. Samples collected within 8 hours of biotin intake may require additional information for diagnosis. Performed By: #### B YVONNE MEJÍA, PATTI #### [facility] [address] [facility] [place] [address] Highway Landscape Architect: Bernard Gonzalez DO Troponin I.cardiac [Mass/Vol] NOT REPORTED Normal [place] Comment on above: Performed By: #### B YVONNE MEJÍA, PATTI #### [facility] [address] [place] [address] Highway Landscape Architect: Bernard Gonzalez DO Troponin T.cardiac [Mass/Vol] NOT REPORTED Normal <0.03 [place] Comment on above: Performed By: #### B YVONNE MEJÍA, PATTI #### [facility] [address] [place] [address] Highway Landscape Architect: Bernard Gonzalez DO XR CHEST PORTABLEon 03-16-20 20 [...] Bao Sher MD 03/16/20 Final result Normal [facility] [place], [place] Incoming Radiant Results From [facility] - 03/16/2020 12:32 PM EDT EXAMINATION: ONE [...] identified. IMPRESSION: No acute airspace disease identified. [place] EXAMINATION: ONE XRAY VIEW OF THE CHEST 03/16/2020 12:25 pm COMPARISON: 10/09/2012 HISTORY: ORDERING SYSTEM PROVIDED HISTORY: Syncope TECHNOLOGIST PROVIDED HISTORY: Syncope Reason for Exam: syncope Acuity: Acute Type of Exam: Initial FINDINGS: Shallow inflation. The cardiomediastinal silhouette is within normal limits. There is no consolidation, pneumothorax or evidence for edema. No evidence for effusion. No acute osseous abnormality is identified. [place] No acute airspace disease identified. [place] Vital Signs Date Time Vital Sign Value Performing Clinician Facility 10-04-2024 10:040 Body height 162.6 cm Feliciano Portillo MD Work Phone: [facility] 10-04-2024 10:03040 Body mass index (BMI) [Ratio] 30.9 kg/m2 Feliciano Portillo MD Work Phone: [facility] 10-04-2024 10:03040 Body weight 81.65 kg Feliciano Portillo MD Work Phone: [facility] 07-19-2024 11:24-0500 Body height 162.6 cm Bessie Cardona Work Phone: [facility] 07-19-2024 11:24-0500 Body mass index (BMI) [Ratio] 30.9 kg/m2 Bessie Cardona Work Phone: [facility] 07-19-2024 11:24-0500 Body weight 81.65 kg Bessie Cardona Work Phone: [facility] 06-14-2024 13:08-0500 Body height 162.6 cm Bessie Cardona Work Phone: [facility] 06-14-2024 13:08-0500 Body mass index (BMI) [Ratio] 30.9 kg/m2 Bessie Cardona Work Phone: [facility] 06-14-2024 13:08-0500 Body weight 81.65 kg Bessie Cardona Work Phone: [facility] 05-29-2024 14:45-0500 Diastolic blood pressure 61 mm[Hg] Feliciano Portillo MD Work Phone: [facility] 05-29-2024 14:45-0500 Heart rate 72 /min Feliciano Portillo MD Work Phone: [facility] 05-29-2024 14:45-0500 Respiratory rate 16 /min Feliciano Portillo MD Work Phone: [facility] 05-29-2024 14:45-0500 Systolic blood pressure 120 mm[Hg] Feliciano Portillo MD Work Phone: [facility] 05-29-2024 14:00-0500 SaO2% (BldA) [Mass fraction] 97 % Feliciano Portillo MD Work Phone: [facility] 05-29-2024 10:10-0500 Body temperature 97.3 [degF] Feliciano Portillo MD Work Phone: [facility] 05-29-2024 05:59-0500 Body height 162.6 cm Feliciano Portillo MD Work Phone: [facility] 05-29-2024 05:59-0500 Body mass index (BMI) [Ratio] 30.9 kg/m2 Feliciano Portillo MD Work Phone: [facility] 05-29-2024 05:59-0500 Body weight 81.65 kg Feliciano Portillo MD Work Phone: [facility] 05-18-2024 08:55-0500 Body height 162.6 cm Feliciano Portillo MD Work Phone: [facility] 05-18-2024 08:55-0500 Body mass index (BMI) [Ratio] 29.52 kg/m2 Feliciano Portillo MD Work Phone: [facility] 05-18-2024 08:55-0500 Body weight 78.02 kg Feliciano Portillo MD Work Phone: [facility] 02-10-2024 15:17-0400 Body height 162.6 cm Feliciano Portillo MD Work Phone: [facility] 02-10-2024 15:17-0400 Body mass index (BMI) [Ratio] 29.52 kg/m2 Feliciano Portillo MD Work Phone: [facility] 02-10-2024 15:17-0400 Body weight 78.02 kg Feliciano Portillo MD Work Phone: [facility] 09-23-2023 09:29-0400 Body height 162.56 cm AZURE ARCHITECT-C Janet Hermosillo Work Phone: [facility] 09-23-2023 09:29-0400 Body mass index (BMI) [Ratio] 30.9 kg/m2 [employer]URE ARCHITECT-C Janet Hermosillo Work Phone: [facility] 09-23-2023 09:29-0400 Body weight 81.64 kg AZURE ARCHITECT-C Janet Hermosillo Work Phone: [facility] 2023 12:35-0500 Body height 162.56 cm AZURE ARCHITECT-C Janetwin Arayamer Work Phone: [facility] 2023 12:35-0500 Body weight 77.11 kg AZURE ARCHITECT-C Janet Bay Work Phone: [facility] 07-27-2023 09:43-0500 Diastolic blood pressure 77 mm[Hg] AZURE ARCHITECT-C Janet Bay Work Phone: [facility] 07-27-2023 09:43-0500 Heart rate 95 /min AZURE ARCHITECT-C Janet Bay Work Phone: [facility] 07-27-2023 09:43-0500 Respiratory rate 16 /min AZURE ARCHITECT-C Janet Bay Work Phone: [facility] 07-27-2023 09:43-0500 SaO2% (BldA) [Mass fraction] 91 % AZURE ARCHITECT-C Janet Arayamer Work Phone: [facility] 07-27-2023 09:43-0500 Systolic blood pressure 111 mm[Hg] AZURE ARCHITECT-C Janetwin Arayamer Work Phone: [facility] 07-27-2023 09:06-0500 Inhaled oxygen flow rate 3 L/min AZURE ARCHITECT-C Janet Arayamer Work Phone: [facility] 07-27-2023 07:58-0500 Body height 162.56 cm AZURE ARCHITECT-C Janetwin Arayamer Work Phone: [facility] 07-27-2023 07:58-0500 Body weight 77.11 kg AZURE ARCHITECT-C Janetwin Arayamer Work Phone: [facility] 11-24-2021 16:00-0400 Body height 161.29 cm Charles Jensen Other [facility] Other 11-24-2021 16:00-0400 Body mass index (BMI) [Ratio] 29.64 kg/m2 Charles Jensen Other [facility] Other 11-24-2021 16:00-0400 Body weight 77.11 kg Charles Jensen Other [facility] Other 11-03-2021 15:00-0400 Body height 161.29 cm Charles Jensen Other [facility] Other 11-03-2021 15:00-0400 Body mass index (BMI) [Ratio] 29.64 kg/m2 Charles Jensen Other [facility] Other 11-03-2021 15:00-0400 Body weight 77.11 kg Charles Jensen Other [facility] Other 10-02-2021 16:40-0400 Body height 161.29 cm Jaime Riojas Other [facility] Other 10-02-2021 16:40-0400 Body mass index (BMI) [Ratio] 29.99 kg/m2 Jaime Riojas Other [facility] Other 10-02-2021 16:40-0400 Body weight 78.02 kg Jaime Riojas Other [facility] Other 08-25-2021 11:30-0500 Body height 161.29 cm Prabhu Spring Other [facility] Other 08-25-2021 11:30-0500 Body mass index (BMI) [Ratio] 29.99 kg/m2 Prabhu Spring Other [facility] Other 08-25-2021 11:30-0500 Body weight 78.02 kg Prabhu Spring Other [facility] Other 07-01-2021 10:00-0500 Body height 161.29 cm Jaime Riojas Other [facility] Other 07-01-2021 10:00-0500 Body mass index (BMI) [Ratio] 29.99 kg/m2 Jaime Riojas Other [facility] Other 07-01-2021 10:00-0500 Body weight 78.02 kg Jaime Riojas Other [facility] Other 05-23-2021 11:00-0500 Body height 161.29 cm Jaime Riojas Other [facility] Other 05-23-2021 11:00-0500 Body mass index (BMI) [Ratio] 29.99 kg/m2 Jaime Riojas Other [facility] Other 05-23-2021 11:00-0500 Body weight 78.02 kg Jaime Riojas Other [facility] Other 05-23-2021 11:00-0500 Diastolic blood pressure 69 mm[Hg] Jaime Riojas Other [facility] Other 05-23-2021 11:00-0500 Systolic blood pressure 126 mm[Hg] Jaime Riojas Other [facility] Other 03-16-2020 14:31-0400 BP Diastolic 74 mm[Hg] [facility] [place] 03-16-2020 14:31-0400 BP Systolic 132 mm[Hg] Janett Unitas [facility] [place] 03-16-2020 14:31-0400 Pulse (Heart Rate) 81 /min Janett Unitas [facility] 03-16-2020 14:31-0400 Pulse Oximetry 94 % Janett Unitas [facility] [place] 03-16-2020 14:31-0400 Respiratory Rate 16 /min [employer] [employer] , [place] 03-16-2020 11:34-0400 BMI (Body Mass Index) 32.27 kg/m2 Janett Manriquez [facility], [place] 03-16-2020 11:34-0400 Body Temperature 98.01 [degF] [facility] [place] 03-16-2020 11:34-0400 Body weight 85.28 kg Janett Manriquez [facility] , [place] 03-16-2020 11:34-0400 Height 162.6 cm Janett Manriquez [facility] , [place] Encounters Encounter Date Encounter Type Care Provider Facility Start: 10-04-2024 End: 10-04-2024 Office outpatient visit 15 minutes Feliciano Portillo MD Work Phone: [facility] Comment on above: Strain of gluteus me dius, right, initial encounter (Primary Dx) Start: 10-04-2024 End: 10-04-2024 Subsequent hospital visit by physician Feliciano Portillo MD Work Phone: [facility] Start: 10-04-2024 ambulatory FELICIANO PORTILLO [facility] Start: 09-18-2024 End: 09-18-2024 ambulatory JESSE WAGNER Not Available Start: 09-13-2024 End: 09-13-2024 ambulatory JESSE BERNARD Not Available Start: 09-11-2024 End: 09-11-2024 ambulatory JESSE WAGNER Not Available Start: 09-08-2024 End: 09-08-2024 ambulatory JESSE WAGNER Not Available Start: 09-06-2024 End: 09-06-2024 Bamboo flowsheet Jesse Wagner [employer] SUR[employer]YING SUR[employer] WORK[employer] [facility] Start: 09-06-2024 End: 09-06-2024 Bamboo flowsheet Jesse Wagner L[employer] SURVEYING SURVEY WORKER [facility] Start: 09-06-2024 End: 09-06-2024 ambulatory Jesse Wagner L[employer] SURVEYING SURVEY WORKER [facility] Comment on above: Strain of muscle, fa scia and tendon of right hip, initial encounter (Primary Dx); Chronic right hip pain; Muscle weakness of lower extremity; Chronic gluteal pain Start: 09-04-2024 End: 09-04-2024 Bamboo flowsheet Simona Irvin LAND SURVEYING SURVEY WORKER [facility] Start: 09-04-2024 End: 09-04-2024 Bamboo flowsheet Simona Irvin LAND SURVEYING SURVEY WORKER [facility] Start: 09-04-2024 End: 09-04-2024 ambulatory Simona Irvin LAND SURVEYING SURVEY WORKER [facility] Comment on above: Strain of muscle, fa scia and tendon of right hip, initial encounter (Primary Dx); Chronic right hip pain; Muscle weakness of lower extremity; Chronic gluteal pain Start: 09-01-2024 End: 09-01-2024 Bamboo flowsheet Jesse Bernard LAND SURVEYING SURVEY WORKER [facility] Start: 09-01-2024 End: 09-01-2024 Bamboo flowsheet Jesse Bernard L[employer] SURVEYING SURVEY WORKER [facility] Start: 09-01-2024 End: 09-01-2024 ambulatory Jesse Wagner L[employer] SURVEYING SURVEY WORKER [facility] Comment on above: Strain of muscle, fa scia and tendon of right hip, initial encounter (Primary Dx); Chronic right hip pain; Muscle weakness of lower extremity; Chronic gluteal pain Start: 08-30-2024 End: 08-30-2024 Bamboo flowsheet Jesse Wagner LAND SURVEYING SURVEY WORKER [facility] Start: 08-30-2024 End: 08-30-2024 Bamboo flowsheet Jesse Bernard LAND SURVEYING SURVEY WORKER [facility] Start: 08-30-2024 End: 08-30-2024 ambulatory Jesse Wagner L[employer] SURVEYING SURVEY WORKER [facility] Comment on above: Strain of muscle, fa scia and tendon of right hip, initial encounter (Primary Dx); Chronic right hip pain; Muscle weakness of lower extremity; Chronic gluteal pain Start: 08-28-2024 End: 08-28-2024 Bamboo flowsheet Jesse Wagner L[employer] SURVEYING SURVEY WORKER [facility] Start: 08-28-2024 End: 08-28-2024 Bamboo flowsheet Jesse Wagner L[employer] SURVEYING SURVEY WORKER [facility] Start: 08-28-2024 End: 08-28-2024 ambulatory Jesse Wagner L[employer] SURVEYING SURVE[employer] WORKER [facility] Comment on above: Strain of muscle, fa scia and tendon of right hip, initial encounter (Primary Dx); Chronic right hip pain; Muscle weakness of lower extremity; Chronic gluteal pain Start: 08-25-2024 End: 08-25-2024 Bamboo flowsheet Cady Ruff PT [facility] Start: 08-25-2024 End: 08-25-2024 Bamboo flowsheet Cady Ruff PT [facility] Start: 08-25-2024 End: 08-25-2024 ambulatory Cady Ruff PT [facility] Comment on above: Strain of muscle, fa scia and tendon of right hip, initial encounter (Primary Dx); Chronic right hip pain; Muscle weakness of lower extremity; Chronic gluteal pain Start: 08-23-2024 End: 08-23-2024 Bamboo flowsheet Jesse Bernard LAND SURVEYING SURVEY WORKER [facility] Start: 08-23-2024 End: 08-23-2024 Bamboo flowsheet Jesse Bernard LAND SURVEYING SURVEY WORKER [facility] Start: 08-23-2024 End: 08-23-2024 ambulatory Jesse Bernard LAND SURVEYING SURVEY WORKER [facility] Comment on above: Strain of muscle, fa scia and tendon of right hip, initial encounter (Primary Dx); Chronic right hip pain; Muscle weakness of lower extremity; Chronic gluteal pain Start: 08-21-2024 End: 08-21-2024 Bamboo flowsheet Jesse Bernard LAND SURVEYING SURVEY WORKER [facility] Start: 08-21-2024 End: 08-21-2024 Bamboo flowsheet Jesse Bernard LAND SURVEYING SURVEY WORKER [facility] Start: 08-21-2024 End: 08-21-2024 ambulatory Jesse Bernard L[employer] SURVEYING SURVE[employer] WORKER [facility] Comment on above: Strain of muscle, fa scia and tendon of right hip, initial encounter (Primary Dx); Chronic right hip pain; Muscle weakness of lower extremity; Chronic gluteal pain Start: 08-18-2024 End: 08-18-2024 Bamboo flowsheet Jesse Bernard LAND SURVEYING SURVEY WORKER [facility] Start: 08-18-2024 End: 08-18-2024 Bamboo flowsheet Jesse Wagner LAND SURVEYING SURVEY WORKER [facility] Start: 08-18-2024 End: 08-18-2024 ambulatory Jesse Wagner L[employer] SURVEYING SURVE[employer] WORKER [facility] Comment on above: Strain of muscle, fa scia and tendon of right hip, initial encounter (Primary Dx); Chronic right hip pain; Muscle weakness of lower extremity; Chronic gluteal pain Start: 08-16-2024 End: 08-16-2024 Bamboo flowsheet Jesse Wagner L[employer] SURVEYING SURVE[employer] WORKER [facility] Start: 08-16-2024 End: 08-16-2024 Bamboo flowsheet Jesse Wagner L[employer] SURVEYING SURVE[employer] WORKER [facility] Start: 08-16-2024 End: 08-16-2024 ambulatory Jesse Wagner L[employer] SURVEYING SURVE[employer] WORKER [facility] Comment on above: Strain of muscle, fa scia and tendon of right hip, initial encounter (Primary Dx); Chronic right hip pain; Muscle weakness of lower extremity; Chronic gluteal pain Start: 08-14-2024 End: 08-14-2024 Bamboo flowsheet Cady Ruff PT [facility] Start: 08-14-2024 End: 08-14-2024 Bamboo flowsheet Cady Ruff PT [facility] Start: 08-14-2024 End: 08-14-2024 ambulatory Cady Ruff PT [facility] Comment on above: Strain of muscle, fa scia and tendon of right hip, initial encounter (Primary Dx); Chronic right hip pain; Muscle weakness of lower extremity; Chronic gluteal pain Start: 08-11-2024 End: 08-11-2024 Bamboo flowsheet Jesse Wagner L[employer] SURVEYING SURVE[employer] WORKER [facility] Start: 08-11-2024 End: 08-11-2024 Bamboo flowsheet Jesse Wagner L[employer] SUR[employer]YING SUR[employer] WORKER [facility] Start: 08-11-2024 End: 08-11-2024 ambulatory Jesse Wagner L[employer] SUR[employer]YING SURVE[employer] WORKER [facility] Comment on above: Strain of muscle, fa scia and tendon of right hip, initial encounter (Primary Dx); Chronic right hip pain; Muscle weakness of lower extremity Start: 08-09-2024 End: 08-09-2024 Bamboo flowsheet Jesse Wagner L[employer] SUR[employer]YING SURVE[employer] WORKER [facility] Start: 08-09-2024 End: 08-09-2024 Bamboo flowsheet Jesse Wagner L[employer] SUR[employer]YING SUR[employer] WORKER [facility] Start: 08-09-2024 End: 08-09-2024 ambulatory Jesse Wagner L[employer] SUR[employer]YING SUR[employer] WORKER [facility] Comment on above: Strain of muscle, fa scia and tendon of right hip, initial encounter (Primary Dx); Chronic right hip pain; Muscle weakness of lower extremity Start: 08-07-2024 End: 08-07-2024 Bamboo flowsheet Cady Ruff PT [facility] Start: 08-07-2024 End: 08-07-2024 Bamboo flowsheet Cady Speeyd PT [facility] Start: 08-07-2024 End: 08-07-2024 ambulatory Cady Speedy PT [facility] Comment on above: Chronic right hip pa in (Primary Dx); Strain of muscle, fascia and tendon of right hip, initial encounter; Muscle weakness of lower extremity Start: 07-19-2024 End: 07-19-2024 Postop follow up visit related to original px Bessie Cardona Work Phone: [facility] Comment on above: Tear of right gluteu s minimus tendon, initial encounter (Primary Dx) Start: 07-19-[address] [facility] Start: 06-14-2024 End: 06-14-2024 Postop follow up visit related to original px Bessie Cardona Work Phone: [facility] Comment on above: Tear of right gluteu s minimus tendon, initial encounter (Primary Dx) Start: 06-14-2024 End: 06-14-2024 Subsequent hospital visit by physician Bessie Cardona Work Phone: [facility] Start: 06-14-2024 [facility] Start: 05-29-2024 End: 05-29-2024 ambulatory [facility] Start: 05-29-2024 End: 05-29-2024 Subsequent hospital visit by physician Feliciano Portillo MD Work Phone: [facility] Comment on above: Tear of rotator cuff of right hip, initial encounter Start: 05-18-2024 ambulatory [facility] Start: 05-18-2024 Encounter for other preprocedural examination [facility] Start: 05-18-2024 End: 05-18-2024 Office outpatient visit 40 minutes Feliciano Portillo MD Work Phone: [facility] Comment on above: Right hip pain (Prim ivis Dx) Start: 05-18-2024 ambulatory [facility] Start: 05-04-2024 ambulatory JANET S [facility] Start: 05-04-2024 End: 05-04-2024 Subsequent hospital visit by physician Feliciano Portillo MD Work Phone: [facility] Comment on above: Arrived Start: 04-24-2024 End: 04-24-2024 Bamboo flowsheet Petar Kathya Ines PT Work Phone: [facility] Start: 04-24-2024 End: 04-24-2024 Bamboo flowsheet Petar Slaughter [place] [facility] Work Phone: [facility] Start: 04-24-2024 End: 04-24-2024 ambulatory Petar Slaughter [facility] PT Work Phone: [facility] Comment on above: Chronic right hip pa in (Primary Dx); Chronic gluteal pain; Muscle weakness of lower extremity Start: 04-18-2024 End: 04-18-2024 Bamboo flowsheet Simona Kelbley [employer]YING SUR[employer] WORKER [facility] Start: 04-18-2024 End: 04-18-2024 Bamboo flowsheet Simona Kelbley [employer]YING SUR[employer] WORKER [facility] Start: 04-18-2024 End: 04-18-2024 ambulatory Simona Kelbley [employer]YING SUR[employer] WORK[employer] [facility] Comment on above: Chronic right hip pa in (Primary Dx); Chronic gluteal pain; Muscle weakness of lower extremity Start: 04-11-2024 End: 04-11-2024 Bamboo flowsheet Simona Kelbley [employer] SUR[employer]YING SUR[employer] WORKER [facility] Start: 04-11-2024 End: 04-11-2024 Bamboo flowsheet Simona Kelbley [employer] SUR[employer]YING SUR[employer] WORKER [facility] Start: 04-11-2024 End: 04-11-2024 ambulatory Simona Kelbley [employer] SUR[employer]YING SUR[employer] WORKER [facility] Comment on above: Chronic right hip pa in (Primary Dx); Chronic gluteal pain; Muscle weakness of lower extremity Start: 04-04-2024 End: 04-04-2024 Bamboo flowsheet Simona Kelbley [employer] SUR[employer]YING SUR[employer] WORKER [facility] Start: 04-04-2024 End: 04-04-2024 Bamboo flowsheet Simona Reinay [employer] SUR[employer]YING SUR[employer] WORKER [facility] Start: 04-04-2024 End: 04-04-2024 ambulatory Simona Reinay [employer]YING SUR[employer] WORKER [facility] Comment on above: Chronic right hip pa in (Primary Dx); Chronic gluteal pain; Muscle weakness of lower extremity Start: 03-30-2024 End: 03-30-2024 Bamboo flowsheet Simona Reinay [employer] SUR[employer]YING SUR[employer] WORKER [facility] Start: 03-30-2024 End: 03-30-2024 Bamboo flowsheet Simona Reinay [employer] SUR[employer]YING SUR[employer] WORKER [facility] Start: 03-30-2024 End: 03-30-2024 ambulatory Simona Reinay [employer]YING SUR[employer] WORK[employer] [facility] Comment on above: Chronic right hip pa in (Primary Dx); Chronic gluteal pain; Muscle weakness of lower extremity Start: 03-27-2024 End: 03-27-2024 ambulatory Petar Slaughter [place] [facility] Work Phone: [facility] Comment on above: Chronic right hip pa in (Primary Dx); Chronic gluteal pain; Muscle weakness of lower extremity Start: 03-23-2024 End: 03-23-2024 Bamboo flowsheet Simona Reinay [employer] SUR[employer]YING SUR[employer] WORKER [facility] Start: 03-23-2024 End: 03-23-2024 Bamboo flowsheet Simona Reinay [employer]YING SUR[employer] WORK[employer] [facility] Start: 03-23-2024 End: 03-23-2024 ambulatory Jesse Wagner [employer] SUR[employer] WORK[employer] [facility] Comment on above: Chronic right hip pa in (Primary Dx); Chronic gluteal pain; Muscle weakness of lower extremity Start: 03-21-2024 End: 03-21-2024 Bamboo flowsheet Simona Sweeneybley [employer]YING SUR[employer] WORKER [facility] Start: 03-21-2024 End: 03-21-2024 Bamboo flowsheet Simona Reinay [employer]YING SUR[employer] WORK[employer] [facility] Start: 03-21-2024 End: 03-21-2024 ambulatory Simona Reinay [employer] SUR[employer] WORK[employer] [facility] Comment on above: Chronic right hip pa in (Primary Dx); Chronic gluteal pain; Muscle weakness of lower extremity Start: 03-17-2024 End: 03-17-2024 Bamboo flowsheet Simona Sweeneybley [employer] SUR[employer]YING SUR[employer] WORKER [facility] Start: 03-17-2024 End: 03-17-2024 Bamboo flowsheet Simona Reinay [employer] SUR[employer]YING SUR[employer] WORKER [facility] Start: 03-17-2024 End: 03-17-2024 ambulatory Simona Reinay [employer] SUR[employer]YING SUR[employer] WORKER [facility] Comment on above: Chronic right hip pa in (Primary Dx); Chronic gluteal pain; Muscle weakness of lower extremity Start: 03-15-2024 End: 03-15-2024 Bamboo flowsheet Simona Reinay [employer]YING SUR[employer] WORKER [facility] Start: 03-15-2024 End: 03-15-2024 Bamboo flowsheet Simona Reinay [employer]YING SUR[employer] WORK[employer] [facility] Start: 03-15-2024 End: 03-15-2024 ambulatory Simona Reinay [employer] SUR[employer]YING SUR[employer] WORKER [facility] Comment on above: Chronic right hip pa in (Primary Dx); Chronic gluteal pain; Muscle weakness of lower extremity Start: 03-13-2024 End: 03-13-2024 Bamboo flowsheet Lindsay Brink [employer] SUR[employer]YING SUR[employer] WORKER [facility] Start: 03-13-2024 End: 03-13-2024 Bamboo flowsheet Lindsay Brink [employer] SUR[employer]YING SUR[employer] WORKER [facility] Start: 03-13-2024 End: 03-13-2024 ambulatory Lindsay Brink [employer]YING SUR[employer] WORK[employer] [facility] Comment on above: Chronic right hip pa in (Primary Dx); Chronic gluteal pain; Muscle weakness of lower extremity Start: 03-09-2024 End: 03-09-2024 Bamboo flowsheet Simona Reinay [employer] SUR[employer]YING SUR[employer] WORKER [facility] Start: 03-09-2024 End: 03-09-2024 Bamboo flowsheet Simona Reinay [employer] SUR[employer]YING SUR[employer] WORKER [facility] Start: 03-09-2024 End: 03-09-2024 ambulatory Simona Reinay [employer] SUR[employer]YING SUR[employer] WORKER [facility] Comment on above: Chronic right hip pa in (Primary Dx); Chronic gluteal pain; Muscle weakness of lower extremity Start: 02-28-2024 End: 02-28-2024 Bamboo flowsheet Lindsay Brink [employer] SUR[employer]YING SURVE[employer] WORKER [facility] Start: 02-28-2024 End: 02-28-2024 Bamboo flowsheet Lindsay Brink LAND SURVEYING SURVEY WORKER [facility] Start: 02-28-2024 End: 02-28-2024 ambulatory Lindsay Brink LAND SURVEYING SURVEY WORKER [facility] Comment on above: Chronic right hip pa in (Primary Dx); Chronic gluteal pain; Muscle weakness of lower extremity Start: 02-24-2024 End: 02-24-2024 Bamboo flowsheet Petar Olivares PT Work Phone: [facility] Start: 02-24-2024 End: 02-24-2024 Bamboo flowsheet Petar Olivares PT Work Phone: [facility] Start: 02-24-2024 End: 02-24-2024 ambulatory Petar Olivares PT Work Phone: [facility] Comment on above: Chronic right hip pa in (Primary Dx); Chronic gluteal pain; Muscle weakness of lower extremity Start: 02-22-2024 End: 02-22-2024 Bamboo flowsheet Simona Irvin LAND SURVEYING SURVEY WORKER [facility] Start: 02-22-2024 End: 02-22-2024 Bamboo flowsheet Simona Irvin LAND SURVEYING SURVEY WORKER [facility] Start: 02-22-2024 End: 02-22-2024 ambulatory Simona Irvin LAND SURVEYING SURVEY WORKER [facility] Comment on above: Chronic right hip pa in (Primary Dx); Chronic gluteal pain; Muscle weakness of lower extremity Start: 02-16-2024 End: 02-16-2024 ambulatory PETAR OLIVARES Not Available Start: 02-10-2024 End: 02-10-2024 Office outpatient new 45 minutes Feliciano Portillo MD Work Phone: [facility] Comment on above: Right hip pain (Prim ivis Dx) Start: 02-10-2024 End: 02-10-2024 Subsequent hospital visit by physician Feliciano Portillo MD Work Phone: [facility] Start: 02-10-2024 ambulatory FELICIANO PORTILLO [facility] Start: 01-05-2024 End: 01-05-2024 ambulatory SAMMIE ABBOTT Not Available Start: 12-30-2023 End: 12-30-2023 ambulatory SAMMIE DUONG [facility] Start: 12-30-2023 End: 12-30-2023 ambulatory SAMMIE DUONG [facility] Start: 12-22-2023 End: 12-22-2023 ambulatory JR. SAMMIE DUONG Not Available Start: 12-15-2023 End: 12-15-2023 ambulatory JR. SAMMIE DOUNG Not Available Start: 11-26-2023 End: 11-26-2023 ambulatory [facility] Start: 11-25-2023 End: 11-25-2023 Patient encounter procedure AZURE ARCHITECT-C Janet Hermosillo Work Phone: [facility] [address] Work Phone: Start: 11-25-2023 End: 11-25-2023 ambulatory AZURE ARCHITECT-C Janet Mady Hermosillo Work Phone: [facility] Work Phone: Start: 11-17-2023 End: 11-18-2023 ambulatory [facility] Start: 11-17-2023 End: 11-18-2023 ambulatory [facility] Start: 11-12-2023 ambulatory [facility] Start: 10-27-2023 ambulatory [facility] Start: 10-25-2023 End: 10-25-2023 ambulatory . SAMMIE DUONG Not Available Start: 10-21-2023 End: 10-21-2023 ambulatory YAMILET BRYAN Not Available Start: 09-27-2023 End: 09-27-2023 ambulatory JR. SAMMIE DUONG Not Available Start: 09-23-2023 End: 09-23-2023 ambulatory AZURE ARCHITECT-C Janet Hermosillo Work Phone: [facility] Work Phone: Start: 09-23-2023 End: 09-23-2023 Patient encounter procedure AZURE ARCHITECT-C Janet Hermosillo Work Phone: [facility] Neurosurgery Work Phone: Start: 09-14-2023 End: 09-14-2023 Patient encounter procedure AZURE ARCHITECT-C Janetwin Hermosillo Work Phone: [facility]Ultrasound Main [place] Work Phone: Start: 09-14-2023 End: 09-14-2023 ambulatory Janet Mady Bay Facility:[facility] Start: 09-14-2023 End: 09-14-2023 Patient encounter procedure AZURE ARCHITECT-C Janetwin Arayamer Work Phone: [facility] [place] Work Phone: Start: 2023 End: 2023 Patient encounter procedure AZURE ARCHITECT-C Janet Bay Work Phone: [facility]-MRI Main [place] Work Phone: Start: 2023 End: 2023 ambulatory Janet Mady Hermosillo Facility:[facility] Start: 08-31-2023 End: 08-31-2023 Patient encounter procedure AZURE ARCHITECT-C Janetwin Arayamer Work Phone: [facility] Work Phone: Start: 08-04-2023 End: 08-04-2023 ambulatory Ramu Mancuso Other [place] [employer] Other Start: 08-04-2023 Office outpatient vi sit 25 minutes Ramu Mancuso [facility] [place] Start: 08-04-2023 Patient encounter procedure AZURE ARCHITECT-C Janet Bay Work Phone: [facility]- Start: 07-27-2023 (Procedure) Short Ramu Mancuso [facility] OutPt Start: 07-27-2023 End: 07-27-2023 Admission to same day surgery center AZURE ARCHITECT-C Janet Bay Work Phone: [facility]Digestive Health Work Phone: Start: 07-27-2023 End: 07-27-2023 ambulatory AZURE ARCHITECT-C Janet Mady [place] Work Phone: [facility] Work Phone: Start: 07-19-2023 End: 07-19-2023 ambulatory Ramu Mancuso Other [employer] Other Start: 07-19-2023 Office outpatient vi sit 25 minutes Ramu Mancuso [facility] [place] Start: 07-19-2023 End: 07-19-2023 Patient encounter procedure AZURE ARCHITECT-C Janet Hermosillo Work Phone: [facility] Work Phone: Start: 06-16-2023 End: 06-16-2023 ambulatory Jaime Coldwater II Other [employer] Other Start: 06-16-2023 Office outpatient vi sit 15 minutes Jaime Coldwater II [facility] Start: 04-16-2023 End: 04-16-2023 Patient encounter procedure AZURE ARCHITECT-C Janet Bay Work Phone: [facility] [place] [facility] Start: 04-16-2023 End: 04-16-2023 ambulatory AZURE ARCHITECT-C Janet Mady Hermosillo Work Phone: [facility] Work Phone: Start: 10-29-2022 End: 10-30-2022 ambulatory JANET HERMOSILLO Facility:[facility] Start: 10-21-2022 End: 10-22-2022 ambulatory JANET HERMOSILLO Facility:[facility] Start: 08-18-2022 End: 08-18-2022 ambulatory ADALBERTO CARVALHO Facility:[facility] Start: 06-24-2022 End: 06-24-[address] LEONEL MANUEL . Facility:[facility] Start: 03-05-2022 End: 03-06-[address] MARIA VICTORIA SAUNDERS Facility:[facility] Start: 11-24-2021 End: 11-24-2021 ambulatory Charles Jensen Other [employer] Other Start: 11-24-2021 Postop follow up vis it related to original px Charles Jensen [facility] Start: 11-04-2021 End: 11-04-2021 ambulatory Charles Jensen Other [employer] Other Start: 11-04-2021 Telephone encounter Charles PATTERSON G Regulatory Affairs Analyst Start: 11-03-2021 End: 11-03-2021 ambulatory Charles Jensen Other [employer] Other Start: 11-03-2021 Encounter for other preprocedural examination Charles Jensen [facility] Start: 11-03-2021 Office outpatient vi sit 15 minutes Charles Jensen [facility] Start: 10-02-2021 End: 10-02-2021 ambulatory Jaime Riojas Other [employer] Other Start: 10-02-2021 Postop follow up vis it related to original px Jaime Riojas [facility] [place] operated [facility] Start: 08-25-2021 End: 08-25-2021 ambulatory Prabhu Elselizajennifer Other [employer] Other Start: 08-25-2021 Postop follow up vis it related to original px Prabhu Ocampos [facility] Start: 08-15-2021 Admission to [facility] Jaime Riojas [facility] [place], operated [facility] Start: 08-15-2021 End: 08-15-2021 ambulatory Jaime Riojas Other [employer] Other Start: 08-06-2021 End: 08-06-2021 ambulatory Jaime Riojas Other [employer] Other Start: 08-06-2021 Telephone encounter Jaime Riojas [facility] [place] operated [facility] Start: 07-08-2021 End: 07-08-2021 ambulatory Jaime Riojas Other [employer] Other Start: 07-08-2021 Telephone encounter Jaime Riojas [facility] [place] operated [facility] Start: 07-01-2021 End: 07-01-2021 ambulatory Jaime Riojas Other [facility] [employer] Other Start: 07-01-2021 Office outpatient ne w 45 minutes Jaime Riojas [facility] [place] operated [facility] Start: 05-23-2021 End: 05-23-2021 ambulatory Jaime Riojas Other [facility] [employer] Other Start: 05-23-2021 Office outpatient vi sit 15 minutes Jaime Riojas [facility] [place] operated [facility] Start: 11-27-2020 End: 11-27-2020 Patient encounter procedure João Cruz Work Phone: -[facility] Start: 11-27-2020 Registered Recurring João montanez Work Phone: -Physical Therapy [place] Start: 11-19-2020 End: 11-19-2020 Patient encounter procedure João Cruz Work Phone: -Pre-Surgical Testing Start: 03-18-2020 End: 03-21-2020 Patient encounter procedure [facility] Start: 03-18-2020 End: 03-20-2020 Subsequent hospital visit by physician Kevin Xr Room 4 [facility] Comment on above: Concussion with loss of consciousness of 30 minutes or less, initial encounter Start: 03-16-2020 End: 03-16-2020 Emergency department patient visit [facility] Start: 03-16-2020 End: 03-16-2020 Emergency department patient visit Janett Chew [facility] ED Comment on above: Closed head injury, initial encounter (Primary Dx) Start: 02-10-2020 End: 02-15-2020 Patient encounter procedure BRITTANEYISMA CASEY [facility] Start: 02-10-2020 End: 02-14-2020 Subsequent hospital visit by physician Zachary Andres Rm 4 [facility] PRE-ADMIT TESTING Procedures Date Procedure Procedure Detail Performing Clinician Start: 09-14-2023 Duplex scan of lower limb veins AZURE ARCHITECT-C Janet Hermosillo Work Phone: Start: 2023 MRI of lumbar spine with contrast AZURE ARCHITECT-C Janet Hermosillo Work Phone: Start: 07-27-2023 Injection of local anesthetic into sacroiliac joint AZURE ARCHITECT-C Janet Hermosillo Work Phone: Start: 04-16-2023 Plain X-ray of right hip AZURE ARCHITECT-C Janet Hermosillo Work Phone: Start: 11-27-2020 Plain [...] Radiologic exam ches t single view Janett Chew Start: 03-16-2020 Ct head/brain w/o co ntrast material Janett Chew Start: 03-16-2020 Basic metabolic pane l calcium total Janett Chew Start: 03-16-2020 Blood count complete auto&auto difrntl wbc Janett Chew Start: 03-16-2020 TROP/MYOGLOBIN Janett Chew Start: 03-16-2020 Ecg routine ecg w/le ast 12 lds w/i&r Janett Chew Start: 02-09-2020 COVID-19 YOVANI HAGAN Start: 01-31-2020 Mammography Simona schaffer LAND SURVEYING SURVEY WORKER Start: 03-18-2018 Colonoscopy Simona schaffer LAND SURVEYING SURVEY WORKER Start: 11-17-2000 Lipid 1996 panel - S melanie or Plasma Feliciano Portillo MD Work Phone: Plan of Treatment Date Care Activity Detail Author Start: 03-18-2028 Screening for malign ant neoplasm of colon [facility] Start: 05-24-2025 End: 05-24-2025 Patient encounter procedure 05/24/2025 1:00 PM EST Office Visit [facility] [address] [place] [phone] Bessie Cardona [address] [place] [phone] [facility] Start: 03-05-2025 Influenza vaccination INFLUENZ A VACCINE (Season Ended) [facility] Start: 10-04-2024 End: 10-04-2024 Patient encounter procedure 10/04/2024 10:00 AM EDT Office Visit [facility] [address] [place] [phone] Feliciano Portillo MD [address] [place] [phone] [facility] Start: 09-18-2024 End: 09-18-2024 ambulatory 09/18/2024 8:30 AM EDT Treatment [facility] [address] [facility] [address] [place] [address] Jesse Wagner, LAND SURVEYING SURVEY WORKER [facility] Start: 09-13-2024 End: 09-13-2024 ambulatory 09/13/2024 8:00 AM EDT Treatment [facility] [address] [facility] [address] [place] [address] Jesse Wagner, LAND SURVEYING SURVEY WORKER [facility] Start: 09-11-2024 End: 09-11-2024 ambulatory 09/11/2024 8:00 AM EDT Treatment [facility] [address] [facility] [address] [place] [address] Jesse Wagner, LAND SURVEYING SURVEY WORKER [facility] Start: 09-08-2024 End: 09-08-2024 ambulatory [facility] Start: 09-06-2024 End: 09-06-2024 ambulatory [facility] Comment on above: Strain of muscle, fa scia and tendon of right hip, initial encounter (Primary Dx); Chronic right hip pain; Muscle weakness of lower extremity; Chronic gluteal pain Start: 09-04-2024 End: 09-04-2024 ambulatory [facility] Comment on above: Strain of muscle, fa scia and tendon of right hip, initial encounter (Primary Dx); Chronic right hip pain; Muscle weakness of lower extremity; Chronic gluteal pain Start: 09-01-2024 End: 09-01-2024 ambulatory [facility] Comment on above: Strain of muscle, fa scia and tendon of right hip, initial encounter (Primary Dx); Chronic right hip pain; Muscle weakness of lower extremity; Chronic gluteal pain Start: 08-30-2024 End: 08-30-2024 ambulatory [facility] Comment on above: Arrived Start: 08-28-2024 End: 08-28-2024 ambulatory [facility] Comment on above: Arrived Start: 08-25-2024 End: 08-25-2024 ambulatory 08/25/2024 8:00 AM EST Treatment [facility] [address] [facility] [address] [place] [address] Cady Ruff, PT [facility] Start: 08-23-2024 End: 08-23-2024 ambulatory [facility] Comment on above: Strain of muscle, fa scia and tendon of right hip, initial encounter (Primary Dx); Chronic right hip pain; Muscle weakness of lower extremity; Chronic gluteal pain Start: 08-21-2024 End: 08-21-2024 ambulatory [facility] Comment on above: Arrived Start: 08-18-2024 End: 08-18-2024 ambulatory 08/18/2024 8:00 AM EST Treatment [facility] [address] [facility] [address] [place] [address] Jesse Wagner, LAND SURVEYING SURVEY WORKER [facility] Start: 08-16-2024 End: 08-16-2024 ambulatory [facility] Comment on above: Strain of muscle, fa scia and tendon of right hip, initial encounter (Primary Dx) Start: 08-14-2024 End: 08-14-2024 ambulatory 08/14/2024 8:30 AM EST Treatment [facility] [address] [place] [address] [place] [address] Cady Ruff, PT [facility] Start: 08-11-2024 End: 08-11-2024 ambulatory [facility] Comment on above: Strain of muscle, fa scia and tendon of right hip, initial encounter (Primary Dx); Chronic right hip pain; Muscle weakness of lower extremity Start: 08-09-2024 End: 08-09-2024 ambulatory [facility] Comment on above: Strain of muscle, fa scia and tendon of right hip, initial encounter (Primary Dx); Chronic right hip pain; Muscle weakness of lower extremity Start: 08-07-2024 End: 08-07-2024 ambulatory 08/07/2024 8:30 AM EST Evaluation [facility] [address] [facility] [address] [place] [address] Cady Ruff, PT Arrived [facility] Comment on above: Arrived Start: 07-19-2024 End: 07-19-2024 Patient encounter procedure 07/19/2024 11:30 AM EST Office Visit [facility] [address] [place] [address], [place] [address] Bessie Cardona [address] [place] [phone] [facility] Start: 06-14-2024 End: 06-14-2024 Patient encounter procedure 06/14/2024 1:00 PM EST Office Visit [facility] [address] [place] [phone] Bessie Cardona [address] [place] [phone] [facility] Start: 05-29-2024 End: 05-29-2024 Admission to same day surgery center 05/29/2024 5:00 PM EST - 05/29/2024 6:15 PM EST Surgery [facility] [address] [facility] [place] [address] Feliciano Portillo MD [address] [place] [address] OPEN HIP ABDUCTOR TEAR REPAIR [facility] Comment on above: OPEN HIP ABDUCTOR TE AR REPAIR Start: 05-29-2024 Subsequent hospital visit by physician 05/29/2024 5:00 PM EST Hospital Encounter [facility] [address] [facility] [place] [address] Feliciano Portillo MD [address] [place] [address] Tear of rotator cuff of right hip, initial encounter [facility] Comment on above: Tear of rotator cuff of right hip, initial encounter Start: 05-29-2024 End: 05-29-2024 Unlisted procedure pelvis/hip joint GLUTEUS MEDIUS TENDON REPAIR Tear of rotator cuff of right hip, initial encounter 05/29/2024 5:00 PM EST [facility] Start: 05-25-2024 End: 05-25-2024 Admission to establishment 05/25/2024 10:00 AM EST Pre-Operative Nurse Assessment [facility] Pre Admission [address] [facility] [place] [address] [facility] Start: 04-24-2024 End: 04-24-2024 ambulatory 04/24/2024 7:30 AM EDT Treatment [facility] [address] [facility] [address] [place] [address] Petar Olivares, PT [address] [place] [address] [place] [address] [facility] Start: 04-18-2024 End: 04-18-2024 ambulatory 04/18/2024 7:30 AM EDT Treatment [facility] [address] [facility] [address] [place] [address] Simona [place], LAND SURVEYING SURVEY WORKER [facility] Start: 04-11-2024 End: 04-11-2024 ambulatory [facility] Comment on above: Arrived Start: 04-04-2024 End: 04-04-2024 ambulatory 04/04/2024 8:00 AM EDT Treatment [facility] [address] [place] [address] [place] [address] Simona [place]vin, LAND SURVEYING SURVEY WORKER [facility] Start: 03-30-2024 End: 03-30-2024 ambulatory [facility] Comment on above: Arrived Start: 03-27-2024 End: 03-27-2024 ambulatory 03/27/2024 8:30 AM EDT Treatment [facility] [address] [facility] [address] [place] [address] Petar Olivares, PT [address] [facility] [address] [place] [address] [facility] Start: 03-23-2024 End: 03-23-2024 ambulatory [facility] Comment on above: Arrived Start: 03-21-2024 End: 03-21-2024 ambulatory [facility] Comment on above: Arrived Start: 03-17-2024 End: 03-17-2024 ambulatory [facility] Start: 03-15-2024 End: 03-15-2024 ambulatory 03/15/2024 9:00 AM EDT Treatment [facility] [address] [place] [address] [place] [address] Simona Irvin, LAND SURVEYING SURVEY WORKER [facility] Start: 03-13-2024 End: 03-13-2024 ambulatory [facility] Comment on above: Chronic right hip pa in (Primary Dx); Chronic gluteal pain; Muscle weakness of lower extremity Start: 03-09-2024 End: 03-09-2024 ambulatory 03/09/2024 9:00 AM EDT Treatment [facility] [address] [place] [address] [place] [address] Kelbley, Simona, LAND SURVEYING SURVEY WORKER [facility] Start: 03-05-2024 COVID-19 VACCINE ( season) COVID-19 VACCINE ( season) [facility] Start: 03-05-2024 COVID-19 VACCINE ( season) COVID-19 VACCINE ( season) [facility] Start: 03-05-2024 Influenza vaccination INFLUENZA VACC INE (#1) [facility] Start: 02-28-2024 End: 02-28-2024 ambulatory [facility] Comment on above: Arrived Start: 02-24-2024 End: 02-24-2024 ambulatory [facility] Comment on above: Arrived Start: 02-22-2024 End: 02-22-2024 ambulatory 02/22/2024 8:00 AM EDT Treatment [facility] [address] [facility] [address] [place] [address] Simona Irvin, LAND SURVEYING SURVEY WORKER Chronic right hip pain (Primary Dx); Chronic gluteal pain; Muscle weakness of lower extremity [facility] Comment on above: Chronic right hip pa in (Primary Dx); Chronic gluteal pain; Muscle weakness of lower extremity Start: 11-25-2023 Hemolytic complement CH50 level [facility] Start: 11-25-2023 [facility] Start: 07-27-2023 [facility] Start: 03-05-2023 COVID-19 VACCINE ( season) COVID-19 VACCINE () [facility] Start: 10-24-2022 Screening for malign ant neoplasm of colon Colon cancer screen colonoscopy [place], [place] Start: 04-04-2021 Lipid panel Lipid screen [place], [place] Start: 01-30-2021 Screening for malign ant neoplasm of breast [facility] Start: 2020 RSV VACCINE (1 - 1-d ose 60+ series) RSV VACCINE (1 - 1-dose 60+ series) [facility] Start: 2020 RSV VACCINE (1 - Ris k 60-74 years 1-dose series) RSV VACCINE (1 - Risk 60-74 years 1-dose series) [facility] Start: 03-05-2020 Influenza vaccination Flu vaccine (# 1) [place], [place] Start: 03-18-2019 Screening for malign ant neoplasm of colon COLORECTAL CANCER SCREENING DISCUSSION [facility] Start: 12-30-2018 Screening for malign ant neoplasm of breast MAMMOGRAM SCREENING DISCUSSION [facility] Start: 04-02-2018 Screening for malign ant neoplasm of breast Breast cancer screen [place], [place] Start: 2010 Shingles Vaccine (1 of 2) Shingles Vaccine (1 of 2) [place], [place] Start: 2010 Zoster vaccine hzv l alberta for subcutaneous use ZOSTER (SHINGLES) VACCINE (1 of 2) [facility] Start: 11-17-2005 Lipid panel LIPID SCREENING [facility] Start: 11-17-2001 Thyroid stimulating hormone measurement TSH [facility] Start: 2000 Diabetes screen Diabetes screen [place], [place] Start: 1990 Screening for malign ant neoplasm of cervix [facility] Start: 1981 Screening for malign ant neoplasm of cervix [facility] Start: 09-10-1979 DTaP/Tdap/Td vaccine (1 - Tdap) DTaP/Tdap/Td vaccine (1 - Tdap) [place] Start: 09-10-1979 Pneumococcal vaccination PNEUM OCOCCAL VACCINE SERIES (1 of 2 - PCV) [facility] Start: 09-10-1979 Third diphtheria, tetanus and acellular pertussis (DTaP) vaccination TDAP (ADULT) [facility] Start: 09-10-1975 HIV screening HIV SCREENING DISCUSSION [facility] Start: 1966 Pneumococcal 0-64 ye ars Vaccine (1 of 1 - PPSV23) Pneumococcal 0-64 years Vaccine (1 of 1 - PPSV23) [place], [place] Start: 1966 PNEUMOCOCCAL VACCINE SERIES (1 of 2 - PCV) PNEUMOCOCCAL VACCINE SERIES (1 of 2 - PCV) [facility] Start: 1960 Hepatitis C screening A [facility] Start: 1960 Screening for malign ant neoplasm of colon [facility] Start: 1960 Tetanus vaccination TETANUS [facility] End: 02-10-2020 COVID-19 COVID-19 Lab Routine Tomorrow AM for 1 Occurrences starting 02/10/2020 until 02/10/2020 [facility], [facility] Comment on above: Tomorrow AM for 1 Oc currences starting 02/10/2020 until 02/10/2020 End: 03-16-2020 EKG 12 Lead EKG 12 Lead ECG STAT Every 2hr for 2 Occurrences starting 03/16/2020 until 03/16/2020, 1 completed [employer] [facility], [facility]I Comment on above: Every 2hr for 2 Occu rrences starting 03/16/2020 until 03/16/2020, 1 completed EKG 12 Lead EKG 12 Lead ECG STAT 03/16/2020 11:50 AM EDT [facility], [facility] End: 05-04-2024 MR Hip - right WO contrast [facility] Comment on above: 1 Occurrences starti ng 05/04/2024 until 05/04/2024 MR Lumbar spine WO a nd W contrast IV [facility] Nuclear Ab [Titer] i n Serum [facility] Patient Education Felter Non Gabriella gnostic Block [facility] Work Phone: Patient referral [facility] Work Phone: End: 05-29-2024 XR Pelvis 2 Views [facility] Comment on above: One Time for 1 Occur rences starting 05/29/2024 until 05/29/2024 XR Pelvis and Hip - right Views XR HIP WITH PELVIS RIGHT Imaging Routine Right hip pain 02/10/2024 3:03 PM EDT [facility] XR Pelvis and Hip - right Views XR HIP WITH PELVIS RIGHT Imaging Routine Tear of right gluteus minimus tendon, initial encounter 06/14/2024 12:55 PM EST [facility] XR Pelvis and Hip - right Views XR HIP WITH PELVIS RIGHT Imaging Routine Tear of right gluteus minimus tendon, initial encounter 07/19/2024 11:15 AM EST [facility] XR Pelvis and Hip - right Views XR HIP WITH PELVIS RIGHT Imaging Routine Strain of gluteus medius, right, initial encounter 10/04/2024 10:14 AM EDT [facility] Work Phone: Immunizations Immunization Date Immunization Notes Care Provider [facility] 04-29-2022 influenza virus vaccine, unspecified formulation Feliciano Portillo MD Work Phone: [facility] 08-13-2021 COVID-19 Moderna Charles Hattie maynor Other [facility] 10-12-2020 COVID-19 mRNA-1273 (Moderna) João Cruz Work Phone: [facility] 09-14-2020 COVID-19 mRNA-1273 (Moderna) João Cruz Work Phone: [facility] Payers Date Payer Category Payer [employer] ( and others) [id number] 2023 () [id number] 2023 [employer] ( and others) [id number] 2023 [employer] ( and others) [id number] 2023 Self-pay [id number] 2017 [employer] ( and others) [id number] 71.315 2015 Unknown [id number] 1.2.840.582650.1.13.239.2.7.3.6786 71.315 1960 Unknown [id number] 2.16.840.1.585581.3.579.2.177 1960 Unknown [id number] 2.16.840.1.675219.3.579.2.176 1960 Unknown [id number] 2.16.840.1.395934.3.579.2.176 1960 Unknown [id number] 2.16.840.1.906935.3.579.2.176 1960 Unknown [id number] 2.16.840.1.891751.3.579.2.593 1960 Unknown [id number] 2.16.840.1.438332.3.579.2.593 1960 Unknown [id number] 2.16.840.1.802562.3.579.2.593 1960 Unknown [id number] 2.16.840.1.027453.3.579.2.593 1960 Unknown [id number] 2.16.840.1.097564.3.579.2.593 1960 Unknown [id number] 2.16.840.1.500360.3.579.2.1286 1960 Unknown [id number] 2.16.840.1.830045.3.579.2.1286 1960 Unknown [id number] 2.16.840.1.789622.3.579.2.1286 1960 Unknown [id number] 2.16.840.1.077705.3.579.2.1286 1960 Unknown [id number] 2.16.840.1.057443.3.579.2.1286 1960 Unknown [id number] 2.16.840.1.990936.3.579.2.1286 1960 Unknown [id number] 2.16.840.1.818753.3.579.2.1286 1960 Unknown [id number] 2.16.840.1.535140.3.579.2.1286 1960 Unknown [id number] 2.16.840.1.346762.3.579.2.1286 1960 Unknown [id number] 2.16.840.1.062639.3.579.2.983 1960 Unknown [id number] 2.16.840.1.225341.3.579.2.1259 1960 Unknown [id number] 2.16.840.1.835809.3.579.2.1259 1960 Unknown [id number] 2.16.840.1.897827.3.579.2.125 1960 Unknown [id number] 2.16.840.1.349514.3.579.2.1258 1960 Unknown [id number] 2.16.840.1.541230.3.579.2.125 1960 Unknown [id number] 2.16.840.1.028701.3.579.2.125 1960 Unknown [id number] 2.16.840.1.784635.3.579.2.125 1960 Unknown [id number] 2.16.840.1.854896.3.579.2.125 1960 Unknown [id number] 2.16.840.1.233772.3.579.2.9 1960 Unknown [id number] 2.16.840.1.832042.3.579.2.125 1960 Unknown [id number] 2.16.840.1.201838.3.579.2.125 1960 Unknown [id number] 2.16.840.1.099622.3.579.2.125 1960 Unknown [id number] 2.16.840.1.740102.3.579.2.1259 1960 Unknown [id number] 2.16.840.1.868995.3.579.2.1259 1960 Unknown [id number] 2.16.840.1.001379.3.579.2.1259 1960 Unknown [id number] 2.16.840.1.269729.3.579.2.1258 1960 Unknown [id number] 2.16.840.1.701203.3.579.2.1258 1960 Unknown [id number] 2.16.840.1.863698.3.579.2.1258 1960 Unknown [id number] 2.16.840.1.019486.3.579.2.125 1960 Unknown [id number] 2.16.840.1.366880.3.579.2.1258 1960 Unknown [id number] 2.16.840.1.156930.3.579.2.1258 1960 Unknown [id number] 2.16840.1.937991.3.579.2.1258 1960 Unknown [id number] 2.16.840.1.403826.3.579.2.1258 1960 Unknown [id number] 2.16.840.1.042336.3.579.2.1258 1960 Unknown [id number] 2.16.840.1.958191.3.579.2.1258 1960 Unknown [id number] 2.16840.1.153651.3.579.2.1258 1960 Unknown [id number] 2.16.840.1.687088.3.579.2.1258 1960 Unknown [id number] 2.16.840.1.111795.3.579.2.1258 1960 Unknown [id number] 2.16.840.1.669455.3.579.2.1258 1960 Unknown [id number] 2.16.840.1.035594.3.579.2.1258 1960 Unknown [id number] 2.16.840.1.756545.3.579.2.9 1960 Unknown [id number] 2.16.840.1.279863.3.579.2.1258 1960 Unknown [id number] 2.16.840.1.919256.3.579.2.1258 1960 Unknown [id number] 2.16.840.1.392665.3.579.2.1258 1960 Unknown [id number] 2.16.840.1.278205.3.579.2.1258 1960 Unknown [id number] 2.16.840.1.378572.3.579.2.1258 1960 Unknown [id number] 2.16.840.1.882902.3.579.2.1258 1960 Unknown [id number] 2.16.840.1.699186.3.579.2.1258 1960 Unknown [id number] 2.16.840.1.622221.3.579.2.1258 1960 Unknown [id number] 2.16.840.1.829443.3.579.2.1258 1960 Unknown [id number] 2.16.840.1.998809.3.579.2.1258 1960 Unknown [id number] 2.16.840.1.431845.3.579.2. 1960 Unknown [id number] 2.16.840.1.115845.3.579.2.98 1960 Unknown [id number] 2.16.840.1.514124.3.579.2.98 1960 Unknown [id number] 2.16.840.1.561479.3.579.2.983 1960 Unknown [id number] 2.16.840.1.431452.3.579.2.983 1960 Unknown [id number] 2.16.840.1.067680.3.579.2.983 1960 Unknown [id number] 2.16.840.1.987820.3.579.2.983 1960 Unknown [id number] 2.16.840.1.342128.3.579.2.983 1960 Unknown [id number] 2.16.840.1.520948.3.579.2.983 1960 Unknown [id number] 2.16.840.1.501832.3.579.2.983 1960 Unknown [id number] 2.16.840.1.492287.3.579.2.983 1959 [employer] ( and others) [id number] [employer] ( and others) [id number] Unknown [id number] 2.16.840.1.020178.3.579.2.531 Unknown [id number] 2.16.840.1.887649.3.579.2.531 Unknown [id number] 2.16.840.1.989796.3.579.2.531 Unknown [id number] 2.16840.1.664875.3.579.2.531 Unknown [id number] 2.16840.1.719465.3.579.2.531 Social History Date Type Detail Facility Start: 04-27-2016 End: 05-18-2024 Tobacco smoking status NHIS Former smoker [facility] End: 08-12-1994 History of tobacco use Current smoker [place], [place] Start: 04-27-2016 End: 02-10-2024 Cigarettes smoked current (pack per day) - Reported [place], [place] Start: 04-27-2016 End: 05-18-2024 [facility] and exposure [facility]: [facility] End: 03-16-2020 Alcohol intake Current drinker of alcohol (finding) [place] Start: 01-19-2013 Alcohol Comment occasionally [facility] Start: 1960 Sex Assigned At Not on file [place], [place] Exposure to SARS-CoV -2 (event) Not sure [facility] Start: 1960 Sex Assigned At Female [facility] Start: 02-10-2024 End: 10-04-2024 Sex Assigned At [facility] Other End: 08-12-1994 History of tobacco use Cigarette Smoker [employer] [facility] Start: 02-10-2024 End: 10-04-2024 Alcoholic beverage intake Ex-drinker (finding) [employer] In the past 12 month s, was there a time when you were not able to pay the mortgage or rent on time? No [employer] Number of Places Melissa ed in the Last Year Not on file [facility] Start: 02-10-2024 Alcohol Comment Have drink in 20 years [facility] Start: 06-11-2024 Gender identity Identifies as female gender (finding) [facility] Start: 06-11-2024 Sexual orientation Heterosexual (finding) [employer] Start: 01-10-2024 Sex Female (finding) [facility] Medical Equipment Procedure Code Equipment Code Equipment Origin al Text Equipment Identifier Dates Arthroplasty, hip, total, anterior approach Acetabular shell ()[id number] FDA Start: 12-03-2020 Arthroplasty, hip, total, anterior approach Non-constrained polyethylene acetabular liner ()[id number] FDA Start: 12-03-2020 Arthroplasty, hip, total, anterior approach Coated hip femur prosthesis, modular ()[id number] FDA Start: 12-03-2020 Arthroplasty, hip, total, anterior approach Ceramic femoral head prosthesis ()[id number] FDA Start: 12-03-2020 Arthroplasty, hip, total, anterior approach Orthopaedic bone screw, non-bioabsorbable, sterile ([id number] FDA Start: 12-03-2020 Arthroplasty, hip, total, anterior approach Orthopaedic bone wire ()[id number] FDA Start: 12-03-2020 Anchors, 5.5 Non Punching - [id number] Start: 05-29-2024 Goals Date Patient Goal Desired Activity /State Clinical Notes 05-23-2021 to 10-04-2024 Sofia Kamara - 10/04/2024 10:00 AM Ruiz Portillo MD - 10/04/2024 10:00 AM Melissa Ruff, PT - 08/25/2024 8:00 AM Tamar Ruff, PT - 08/14/2024 8:30 AM EST Note Date & Type Note Facility 10-04-2024 History of Presen t illness Narrative Ortho Nurse - Established Patient Intake Room#: room 4--- pt is here today for 4 mo follow-up RT ABD repair. She states she is doing well but does feel she is still weak and stairs are difficult for her. She feels really stiff when she wakes up in the morning. She is doing her home exercises. She rates her pain on a scale of 1/10. Denies nicotine. Date: 10/04/2024 10:03 AM Patient: Julia Chavarria MR#: [id number] : 1960 Age: 64 y.o. Referring Physician: Self, Self Insurance: Payor: [employer] / Plan: [facility] / Product Type: *No Product type* / Chief Complaint Patient presents with Right Hip - Follow-up Visit Vitals LMP (LMP Unknown) Pain 1. Are you having pain? 2. On a scale from 1-10: Recent Labs No results found for: CRP No results found for: SEDRATE Lab Results Component Value Date WBC 8.1 05/18/2024 HGB 13.6 05/18/2024 HCT 40.5 05/18/2024 PLATELET 351 05/18/2024 MCV 93.0 05/18/2024 History Past Medical History: Diagnosis Date Arthritis Congestive heart failure Essential hypertension, benign GERD (gastroesophageal reflux disease) Hiatal hernia Hyperlipidemia Hypothyroidism Past Surgical History: Procedure Laterality Date GLUTEUS MEDIUS TENDON REPAIR Right 05/29/2024 Laterality: Right; Surgeon: Feliciano Portillo MD; Location: [facility] SECTION CHOLECYSTECTOMY HIP REPLACEMENT Left KNEE REPLACEMENT Left KNEE SURGERY Left URETEROPLASTY Family History: Her family history includes Cancer- Other in her mother; Heart Failure in her paternal grandfather; Sudden Cardiac in her father. Social History: Her reports that she quit smoking about 30 years ago. Her smoking use included cigarettes. She has never used smokeless tobacco. She reports that she does not currently use alcohol. She reports that she does not use drugs. Outpatient Medications Prior to Visit Medication Sig Dispense Refill Acetaminophen 325 MG tablet Take 2 tablets by mouth every 4 hours as needed for Mild Pain. Do not exceed 4000mg of Tylenol in 24 hour period. 50 tablet [address] tablet Take 1 tablet by mouth 2 times daily. This medication is for blood clot prevention. Take with food. 60 tablet 0 calcium carbonate 1500 (600 Ca) MG tablet 1 (one) time each day at the same time Docusate 100 MG capsule Take 1 capsule by mouth 2 times daily. Hold for loose stools. 60 capsule 0 Ferrous Sulfate (IRON PO) Take 1 tablet by mouth daily. Gabapentin 100 MG capsule Take 1 capsule by mouth 2 times daily. Gemfibrozil 600 MG tablet Take 1 tablet by mouth 2 times daily. hydroCODone-acetaminophen 5-325 MG tablet Take 1-2 tablets by mouth every 6 hours as needed for Severe Pain for up to 7 days. Do not take over 4000mg acetaminophen daily. 10 tablet 0 irbesartan 150 MG tablet Take 1 tablet by mouth daily. Levothyroxine 125 MCG tablet Take 1 tablet by mouth daily. Meloxicam 7.5 MG tablet Take 1 tablet by mouth daily. Take with food. 30 tablet 0 omeprazole [address] capsule Take 1 capsule by mouth daily. Ondansetron 4 MG tablet Take 1 tablet by mouth every 8 hours as needed for Nausea / Vomiting. 6 tablet 0 POTASSIUM PO Otc daily therapeutic multivitamin-minerals tablet Take 1 tablet by mouth at bedtime. 30 tablet 0 traMADol 50 MG tablet 1-2 tabs every 6 hours as needed for mild/moderate pain. 20 tablet 0 traZODone 100 MG tablet Take 1 tablet by mouth at bedtime as needed. No facility-administered medications prior to visit. Allergies: She is allergic to sulfamethoxazole-trimethoprim and sulfa antibiotics. HPI: Patient is here today for evaluation of their operative abductor repair. She is about 4 months out and reports that she is doing well and is pleased with the outcome of the intervention. The hip feels better now than it did before, and she is not having any new symptoms with it. Still having some issues with ascending and descending stairs and stiffness in the mornings. PHYSICAL EXAM: The bilateral lower extremities were evaluated. The operative lower extremity is soft, nontender with full and supple motion of the hip. No pain, no impingement. No instability. The contralateral extremity has full motion, normal stability, no tenderness. Bilateral lower extremities have normal neurovascular status. Imaging: Plain film radiography reviewed. AP pelvis and hip series demonstrate preserved joint space, no evidence of fracture, subluxation, dislocation, or AVN. IMPRESSION: Stable status post right abductor repair, doing well. PLAN: I reviewed my findings with patient. Overall, I am pleased with the outcome of intervention. She has made an excellent recovery. We discussed the stages of healing along with what symptoms can be expected at current stage of healing. We then discussed the benefits of performing a variety of exercises at home, with a physical therapist or local gym. She understands and agrees to continue this in a slow, steady manner. I expect continued improvement in strength and mobility moving forward. I recommend followup at one year postop for repeat clinical and radiographic examination or sooner if any new symptoms develop. She will call with any questions or concerns in the meantime. Mike Morocho ATC/Hannah I have reviewed the findings of my clinical staff below and agree with their assessment. Ortho Nurse - Established Patient Intake Room#: room 4--- pt is here today for 4 mo follow-up RT ABD repair. She states she is doing well but does feel she is still weak and stairs are difficult for her. She feels really stiff when she wakes up in the morning. She is doing her home exercises. She rates her pain on a scale of 1/10. Denies nicotine. Date: 10/04/2024 10:03 AM Patient: Julia Chavarria MR#: [id number] : 1960 Age: 64 y.o. Referring Physician: Self, Self Insurance: Payor: [employer] / Plan: [facility] / Product Type: *No Product type* / Chief Complaint Patient presents with Right Hip - Follow-up Visit Vitals LMP (LMP Unknown) Pain 1. Are you having pain? 2. On a scale from 1-10: Recent Labs No results found for: CRP No results found for: SEDRATE Lab Results Component Value Date WBC 8.1 05/18/2024 HGB 13.6 05/18/2024 HCT 40.5 05/18/2024 PLATELET 351 05/18/2024 MCV 93.0 05/18/2024 History Past Medical History: Diagnosis Date Arthritis Congestive heart failure Essential hypertension, benign GERD (gastroesophageal reflux disease) Hiatal hernia Hyperlipidemia Hypothyroidism Past Surgical History: Procedure Laterality Date GLUTEUS MEDIUS TENDON REPAIR Right 05/29/2024 Laterality: Right; Surgeon: Feliciano Portillo MD; Location: [facility] SECTION CHOLECYSTECTOMY HIP REPLACEMENT Left KNEE REPLACEMENT Left KNEE SURGERY Left URETEROPLASTY Family History: Her family history includes Cancer- Other in her mother; Heart Failure in her paternal grandfather; Sudden Cardiac in her father. Social History: Her reports that she quit smoking about 30 years ago. Her smoking use included cigarettes. She has never used smokeless tobacco. She reports that she does not currently use alcohol. She reports that she does not use drugs. Outpatient Medications Prior to Visit Medication Sig Dispense Refill Acetaminophen 325 MG tablet Take 2 tablets by mouth every 4 hours as needed for Mild Pain. Do not exceed 4000mg of Tylenol in 24 hour period. 50 tablet [address] Aspirin [address] tablet Take 1 tablet by mouth 2 times daily. This medication is for blood clot prevention. Take with food. 60 tablet 0 calcium carbonate 1500 (600 Ca) MG tablet 1 (one) time each day at the same time Docusate 100 MG capsule Take 1 capsule by mouth 2 times daily. Hold for loose stools. 60 capsule 0 Ferrous Sulfate (IRON PO) Take 1 tablet by mouth daily. Gabapentin 100 MG capsule Take 1 capsule by mouth 2 times daily. Gemfibrozil 600 MG tablet Take 1 tablet by mouth 2 times daily. hydroCODone-acetaminophen 5-325 MG tablet Take 1-2 tablets by mouth every 6 hours as needed for Severe Pain for up to 7 days. Do not take over 4000mg acetaminophen daily. 10 tablet 0 irbesartan 150 MG tablet Take 1 tablet by mouth daily. Levothyroxine 125 MCG tablet Take 1 tablet by mouth daily. Meloxicam 7.5 MG tablet Take 1 tablet by mouth daily. Take with food. 30 tablet 0 omeprazole [address] capsule Take 1 capsule by mouth daily. Ondansetron 4 MG tablet Take 1 tablet by mouth every 8 hours as needed for Nausea / Vomiting. 6 tablet 0 POTASSIUM PO Otc daily therapeutic multivitamin-minerals tablet Take 1 tablet by mouth at bedtime. 30 tablet 0 traMADol 50 MG tablet 1-2 tabs every 6 hours as needed for mild/moderate pain. 20 tablet 0 traZODone 100 MG tablet Take 1 tablet by mouth at bedtime as needed. No facility-administered medications prior to visit. Allergies: She is allergic to sulfamethoxazole-trimethoprim and sulfa antibiotics. documented in this encounter [facility] 08-25-2024 History of Presen t illness Narrative Images from the original note were not included. Physical Therapy Treatment Visit / progress note Patient Name: Julia Chavarria Today's Date: 08/25/2024 Encounter Diagnoses Name Primary? Strain of muscle, fascia and tendon of right hip, initial encounter Yes Chronic right hip pain Muscle weakness of lower extremity Chronic gluteal pain Visit number: 9 Timed Code Treatment Minutes: 56 minutes Total Treatment Time: 76 minutes Time In: 0745 Time Out: 0908 History: Pt presents to PT following right gluteus medius repair on 05/29/25. Pt states she was NWB x 6 weeks. Pt is now WBAT and walking with use of st cane. Pt without any restrictions at this time. Still having a hard time lifting foot up. Pain has been around 3/10, mostly in buttock region. Pt states she was previously walking without use of device and would like to get back to hiking. Pt believes tear was present about 2 years prior to surgery. Precautions: [place], left MARIZOL Subjective: Pt states her hip is gradually getting better. Will see Dr again October 06. Stiff this morning coming in. Pain: 09/11 Objective: PT Evaluation (08/07/2024) RIGHT HIP PROM: 110 degrees flexion, 14 degrees abduction, 9 degrees extension, IR and ER are WFL MMT: 4-/5 flexion, 3-/5 abduction, 4-/5 ER, 3-/5 extension Muscle length: prone knee flexion limited to 103 degrees due to quad tightness, left knee 112 degrees Palpation: moderate to severe tenderness right lateral thigh Functional: TUG without device: 19.44 seconds and 19.17 seconds. Five Time Sit to Stand: 15.31 seconds with use of left hand rail only Treatment: Education: HEP education with demonstration, Educated on Eval Findings and POC Manual Therapy: Passive ROM, Joint mobilization, Soft Tissue Mobilization, Myofascial Release, Muscle Energy Technique, Neural Mobilization, Myofascial Cupping, Dry Needling, IASTM, and Scar mobilization as needed. Therapeutic Exercise: (30 minutes) Strength, Endurance, Flexibility, ROM, HEP, Neural Mobilization, Power, and Core Stability as needed. Pt completed exercises per grid. Nustep x10 minutes unsupervised. Therapeutic Activity: (26 minutes) Exercises to improve dynamic activities, functional tasks, functional mobility to return to prior activity level as needed. Neuromuscular re-education: (PRN) Balance Training, Muscle Facilitation, Dynamic Stability, Core Stabilization, and Blood Flow Restriction Training (BFRT) as needed. Modalities: CP x10 minutes Right hip in Left SL. Heat, Ice, Electrical Stimulation, Ultrasound, Cervical Mechanical Traction, Lumbar Mechanical Traction, Iontophoresis, and Fluidotherapy as needed. Assessment: Pt has completed 9 PT sessions following right glute repair. Strength right hip with MMT: 3-/5 abduction, 4/5 flexion, 4-/5 extension. Five Time Sit to Stand with arms across chest: 8.68 seconds. TUG without device: 8.62 seconds. LEFS score: 36/80. Pt will benefit from further PT to progress toward [employer] goals. Outcome Measure: Lower Extremity Functional Scale (LEFS): 11; 36/80 on 08/25/24 Rehab Diagnosis: right hip pain and weakness, difficulty walking, limited ROM and mobility Short Term Goal: To be met in 2 weeks Goal 1: Pt to be instructed in home exercise program. - met Loom Setter Goals: To be met in 10 weeks Goal 1: Pt to report independence and compliance with home program. - met and progressing Goal 2: Pt to achieve 4 to 4+/5 strength right hip to assist with functional mobility. - progressing Goal 3: Pt to score no less than 50/80 on LEFS indicating improved QOL. - progressing Goal 4: Pt to report pain no greater than 1/10 in right hip with ADL's and functional tasks. - progressing Goal 5: Pt to perform TUG without device in less than 13.0 seconds indicating improve gait and mobility. - met Goal 6: Pt to complete Five Sit to Stands in less than 11.0 seconds indicating improved functional strength. - met Pt will benefit from skilled PT for 2-3x/week from 08/07/2024 to 10/16/2024 to address the above impairments. I hereby deem this POC medically necessary. Please sign below. Date: documented in this encounter [facility] 08-14-2024 History of Presen t illness Narrative Images from the original note were not included. Physical Therapy Treatment Visit Patient Name: Julia Chavarria Today's Date: 08/14/2024 Encounter Diagnoses Name Primary? Strain of muscle, fascia and tendon of right hip, initial encounter Yes Chronic right hip pain Muscle weakness of lower extremity Chronic gluteal pain Visit number: 4 Timed Code Treatment Minutes: 44 minutes Total Treatment Time: 54 minutes Time In: 0830 Time Out: 927 History: Pt presents to PT following right gluteus medius repair on 05/29/25. Pt states she was NWB x 6 weeks. Pt is now WBAT and walking with use of st cane. Pt without any restrictions at this time. Still having a hard time lifting foot up. Pain has been around 3/10, mostly in buttock region. Pt states she was previously walking without use of device and would like to get back to hiking. Pt believes tear was present about 2 years prior to surgery. Precautions: [place], left MARIZOL Subjective: Right is a little sore this morning. Pt states she woke up laying on right hip. Min soreness following last session. Pain: 09/11 Objective: PT Evaluation (08/07/2024) RIGHT HIP PROM: 110 degrees flexion, 14 degrees abduction, 9 degrees extension, IR and ER are WFL MMT: 4-/5 flexion, 3-/5 abduction, 4-/5 ER, 3-/5 extension Muscle length: prone knee flexion limited to 103 degrees due to quad tightness, left knee 112 degrees Palpation: moderate to severe tenderness right lateral thigh Functional: TUG without device: 19.44 seconds and 19.17 seconds. Five Time Sit to Stand: 15.31 seconds with use of left hand rail only Treatment: Education: HEP education with demonstration, Educated on Eval Findings and POC Manual Therapy: Passive ROM, Joint mobilization, Soft Tissue Mobilization, Myofascial Release, Muscle Energy Technique, Neural Mobilization, Myofascial Cupping, Dry Needling, IASTM, and Scar mobilization as needed. Therapeutic Exercise: (32 minutes) Strength, Endurance, Flexibility, ROM, HEP, Neural Mobilization, Power, and Core Stability as needed. Pt completed exercises per grid. Nustep x10 minutes unsupervised. Therapeutic Activity: (12 minutes) Exercises to improve dynamic activities, functional tasks, functional mobility to return to prior activity level as needed. Neuromuscular re-education: Balance Training, Muscle Facilitation, Dynamic Stability, Core Stabilization, and Blood Flow Restriction Training (BFRT) as needed. Modalities: CP x10 minutes Right hip in Left SL. Heat, Ice, Electrical Stimulation, Ultrasound, Cervical Mechanical Traction, Lumbar Mechanical Traction, Iontophoresis, and Fluidotherapy as needed. Assessment: Pt has completed 4 PT sessions following right glute repair. Pt requires moderate assist to ascend 4 inch step with right LE. Verbal cues to avoid compensation during exercises. Right quad fatigue and soreness noted following RADHA. Will continue to progress as pt tolerates. Outcome Measure: Lower Extremity Functional Scale (LEFS): Rehab Diagnosis: right hip pain and weakness, difficulty walking, limited ROM and mobility Short Term Goal: To be met in 2 weeks Goal 1: Pt to be instructed in home exercise program. Loom Setter Goals: To be met in 10 weeks Goal 1: Pt to report independence and compliance with home program. Goal 2: Pt to achieve 4 to 4+/5 strength right hip to assist with functional mobility. Goal 3: Pt to score no less than 50/80 on LEFS indicating improved QOL. Goal 4: Pt to report pain no greater than 1/10 in right hip with ADL's and functional tasks. Goal 5: Pt to perform TUG without device in less than 13.0 seconds indicating improve gait and mobility. Goal 6: Pt to complete Five Sit to Stands in less than 11.0 seconds indicating improved functional strength. Pt will benefit from skilled PT for 2-3x/week from 08/07/2024 to 10/16/2024 to address the above impairments. I hereby deem this POC medically necessary. Please sign below. Date: documented in this encounter [facility] 08-07-2024 History of Presen t illness Narrative Physical Therapy Evaluation Visit Patient Name: Julia Chavarria Today's Date: 08/07/2024 Encounter Diagnoses Name Primary? Chronic right hip pain Yes Strain of muscle, fascia and tendon of right hip, initial encounter Muscle weakness of lower extremity Visit number: 1 Timed Code Treatment Minutes: 48 minutes Total Treatment Time: 58 minutes Time In: 829 Time Out: 927 History: Pt presents to PT following right gluteus medius repair on 05/29/25. Pt states she was NWB x 6 weeks. Pt is now WBAT and walking with use of st cane. Pt without any restrictions at this time. Still having a hard time lifting foot up. Pain has been around 3/10, mostly in buttock region. Pt states she was previously walking without use of device and would like to get back to hiking. Pt believes tear was present about 2 years prior to surgery. Precautions: [place], left MARIZOL Subjective: Right post and lateral hip regions Pain: 3/10 Objective: PT Evaluation (08/07/2024) RIGHT HIP PROM: 110 degrees flexion, 14 degrees abduction, 9 degrees extension, IR and ER are WFL MMT: 4-/5 flexion, 3-/5 abduction, 4-/5 ER, 3-/5 extension Muscle length: prone knee flexion limited to 103 degrees due to quad tightness, left knee 112 degrees Palpation: moderate to severe tenderness right lateral thigh Functional: TUG without device: 19.44 seconds and 19.17 seconds. Five Time Sit to Stand: 15.31 seconds with use of left hand rail only Treatment: Education: HEP education with demonstration, Educated on Eval Findings and POC Manual Therapy: Passive ROM, Joint mobilization, Soft Tissue Mobilization, Myofascial Release, Muscle Energy Technique, Neural Mobilization, Myofascial Cupping, Dry Needling, IASTM, and Scar mobilization as needed. Therapeutic Exercise: (24 minutes) Strength, Endurance, Flexibility, ROM, HEP, Neural Mobilization, Power, and Core Stability as needed. Pt performed and instructed in home program this date; written instructions and pictures issued with good pt understanding. Therapeutic Activity: Exercises to improve dynamic activities, functional tasks, functional mobility to return to prior activity level as needed. Neuromuscular re-education: Balance Training, Muscle Facilitation, Dynamic Stability, Core Stabilization, and Blood Flow Restriction Training (BFRT) as needed. Modalities: Heat, Ice, Electrical Stimulation, Ultrasound, Cervical Mechanical Traction, Lumbar Mechanical Traction, Iontophoresis, and Fluidotherapy as needed. Assessment: Pt is 63 y/o female s/p right abductor repair. Currently ambulates with use of st cane with step to gait pattern. Pt able to ambulate without device with step to gait pattern. Strength right hip is grossly 3- to 4-/5. Pt requires moderate UE assistance to ascend 4 inch step due to right hip weakness. Moderate trendelenburg without use of st cane. Pt instructed in HEP and will benefit from further PT. Outcome Measure: Lower Extremity Functional Scale (LEFS): Rehab Diagnosis: right hip pain and weakness, difficulty walking, limited ROM and mobility Short Term Goal: To be met in 2 weeks Goal 1: Pt to be instructed in home exercise program. Loom Setter Goals: To be met in 10 weeks Goal 1: Pt to report independence and compliance with home program. Goal 2: Pt to achieve 4 to 4+/5 strength right hip to assist with functional mobility. Goal 3: Pt to score no less than 50/80 on LEFS indicating improved QOL. Goal 4: Pt to report pain no greater than 1/10 in right hip with ADL's and functional tasks. Goal 5: Pt to perform TUG without device in less than 13.0 seconds indicating improve gait and mobility. Goal 6: Pt to complete Five Sit to Stands in less than 11.0 seconds indicating improved functional strength. Pt will benefit from skilled PT for 2-3x/week from 08/07/2024 to 10/16/2024 to address the above impairments. I hereby deem this POC medically necessary. Please sign below. Date: documented in this encounter [facility] 07-19-2024 History of Presen t illness Narrative Ortho Nurse - Established Patient Intake Room#: 6 Date: 07/19/2024 11:25 AM Patient: Julia Chavarria MR#: [id number] : 1960 Age: 63 y.o. R ABD REPAIR (05/29/24) Pt stated she is doing ok, the last couple days her knee and where her pocket is that is sore like before she had sx. Pt stated her pain is a 3/10. Pt was using a walker at the time. Referring Physician: Self, Self Insurance: Payor: [employer] / Plan: [employer] [facility] / Product Type: *No Product type* / Chief Complaint Patient presents with Right Hip - Follow-up Visit Vitals Ht 1.626 m (5' 4 ) Wt 81.6 kg (180 lb) LMP (LMP Unknown) BMI 30.90 kg/m Pain Recent Labs No results found for: CRP No results found for: SEDRATE Lab Results Component Value Date WBC 8.1 05/18/2024 HGB 13.6 05/18/2024 HCT 40.5 05/18/2024 PLATELET 351 05/18/2024 MCV 93.0 05/18/2024 History Past Medical History: Diagnosis Date Arthritis Congestive heart failure Essential hypertension, benign GERD (gastroesophageal reflux disease) Hiatal hernia Hyperlipidemia Hypothyroidism Past Surgical History: Procedure Laterality Date GLUTEUS MEDIUS TENDON REPAIR Right 05/29/2024 Laterality: Right; Surgeon: Feliciano Portillo MD; Location: [facility] SECTION CHOLECYSTECTOMY HIP REPLACEMENT Left KNEE REPLACEMENT Left KNEE SURGERY Left URETEROPLASTY Family History: Her family history includes Cancer- Other in her mother; Heart Failure in her paternal grandfather; Sudden Cardiac in her father. Social History: Her reports that she quit smoking about 29 years ago. Her smoking use included cigarettes. She has never used smokeless tobacco. She reports that she does not currently use alcohol. She reports that she does not use drugs. Outpatient Medications Prior to Visit Medication Sig Dispense Refill Acetaminophen 325 MG tablet Take 2 tablets by mouth every 4 hours as needed for Mild Pain. Do not exceed 4000mg of Tylenol in 24 hour period. 50 tablet [address]ir[address] tablet Take 1 tablet by mouth 2 times daily. This medication is for blood clot prevention. Take with food. 60 tablet 0 calcium carbonate 1500 (600 Ca) MG tablet 1 (one) time each day at the same time Docusate 100 MG capsule Take 1 capsule by mouth 2 times daily. Hold for loose stools. 60 capsule 0 Ferrous Sulfate (IRON PO) Take 1 tablet by mouth daily. Gabapentin 100 MG capsule Take 1 capsule by mouth 2 times daily. Gemfibrozil 600 MG tablet Take 1 tablet by mouth 2 times daily. hydroCODone-acetaminophen 5-325 MG tablet Take 1-2 tablets by mouth every 6 hours as needed for Severe Pain for up to 7 days. Do not take over 4000mg acetaminophen daily. 10 tablet 0 irbesartan 150 MG tablet Take 1 tablet by mouth daily. Levothyroxine 125 MCG tablet Take 1 tablet by mouth daily. Meloxicam 7.5 MG tablet Take 1 tablet by mouth daily. Take with food. 30 tablet 0 omeprazole [address] capsule Take 1 capsule by mouth daily. Ondansetron 4 MG tablet Take 1 tablet by mouth every 8 hours as needed for Nausea / Vomiting. 6 tablet 0 POTASSIUM PO Otc daily therapeutic multivitamin-minerals tablet Take 1 tablet by mouth at bedtime. 30 tablet 0 traMADol 50 MG tablet 1-2 tabs every 6 hours as needed for mild/moderate pain. 20 tablet 0 traZODone 100 MG tablet Take 1 tablet by mouth at bedtime as needed. No facility-administered medications prior to visit. Current Outpatient Medications: Acetaminophen 325 MG tablet, Take 2 tablets by mouth every 4 hours as needed for Mild Pain. Do not exceed 4000mg of Tylenol in 24 hour period., Disp: 50 tablet, Rfl: [address] tablet, Take 1 tablet by mouth 2 times daily. This medication is for blood clot prevention. Take with food., Disp: 60 tablet, Rfl: 0 calcium carbonate 1500 (600 Ca) MG tablet, 1 (one) time each day at the same time, Disp: , Rfl: Docusate 100 MG capsule, Take 1 capsule by mouth 2 times daily. Hold for loose stools., Disp: 60 capsule, Rfl: 0 Ferrous Sulfate (IRON PO), Take 1 tablet by mouth daily., Disp: , Rfl: Gabapentin 100 MG capsule, Take 1 capsule by mouth 2 times daily., Disp: , Rfl: Gemfibrozil 600 MG tablet, Take 1 tablet by mouth 2 times daily., Disp: , Rfl: hydroCODone-acetaminophen 5-325 MG tablet, Take 1-2 tablets by mouth every 6 hours as needed for Severe Pain for up to 7 days. Do not take over 4000mg acetaminophen daily., Disp: 10 tablet, Rfl: 0 irbesartan 150 MG tablet, Take 1 tablet by mouth daily., Disp: , Rfl: Levothyroxine 125 MCG tablet, Take 1 tablet by mouth daily., Disp: , Rfl: Meloxicam 7.5 MG tablet, Take 1 tablet by mouth daily. Take with food., Disp: 30 tablet, Rfl: [address] omepraz[address] capsule, Take 1 capsule by mouth daily., Disp: , Rfl: Ondansetron 4 MG tablet, Take 1 tablet by mouth every 8 hours as needed for Nausea / Vomiting., Disp: 6 tablet, Rfl: 0 POTASSIUM PO, Otc daily, Disp: , Rfl: therapeutic multivitamin-minerals tablet, Take 1 tablet by mouth at bedtime., Disp: 30 tablet, Rfl: 0 traMADol 50 MG tablet, 1-2 tabs every 6 hours as needed for mild/moderate pain., Disp: 20 tablet, Rfl: 0 traZODone 100 MG tablet, Take 1 tablet by mouth at bedtime as needed., Disp: , Rfl: Allergies: She is allergic to sulfamethoxazole-trimethoprim and sulfa antibiotics. Julia Chavarria is now 7 weeks s/p right Open Abductor repair with arthrex anchors. She is progressing nicely in her recovery. She is TDWB with AL restrictions. She reports 3 out of 10 pain. She is using Tylenol as needed for pain control and has completed her regimen for DVT prophylaxis along with URIAH hose. She is having some discomfort in the thigh and in the glute, reports this she just started noticing over the last week or so. Denies any slips/trips/falls/ or injury. Physical Exam: Today on exam incision is well healed with only global hip swelling, no erythema, drainage or evidence of dehiscence. Calves are soft and nontender with negative Homans sign. ROM is full and supple with no pain or impingement the far limits were not tested due to the hip precautions and wb restrictions. Distal neurovascular exam is intact. Visit Vitals Ht 1.626 m (5' 4 ) Wt 81.6 kg (180 lb) LMP (LMP Unknown) BMI 30.90 kg/m Diagnostic study/interpretation: AP pelvis and right hip series taken today demonstrate stable position and alignment of the hip joint spaces bilaterally, s/p previous left MARIZOL. No evidence of fracture with relative preservation of the hip joints noted bilaterally. No evidence of migration or loosening of anchor positioning to the greater trochanter. Assessment/Plan: 7 weeks postop open abductor repair -Okay to progress to PWB at this time x 2 weeks. May do away with AL hip precautions at this time, advised to progress slowly. We discussed progression to WBAT in 2 weeks. She demonstrated comfortablility to do this on her own, we discussed the progression as well as transition from walker to cane. She demonstrates verbal understanding. I expect the discomfort in thigh/glute to be due to the WB restriction and expect this to gradually improve as we progress. She will call my office if it does not or if it worsens. -An order was provided for PT to begin at 10 weeks post op at this time. -We discussed what to expect from this hip in the coming post operative time frame as well as recommendation for gradual progression of activity. -We will otherwise plan for follow up at 4 [address] op [address] Portillo for radiological and clinical evaluation unless an earlier need should arise. All pertinant portions of the clinical client support administrator documentation was reviewed and I agree with their assessment. Bessie Cardona Ortho Nurse - Established Patient Intake Room#: 6 Date: 07/19/2024 11:25 AM Patient: Julia Chavarria MR#: [id number] : 1960 Age: 63 y.o. R ABD REPAIR (05/29/24) Pt stated she is doing ok, the last couple days her knee and where her pocket is that is sore like before she had sx. Pt stated her pain is a 3/10. Pt was using a walker at the time. Referring Physician: Self, Self Insurance: Payor: [employer] / Plan: [employer] [facility] / Product Type: *No Product type* / Chief Complaint Patient presents with Right Hip - Follow-up Visit Vitals Ht 1.626 m (5' 4 ) Wt 81.6 kg (180 lb) LMP (LMP Unknown) BMI 30.90 kg/m Pain Recent Labs No results found for: CRP No results found for: SEDRATE Lab Results Component Value Date WBC 8.1 05/18/2024 HGB 13.6 05/18/2024 HCT 40.5 05/18/2024 PLATELET 351 05/18/2024 MCV 93.0 05/18/2024 History Past Medical History: Diagnosis Date Arthritis Congestive heart failure Essential hypertension, benign GERD (gastroesophageal reflux disease) Hiatal hernia Hyperlipidemia Hypothyroidism Past Surgical History: Procedure Laterality Date GLUTEUS MEDIUS TENDON REPAIR Right 05/29/2024 Laterality: Right; Surgeon: Feliciano Portillo MD; Location: [facility] SECTION CHOLECYSTECTOMY HIP REPLACEMENT Left KNEE REPLACEMENT Left KNEE SURGERY Left URETEROPLASTY Family History: Her family history includes Cancer- Other in her mother; Heart Failure in her paternal grandfather; Sudden Cardiac in her father. Social History: Her reports that she quit smoking about 29 years ago. Her smoking use included cigarettes. She has never used smokeless tobacco. She reports that she does not currently use alcohol. She reports that she does not use drugs. Outpatient Medications Prior to Visit Medication Sig Dispense Refill Acetaminophen 325 MG tablet Take 2 tablets by mouth every 4 hours as needed for Mild Pain. Do not exceed 4000mg of Tylenol in 24 hour period. 50 tablet [address] Aspirin [address] tablet Take 1 tablet by mouth 2 times daily. This medication is for blood clot prevention. Take with food. 60 tablet 0 calcium carbonate 1500 (600 Ca) MG tablet 1 (one) time each day at the same time Docusate 100 MG capsule Take 1 capsule by mouth 2 times daily. Hold for loose stools. 60 capsule 0 Ferrous Sulfate (IRON PO) Take 1 tablet by mouth daily. Gabapentin 100 MG capsule Take 1 capsule by mouth 2 times daily. Gemfibrozil 600 MG tablet Take 1 tablet by mouth 2 times daily. hydroCODone-acetaminophen 5-325 MG tablet Take 1-2 tablets by mouth every 6 hours as needed for Severe Pain for up to 7 days. Do not take over 4000mg acetaminophen daily. 10 tablet 0 irbesartan 150 MG tablet Take 1 tablet by mouth daily. Levothyroxine 125 MCG tablet Take 1 tablet by mouth daily. Meloxicam 7.5 MG tablet Take 1 tablet by mouth daily. Take with food. 30 tablet 0 omeprazole [address] capsule Take 1 capsule by mouth daily. Ondansetron 4 MG tablet Take 1 tablet by mouth every 8 hours as needed for Nausea / Vomiting. 6 tablet 0 POTASSIUM PO Otc daily therapeutic multivitamin-minerals tablet Take 1 tablet by mouth at bedtime. 30 tablet 0 traMADol 50 MG tablet 1-2 tabs every 6 hours as needed for mild/moderate pain. 20 tablet 0 traZODone 100 MG tablet Take 1 tablet by mouth at bedtime as needed. No facility-administered medications prior to visit. Current Outpatient Medications: Acetaminophen 325 MG tablet, Take 2 tablets by mouth every 4 hours as needed for Mild Pain. Do not exceed 4000mg of Tylenol in 24 hour period., Disp: 50 tablet, Rfl: [address]ir[address] tablet, Take 1 tablet by mouth 2 times daily. This medication is for blood clot prevention. Take with food., Disp: 60 tablet, Rfl: 0 calcium carbonate 1500 (600 Ca) MG tablet, 1 (one) time each day at the same time, Disp: , Rfl: Docusate 100 MG capsule, Take 1 capsule by mouth 2 times daily. Hold for loose stools., Disp: 60 capsule, Rfl: 0 Ferrous Sulfate (IRON PO), Take 1 tablet by mouth daily., Disp: , Rfl: Gabapentin 100 MG capsule, Take 1 capsule by mouth 2 times daily., Disp: , Rfl: Gemfibrozil 600 MG tablet, Take 1 tablet by mouth 2 times daily., Disp: , Rfl: hydroCODone-acetaminophen 5-325 MG tablet, Take 1-2 tablets by mouth every 6 hours as needed for Severe Pain for up to 7 days. Do not take over 4000mg acetaminophen daily., Disp: 10 tablet, Rfl: 0 irbesartan 150 MG tablet, Take 1 tablet by mouth daily., Disp: , Rfl: Levothyroxine 125 MCG tablet, Take 1 tablet by mouth daily., Disp: , Rfl: Meloxicam 7.5 MG tablet, Take 1 tablet by mouth daily. Take with food., Disp: 30 tablet, Rfl: 0 omeprazole [address] capsule, Take 1 capsule by mouth daily., Disp: , Rfl: Ondansetron 4 MG tablet, Take 1 tablet by mouth every 8 hours as needed for Nausea / Vomiting., Disp: 6 tablet, Rfl: 0 POTASSIUM PO, Otc daily, Disp: , Rfl: therapeutic multivitamin-minerals tablet, Take 1 tablet by mouth at bedtime., Disp: 30 tablet, Rfl: 0 traMADol 50 MG tablet, 1-2 tabs every 6 hours as needed for mild/moderate pain., Disp: 20 tablet, Rfl: 0 traZODone 100 MG tablet, Take 1 tablet by mouth at bedtime as needed., Disp: , Rfl: Allergies: She is allergic to sulfamethoxazole-trimethoprim and sulfa antibiotics. documented in this encounter [facility] 06-14-2024 History of Presen t illness Narrative Ortho Nurse - Established Patient Intake Room#: cast room --- pt is here today for her 2 wk post op RT ABD repair. She states she is doing well in regards to the hip, but states she is having thigh pain that feels like a bruise. She is wearing her URIAH's but states she has a sore on the back of her heel. She presents in office using a walker. Sh states she has been taking tylenol in the morning and sometimes in the afternoon if she needs it. She rates her pain on a scale of 3/10. Date: 06/14/2024 1:08 PM Patient: Julia Chavarria MR#: [id number] : 1960 Age: 63 y.o. Referring Physician: Bessie Cardona Insurance: Payor: / Plan: [facility] / Product Type: *No Product type* / Chief Complaint Patient presents with Right Hip - Post Op Visit Visit Vitals LMP (LMP Unknown) Pain 1. Are you having pain? 2. On a scale from 1-10: Recent Labs No results found for: CRP No results found for: SEDRATE Lab Results Component Value Date WBC 8.1 05/18/2024 HGB 13.6 05/18/2024 HCT 40.5 05/18/2024 PLATELET 351 05/18/2024 MCV 93.0 05/18/2024 History Past Medical History: Diagnosis Date Arthritis Congestive heart failure Essential hypertension, benign GERD (gastroesophageal reflux disease) Hiatal hernia Hyperlipidemia Hypothyroidism Past Surgical History: Procedure Laterality Date GLUTEUS MEDIUS TENDON REPAIR Right 05/29/2024 Laterality: Right; Surgeon: Feliciano Portillo MD; Location: [facility] SECTION CHOLECYSTECTOMY HIP REPLACEMENT Left KNEE REPLACEMENT Left KNEE SURGERY Left URETEROPLASTY Family History: Her family history includes Cancer- Other in her mother; Heart Failure in her paternal grandfather; Sudden Cardiac in her father. Social History: Her reports that she quit smoking about 29 years ago. Her smoking use included cigarettes. She has never used smokeless tobacco. She reports that she does not currently use alcohol. She reports that she does not use drugs. Outpatient Medications Prior to Visit Medication Sig Dispense Refill Acetaminophen 325 MG tablet Take 2 tablets by mouth every 4 hours as needed for Mild Pain. Do not exceed 4000mg of Tylenol in 24 hour period. 50 tablet [address] Aspirin [address] tablet Take 1 tablet by mouth 2 times daily. This medication is for blood clot prevention. Take with food. 60 tablet 0 calcium carbonate 1500 (600 Ca) MG tablet 1 (one) time each day at the same time Docusate 100 MG capsule Take 1 capsule by mouth 2 times daily. Hold for loose stools. 60 capsule 0 Ferrous Sulfate (IRON PO) Take 1 tablet by mouth daily. Gabapentin 100 MG capsule Take 1 capsule by mouth 2 times daily. Gemfibrozil 600 MG tablet Take 1 tablet by mouth 2 times daily. hydroCODone-acetaminophen 5-325 MG tablet Take 1-2 tablets by mouth every 6 hours as needed for Severe Pain for up to 7 days. Do not take over 4000mg acetaminophen daily. 10 tablet 0 irbesartan 150 MG tablet Take 1 tablet by mouth daily. Levothyroxine 125 MCG tablet Take 1 tablet by mouth daily. Meloxicam 7.5 MG tablet Take 1 tablet by mouth daily. Take with food. 30 tablet 0 omeprazole [address] capsule Take 1 capsule by mouth daily. Ondansetron 4 MG tablet Take 1 tablet by mouth every 8 hours as needed for Nausea / Vomiting. 6 tablet 0 POTASSIUM PO Otc daily therapeutic multivitamin-minerals tablet Take 1 tablet by mouth at bedtime. 30 tablet 0 traMADol 50 MG tablet 1-2 tabs every 6 hours as needed for mild/moderate pain. 20 tablet 0 traZODone 100 MG tablet Take 1 tablet by mouth at bedtime as needed. No facility-administered medications prior to visit. Allergies: She is allergic to sulfamethoxazole-trimethoprim and sulfa antibiotics. Julia Chavarria is 2 weeks s/p right Open Abductor repair with arthrex anchors. She is progressing nicely in her recovery. She is TDWB with AL restrictions. She reports 3 out of 10 pain. She is using Tylenol as needed for pain control and ASA for DVT prophylaxis along with URIAH hose. She does have some irritation to back of right heel, wanted to discuss that. Physical Exam: Today on exam incision is healing nicely with global hip swelling, no erythema, drainage or evidence of dehiscence. Some old skin glue and scabbing is noted. Calves are soft and nontender with negative Homans sign. ROM is full and supple with no pain or impingement the far limits were not tested due to the hip precautions and wb restrictions. Distal neurovascular exam is intact. Of not back of right heel is slightly red, no break down or open skin. Visit Vitals Ht 1.626 m (5' 4 ) Wt 81.6 kg (180 lb) LMP (LMP Unknown) BMI 30.90 kg/m Diagnostic study/interpretation: AP pelvis and right hip series taken today demonstrate stable position and alignment of the hip joint spaces bilaterally. No evidence of fracture with relative preservation of the hip joints noted bilaterally. No evidence of migration or loosening of anchor positioning to the greater trochanter. Assessment/Plan: 3 week postop open abductor repair -Continue DVT prophylaxis as prescribed. -Incisional care reviewed. -Continue Tylenol as needed. -We discussed return to driving and safety in doing so. Pt knows to be FWB for this -Encouraged to be floating the heel when seated. -Continue TDWB at this time with AL hip precautions for the originally prescribed duration of 6 weeks. -We will otherwise plan for follow up at 6 weeks post op for radiological and clinical evaluation unless an earlier need should arise. All pertinant portions of the clinical client support administrator documentation was reviewed and I agree with their assessment. Bessie Cardona Ortho Nurse - Established Patient Intake Room#: cast room --- pt is here today for her 2 wk post op RT ABD repair. She states she is doing well in regards to the hip, but states she is having thigh pain that feels like a bruise. She is wearing her URIAH's but states she has a sore on the back of her heel. She presents in office using a walker. Sh states she has been taking tylenol in the morning and sometimes in the afternoon if she needs it. She rates her pain on a scale of 3/10. Date: 06/14/2024 1:08 PM Patient: Julia Chavarria MR#: [id number] : 1960 Age: 63 y.o. Referring Physician: Bessie Cardona Insurance: Payor: [employer] / Plan: [facility] / Product Type: *No Product type* / Chief Complaint Patient presents with Right Hip - Post Op Visit Visit Vitals LMP (LMP Unknown) Pain 1. Are you having pain? 2. On a scale from 1-10: Recent Labs No results found for: CRP No results found for: SEDRATE Lab Results Component Value Date WBC 8.1 05/18/2024 HGB 13.6 05/18/2024 HCT 40.5 05/18/2024 PLATELET 351 05/18/2024 MCV 93.0 05/18/2024 History Past Medical History: Diagnosis Date Arthritis Congestive heart failure Essential hypertension, benign GERD (gastroesophageal reflux disease) Hiatal hernia Hyperlipidemia Hypothyroidism Past Surgical History: Procedure Laterality Date GLUTEUS MEDIUS TENDON REPAIR Right 05/29/2024 Laterality: Right; Surgeon: Feliciano Portillo MD; Location: [facility] OR SECTION CHOLECYSTECTOMY HIP REPLACEMENT Left KNEE REPLACEMENT Left KNEE SURGERY Left URETEROPLASTY Family History: Her family history includes Cancer- Other in her mother; Heart Failure in her paternal grandfather; Sudden Cardiac in her father. Social History: Her reports that she quit smoking about 29 years ago. Her smoking use included cigarettes. She has never used smokeless tobacco. She reports that she does not currently use alcohol. She reports that she does not use drugs. Outpatient Medications Prior to Visit Medication Sig Dispense Refill Acetaminophen 325 MG tablet Take 2 tablets by mouth every 4 hours as needed for Mild Pain. Do not exceed 4000mg of Tylenol in 24 hour period. 50 tablet [address] Aspir[address] tablet Take 1 tablet by mouth 2 times daily. This medication is for blood clot prevention. Take with food. 60 tablet 0 calcium carbonate 1500 (600 Ca) MG tablet 1 (one) time each day at the same time Docusate 100 MG capsule Take 1 capsule by mouth 2 times daily. Hold for loose stools. 60 capsule 0 Ferrous Sulfate (IRON PO) Take 1 tablet by mouth daily. Gabapentin 100 MG capsule Take 1 capsule by mouth 2 times daily. Gemfibrozil 600 MG tablet Take 1 tablet by mouth 2 times daily. hydroCODone-acetaminophen 5-325 MG tablet Take 1-2 tablets by mouth every 6 hours as needed for Severe Pain for up to 7 days. Do not take over 4000mg acetaminophen daily. 10 tablet 0 irbesartan 150 MG tablet Take 1 tablet by mouth daily. Levothyroxine 125 MCG tablet Take 1 tablet by mouth daily. Meloxicam 7.5 MG tablet Take 1 tablet by mouth daily. Take with food. 30 tablet 0 omeprazole [address] capsule Take 1 capsule by mouth daily. Ondansetron 4 MG tablet Take 1 tablet by mouth every 8 hours as needed for Nausea / Vomiting. 6 tablet 0 POTASSIUM PO Otc daily therapeutic multivitamin-minerals tablet Take 1 tablet by mouth at bedtime. 30 tablet 0 traMADol 50 MG tablet 1-2 tabs every 6 hours as needed for mild/moderate pain. 20 tablet 0 traZODone 100 MG tablet Take 1 tablet by mouth at bedtime as needed. No facility-administered medications prior to visit. Allergies: She is allergic to sulfamethoxazole-trimethoprim and sulfa antibiotics. ' documented in this encounter [facility] 05-29-2024 Nurse Note Patient taken to front lobby via W/C and all belongings. to drive the patient home.Patient stable and awake. Discharge instructions reviewed per this RN with patient and . They deny any further questions at this time. Discharge packet given to patient for take home. Patient to therapy room. Tolerated well. Patient voiced nausea better at this time. Patient complains of nausea and dry heaving. Patient medicated for nausea and vomiting. Discharged from PACU in stable condition at this time. Transported via cart to [facility] 1. Cart placed in lowest position. Call light within reach. Pulse ox and night monitor on pt with alarms set. Report given to BILLIE Eugene at bedside. No change in assessment from previous documentation. Abductor pillow in place. OR 2 Temperature 64.2F Humidity 43.4% documented in this encounter [facility] 05-29-2024 Nurse Surgical operation note Patient taken to front lobby via W/C and all belongings. to drive the patient home.Patient stable and awake. [facility] 05-29-2024 History of Presen t illness Narrative Physical Therapy Inpatient Initial Assessment Date: 05/29/24 Time in: 11:20 Time out: 11:41 Total treatment time: 21 Diagnosis: Tear of rotator cuff of right hip Surgery: R hip abductor repair Past Medical History: Past Medical History: Diagnosis Date Arthritis Congestive heart failure Essential hypertension, benign GERD (gastroesophageal reflux disease) Hiatal hernia Hyperlipidemia Hypothyroidism Past Surgical History: Past Surgical History: Procedure Laterality Date SECTION CHOLECYSTECTOMY HIP REPLACEMENT Left KNEE REPLACEMENT Left KNEE SURGERY Left URETEROPLASTY Precautions: Fall, A/L hip precautions, no active hip abduction, TTWB on the R LE, abductor pillow Pre-Admission Living Environment: Patient lives: with spouse Home environment: 1 level home with basement Steps in home: 13 with rail Steps to enter home: 5 with rail Pre-Admission Functional Status: Pt is independent with all mobility and does not use an AD Equipment in Home: FWW Subjective: Pt is doing well post op and was agreeable to PT evaluation Pain: R hip pain, rating not provided Orientation: Oriented x4, alert, follows commands well, safety awareness intact Current Functional Status: ROM: WFL Strength: R hip/knee 4/5 Bed Mobility: SBA Transfers: CGA using the FWW Gait: CGA using the FWW, 5ft Balance: Seated: Good Standing: Fair- Sensation: WFL PT Treatment Provided: Pt educated on hip precautions, use of leg communications tower climber and weight bearing status. Pt educated to only perform quad sets and ankle pumps on operative side. Pt educated on sequencing for transfers and gait using FWW to maintain TTWB. Pt ambulating 5ft using the FWW and CGA. Verbal cues required for correct sequencing. Assessment: Pt is a 63 year old female s/p R hip abductor repair. Pt is doing well post op with minimal complaints of pain. Pt has good movement in the R LE with good strength. Pt is performing mobility tasks well and is able to maintain weight bearing status. Gait limited at this time due to drowsiness. Pt is expected to improve and will be safe to return home. Discharge Recommendations: Pt to return home Equipment Recommendations at Discharge: None PT Frequency: PT Therapy Frequency: (P) BID (twice a day) PT Interventions: Balance, bed mobility, endurance, gait, strengthening, transfers Rehab Potential: Good Plan for next treatment: Next visit review precautions, progress mobility, practice car transfers and steps as able, and review/perform HEP. Physical Therapy Goals: 1. Pt will demonstrate understanding of all precautions during functional mobility. 2. Pt will perform all transfers with FWW and SBA to improve safety at home. 3. Pt will ambulate 50ft with FWW and SBA . 4. Pt will ambulate up and down 5 steps with CGA. 5. Pt will be independent with HEP per protocol. Occupation Therapy Inpatient Initial Assessment Date:05/29/24 Time in:1420 Time out:1440 Total treatment time:20 Diagnosis: right abductor tear Surgery: right abductor repair Past Medical History: Past Medical History: Diagnosis Date Arthritis Congestive heart failure Essential hypertension, benign GERD (gastroesophageal reflux disease) Hiatal hernia Hyperlipidemia Hypothyroidism Past Surgical History: Past Surgical History: Procedure Laterality Date SECTION CHOLECYSTECTOMY HIP REPLACEMENT Left KNEE REPLACEMENT Left KNEE SURGERY Left URETEROPLASTY Precautions: fall, anterior/lateral hip precautions, no active hip abduction, pillow Subjective:Pt is sitting up in recliner chair agreeable to session Orientation: x4, alert, following directions and good safety awareness Pain:8/10 Pre-Admission Living Environment: Patient lives: spouse Home environment: house Steps in home: 0 Steps to enter home: 5 Shower type/location: tub shower Pre-Admission Functional Status: Equipment in Home: walker, crutches, cane, tub transfer bench, hand held shower head, bedside commode, steel detailer, sock aid, long handled sponge, long handled shoe horn Prior level ADL function: Toileting:independent Bathing:independent Upper body dressing:independent Lower body dressing:independent Grooming:independent Current Functional Status: ROM:UE WFL Transfers: CGA Gait:CGA ADLS: Toileting:not completed Bathing:not completed Upper body dressing: independent in sitting Lower body dressing: mod assist in sitting and standing utilizing steel detailer Grooming:not completed OT Treatment Provided:OT evaluation and self care training Education: Pt instructed on LB dressing techniques donning disposable underwear and shorts CGA in sitting and standing utilizing steel detailer to maintain hip precautions and instruction on maintaining TTWB Assessment:Pt presents s/p abductor repair completed today. Pt is alert and following directions well. Pt demonstrates good safety awareness during session when completing transitional movements and transfers. Pt spouse could assist patient if needed upon returning home Discharge Recommendations: home Equipment Recommendations at Discharge: dressing stick OT Frequency: 7 times per week OT Interventions:ADL retraining, balance training and transfer training Rehab Potential:good Plan for next treatment: continue with AE training for bathing, dressing, bathroom transfers and hygiene training Occupational Therapy Goals: 1. Pt will complete LB dressing MOD I 2. Pt will complete sponge bathing MOD I 3. Pt will complete toileting MOD I 4. Pt will complete hygiene/grooming standing at sink MOD I 5. Pt will complete simulated tub/shower transfer SBA Physical Therapy Treatment Date:05/29/2024 Time in:1235 Time out:1330 Total treatment time:55 minutes Precautions:Fall, A/L hip precautions on R LE, TTWB, no active hip abd Subjective:Pt sitting in bedside chair upon arrival this session. Pt states starting to feel better with sleepiness, pain at 10/10 in R hip. Nursing staff states pt just received pain medication. Orientation: Pt alert and oriented x4 Pain:10/10 pain in R knee at start, improved to 8/10 in R hip following therapy tx Current Functional Status: ROM:Limited d/t A/L hip precautions in R hip Strength:fair in LE's, good in UE's Bed Mobility:SBA with leg communications tower climber Transfers:STS to FWW, CGA Gait:CGA x20ft x2 with TTWB, swing to pattern with no LOB noted Balance:fair Sensation:WFL PT Treatment Provided:Pt sitting in bedside chair upon arrival this session. Pt agreeable for therapy and pt states pain in R hip at 10/10 at beginning of therapy session. Pt began with STS to FWW, CGA and min verbal cues for proper body mechanics and hand placement. Pt then ambulated approx 20ft with slow and steady gait using swing to pattern with no LOB noted and pt managing TTWB on R LE well throughout. Pt then transferred to sitting in wheelchair and pt transported to therapy room. This LAND SURVEYING SURVEY WORKER then demonstrated proper technique for navigating steps with TTWB on R LE using R HR and axillary crutch. Pt then practiced steps x4 stairs with said technique with CGA and min verbal cues for proper sequencing with managing TTWB on R LE with no LOB noted. Pt then practiced modified car transfer with leg communications tower climber on R LE with good technique demonstrated. Reviewed protocol exercises and educated pt on completing QS and ankle pumps only at this time. Pt then transferred back to sitting in wheelchair and pt transported back towards room. Pt ambulated an additional 20ft with no LOB noted with TTWB on R LE. Pt transferred back to sitting in bedside chair with LE's elevated and call light left within reach with ice pack applied to R hip. Assessment:Pt moving well post op, becoming more alert and able to demonstrate good technique with transfers, gait, and steps while managing Wbing restrictions and precautions. Pt states that she has access to crutches at home for steps. Educated pt on completing AP's and QS only at this time. Plan for next treatment:Cont with protocol ex, transfers, and mobility if pt not discharged. Patient was assessed in [facility] on 05/25. Met with patient for follow up after surgery to discuss discharge plan. Patient states the plan is to discharge home with family/friends assistance. Patient has a wheeled walker and denies any additional equipment needs at this time. Nursing reports that the incision has been closed with sutures/dermabond, KAYLIE, 2 week follow-up appointment scheduled for 06/14 1pm. Informed patient of postop call tomorrow. Patient denies any other questions or needs at this time. THIS PATIENT HAS HAD ORTHOPEDIC SURGERY AND IS EXPECTED TO HAVE PAIN REQUIRING NARCOTICS FOR >7 DAYS AND MAY NEED UP TO 8 tabs of Tramadol PER DAY AND THEREFORE 20 tabs ARE BEING DISPENSED IN ACCORDANCE WITH POC DISCUSSED WITH DR PORTILLO. An additional 10 tabs of [place] are given as a rescue opiate. documented in this encounter [facility] 05-29-2024 Nurse Surgical operation note Discharge instructions reviewed per this RN with patient and . They deny any further questions at this time. Discharge packet given to patient for take home. [facility] 05-29-2024 Nurse Surgical operation note Patient to therapy room. Tolerated well. [facility] 05-29-2024 Hospital Discharg e instructions Maribell Saucedo RN - 05/29/2024 11:57 AM EST Diet: Resume diet tolerated. Medications: > Patients will be sent home with prescriptions, including medication for pain to be taken as directed. Stay ahead and do not allow your pain to get out of control. > If prescribed Aspirin, take twice a day for 30 days. Do not skip a dose, this is your medication for the prevention of blood clots. > If you have not had a bowel movement by your 3rd post-operative day you will need to use a gentle over the counter laxative such as Milk of magnesia, Fiberlax, Miralax, etc. Bowels need to move within 3 days or take action. Uriah Hose: > Help reduce the risk of blood clots and decrease swelling > To be worn bilaterally to the lower extremities for 30 days post-op > Patients can take their uriah hose off for 1 hour for every 8 hours that they wear them You will be discharged with two pairs of URIAH hose. Gel Ice Packs: > Change every 4 hours or as needed for swelling and pain for at least the first 2 weeks You will be discharged with six ice gel packs, and one ice gel compression wrap. Wound Care Instructions:Your incision is closed with Dermabond, this is a skin glue that will come off in time. You may shower with this, however, do NOT saturate or submerge extremity in water (i.e. Bathtub, hot tub, etc.) until cleared by the provider. Do not wash/scrub directly over/on your incision, simply allow the soapy water to run over it ensuring that it rinses well. Pat your incision dry, do not rub your incision with a towel. Do not place any lotions, ointments, creams or powder on your incision or operative leg. When applying your new ABD pad after showering as a reminder do not place any tape over you ABD pad. Your mesh underwear are to hold your pad in place. When to call us: If you have any concerns regarding your incision, please contact the office immediately. This includes areas of redness, drainage, or concerns for opening in the incision. You will be discharged with seven ABD pads. Ambulation: > Weight bearing status : toe touch weight bearing right lower extremity For Hip Replacements: > No formal physical therapy, walking is the patients best therapy, unless otherwise noted. > General Hip Precautions Post op (unless otherwise noted from the doctor): * Do not cross legs at knee or ankles * Do not bend past 90 degrees * Do not twist * May roll to side with pillow between legs Hip Precautions: Routine, CONTINUOUS for until specified, Do not flex hip more than 90 degrees Do not move leg past middle of the body Do not allow leg to roll outward (external rotation) No long strides when walking Do not use surgical leg to lift buttocks in bed Do not put patient in prone position Contact Office ([phone]) if: > Any falls or injuries > Redness, drainage or swelling at the incision site that is out of the ordinary from post-operative findings (minor redness, swelling and warmth around the entire knee are common post-operatively) > Patient non-compliance with assistive devices during gait > Fever > 101 degrees. For low grade fevers use Incentive Spirometry @ 10 puffs per hour and tylenol as directed. The morning after your discharge, Dr. Portillo's office will contact you to follow up with how your recovery is progressing at home. Anesthesia Precautions & Expectations: After anesthesia, rest for [address], drink alcoholic beverages or make any important decisions during this time. General anesthesia may cause a sore throat, jaw discomfort or muscle aches. These symptoms can last for one or two days. documented in this encounter [facility] 05-29-2024 Nurse Surgical operation note Patient voiced nausea better at this time. [facility] 05-29-2024 Nurse Surgical operation note Patient complains of nausea and dry heaving. Patient medicated for nausea and vomiting. [facility] 05-29-2024 Nurse Surgical operation note Discharged from PACU in stable condition at this time. Transported via cart to [facility] 1. Cart placed in lowest position. Call light within reach. Pulse ox and night monitor on pt with alarms set. Report given to BILLIE Eugene at bedside. No change in assessment from previous documentation. Abductor pillow in place. [facility] 05-29-2024 Surgery Postoperative evaluation and management note POST OPERATIVE/PROCEDURE NOTE Julia Gutierrez Cheek 63 y.o. female [id number] SURGEON Surgeons and Role: * Feliciano Portillo MD - Primary PATIENT SAFETY ATTENDANT Bessie Cardona ANESTHESIOLOGIST TROLLEY WORKER: Christine Griffin APRN-TROLLEY WORKER SURGICAL STAFF Carbide Tool Maker: Nia Keita RN; Elke Weaver RN; Louisa Macdonald RN Nurse Practitioner: Bessie Cardona Scrub Person: Evangelina Monroe; Briana Curtis RN PROCEDURE PERFORMED Procedure(s) (LRB): OPEN HIP ABDUCTOR TEAR REPAIR (Right) Periarticular injection right hip PRIMARY CLOSURE yes ANESTHESIA (type of) General ESTIMATED BLOOD LOSS Minimal, 50ml DRAINS none BLOOD PRODUCTS None PRE OPERATIVE DIAGNOSIS Tear of rotator cuff of right hip, initial encounter [S76.011A] POST OPERATIVE DIAGNOSIS Tear of rotator cuff of right hip, initial encounter [S76.011A] FINDINGS See op note CONDITION OF PATIENT Stable COMPLICATION No complications GRAFTS AND/OR IMPLANTS Implant Name Type Inv. Item Serial No. Dial Maker Lot No. LRB No. Used Action ANCHORS, 5.5 NON PUNCHING - [id number] ANCHORS, 5.5 NON PUNCHING HIST ARTHREX [id number] Right 4 Implanted SPECIMENS * No specimens in log * Bessie Cardona May 29, 2024 9:18 AM [facility] 05-29-2024 Miscellaneous Notes Formattin g of this note is different from the original. POST OPERATIVE/PROCEDURE NOTE Julia Chavarria 63 y.o. female [id number] SURGEON Surgeons and Role: * Feliciano Portillo MD - Primary PATIENT SAFETY ATTENDANT Bessie Cardona ANESTHESIOLOGIST TROLLEY WORKER: Christine Griffin APRN-TROLLEY WORKER SURGICAL STAFF Carbide Tool Maker: Nia Keita RN; Elke Weaver RN; Louisa Macdonald RN Nurse Practitioner: Bessie Cardona Scrub Person: Evangelina Monroe; Briana Curtis RN PROCEDURE PERFORMED Procedure(s) (LRB): OPEN HIP ABDUCTOR TEAR REPAIR (Right) Periarticular injection right hip PRIMARY CLOSURE yes ANESTHESIA (type of) General ESTIMATED BLOOD LOSS Minimal, 50ml DRAINS none BLOOD PRODUCTS None PRE OPERATIVE DIAGNOSIS Tear of rotator cuff of right hip, initial encounter [S76.011A] POST OPERATIVE DIAGNOSIS Tear of rotator cuff of right hip, initial encounter [S76.011A] FINDINGS See op note CONDITION OF PATIENT Stable COMPLICATION No complications GRAFTS AND/OR IMPLANTS Implant Name Type Inv. Item Serial No. Dial Maker Lot No. LRB No. Used Action ANCHORS, 5.5 NON PUNCHING - [id number] ANCHORS, 5.5 NON PUNCHING HIST ARTHREX [id number] Right 4 Implanted SPECIMENS * No specimens in log * Bessie Cardona May 29, 2024 9:18 AM 05/25/24 1045 Referral Information Arrived From home or self-care Information Source Information Source patient Contact Information This Etcher [employer] is Primary Maintenance Mgr/SW Yes Maintenance Mgr Name Belinda Up RNdistrict extension service agent's Phone Number [phone] Living Environment Lives With spouse ( Howie) Living Arrangement and Set Up house (2 story home, one level living, 5 steps to enter the home) Provides Primary Care For no one Primary Care Provided By self Support System Immediate family;Extended family;Friends Able to Return to Prior Arrangements yes Functional Status Patient's Functional Status Prior To This Admission? Independent Concerns With Patient Being Able To Care For Themselves At Discharge? Has Assistance (Friend, Family, Skilled Provider) Can Support Person Meet The Care Needs Of The Patient? Yes Employment/Financial Employed? Retired Employment/Financial Concerns no Financial Concerns none Initial Discharge Planning DME (LAND SURVEYING SURVEY WORKER) Walker Patient Goal for Discharge Return home with assistance from family and friends (travel, no pain and able to attend to hobbies) Expected Discharge Disposition Home Anticipated Services at Discharge Outpatient follow up Transportation Available car;family or friend will provide Assessment/Concerns to be Addressed Concerns To Be Addressed no discharge needs identified;denies needs/concerns at this time CM met with patient this date to discuss post-surgical discharge plans. Patient states the plan is to discharge home with family/friends assistance. Patient has a wheeled walker. Patient denies any other questions or needs at this time. CM to continue to follow and assist with discharge plans. documented in this encounter [facility] 05-29-2024 Nurse Surgical operation note OR 2 Temperature 64.2F Humidity 43.4% [facility] 05-25-2024 Nurse Note 05/25/24 1045 Referral Information Arrived From home or self-care Information Source Information Source patient Contact Information This [employer] is Primary Maintenance Mgr/SW Yes Maintenance Mgr Name Belinda Up RNdistrict extension service agent's Phone Number [phone] Living Environment Lives With spouse ( Howie) Living Arrangement and Set Up house (2 story home, one level living, 5 steps to enter the home) Provides Primary Care For no one Primary Care Provided By self Support System Immediate family;Extended family;Friends Able to Return to Prior Arrangements yes Functional Status Patient's Functional Status Prior To This Admission? Independent Concerns With Patient Being Able To Care For Themselves At Discharge? Has Assistance (Friend, Family, Skilled Provider) Can Support Person Meet The Care Needs Of The Patient? Yes Employment/Financial Employed? Retired Employment/Financial Concerns no Financial Concerns none Initial Discharge Planning DME (LAND SURVEYING SURVEY WORKER) Walker Patient Goal for Discharge Return home with assistance from family and friends (travel, no pain and able to attend to hobbies) Expected Discharge Disposition Home Anticipated Services at Discharge Outpatient follow up Transportation Available car;family or friend will provide Assessment/Concerns to be Addressed Concerns To Be Addressed no discharge needs identified;denies needs/concerns at this time CM met with patient this date to discuss post-surgical discharge plans. Patient states the plan is to discharge home with family/friends assistance. Patient has a wheeled walker. Patient denies any other questions or needs at this time. CM to continue to follow and assist with discharge plans. [facility] 05-18-2024 History of Presen t illness Narrative Ortho Nurse - Established Patient Intake Room#: room 2--- pt here today for MRI review of the right hip. We last saw her in office on 02/10/24 and prescribed Meloxican and formal PT. She finished 16 sessions of PT and finished her script of Meloxicam. She feels these both did help some but is still having the discomfort in buttocks. We discussed gluteal cuff tendonitis at the last OV. She states her pain increased when picking up items and standing too long. She is here to discuss her MRI and possibly schedule surgery. Her pain is a 4/10 today. Date: 05/18/2024 8:55 AM Patient: Julia Chavarria MR#: [id number] : 1960 Age: 63 y.o. Referring Physician: Feliciano Portillo MD Insurance: Payor: [employer] [facility] / Plan: [facility] / Product Type: *No Product type* / Chief Complaint Patient presents with Right Hip - MRI Results There were no vitals taken for this visit. Pain 1. Are you having pain? 2. On a scale from 1-10: Recent Labs No results found for: CRP No results found for: SEDRATE Lab Results Component Value Date WBC 6.6 11/17/2000 HGB 12.9 11/17/2000 HCT 37.7 11/17/2000 PLATELET 224 11/17/2000 MCV 92.8 11/17/2000 History Past Medical History: Diagnosis Date Arthritis No past surgical history on file. Family History: Her family history includes Cancer- Other in her mother; Heart Failure in her paternal grandfather; Sudden Cardiac in her father. Social History: Her reports that she quit smoking about 29 years ago. Her smoking use included cigarettes. She does not have any smokeless tobacco history on file. She reports that she does not currently use alcohol. She reports that she does not use drugs. Outpatient Medications Prior to Visit Medication Sig Dispense Refill acetaminophen 500 MG tablet Take 1 tablet by mouth Every 6 hours as needed. calcium carbonate 1500 (600 Ca) MG tablet 1 (one) time each day at the same time cholecalciferol (D2000 Ultra Strength) 50 MCG (2000 UT) capsule Take 1 capsule by mouth daily. Cyanocobalamin 1000 MCG/ML Solution Inject 1 mL intramuscularly every 30 days. dexAMETHasone 4 MG/ML Solution injection 1 mL by Other route As directed for 18 doses. (1 cc 3 x a week at physical therapy via iontophoresis) for up to 18 doses. 30 mL 0 Ferrous Sulfate (IRON PO) Take 1 tablet by mouth daily. Gemfibrozil 600 MG tablet Take 1 tablet by mouth 2 times daily. irbesartan 150 MG tablet Take 1 tablet by mouth daily. Levothyroxine 125 MCG tablet Take 1 tablet by mouth daily. Meloxicam 15 MG tablet Take 1 tablet by mouth daily. Take with food 30 tablet [address] omep[address] capsule Take 1 capsule by mouth daily. POTASSIUM PO 1 (one) time each day at the same time No facility-administered medications prior to visit. Allergies: She is allergic to sulfamethoxazole-trimethoprim and sulfa antibiotics. HPI: Julia is an established patient of [facility], here today for right hip pain. She is an established patient of [facility]. Primary complaint is pain, impairment and a decrease in quality of life secondary to the right hip pain. The pain radiates locally and is not associated with numbness or tingling. Various methods of conservative treatment in the past including 16 recent physical therapy sessions and Meloxicam with no relief. Her pain is a 4 on a 10 point scale today. At this time, she is weary of her symptoms and is here today to discuss continued options for pain relief. PHYSICAL EXAM: This is an alert, oriented, and age-appropriate female. She is in no distress. Pleasant and cooperative. Lower extremities have no gross deformity. Normal stability. 5/5 motor. Intact sensation. Normal coordination. Skin intact. right hip demonstrates full flexion, full internal rotation, full external rotation. Painful range of motion. Inability to hold pelvis neutral during right one legged stance. Contralateral hip has full and supple motion. No pain. No impingement. No instability. Normal neurovascular status in lower extremities bilaterally. IMAGING: MRI right hip 05/04/24 1. Partial-thickness/high-grade tearing of the right gluteus medius tendon. 2. Sigmoid diverticulosis. No diverticulitis. 3. No acute fractures. 4. Overlying bowel gas pattern is nonspecific and nonobstructive. 5. Other findings as described 6. Moderate right gluteal fatty atrophy Plain film radiographs were reviewed. AP hip and pelvis series demonstrate mild arthritis to right hip, loss of joint space, subchondral sclerosis, osteophyte formation, and [id number] contact. Plain film radiographs reviewed. She has a left total hip arthroplasty with abductor repair in good position and alignment. No evidence of prosthetic implant loosening or migration. IMPRESSION: 1.) Stable status post left anterolateral total hip arthroplasty 2.) High grade right gluteus medius tendon tearing 3.) Right moderate gluteal fatty atrophy 4.) Mild right hip arthritis PLAN: We have discussed in great detail the nature of the diagnosis, the natural history and expected progression which is likely worsening pain, atrophied muscles, snf loss of muscle, weakness, worsening instability with risks of falls which could be limb and life threatening. We have discussed the options for treatment including both conservative and operative treatments. We have discussed the risks, benefits, and alternatives to each treatment. The patient has been apprised of the lack of well published data surrounding repair of hip abductor muscle tears. Mischele understands the potential success of treatment of this condition based on the historical treatment utilizing an open approach involving sutures and anchors. Misjeffreyle understands the restrictions and postoperative expectations for recovery. Misjeffreyle also understands current medical literature has limited published data on this subject however what is available shows promising outcomes following surgery of this nature. Mischele understands that the potential benefits are reduced pain, improved stability and improved function. Mischele understands the complex nature of surgery and that the elevated major life or limb threatening risks that include, but are not limited to: bleeding, infection, neurovascular injury including foot drop or paralysis, further ligament or tendon disruption, fracture, stiffness, chronic pain, chronic disability, need for further surgery, blood clots in the extremities or lungs, stroke, heart attack, loss of limb, and ultimately loss of life. Despite these risks, the patient would like to proceed with surgical planning for right open abductor muscle repair. Today, we will initiate the pre-surgical process including nasal MRSA screening, scheduling an appointment for [facility] and the potential surgical date, and reviewing and signing the consent forms. I have reviewed the findings of my clinical staff below and agree with their assessment. Vitals: 05/18/24 0855 Weight: 78 kg (172 lb) Height: 1.626 m (5' 4 ) Pain Recent Labs No results found for: CRP No results found for: SEDRATE Lab Results Component Value Date WBC 6.6 11/17/2000 HGB 12.9 11/17/2000 HCT 37.7 11/17/2000 PLATELET 224 11/17/2000 MCV 92.8 11/17/2000 Past Medical History: Diagnosis Date Arthritis No past surgical history on file. Family History Problem Relation Age of Onset Cancer- Other Mother Carcinoid tumor Sudden Cardiac Father 09-24-1981 age 48 Heart Failure Paternal Grandfather Social History Socioeconomic History Marital status: Tobacco Use Smoking status: Former Current packs/day: 0.00 Types: Cigarettes Quit date: 08/12/1994 Years since quittin.7 Smokeless tobacco: Never Substance and Sexual Activity Alcohol use: Not Currently Comment: Have drink in 20 years Drug use: Never Sexual activity: Yes Partners: Male control/protection: None Other Topics Concern Occupational Exposure No Hobby Hazards No Social Determinants of Health Housing Stability: Unknown (02/10/2024) Housing Stability Vital Sign Unable to Pay for Housing in the Last Year: No Unstable Housing in the Last Year: No Current Outpatient Medications: acetaminophen 500 MG tablet, Take 1 tablet by mouth Every 6 hours as needed., Disp: , Rfl: calcium carbonate 1500 (600 Ca) MG tablet, 1 (one) time each day at the same time, Disp: , Rfl: cholecalciferol (D2000 Ultra Strength) 50 MCG (2000 UT) capsule, Take 1 capsule by mouth daily., Disp: , Rfl: Cyanocobalamin 1000 MCG/ML Solution, Inject 1 mL intramuscularly every 30 days., Disp: , Rfl: dexAMETHasone 4 MG/ML Solution injection, 1 mL by Other route As directed for 18 doses. (1 cc 3 x a week at physical therapy via iontophoresis) for up to 18 doses., Disp: 30 mL, Rfl: 0 Gemfibrozil 600 MG tablet, Take 1 tablet by mouth 2 times daily., Disp: , Rfl: irbesartan 150 MG tablet, Take 1 tablet by mouth daily., Disp: , Rfl: Levothyroxine 125 MCG tablet, Take 1 tablet by mouth daily., Disp: , Rfl: omeprazole [address] capsule, Take 1 capsule by mouth daily., Disp: , Rfl: Ferrous Sulfate (IRON PO), Take 1 tablet by mouth daily., Disp: , Rfl: Meloxicam 15 MG tablet, Take 1 tablet by mouth daily. Take with food (Patient not taking: Reported on 05/18/2024), Disp: 30 tablet, Rfl: 1 POTASSIUM PO, 1 (one) time each day at the same time, Disp: , Rfl: Allergies Allergen Reactions Sulfamethoxazole-Trimethoprim Other Reaction(s): Other (See Comments) Sulfa Antibiotics Hives and Rash documented in this encounter [facility] 04-24-2024 History of Presen t illness Narrative Physical Therapy Treatment Visit Patient Name: Julia Chavarria Today's Date: 04/24/2024 Encounter Diagnoses Name Primary? Chronic right hip pain Yes Chronic gluteal pain Muscle weakness of lower extremity Visit number: 16 Timed Code Treatment: 44 minutes Total Treatment Time: 64 minutes Time In: 07:35 AM Time Out: 08:39 AM History: Pt is a 63 year old female referred to PT for R hip pain. Pt states pain started about 2 years ago while working but went away. About 9 months ago started getting more pain in the buttock and posterior hip. Pt has since been to 7 doctors to determine cause of the pain. Pt referred from Dr Portillo; pt states an MRI was completed and said there is a torn gluteal muscle -states it doesn't need fixed as it is not affecting the tendons or ligaments. Pain radiates down to the knee. Disrupts sleep, gets cramps often in her hamstrings. Hurts to sit on the right side. Unable to walk very long. No current exercise program. Started on Mobic 3 days ago. Takes Tylenol frequently. Precautions: universal Subjective: Pt. Reports she has hit a plateau with her progress. Continues to have buttock pain throughout the day. Reports bursea/lateral hip pain is feeling a lot better. Is compliant with HEP. Pain: variable 2-6/10 Objective: PT Evaluation (02/16/2024) Gait: severe antalgic gait; decreased WB on R LE, decreased hip extension. Posture: sits and stands w/ weight shifted onto her left. Palpation: TTP w/ hypersensitivity at L glute pocket area , glute med, L greater trochanter, L lateral knee. Hip Mobility: R hip extension to neutral R hip flexion 80 degrees -empty end feel w/ gluteal pain R SLR 50 degrees -stopped due to gluteal pain R hip IR/ER are WFL, no pain Strength: R Hip flexion and abduction 3+/5 - painful R hip extension 2+/5, painful R knee 4/5 Treatment: Manual Therapy: (10 minutes): Delivered manual ther pt prone and side lying: performed STM to gluteal region and lateral R hip graded increasing pressure to tolerance to reduce pain and spasm and increase tissue mobility. Supine manual gentle glute/hip stretching completed to improve muscle flexibility and motion Therapeutic Exercise: (20 minutes supervised) Guided pt through ther and flex ex per grid focusing on improving R hip/ glute functional mobility and strength within pt tolerance. (Nustep 5 minutes unsupervised) Therapeutic Activity: (13 minutes supervised ) Exercises to improve dynamic activities, functional tasks, functional mobility to return to prior activity level Neuromuscular re-education: Modalities: (15 minutes) Pt prone at end of session: applied IFC w/ MHP to upper/lateral gluteal region to reduce pain DN performed by Petar Olivares, PT: pt in L side lying 3 needles R greater trochanteric protocol, 2 needles R SI joint(HELD) Assessment: Outcome Measure: LEFS Rehab Diagnosis: chronic gluteal pain, chronic R hip pain, weakness of R LE. Pt has participated in 16 PT session since start of care on 02/16/2024 for R gluteal/hip pain. Pt demonstrates increased walking speed and less limping gait pattern. Improved ROM of right hip and LE hip strength 4/5. Pt feels 80% improvement towards LTGs. Pt. Will be discharged due to maximal potiental met toward PT goals. Pt. Demonstrates less limping gait pattern and overall feeling/moving better but continues to have buttock/SIJ pain and area with very TTP. Pt. About jumps off table to too much pressure is applied. Ended session with IFC/MHP Short Term Goal: To be met in 2 weeks Goal 1: Pt to be instructed in home exercise program. [facility] Goals: To be met in 10 weeks Goal 1: Pt to report independence and compliance with home program. - 100% Goal 2: Pt will report 4/10 pain or less in R gluteal region and hip to improve activity tolerance and allow pt to return to PLOF.- 80% Goal 3: Pt will be able to stand and walk greater than 10 minutes to allow her to return to normal activities and improve QOL. - 75% Goal 4: Pt will have full ROM of R hip to allow her to dress, transfer, and perform household tasks without pain. 70% Goal 5: Pt will increase R hip strength to 4+/5 grossly to increase functional strength and mobility. -70% (Grossly 4-/5) Goal 6: Pt will improve LEFS to 60/80 or better to indicate improved activity tolerance and return to PLOF. - 70% (42/80) Pt will benefit from skilled PT for 2-3x/week from 02/16/2024 to 04/26/2024 to address the above impairments. Recommend to continue PT at 1x per week for additional 4 weeks. () I hereby deem this POC medically necessary. Please sign below. Date: documented in this encounter [facility] 03-27-2024 History of Presen t illness Narrative Physical Therapy Progress Visit Patient Name: Julia Chavarria Today's Date: 03/27/2024 Encounter Diagnoses Name Primary? Chronic right hip pain Yes Chronic gluteal pain Muscle weakness of lower extremity Visit number: 11 Timed Code Treatment Minutes: 40 minutes Total Treatment Time: 60 minutes Time In: 08:30 AM Time Out: 09:30 AM History: Pt is a 63 year old female referred to PT for R hip pain. Pt states pain started about 2 years ago while working but went away. About 9 months ago started getting more pain in the buttock and posterior hip. Pt has since been to 7 doctors to determine cause of the pain. Pt referred from Dr Portillo; pt states an MRI was completed and Dr said there is a torn gluteal muscle -states it doesn't need fixed as it is not affecting the tendons or ligaments. Pain radiates down to the knee. Disrupts sleep, gets cramps often in her hamstrings. Hurts to sit on the right side. Unable to walk very long. No current exercise program. Started on Mobic 3 days ago. Takes Tylenol frequently. Precautions: universal Subjective: Pt. Reports she is walking better and having less hip pain throughout the day. Pleased with her progress. Minimal pain most of the day. Pain: at rest 2/10, 6/10 at worse post activity stairs, prolong amb Objective: PT Evaluation (02/16/2024) Gait: severe antalgic gait; decreased WB on R LE, decreased hip extension. Posture: sits and stands w/ weight shifted onto her left. Palpation: TTP w/ hypersensitivity at L glute pocket area , glute med, L greater trochanter, L lateral knee. Hip Mobility: R hip extension to neutral R hip flexion 80 degrees -empty end feel w/ gluteal pain R SLR 50 degrees -stopped due to gluteal pain R hip IR/ER are WFL, no pain Strength: R Hip flexion and abduction 3+/5 - painful R hip extension 2+/5 - painful R knee 4/5 Treatment: Manual Therapy: (15 minutes): Delivered manual ther pt prone and side lying: performed STM to gluteal region and lateral R hip graded increasing pressure to tolerance to reduce pain and spasm and increase tissue mobility. Supine manual gentle glut/hip stretching completed to improve muscle flexibility and motion Therapeutic Exercise: (25 minutes supervised) Guided pt through ther and flex ex per grid focusing on improving R hip/ glute functional mobility and strength within pt tolerance. Therapeutic Activity: Exercises to improve dynamic activities, functional tasks, functional mobility to return to prior activity level Neuromuscular re-education: Modalities: (15 minutes) Pt prone at end of session: applied IFC w/ MHP to upper/lateral gluteal region to reduce pain; MHP along HS also to reduce muscle tension and spasms. DN performed by Petar Olivares, PT: pt in L side lying 3 needles R greater trochanteric protocol, 2 needles R SI joint(HELD) Assessment: Outcome Measure: LEFS Rehab Diagnosis: chronic gluteal pain, chronic R hip pain, weakness of R LE. Pt has participated in 11 PT session since start of care on 02/16/2024 for R gluteal/hip pain. Pt. Demonstrates increased walking speed and less limping gait pattern, demonstrates good hip ROM and flexibility but needs to continue to improve hip strength to improve her full functional mobility. Ended session with IFC/MHP Short Term Goal: To be met in 2 weeks Goal 1: Pt to be instructed in home exercise program. [facility] Goals: To be met in 10 weeks Goal 1: Pt to report independence and compliance with home program. - 100% Goal 2: Pt will report 4/10 pain or less in R gluteal region and hip to improve activity tolerance and allow pt to return to PLOF.- 50% Goal 3: Pt will be able to stand and walk greater than 10 minutes to allow her to return to normal activities and improve QOL. - 50% Goal 4: Pt will have full ROM of R hip to allow her to dress, transfer, and perform household tasks without pain. Goal 5: Pt will increase R hip strength to 4+/5 grossly to increase functional strength and mobility. - 70% (Grossly 4-/5) Goal 6: Pt will improve LEFS to 60/80 or better to indicate improved activity tolerance and return to PLOF. - 70% (42/80) Pt will benefit from skilled PT for 2-3x/week from 02/16/2024 to 04/26/2024 to address the above impairments. Recommend to continue PT at 1x per week for additional 4 weeks. () I hereby deem this POC medically necessary. Please sign below. Date: documented in this encounter [facility] 02-10-2024 History of Presen t illness Narrative Ortho Nurse - Established Patient Intake Room#: 3 - Present in office today as new patient for right hip pain x 9 months. Patient reports no fall/injury. Patient reports 3-10 pain at rest and with movement 10-10 pain. Patient has tried injection x 3 months ago with little relief. Patient has not tried PT. Date: 02/10/2024 3:11 PM Patient: Julia Chavarria MR#: [id number] : 1960 Age: 63 y.o. Referring Physician: Sammie Duong Jr., DO Insurance: Payor: [employer] / Plan: [facility] / Product Type: *No Product type* / Chief Complaint Patient presents with Right Hip - Pain, New Patient There were no vitals taken for this visit. Pain Recent Labs No results found for: CRP No results found for: SEDRATE Lab Results Component Value Date WBC 6.6 11/17/2000 HGB 12.9 11/17/2000 HCT 37.7 11/17/2000 PLATELET 224 11/17/2000 MCV 92.8 11/17/2000 History No past medical history on file. No past surgical history on file. Family History: Her family history is not on file. Social History: Her has no history on file for tobacco use, alcohol use, and drug use. No outpatient medications prior to visit. No facility-administered medications prior to visit. No current outpatient medications on file. Allergies: She has no allergies on file. HPI: Julia is a new patient of [facility], here today for right hip pain. Primary complaint is pain, impairment and a decrease in quality of life secondary to the right hip pain. The pain radiates locally and is not associated with numbness or tingling. She is experiencing locking, popping, catching and clicking. Patient has tried injection x 3 months ago with little relief. Patient has not tried PT. Her pain is a 10 on a 10 point scale today. She has a L MARIZOL. At this time, she is weary of her symptoms and is here today to discuss scheduling a right total hip arthroplasty for optimal snf management. PHYSICAL EXAM: This is an alert, oriented, and age-appropriate female. She is in no distress. Pleasant and cooperative. EXTREMITIES: The upper extremities have no gross deformity. Normal stability. 5/5 motor. Intact sensation. Normal coordination. Skin intact. Lower extremities have no gross deformity. Normal stability. 5/5 motor. Intact sensation. Normal coordination. Skin intact. right hip demonstrates strong flexion and good rotation. Painful range of motion. Contralateral hip has full and supple motion. Pelvis drops some with single leg stance. No pain. No impingement. No instability. Normal neurovascular status in lower extremities bilaterally. IMAGING: Plain film radiographs were reviewed. AP hip and pelvis series demonstrate mild arthritis to right hip, loss of joint space, subchondral sclerosis, osteophyte formation, and [id number] contact. Plain film radiographs reviewed. She has a left total hip arthroplasty with abductor repair in good position and alignment. No evidence of prosthetic implant loosening or migration. IMPRESSION: 1.) Stable status post left anterolateral total hip arthroplasty 2.) Gluteal cuff tendonitis, right hip. PLAN: I have reviewed my findings with patient. We have gone over the diagnosis, the radiographs, physical exam findings and treatment options. We discussed the nature of arthritis and its associated symptoms. We then discussed conservative vrs surgical interventions along with the pros and cons of each method. For today, she desires to proceed with treatment in the form of physical therapy and anti-inflammatory medications. She is in agreement with this and we will put in a referral for formal PT for gluteal cuff tendonitis and a script for Mobic. In the future, we can consider a total knee arthroplasty if this conservative management fails. All questions were answered today. She has no further questions. I will see the patient back in 6-8 if her symptoms persist and we will repeat an MRI of the right hip to check the abductor muscles discuss surgery. I have reviewed the findings of my clinical staff below and agree with their assessment. Vitals: 02/10/24 1517 Weight: 78 kg (172 lb) Height: 1.626 m (5' 4 ) Pain Presence of Pain: reports pain/discomfort Pain Location: hip, right [facility] Pain Scale: DVPRS (Defense and Veterans Pain Rating Scale) (Adult-Cognitively Intact) Pain Location: hip, right [facility] Pain Scale: DVPRS (Defense and Veterans Pain Rating Scale) (Adult-Cognitively Intact) Recent Labs No results found for: CRP No results found for: SEDRATE Lab Results Component Value Date WBC 6.6 11/17/2000 HGB 12.9 11/17/2000 HCT 37.7 11/17/2000 PLATELET 224 11/17/2000 MCV 92.8 11/17/2000 Past Medical History: Diagnosis Date Arthritis No past surgical history on file. Family History Problem Relation Age of Onset Cancer- Other Mother Carcinoid tumor Sudden Cardiac Father 09-24-1981 age 48 Heart Failure Paternal Grandfather Social History Socioeconomic History Marital status: Tobacco Use Smoking status: Former Current packs/day: 0.00 Types: Cigarettes Quit date: 08/12/1994 Years since quittin.5 Substance and Sexual Activity Alcohol use: Not Currently Comment: Have drink in 20 years Drug use: Never Sexual activity: Yes Partners: Male control/protection: None Other Topics Concern Occupational Exposure No Hobby Hazards No Social Determinants of Health Housing Stability: Unknown (02/10/2024) Housing Stability Vital Sign Unable to Pay for Housing in the Last Year: No Unstable Housing in the Last Year: No Current Outpatient Medications: acetaminophen 500 MG tablet, Take 1 tablet by mouth Every 6 hours as needed., Disp: , Rfl: calcium carbonate 1500 (600 Ca) MG tablet, 1 (one) time each day at the same time, Disp: , Rfl: cholecalciferol (D2000 Ultra Strength) 50 MCG (2000 UT) capsule, Take 1 capsule by mouth daily., Disp: , Rfl: Cyanocobalamin 1000 MCG/ML Solution, Inject 1 mL intramuscularly every 30 days., Disp: , Rfl: Ferrous Sulfate (IRON PO), Take 1 tablet by mouth daily., Disp: , Rfl: Gemfibrozil 600 MG tablet, Take 1 tablet by mouth 2 times daily., Disp: , Rfl: irbesartan 150 MG tablet, Take 1 tablet by mouth daily., Disp: , Rfl: Levothyroxine 125 MCG tablet, Take 1 tablet by mouth daily., Disp: , Rfl: omeprazole [address] capsule, Take 1 capsule by mouth daily., Disp: , Rfl: POTASSIUM PO, 1 (one) time each day at the same time, Disp: , Rfl: Allergies Allergen Reactions Sulfamethoxazole-Trimethoprim Other Reaction(s): Other (See Comments) Sulfa Antibiotics Hives and Rash documented in this encounter [facility] 08-04-2023 Evaluation note Encounter Date Diagnosis Assessment [...] Above note written by Jer Sepulveda MA, Baller Tender. Edited and approved by Dr. Ramu Mancuso MD. [facility] Other 01-15-2024 Evaluation note* Encounter Date Diagnosis [...] Above note written by Jer Sepulveda MA, Baller Tender. Edited and approved by Dr. Ramu Mancuso [...] negative findings were considered in medical decision-making. [facility] Other 12-13-2023 Evaluation note* Encounter Date Diagnosis Assessment Notes Treatment Notes Treatment Clinical Notes Jun, Right hip pain (ICD-10 - M25.551) Jun, Primary osteoarthritis of right hip (ICD-10 - M16.11) 13 Dec, 2023 Greater trochanteric bursitis of right hip (ICD-10 [...] SI joint and right bursa steroid injections. [facility] Other 05-23-2022 Evaluation note* Encounter Date Diagnosis [...] as documented in the electronic medical record. [facility] Other 05-02-2022 Evaluation note* Encounter Date Diagnosis Assessment Notes Treatment Notes Treatment Clinical Notes November, Right hand pain (ICD-10 - M79.641) November, Trigger finger of right thumb (ICD-10 - M65.311) Mischele presents with right thumb trigger finger. This [...] poor healing. I have advised against the snf use of narcotic pain medication. I have [...] as documented in the electronic medical record. [facility] Other 03-31-2022 Evaluation note* Encounter Date Diagnosis [...] right. I explained to her the issues [facility] Other 02-21-2022 Evaluation note* Encounter Date Diagnosis Assessment Notes Treatment Notes Treatment Clinical Notes Aug, Left carpal tunnel syndrome (ICD-10 - G56.02) Patient will begin to increase use of her hand, she will still keep it covered and protected to keep it mostly dry and we will see her back in 1 month's time. [facility] Other 12-28-2021 Evaluation note* Encounter Date Diagnosis [...] would like to proceed with surgical intervention. [facility] Other 11-19-2021 Evaluation note* Encounter Date Diagnosis [...] has been discussed and a referral given. [place] [employer] Other evaluation noteNo assessment information available [facility] noteNo InformationNortExcela [facility] [employer] Other evaluation note* Diagnosis Onset Date Resolution Status Lumbar spondylosis with myelopathy acute Other chronic pain acute Sacroiliitis acute Lumbar spondylosis with myelopathy acute Other chronic pain acute Sacroiliitis acute [facility] Work Phone: Evaluation note* Diagnosis Onset Date Resolution Status Lumbar spondylosis with myelopathy acute Other chronic pain acute Sacroiliitis acute Lumbar spondylosis with myelopathy acute Other chronic pain acute Sacroiliitis acute Bursitis, trochanteric acute Osteoarthritis of right hip acute Sacroiliitis acute Spondylosis of lumbar region without myelopathy or radiculopathy acute [facility] Work Phone: Evaluation note* Diagnosis Right hip pain- Primary Pain in joint, pelvic region and thigh documented in this encounter [facility]* Diagnosis Chronic right hip pain- Primary Chronic gluteal pain Muscle weakness of lower extremity Muscle weakness (generalized) documented in this encounter [facility] Healthcare[facility]* Diagnosis Chronic right hip pain- Primary Chronic gluteal pain Muscle weakness of lower extremity Muscle weakness (generalized) documented in this encounter [facility] HealthcareEvaluation note* Diagnosis Right hip pain Pain in joint, pelvic region and thigh documented in this encounter [facility]* Diagnosis Right hip pain- Primary Pain in joint, pelvic region and thigh Tear of rotator cuff of right hip, initial encounter documented in this encounter [facility]* Diagnosis Acute postoperative pain of right hip- Primary documented in this encounter [facility]* Diagnosis Chronic right hip pain- Primary Chronic gluteal pain Muscle weakness of lower extremity Muscle weakness (generalized) [facility] Diagnosis Tear of right gluteus minimus tendon, initial encounter- Primary documented in this encounter [facility]* Diagnosis Chronic right hip pain- Primary Chronic gluteal pain Muscle weakness of lower extremity Muscle weakness (generalized) [facility] Diagnosis Chronic right hip pain- Primary Chronic gluteal pain Muscle weakness of lower extremity Muscle weakness (generalized) documented [facility] Diagnosis Chronic right hip pain- Primary Chronic gluteal pain Muscle weakness of lower extremity Muscle weakness (generalized) documented [facility] Diagnosis Tear of right gluteus minimus tendon, initial encounter- Primary documented in this encounter [facility]* Diagnosis Chronic right hip pain- Primary Strain of muscle, fascia and tendon of right hip, initial encounter Muscle weakness of lower extremity Muscle weakness (generalized) [facility] Diagnosis Strain of muscle, fascia and tendon of right hip, initial encounter- Primary Chronic right hip pain Muscle weakness of lower extremity Muscle weakness (generalized) documented [facility] Diagnosis Strain of muscle, fascia and tendon of right hip, initial encounter- Primary Chronic right hip pain Muscle weakness of lower extremity Muscle weakness (generalized) documented [facility] Diagnosis Strain of muscle, fascia and tendon of right hip, initial encounter- Primary Chronic right hip pain Muscle weakness of lower extremity Muscle weakness (generalized) Chronic gluteal pain documented [facility] Diagnosis Strain of muscle, fascia and tendon of right hip, initial encounter- Primary Chronic right hip pain Muscle weakness of lower extremity Muscle weakness (generalized) Chronic gluteal pain documented [facility] Diagnosis Strain of muscle, fascia and tendon of right hip, initial encounter- Primary Chronic right hip pain Muscle weakness of lower extremity Muscle weakness (generalized) Chronic gluteal pain documented [facility] Diagnosis Strain of muscle, fascia and tendon of right hip, initial encounter- Primary Chronic right hip pain Muscle weakness of lower extremity Muscle weakness (generalized) Chronic gluteal pain documented [facility] Diagnosis Strain of muscle, fascia and tendon of right hip, initial encounter- Primary Chronic right hip pain Muscle weakness of lower extremity Muscle weakness (generalized) Chronic gluteal pain documented [facility] Diagnosis Strain of muscle, fascia and tendon of right hip, initial encounter- Primary Chronic right hip pain Muscle weakness of lower extremity Muscle weakness (generalized) Chronic gluteal pain documented [facility] Diagnosis Strain of muscle, fascia and tendon of right hip, initial encounter- Primary Chronic right hip pain Muscle weakness of lower extremity Muscle weakness (generalized) Chronic gluteal pain documented [facility] Diagnosis Strain of muscle, fascia and tendon of right hip, initial encounter- Primary Chronic right hip pain Muscle weakness of lower extremity Muscle weakness (generalized) Chronic gluteal pain documented [facility] Diagnosis Strain of muscle, fascia and tendon of right hip, initial encounter- Primary Chronic right hip pain Muscle weakness of lower extremity Muscle weakness (generalized) Chronic gluteal pain documented [facility] Diagnosis Strain of muscle, fascia and tendon of right hip, initial encounter- Primary Chronic right hip pain Muscle weakness of lower extremity Muscle weakness (generalized) Chronic gluteal pain documented [facility]* Diagnosis Strain of gluteus medius, right, initial encounter- Primary documented in this encounter [facility] general Narrative - Reported* Type Description Date [...] total hip 12/03/20 Hospitalization History see above [facility] Other reason for referral (narrative)* Consultation (Routine) - Patient to Arrange Specialty Diagnoses / Procedures Referred By Wesley slaughter Referred To Contact Physical Therapy Diagnoses Tear of right gluteus minimus tendon, initial encounter Bessie Cardona Trell [address] [place] [address] Referral ID Status Reason Start Date Expiration Date V isits Requested Visits Authorized [id number] Patient to Arrange 07/19/2024 08/13/2025 1 1 Scheduling Instructions . * Diagnostic X-Ray (Routine) - New Request Specialty Diagnoses / Procedures Referred By Wesley slaughter Referred To Contact Diagnoses Tear of right gluteus minimus tendon, initial encounter Procedures XR HIP WITH PELVIS RIGHT DonnycheryleDerrickcarla Cai [address] [place] [address] Referral ID Status Reason Start Date Expiration Date V isits Requested Visits Authorized [id number] New Request 07/17/2024 08/11/2025 1 1 [facility] for visit Narrative* Rehabilitation - Outpatient (Routine) - Authorized Specialty Diagnoses / Procedures Referred By Wesley slaughter Referred To Contact Physical Therapy Diagnoses Pain in right hip Procedures MS PHYSICAL THERAPY EVALUATION LOW COMPLEX 20 MINS Feliciano Portillo MD [address] [place] [address] Phone: tel: fax: Petar Olivares, PT [address] [address] Phone: tel: fax: Referral ID Status Reason Start Date Expiration Date V isits Requested Visits Authorized [id number] Authorized 02/16/2024 08/09/2024 99 99 [facility] for visit Narrative* Auth/Cert Specialty Diagnoses / Procedures Referred By Wesley slaughter Referred To Contact Diagnoses Tear of rotator cuff of right hip, initial encounter Tear of rotator cuff of right hip, initial encounter [S76.011A] Procedures MS UNLISTED PROCEDURE PELVIS/HIP JOINT GLUTEUS MEDIUS TENDON REPAIR Feliciano Portillo MD [address] [place] [address] [facility] Referral ID Status Reason Start Date Expiration Date Visits Re quested Visits Authorized [id number] 1 1 [facility] [facility]* Rehabilitation - Outpatient (Routine) - Authorized Specialty Diagnoses / Procedures Referred By Contac t Referred To Contact Physical Therapy Diagnoses Strain of muscle, fascia and tendon of right hip, initial encounter Procedures MS PHYSICAL THERAPY EVALUATION LOW COMPLEX 20 MINS MS OFFICE/OUTPATIENT NEW HIGH MDM 60 MINUTES Bessie Cardona MD [address] [place] [address] Phone: tel: fax: Cady Ruff, PT Referral ID Status Reason Start Date Expiration Date V isits Requested Visits Authorized [id number] Authorized 08/07/2024 02/03/2025 99 99 [facility] N[facility]* Rehabilitation - Outpatient (Routine) - Authorized Specialty Diagnoses / Procedures Referred By Contac t Referred To Contact Physical Therapy Diagnoses Strain of muscle, fascia and tendon of right hip, initial encounter Procedures MS PHYSICAL THERAPY EVALUATION LOW COMPLEX 20 MINS MS OFFICE/OUTPATIENT NEW HIGH MDM 60 MINUTES Bessie Cardona MD [address] [place] [address] Phone: tel: fax: Cady Ruff, PT Referral ID Status Reason Start Date Expiration Date V isits Requested Visits Authorized [id number] Authorized 08/07/2024 07/04/2025 99 99 [facility] N[facility]ative* Diagnostic X-Ray (Routine) - New Request Specialty Diagnoses / Procedures Referred By Contac t Referred To Contact Diagnoses Strain of gluteus medius, right, initial encounter Procedures XR HIP WITH PELVIS RIGHT Feliciano Portillo MD [address] [place] [address] Phone: tel: fax: Referral ID Status Reason Start Date Expiration Date V isits Requested Visits Authorized [id number] New Request 09/28/2024 10/23/2025 1 1 [employer] Advance Directives No Advanced Directives Records FoundDocuments on File Type Date Recorded Patient Home Care Physical Therapist Expl anation Advance Directives and Living Will Power of K 9 Handler/ Deputy Latest Code Status on File Code Status Date Activated Date Inactivated Comments Full Code 11/06/2015 11:33 AM 11/08/2015 6:10 PM Documents on File Type Date Recorded Patient Home Care Physical Therapist Expl anation ACP-Advance Directive ACP-Power of K 9 Handler/ Deputy Advance Directive Response Recorded Date/ Time Advance Directives No November 12 10:57am Advance Directive Response Recorded Date/ Time Advance Directives No November 12 9:57am Date Activated Date Inactivated Comments 05/29/2024 9:22 AM Summary Purpose Family History No Family History [...] Everywhere. * Head Injury: Closed: General Info (Danish) documented in this encounter Assessments Diagnosis Closed [...] spondylosis with myelopathy Other chronic pain Sacroiliitis Chief Complaint M47.16 mri results M79.661 - Pain in right lower leg low back pain, mri done 09/09/23 Reason for Visit Lumbar spondylosis w ith myelopathy Other chronic pain Sacroiliitis Lumbar spondylosis with myelopathy Other chronic pain Sacroiliitis Bursitis, trochanteric Osteoarthritis of right hip Sacroiliitis Spondylosis of lumbar region without myelopathy or radiculopathy Reason for Referral Reason *FU 06/11 Evaluate EMG LUE Diagnosis 1 Left carpal tunnel s yndrome (G56.02) Referral Organization [facility][1] urosurgery Referring Provider First Name Jaime Referring Provider Last Name Shine Referring Provider Specialty Neurologica l Surgery Referred Organization [facility] Referred Provider Yamilet Bryan [facility] [address] [place],[address] Referred Provider Specialty Neurology Referral Priority Routine General Notes Lucinda Infante 11:18:02 AM >Received today. Went to get prior auth forNeurology but stated; Auth Not RequiredThis patient is not enrolled in [facility] so no referral is required for the requested services.Lucinda Infante 05/27/2021 11:25:55 AM >Waiting for office notes to be locked [facility]21 02:24:04 PM >[facility] request us to fill out their form and attach to Referral and send it to them and they will call patient to schedule. Referral was sent P2P Reason *FU 06/11 Evaluate and Treat Diagnosis 1 Neck pain (M54.2) Referral Organization [facility][1] urosurger Referring Provider First Name Jaime Referring Provider Last Name Shine Referring Provider Specialty Neurologica l Surgery Referred Organization [facility] Referred Provider Jr. Lomeli William Referred Address [address],[place], [place],[address] Referred Provider Specialty Pain Medicin e Referral Priority Routine General Notes Lucinda Infante 11:18:47 AM >Received today. Went to get prior auth for Pain Medicine but stated; Auth Not RequiredThis patient is not enrolled in [facility] so no referral is required for the requested services.[facility] 05/27/2021 11:28:48 AM >Waiting for office notes to be locked before sending [facility] 06/03/2021 02:23:26 PM >Dr. Lomeli's office request us to fill out form and fax referral to them and they will review the referral and call patient. Referral was fax Reason *Waiting for appt Evaluate and Treat Diagnosis 1 Trigger finger of ri ght thumb (M65.311) Referral Organization [facility][1] urosurgery Referring Provider First Name Jaime Referring Provider Last Name Shine Referring Provider Specialty Neurologica l Surgery Referred Organization [facility] Referred Provider Erica Prasad Referred Address [address],[address] Referred Provider Specialty Hand Surgery Referral Priority Routine General Notes Lucinda Infante 022 04:02:06 PM >Received today. Per Danny Ocampo: Auth Not RequiredThis patient is not enrolled in [facility] so no referral is required for the requested services. Referral was sent P2P Specialty Diagnoses / Procedures Referred By Godfreyac t Referred To Contact Feliciano Portillo MD [address] [place] [address] Referral ID Status Reason Start Date Expiration Date V isits Requested Visits Authorized [id number] Pending Review 1 1 Specialty Diagnoses / Procedures Referred By Contac t Referred To Contact Physical Therapy Diagnoses Right hip pain Feliciano Portillo MD [address] [place] [address] Referral ID Status Reason Start Date Expiration Date V isits Requested Visits Authorized [id number] New Request 02/10/2024 03/06/2025 1 1 Scheduling Instructions . Specialty Diagnoses / Procedures Referred By Contac t Referred To Contact Diagnoses Right hip pain Procedures XR HIP WITH PELVIS RIGHT Feliciano Portillo MD [address] [place] [address] Referral ID Status Reason Start Date Expiration Date V isits Requested Visits Authorized [id number] New Request 01/31/2024 02/24/2025 1 1 Specialty Diagnoses / Procedures Referred By Contac t Referred To Contact Magnetic Resonance Imaging Diagnoses Right hip pain Procedures MRI HIP RIGHT WITHOUT CONTRAST CHG MRI ANY JT LOWER EXTREM W/O CONTRAST MATRL Feliciano Portillo MD [address] [place] [address] [facility] [address] [place] [address] Referral ID Status Reason Start Date Expiration Date Visits Re quested Visits Authorized [id number] Closed 04/28/2024 05/23/2025 1 1 Specialty Diagnoses / Procedures Referred By Contac t Referred To Contact Diagnoses Tear of right gluteus minimus tendon, initial encounter Procedures XR HIP WITH PELVIS RIGHT Bessie Cardona [address] [place] [address] Referral ID Status Reason Start Date Expiration Date V isits Requested Visits Authorized [id number] New Request 06/07/2024 07/02/2025 1 1 Additional Source Comments INFORMATION SOURCE (unrecogn ized section and content) DATE CREATED AUTHOR 02/15/2020 [facility] DATE CREATED AUTHOR AUTHOR'S ORGANIZ ATION 03/21/2020 [facility] DATE CREATED AUTHOR AUTHOR'S ORGANIZ ATION 12/11/2022 [facility] DATE CREATED AUTHOR AUTHOR'S ORGANIZ ATION 11/19/2023 [facility] DATE CREATED AUTHOR AUTHOR'S ORGANIZ ATION 11/19/2023 [facility] DATE CREATED AUTHOR AUTHOR'S ORGANIZ ATION 12/10/2023 [facility] DATE CREATED AUTHOR AUTHOR'S ORGANIZ ATION 01/20/2024 [place] DATE CREATED AUTHOR AUTHOR'S ORGANIZ ATION 05/06/2024 [facility] DATE CREATED AUTHOR AUTHOR'S ORGANIZ ATION 09/19/2024 [facility] DATE CREATED AUTHOR AUTHOR'S ORGANIZ ATION 10/10/2024 [facility] Reason for Visit (unrecogniz ed section and content) Reason Comments Fall Loss of Consciousness Specialty Diagnoses / Procedures Referred By Contac t Referred To Contact Diagnoses Right hip pain Procedures XR HIP WITH PELVIS RIGHT Feliciano Portillo MD [address] [place] [address] Referral ID Status Reason Start Date Expiration Date V isits Requested Visits Authorized [id number] New Request 01/31/2024 02/24/2025 1 1 Reason Comments Pain New Patient Specialty Diagnoses / Procedures Referred By Contac t Referred To Contact Physical Therapy Diagnoses Pain in right hip Procedures MS PHYSICAL THERAPY EVALUATION LOW COMPLEX 20 MINS Feliciano Portillo MD [address] [place] [address] Petar Olivares, PT [address] [address] Referral ID Status Reason Start Date Expiration Date V isits Requested Visits Authorized [id number] Authorized 02/16/2024 08/09/2024 99 99 Specialty Diagnoses / Procedures Referred By Contac t Referred To Contact Magnetic Resonance Imaging Diagnoses Right hip pain Procedures MRI HIP RIGHT WITHOUT CONTRAST CHG MRI ANY JT LOWER EXTREM W/O CONTRAST Feliciano Restrepo MD [address] [place] [address] Araceli Buc Mri [address] [place] [address] Referral ID Status Reason Start Date Expiration Date Visits Re quested Visits Authorized [id number] Closed 04/28/2024 05/23/2025 1 1 Reason Comments MRI Results Reason Comments Post Op Visit Specialty Diagnoses / Procedures Referred By Contac t Referred To Contact Diagnoses Tear of right gluteus minimus tendon, initial encounter Procedures XR HIP WITH PELVIS RIGHT Bessie Cardona [address] [facility] [place] [address] Referral ID Status Reason Start Date Expiration Date V isits Requested Visits Authorized [id number] New Request 06/07/2024 07/02/2025 1 1 Reason Comments Follow-up Reason Comments Follow-up Goals (unrecognized section and content) Goals may be documented in a n alternate sectionGoals may be documented in an alternate sectionNo InformationNo InformationNo InformationNo InformationNo InformationNo InformationNo InformationNo InformationNo InformationNo InformationGoals may be documented in an alternate sectionNo InformationNo InformationNo InformationNo InformationGoals may be documented in an alternate section Care Teams (unrecognized sec tion and content) Team Status: Active Member Role Status Dates CHIN Hartman Primary Care Provider Active Team Status: Inactive Member Role Status Dates CHIN Hartman Primary Care Provider Active Jaime Molina II, [...] Inactive Member Role Status Dates Janet Hermosillo AZURE ARCHITECT-C Primary Care Provider Active Start: August 31, 2023 End: August 31, 2023 Ramu Mancuso MD Attending Provider Active Sta rt: August 31, 2023 End: August 31, 2023 Team Status: Inactive Member Role Status Dates Janet Hermosillo AZURE ARCHITECT-C Primary Care Provider Active Start: 2023 End: 2023 Ramu Mancuso MD Attending Provider Active Sta rt: 2023 End: 2023 Team Status: Inactive Member Role Status Dates Janet Hermosillo AZURE ARCHITECT-C Primary Care Provider Active Start: September 14, 2023 End: September 14, 2023 Ramu Mancuso MD Attending Provider Active Sta rt: September 14, 2023 End: September 14, 2023 Team Status: Inactive Member Role Status Dates Janet Hermosillo AZURE ARCHITECT-C Primary Care Provider Active Start: September 23, 2023 End: September 23, 2023 Jaime Riojas MD Attending Provider Active Star t: September 23, 2023 End: September 23, 2023 Team Status: Inactive Member Role Status Dates Janet Hermosillo AZURE ARCHITECT-C Primary Care Provider Active Start: November 25, 2023 End: November 25, 2023 Jaime oTmas MD Attending Provider Active St art: November 25, 2023 End: November 25, 2023 Vegetable Tester Relationship Specialty Start Date End Date Janet Hermosillo CNP [address] [place] [address] PCP - General Nurse Practitioner - Family 02/10/24 Vegetable Tester Relationship Specialty Start Date End Date Janet Hermosillo CNP [address] [place] [address] PCP - General Nurse Practitioner - Family 02/10/24 Vegetable Tester Relationship Specialty Start Date End Date Leonel Manuel MD [address] [place] [address] PCP - General Family Medicine 09/27/23 Janet Hermosillo MD [address] [place] [address] Referring Physician Family Medicine 09/27/23 Vegetable Tester Relationship Specialty Start Date End Date Leonel Manuel MD [address] [place], [place] [phone] PCP - General Family Medicine 09/27/23 Janet Hermosillo MD [address] [place] [address] Referring Physician Family Medicine 09/27/23 Vegetable Tester Relationship Specialty Start Date End Date Leonel Manuel MD [address] [place] [address] PCP - General Family Medicine 09/27/23 Janet Hermosillo MD [address] [place] [address] Referring Physician Family Medicine 09/27/23 Vegetable Tester Relationship Specialty Start Date End Date Leonel Manuel MD [address] [place] [address] PCP - General Family Medicine 09/27/23 Janet Hermosillo MD [address] [place] [address] Referring Physician Family Medicine 09/27/23 Vegetable Tester Relationship Specialty Start Date End Date Janet Hermosillo CNP [address] [place] [address] PCP - General Nurse Practitioner - [facility] 02/10/24 Vegetable Tester Relationship Specialty Start Date End Date Janet Hermosillo CNP [address] [place] [address] PCP - General Nurse Practitioner - [facility] 02/10/24 Vegetable Tester Relationship Specialty Start Date End Date Janet Hermosillo CNP [address] [place] [phone] PCP - General Nurse Practitioner - [facility] 02/10/24 Vegetable Tester Relationship Specialty Start Date End Date Leonel Manuel MD [address] [place] [phone] PCP - General Family Medicine 09/27/23 Janet Hermosillo MD [address] [place] [phone] Referring Physician Family Medicine 09/27/23 Vegetable Tester Relationship Specialty Start Date End Date Janet Hermosillo CNP [address] [place] [phone] PCP - General Nurse Practitioner - [facility] 02/10/24 Vegetable Tester Relationship Specialty Start Date End Date Janet Hermosillo CNP [address] [place] [address] PCP - General Nurse Practitioner - [facility] 02/10/24 Vegetable Tester Relationship Specialty Start Date End Date Leonel Manuel MD [address] [place] [address] PCP - General Family Medicine 09/27/23 Janet Hermosillo MD [address] [place] [address] Referring Physician Family Medicine 09/27/23 Vegetable Tester Relationship Specialty Start Date End Date Leonel Manuel MD [address] [place] [phone] PCP - General Family Medicine 09/27/23 Janet Hermosilol MD [address] [place] [address] Referring Physician Family Medicine 09/27/23 Vegetable Tester Relationship Specialty Start Date End Date Leonel Manuel MD [address] [place], [place] [phone] PCP - General Family Medicine 09/27/23 Janet Hermosillo MD [address] [place] [address] Referring Physician Family Medicine 09/27/23 Vegetable Tester Relationship Specialty Start Date End Date Leonel Manuel MD [address] [place], [place] [phone] PCP - General Family Medicine 09/27/23 Janet Hermosillo MD [address] [place] [address] Referring Physician Family Medicine 09/27/23 Vegetable Tester Relationship Specialty Start Date End Date Leonel Manuel MD [address] [place] [address] PCP - General Family Medicine 09/27/23 Janet Hermosillo MD [address] [place] [address] Referring Physician Family Medicine 09/27/23 Vegetable Tester Relationship Specialty Start Date End Date Leonel Manuel MD [address] [place] [address] PCP - General Family Medicine 09/27/23 Janet Hermosillo MD [address] [place] [address] Referring Physician Family Medicine 09/27/23 Vegetable Tester Relationship Specialty Start Date End Date Leonel Manuel MD [address] [place] [address] PCP - General Family Medicine 09/27/23 Janet Hermosillo MD [address] [place] [address] Referring Physician Family Medicine 09/27/23 Vegetable Tester Relationship Specialty Start Date End Date Janet Hermosillo CNP [address] [place] [address] PCP - General Nurse Practitioner - Family 02/10/24 Vegetable Tester Relationship Specialty Start Date End Date Leonel Manuel MD [address] [place] [address] PCP - General Family Medicine 09/27/23 Janet Hermosillo MD [address] [place] [address] Referring Physician Family Medicine 09/27/23 Vegetable Tester Relationship Specialty Start Date End Date Leonel Manuel MD [address] [place] [address] PCP - General Family Medicine 09/27/23 Janet Hermosillo MD [facility] [place] [address] Referring Physician Family Medicine 09/27/23 Vegetable Tester Relationship Specialty Start Date End Date Leonel Manuel MD [address] [place] [phone] PCP - General Family Medicine 09/27/23 Janet Hermosillo MD [address] [place] [address] Referring Physician Family Medicine 09/27/23 Vegetable Tester Relationship Specialty Start Date End Date Leonel Manuel MD [address] [place] [phone] PCP - General Family Medicine 09/27/23 Janet Hermosillo MD [address] [place] [address] Referring Physician Family Medicine 09/27/23 Vegetable Tester Relationship Specialty Start Date End Date Leonel Manuel MD [address] [place] [address] PCP - General Family Medicine 09/27/23 Janet Hermosillo MD [facility] [place] [address] Referring Physician Family Medicine 09/27/23 Vegetable Tester Relationship Specialty Start Date End Date Leonel Manuel MD [facility] [place] [address] PCP - General Family Medicine 09/27/23 Janet Hermosillo MD [address] [place] [address] Referring Physician Family Medicine 09/27/23 Vegetable Tester Relationship Specialty Start Date End Date Leonel Manuel MD [address] [place] [phone] PCP - General Family Medicine 09/27/23 Janet Hermosillo MD [address] [place] [address] Referring Physician Family Medicine 09/27/23 Vegetable Tester Relationship Specialty Start Date End Date Leonel Manuel MD [address] [place] [phone] PCP - General Family Medicine 09/27/23 Janet Hermosillo MD [address] [place] [address] Referring Physician Family Medicine 09/27/23 Vegetable Tester Relationship Specialty Start Date End Date Leonel Manuel MD [address] [place] [phone] PCP - General Family Medicine 09/27/23 Janet Hermosillo MD [address] [place] [address] Referring Physician Family Medicine 09/27/23 Vegetable Tester Relationship Specialty Start Date End Date Leonel Manuel MD [address] [place] [phone] PCP - General Family Medicine 09/27/23 Janet Hermosillo MD [facility] [place] [address] Referring Physician Family Medicine 09/27/23 Vegetable Tester Relationship Specialty Start Date End Date Leonel Manuel MD [address] [place] [phone] PCP - General Family Medicine 09/27/23 Janet Hermosillo MD [address] [place] [address] Referring Physician Family Medicine 09/27/23 Vegetable Tester Relationship Specialty Start Date End Date Leonel Manuel MD [address] [place], [place] [phone] PCP - General Family Medicine 09/27/23 Janet Hermosillo MD [address] [place] [address] Referring Physician Family Medicine 09/27/23 Vegetable Tester Relationship Specialty Start Date End Date Leonel Manuel MD [address] [place] [phone] PCP - General Family Medicine 09/27/23 Janet Hermosillo MD [facility] [place] [address] Referring Physician Family Medicine 09/27/23 Vegetable Tester Relationship Specialty Start Date End Date Leonel Manuel MD [address] [place] [address] PCP - General Family Medicine 09/27/23 Janet Hermosillo MD [address] [place] [address] Referring Physician Family Medicine 09/27/23 Vegetable Tester Relationship Specialty Start Date End Date Leonel Manuel MD [address] [place] [address] PCP - General Family Medicine 09/27/23 Janet Hermosillo MD [address] [place] [address] Referring Physician Family Medicine 09/27/23 Vegetable Tester Relationship Specialty Start Date End Date Leonel Manuel MD [address] [place] [phone] PCP - General Family Medicine 09/27/23 Janet Hermosillo MD [address] [place] [address] Referring Physician Family Medicine 09/27/23 Vegetable Tester Relationship Specialty Start Date End Date Leonel Manuel MD [address] [place] [phone] PCP - General Family Medicine 09/27/23 Janet Hermosillo MD [address] [place] [address] Referring Physician Family Medicine 09/27/23 Vegetable Tester Relationship Specialty Start Date End Date Leonel Manuel MD [address] [place] [address] PCP - General Family Medicine 09/27/23 Janet Hermosillo MD [address] [place] [address] Referring Physician Family Medicine 09/27/23 Vegetable Tester Relationship Specialty Start Date End Date Leonel Manuel MD [address] [place] [address] PCP - General Family Medicine 09/27/23 Janet Hermosillo MD [address] [place] [address] Referring Physician Family Medicine 09/27/23 Vegetable Tester Relationship Specialty Start Date End Date Leonel Manuel MD [address] [place] [address] PCP - General Family Medicine 09/27/23 Janet Hermosillo MD [facility] [place] [address] Referring Physician Family Medicine 09/27/23 Vegetable Tester Relationship Specialty Start Date End Date Leonel Manuel MD [address] [place] [address] PCP - General Family Medicine 09/27/23 [place] [address] [place] [address] Referring Physician Family Medicine 09/27/23 Vegetable Tester Relationship Specialty Start Date End Date Janet Hermosillo CNP [address] [place] [address] PCP - General Nurse Practitioner - Family 02/10/24 Scheduled Active and Recently Administ ered Medications (unrecognized section and content) Medication Order 05/27/2024 05/28/2024 05/29/2024 acetaminophen (TYLENOL) tablet 1,000 mg 1,000 mg, Oral, EVERY 6 HOURS NON-STANDARD, First dose on Wed05/29/24 at 1230, Until Discontinued, Maximum dose of acetaminophen is 4000 mg from all sources in 24 hours., Post-op/Post-Proc 1330 (Not Given - Pr ovider: Maribell Saucedo RN - Reason: Other - Comment: pt. had nausea)1830 (Canceled Entry - Provider: System Discharge - Comment: Automatically canceled at discontinue of medication order) Aspirin tablet delayed release 81 mg 81 mg, Oral, EVERY 12 HOURS, First dose on Wed05/30/24 at 0900, Until Discontinued, Start in AM day after surgery, Post-op/Post-Proc ceFAZolin (ANCEF) 2 g in dextrose 100 mL premix IVPB 2 g, Intravenous, Administer over 30 Minutes, EVERY 8 HOURS NON-STANDARD, 3 doses, First dose on Wed05/29/24 at 1530, Last dose on Wed05/30/24 at 0730, Post-op/Post-Proc 1414 ($$New Bag$$ - Provider: Maribell Saucedo RN) cloNIDine injection 160 mcg(Linked Group 1) 160 mcg (rounded from 156 mcg = 2 mcg/kg 78 kg), Intra-articular, INTRA-OP ONCE, Starting on Wed05/29/24 at 1000, Until Wed05/29/24 at 1835, Intra-op/Intra-Proc 0815 (Given - Provid er: Louisa Macdonald RN) Docusate (COLACE) capsule 100 mg 100 mg, Oral, 2 TIMES DAILY, First dose on Wed05/29/24 at 1030, Until Discontinued, Post-op/Post-Proc 1331 (Not Given - Pr ovider: Maribell Saucedo RN - Reason: Other - Comment: pt. has nausea)1700 (Canceled Entry - Provider: System Discharge - Comment: Automatically canceled at discontinue of medication order) Ketorolac (TORADOL) injection 7.5 mg 7.5 mg, Intravenous, EVERY 6 HOURS, 12 doses, First dose on Wed05/29/24 at 1200, Last dose on Wed06/01/24 at 0600, Post-op/Post-Proc 1151 (Given - Provid er: Maribell Saucedo RN)1800 (Canceled Entry - Provider: System Discharge - Comment: Automatically canceled at discontinue of medication order) total joint mixture (no clonidine) premade bag 1 Bag(Linked Group 1) Intra-articular, INTRA-OP ONCE, Starting on Wed05/29/24 at 1000, Until Wed05/29/24 at 1835, To be mixed by pharmacy. NOT for IV use., Intra-op/Intra-Proc 0815 (Given - Provid er: Louisa Macdonald RN) Continuous Medication Order 05/27/2024 05/28/2024 05/29/2024 Lactated ringers IV solution Intravenous, at 75 mL/hr, CONTINUOUS, Starting on Wed05/29/24 at 0545, Until Wed05/29/24 at 1835, Pre-op/Pre-Proc 0603 ($$New Bag$$ - Provider: Roma Sepulveda RN)1400 (Stopped - Provider: Valorie Blackwell RN) Sodium chloride 0.9% IV solution Intravenous, at 100 mL/hr, CONTINUOUS, Starting on Wed05/29/24 at 1030, Until Wed05/29/24 at 1835, Convert IV to PRN adapter once bag from OR complete. Notify provider if inadequate oral intake, Post-op/Post-Proc 1030 (Canceled Entry - Provider: System Discharge - Comment: Automatically canceled at discontinue of medication order) PRN Medication Order 05/27/2024 05/28/2024 05/29/2024 acetaminophen (TYLENOL) tablet 1,000 mg (COMPLETED) 1,000 mg, Oral, ONCE DIRECTED, 1 dose, Starting on Wed05/29/24 at 0543, Until Wed05/29/24 at 0604, See admin instructions, Administer 1 hour preop., Pre-op/Pre-Proc 0604 (Given - Provid er: Roma Sepulveda RN) bisacodyl (DULCOLAX) suppository 10 mg 10 mg, Rectal, DAILY NEEDED, Starting on Wed05/29/24 at 1028, Until Wed05/29/24 at 1835, constipation, Post-op/Post-Proc ceFAZolin (ANCEF) 2 g in dextrose 100 mL premix IVPB (COMPLETED) 2 g, Intravenous, Administer over 15 Minutes, VISUAL EFFECTS ARTIST TO PROCEDURE, 1 dose, Starting on Wed05/29/24 at 0543, Until Wed05/29/24 at 0810, Other, Pre-operative antibiotic, Pre-op/Pre-Proc 0755 ($$New Bag$$ - Provider: Christine Griffin, [employer]LECTRONIC [employer]SACTION IMPLEMENTER-[facility]) dexAMETHasone (DECADRON) injection 10 mg (COMPLETED) 10 mg, Intravenous, ONCE DIRECTED, 1 dose, Starting on Wed05/29/24 at 1028, Until Wed05/29/24 at 1416, 30 minutes prior to Discharge., One dose 30 minutes prior to discharge, Post-op/Post-Proc 1416 (Given - Provid er: Maribell Saucedo RN) HYDROmorphone (DILAUDID) injection 0.2 mg(Linked Group 2) 0.2 mg, Intravenous, EVERY 15 MINUTES NEEDED, 3 doses, Starting on Wed05/29/24 at 0934, Until Wed05/29/24 at 1835, Moderate Pain, Recovery HYDROmorphone (DILAUDID) injection 0.5 mg(Linked Group 2) 0.5 mg, Intravenous, EVERY 15 MINUTES NEEDED, 3 doses, Starting on Wed05/29/24 at 0934, Until Wed05/29/24 at 1835, Severe Pain, Recovery HYDROmorphone (DILAUDID) injection 0.5 mg 0.5 mg, Intravenous, EVERY 4 HOURS NEEDED, Starting on Wed05/29/24 at 1028, Until Wed05/29/24 at 1835, Severe Pain, Post-op/Post-Proc Meloxicam (MOBIC) tablet 7.5 mg (COMPLETED) 7.5 mg, Oral, ONCE DIRECTED, 1 dose, Starting on Wed05/29/24 at 0543, Until Wed05/29/24 at 0604, See admin instructions, Administer 2 hours preop, Pre-op/Pre-Proc 0604 (Given - Provid er: Roma Sepulveda RN) Ondansetron 4mg/2ml (ZOFRAN) injection 4 mg 4 mg, Intravenous, ONCE NEEDED, 1 dose, Starting on Wed05/29/24 at 0934, Until Wed05/29/24 at 1835, Nausea / Vomiting, Recovery Ondansetron 4mg/2ml (ZOFRAN) injection 4 mg 4 mg, Intravenous, EVERY 4 HOURS NEEDED, Starting on Wed05/29/24 at 1028, Until Wed05/29/24 at 1835, Nausea / Vomiting, Post-op/Post-Proc 1046 (Given - Provid er: Maribell Saucedo RN) Promethazine (PHENERGAN) 6.25 mg in Sodium chloride 0.9%, with overfill 60.25 mL (total volume) IVPB 6.25 mg, Intravenous, at 180.8 mL/hr, Administer over 20 Minutes, EVERY 1 HOUR NEEDED, 2 doses, Starting on Wed05/29/24 at 0934, Until Wed05/29/24 at 1835, Other, Nausea and vomiting, Extravasation Risk, Recovery 1046 ($$New Bag$$ - Provider: Maribell Saucedo RN) senna-docusate (SENOKOT-S) 8.6-50 MG per tablet 2 tablet 2 tablet, Oral, 2 TIMES DAILY NEEDED, Starting on Wed05/29/24 at 1028, Until Wed05/29/24 at 1835, constipation, Post-op/Post-Proc Sodium chloride 0.9 % irrigation (CANCELED) NEEDED, Starting on Wed05/29/24 at 0808, Until Wed05/29/24 at 0934, Intra-op/Intra-Proc 0808 (Given - Provid er: Feliciano Portillo MD) sodium phosphate w/sodium biphosphate (FLEETS) enema 1 enema 1 enema, Rectal, DAILY NEEDED, Starting on Wed05/29/24 at 1028, Until Wed05/29/24 at 1835, Refractory Constipation, use per package instructions, Post-op/Post-Proc traMADol (ULTRAM) tablet 50-100 mg 50-100 mg, Oral, EVERY 6 HOURS NEEDED, Starting on Wed05/29/24 at 0943, Until Wed05/29/24 at 1835, Mild Pain, Moderate Pain, Post-op/Post-Proc 1151 (Given - Provid er: Maribell Saucedo RN) tranexamic acid (LYSTEDA) tablet 1,950 mg (COMPLETED) 1,950 mg, Oral, ONCE DIRECTED, 1 dose, Starting on Wed05/29/24 at 0543, Until Wed05/29/24 at 0604, See admin instructions, Administer 2 hours preop, Pre-op/Pre-Proc 0604 (Given - Provid er: Roma Sepulveda RN) Zolpidem (AMBIEN) tablet 5 mg 5 mg, Oral, DAILY AT BEDTIME NEEDED, Starting on Wed05/29/24 at 1028, Until Wed05/29/24 at 1835, Sleep, Post-op/Post-Proc No Frequency Medication Order 05/27/2024 05/28/2024 05/29/2024 Scopolamine (TRANSDERM-SCOP) patch 1 dose, Starting on Wed05/29/24 at 0703, Until Wed05/29/24 at 1835, Christine Griffin: cabinet override 0715 (Canceled Entry - Provider: System Discharge - Comment: Automatically canceled at discontinue of medication order) Linked Groups Order Group 1: total joint mixture (no clonidine) premade bag 1 BagJump to med Intra-articular, INTRA-OP ONCE, Starting on Wed05/29/24 at 1000, Until Wed05/29/24 at 1835, To be mixed by pharmacy. NOT for IV use., Intra-op/Intra-Proc And cloNIDine injection 160 mcgJump to med 160 mcg (rounded from 156 mcg = 2 mcg/kg 78 kg), Intra-articular, INTRA-OP ONCE, Starting on Wed05/29/24 at 1000, Until Wed05/29/24 at 1835, Intra-op/Intra-Proc Group 2: HYDROmorphone (DILAUDID) injection 0.2 mgJump to med 0.2 mg, Intravenous, EVERY 15 MINUTES NEEDED, 3 doses, Starting on Wed05/29/24 at 0934, Until Wed05/29/24 at 1835, Moderate Pain, Recovery Or HYDROmorphone (DILAUDID) injection 0.5 mgJump to med 0.5 mg, Intravenous, EVERY 15 MINUTES NEEDED, 3 doses, Starting on Wed05/29/24 at 0934, Until Wed05/29/24 at 1835, Severe Pain, Recovery FOR RECORDS PERTAINING TO PATIENTS WHO ARE [...] BE BASED ON THE PRIMARY CLINICAL RECORDS. [facility] [employer] [facility]. provides no warranty or guarantee of the accuracy or completeness of information in this document.
--- NOTE | 2024-10-10 07:53 | XR_ITS ---
The [address] [address] Patient Name: JULIA CHAVARRIA MRN: [id number] date: 1960 Sex: F Assigned Patient Location: LAB Current Patient Location: LAB Accession/Order Number: [id number] Exam Date: 10/10/2024 08:54 Report Date: 10/10/2024 08:56 At the request of: LATHA HERMOSILLO Procedure: XR chest 2V Plain film chest 2 view HISTORY: Chronic cough COMPARISON: CT chest 08/18/2022 FINDINGS: SUPPORT DEVICES: None POSTSURGICAL CHANGES: None HEART: Within normal limits PULMONARY KANDICE: Within normal limits MEDIASTINUM: Unremarkable LUNGS AND PLEURA: No acute lung process, pleural effusion or pneumothorax identified. BONY STRUCTURES: Intact ADDITIONAL FINDINGS None XR/XR chest 2V IMPRESSION: No acute process. Impression dictated by: Vinicius Patel M.D.10/10/2024 8:56 AM Dictation Location: [place] [address] Electronically authenticated by: [id number] Y Date: 10/10/2024 08:56
[2024-10-10 07:57] LABS: Basophils Absolute Auto 0.1 10^3/uL (0.0-0.1); Basophils Percent Auto 0.9 % (0.2-2.0); Eosinophils Absolute Auto 0.1 10^3/uL (0.0-0.7); Eosinophils Percent Auto 2.2 % (0.9-7.0); Hematocrit 40.4 % (36.0-48.0); Hemoglobin 13.2 g/dL (12.0-16.0); Immature Granulocytes Abs Auto 0.03 10^3/uL (0.00-0.03); Immature Granulocytes Pct Auto 0.5 % (0.0-0.5); Lymphocytes Absolute Auto 1.8 10^3/uL (1.2-3.8); Lymphocytes Percent Auto 28.5 % (20.5-60.0); Mean Corpuscular HGB Conc 32.7 g/dL (29.9-35.2); Mean Corpuscular Hemoglobin 30.9 pg (26.7-34.0); Mean Corpuscular Volume 94.6 fL (81.0-99.0); Mean Platelet Volume 10.2 fL (9.5-13.5); Monocytes Absolute Auto 0.6 10^3/uL (0.3-0.8); Monocytes Percent Auto 9.9 % (1.7-12.0); Neutrophils Absolute Auto 3.7 10^3/uL (1.4-6.5); Platelet Count 300 10^3/uL (150-450); Red Blood Count 4.27 10^6/uL (4.20-5.40); Red Cell Distribution Width 12.1 % (11.0-15.0); White Blood Count 6.4 10^3/uL (4.0-11.0)
[2024-10-10 10:02] LABS: Alanine Aminotransferase 21 U/L (14-59); Albumin Globulin Ratio 1.1; Albumin Level 3.8 g/dL (3.4-5.0); Alkaline Phosphatase 90 U/L (46-116); Anion Gap 11.4; Aspartate Amino Transferase 16 U/L (15-37); Bilirubin Total 0.6 mg/dL (0.2-1.0); Calcium 9.1 mg/dL (8.5-10.1); Carbon Dioxide 29.5 mmol/L (21.0-32.0); Chloride 106 mmol/L (98-107); Chol HDL Ratio 3.9; Cholesterol 201 mg/dL (<=200); Estimated GFR (African America >60 (>=60 mL/min/1.73m^2); Estimated GFR (Non-African Ame 56 (>=60 mL/min/1.73m^2); Free T3 2.78 pg/mL (2.18-3.98); Globulin 3.4 g/dL; Glucose 97 mg/dL (74-106); HDL Cholesterol 52 mg/dL (40-60); Potassium 3.9 mmol/L (3.5-5.1); Sodium 143 mmol/L (136-145); Thyroid Stimulating Hormone 0.245 uIU/mL (0.358-3.740); Total Protein 7.2 g/dL (6.4-8.2); Triglycerides 184 mg/dL (<=150); VLDL CHOLESTEROL 36.8 mg/dL
[2024-10-10 10:39] LABS: Estimated Average Glucose 108 mg/dL; Glycohemoglobin A1C 5.4 % (4.5-6.2)
[2024-10-11 02:16] LABS: Insulin 18.5 uIU/mL (2.6-24.9); Vitamin B12 1351 pg/mL (232-1245)
== END 2024-10-10 07:32 | disposition home or self-care (01) ==
LOC: LAB 07:33
PROVIDERS: PCP Nurse Practitioner Family; Visit Provider Nurse Practitioner Family
DX: Z00.00 Encounter for general adult medical examination without abnormal findings (principal); R05.3 Chronic cough
CPT/HCPCS: 36415; 71046; 80053; 80061; 82306; 82607; 83036; 83525; 83540; 84436; 84443; 84481; 85025

== ENCOUNTER 2024-10-25 11:29 | Outpatient (OUT) | payer OTHER, SELFPAY ==
--- NOTE | 2024-10-25 11:34 | XR_ITS ---
The [address] [address] Patient Name: JULIA CHVAARRIA MRN: [id number] date: 1960 Sex: F Assigned Patient Location: [facility] Current Patient Location: [facility] Accession/Order Number: [id number] Exam Date: 10/25/2024 12:43 Report Date: 10/25/2024 12:45 At the request of: LATHA HERMOSILLO Procedure: XR ribs LT min 3V w CXR1V Left Rib series with Single View Chest HISTORY: Acute left upper rib pain. Bruising. Fell 3 days ago COMPARISON: None MEDIASTINUM: Cardiac, mediastinal hilar silhouettes are within normal limits. LUNGS AND PLEURA: No acute lung process, pleural effusion or pneumothorax identified. ACUTE FINDINGS: Anterior lateral left 11th rib fracture present. DEGENERATIVE CHANGE: Unremarkable SOFT TISSUE: Unremarkable POSTOP CHANGES: None XR/XR ribs LT min 3V w CXR1V IMPRESSION: Anterolateral left 11th rib fracture. No acute chest findings. Impression dictated by: Vinicius Patel M.D.10/25/2024 12:45 PM Dictation Location: [place] [address] Electronically authenticated by: [id number] Y Date: 10/25/2024 12:45
--- NOTE | 2024-10-25 11:34 | XR_ITS ---
The [address] [address] Patient Name: JULIA CHAVARRIA MRN: [id number] date: 1960 Sex: F Assigned Patient Location: [facility] Current Patient Location: [facility] Accession/Order Number: [id number] Exam Date: 10/25/2024 12:45 Report Date: 10/25/2024 12:46 At the request of: LATHA HERMOSILLO Procedure: XR hip RT min 2V 2 views right plain film COMPARISON: None HISTORY: Right hip pain. Fell 3 days ago ACUTE FINDINGS: None DEGENERATIVE CHANGE: Mild SOFT TISSUE FINDINGS: Unremarkable JOINT EFFUSION: None POSTOP CHANGES: None BONY MINERALIZATION: Adequate XR/XR hip RT min 2V IMPRESSION: No acute displaced fracture. Impression dictated by: Vinicius Patel M.D.10/25/2024 12:46 PM Dictation Location: [place] [address] Electronically authenticated by: [id number] Y Date: 10/25/2024 12:46
== END 2024-10-25 11:30 | disposition home or self-care (01) ==
LOC: RAD 11:30
PROVIDERS: PCP Nurse Practitioner Family; Visit Provider Nurse Practitioner Family
DX: R07.81 Pleurodynia (principal); M25.551 Pain in right hip; S22.32XA Fracture of one rib, left side, initial encounter for closed fracture
CPT/HCPCS: 71101; 73502

== ENCOUNTER 2024-11-02 10:28 | Outpatient (OUT) | payer OTHER, SELFPAY | END 2024-11-02 10:29 | disposition home or self-care (01) | LOC: PST 10:28 | PROVIDERS: PCP Nurse Practitioner Family; Visit Provider Surgery | DX: Z01.818 Encounter for other preprocedural examination (principal); Z12.11 Encounter for screening for malignant neoplasm of colon ==

== ENCOUNTER 2024-11-08 07:52 | Day surgery (SDC) | payer OTHER, SELFPAY ==
--- NOTE | 2024-11-08 | OP_ITS ---
OPERATION DATE: 11/08/2024 PREOPERATIVE DIAGNOSIS: Colorectal screening, personal history of colon polyps. POSTOPERATIVE DIAGNOSIS: Severe diverticulosis throughout the colon. PROCEDURE: Colonoscopy to cecum. SURGEON: Poli Jim M.D. ANESTHESIA: Monitored anesthesia care. ESTIMATED BLOOD LOSS: Zero. INDICATIONS AND CONSENT: Patient is a 64-year-old female presents for colorectal screening and evaluation for personal history of colon polyps. Indications, risks, benefits, alternatives of proceeding with colonoscopy were explained extensively to the patient, including the risks of bleeding, colon perforation or anesthetic complications. All of her questions were answered. Informed consent was obtained. PROCEDURE: Patient brought to the operating room, placed in the left lateral decubitus position. Monitored anesthesia care was provided. Rectal exam was performed which showed no masses or blood. The scope was inserted into the anal canal. Under direct visualization was advanced. With the aid of abdominal compression, it was advanced to the cecum where cecal markings were clearly identified. There was noted to be a good prep. Upon withdrawal of the scope, mucosal surfaces were carefully examined. There was noted to be diverticulosis throughout the colon, including the right colon, but more severe in the sigmoid colon. There were no inflammatory changes or narrowing. There were no mass lesions or polyps. The scope was retroflexed in the anal canal. There was no significant hemorrhoidal disease. The scope was then withdrawn. Patient tolerated procedure well, was sent to recovery room in good condition. Follow up colonoscopy should be for screening in 10 years. KATHY GómezD
[2024-11-08 08:00] VITALS: BP 132/75; PULSE 94; TEMP 36.2; O2SAT 99; BMI 30.4
[2024-11-08] MEDS: 0.9 % SODIUM CHLORIDE 500 ML 50 ML IV (08:22)
[2024-11-08 09:28] VITALS: BP 108/76; PULSE 85; TEMP 36.4; O2SAT 98
[2024-11-08 09:43] VITALS: BP 138/83; PULSE 84; TEMP 36.3; O2SAT 98
[2024-11-08 09:58] VITALS: BP 126/88; PULSE 78; TEMP 36.3; O2SAT 98
== END 2024-11-08 09:58 | disposition home or self-care (01) ==
PROVIDERS: PCP Nurse Practitioner Family; Visit Provider Surgery
PROC: (CPT 812; principal; 2024-11-08 09:00)
DX: Z12.11 Encounter for screening for malignant neoplasm of colon (principal); K57.30 Diverticulosis of large intestine without perforation or abscess without bleeding; Z86.0100 Personal history of colon polyps, unspecified; I10 Essential (primary) hypertension; E78.5 Hyperlipidemia, unspecified; E03.9 Hypothyroidism, unspecified; M47.816 Spondylosis without myelopathy or radiculopathy, lumbar region; Z87.442 Personal history of urinary calculi; Z90.49 Acquired absence of other specified parts of digestive tract; K21.9 Gastro-esophageal reflux disease without esophagitis
CPT/HCPCS: 45378; J2704

== ENCOUNTER 2024-11-15 10:35 | Outpatient (OUT) | payer OTHER, SELFPAY ==
--- OUTSIDE RECORDS SUMMARY | 2024-11-14 07:52 | XMS_ITS | CCD ---
Author Organization [facility] Care Team Providers Care Marketing Systems Manager Name Role Phone Codey, Norbert T Primary Care Provider [phone] YOVANI CASEY Referring Unavailable CODEY, NORBERT T Primary Care Unavailable CODEY, NORBERT T Primary Care Unavailable JANETT CHEW Attending Unavailable CODEY, NORBERT T Referring Unavailable CODEY, NORBERT T Primary Care Unavailable CODEY, NORBERT T Referring Unavailable CODEY, NORBERT T Primary Care Unavailable João rCuz Attending Provider [phone] Janet Hermosillo Primary Care Provider Jaime Riojas Unavailable Prabhu [place] Unavailable Charles Jensen Unavailable DR MARIA VICTORIA SAUNDERS Consulting Unavailable JANET HERMOSILLO Admitting Unavailable JANET HERMOSILLO Attending Unavailable KALEB Larios, DR CASTANEDA Primary Care Unavailable JANET HERMOSILLO Consulting Unavailable ADALBERTO CARVALHO Consulting Unavailable KALEB Larios, DR CASTANEDA Primary Care Unavailable CORAL ANN Admitting Unavailable JEEVAN .CORAL Attending Unavailable JEEVAN .WHITLEYIN Consulting Unavailable JANET HERMOSILLO Attending Unavailable DR EFREN FUNES V Consulting Unavailable JANET HERMOSILLO Admitting Unavailable DR LEONEL CHUNG Primary Care Unavailable JANET HERMOSILLO Consulting Unavailable JANET HERMOSILLO Consulting Unavailable JANET HERMOSILLO Admitting Unavailable JANET HERMOSILLO Attending Unavailable KALEB ., DR CASTANEDA Primary Care Unavailable KALEB ., DR CASTANEDA Primary Care Unavailable KALEB ., DR CASTANEDA Admitting Unavailable KALEB Larios, DR CASTANEDA Attending Unavailable KALEB Larios, DR CASTANEDA Consulting Unavailable DANIEL Hermosillo-C Janet Mady Primary Care Provider MD Jaime Molina II Attending Provider Jaime Molina II Unavailable Ramu Mancuso Unavailable CHIN Hermosillo Janet Mady Primary Care Provider MD Ramu Mancuso Attending Provider CHIN Hermosillo Janet Mady Primary Care Provider MD Ramu Mancuso Attending Provider CODEY, NORBERT T Referring Unavailable CODEY, NORBERT T Primary Care Unavailable CODEY, NORBERT T Referring Unavailable CODEY, NORBERT T Primary Care Unavailable DENI REYNOSO Attending Unavailable SAMMIE DUONG JR Referring Unavailabl e CODEY, NORBERT T Primary Care Unavailable DENI REYNOSO Referring Unavailable CODEY, NORBERT T Primary Care Unavailable DENI REYNOSO Referring Unavailable CODEY, NORBERT T Primary Care Unavailable CHIN Hermosillo Janet Mady Primary Care Provider MD Ramu Mancuso Attending Provider [phone] MD Jaime Tomas Attending Provider [phone] Bay, Janetwin Earl Primary Care Unavailable Ramu Mancuso Admitting Unavailable Ramu Mancuso Attending Unavailable Jaime Tomas Admitting Unavailable Jaime Tomas Attending Unavailable Bay, Janet Mady Primary Care Unavailable Bay, Janet Mady Primary Care Unavailable Jaime Molina II Admitting UnavailJaime To II Attending Unavailabl e Bay, Janet Mady Primary Care Unavailable Ramu Mancuso Admitting Unavailable Ramu Mancuso Attending Unavailable Bay, Janet Mady Primary Care Unavailable Ramu Mancuso Admitting Unavailable Ramu Mancuso Attending Unavailable DENI REYNOSO Referring Unavailable CODEY, NORBERT T Primary Care Unavailable SAMMIE DUONG C Attending Unavailable STEPROMMEL SAMMIE C Referring Unavailable CODEY, NORBERT T Primary Care Unavailable SAMMIE DUONG C Attending Unavailable STEPANIC, SAMMIE C Referring Unavailable CODEY, NORBERT T Primary Care Unavailable Janet Hermosillo CNP Primary Care Provider Leonel Manuel MD Primary Care Provider Janet Hermosillo MD Unavailable JANET HERMOSILLO Primary [...] Attending Unavailable BROCWELL, BESSIE M Referring Unavailable KELBLEYKALLISIMONA Attending Unavailable BROCWELL, BESSIE M Referring Unavailable [...] Cevallos Attending Unavaila PETAR Moeller Attending Unavailable BANDAR, FELICIANO Referring Unavailable SIOMNA PRESLEY Attending Unavailable BANDAR, FELICIANO Referring Unavailable PETAR OLIVARES Attending Unavailable BANDAR, FELICIANO Referring Unavailable LINDSAY RODRIGUEZ Attending Unavailable FOSTER, FELICIANO Referring Unavailable ANGELESYSIMONA Attending Unavailable BANDAR, FELICIANO Referring Unavailable LINDSAY RODRIGUEZ Attending Unavailable [...] Attending Unavailable FOSTER, FELICIANO Referring Unavailable Bay BRAKE DRUM LATHE OPERATOR, Janet S Primary Care Provider FOSTER, FELICIANO [...] Unavailable BAY, JANET S Primary Care Unavailable NILL, Poli R Attending Unavailable BAY, JANET S Referring Unavailable NILL, Poli R Attending Unavailable BYA, JANET S Referring Unavailable Allergies Allergy Classification Reported Allergen(s) Allergy Type Date of Onset Reaction(s) Facility Sulfonamides (antibiotic) (2 sources) Sulfonamides (Antibiotic) Drug Allergy 02-19-20 [facility] (4 sources) Ciprofloxacin Drug Allergy 08-26-19 [place], [place] (7 sources) HYDROcodone / Ibuprofen; Translations: [HYDROCODONE-IBUPROF EN] Drug Allergy 08-26-19 12 [place], [place] (4 sources) Penicillins Propensity to adverse reactions to drug 08-17-19 [place], [place] (4 sources) Sulfonamides (Antibiotic) Propensity to adverse reactions to drug 08-17-19 12 [place] (4 sources) Clindamycin/Lincomyc in Propensity to adverse reactions to drug 08-26-19 12 [place] (16 sources) Sulfacetamide Drug Allergy 09-23-19 [facility] (9 sources) Lisinopril Drug Allergy 09-23-19 [facility] (1 source) Sulfonamides (Antibiotic) Drug allergy (disorder) [facility] Repository (7 sources) Sulfonamides (Antibiotic); Translations: [SULFA (SULFONAMIDE ANTIBIOTICS)] Allergy to substance 05-18-20 [facility] (3 sources) Ciprofloxacin; Translations: [CIPROFLOXACIN (MIXTURE)] Drug Allergy 08-26-19 12 [facility] (3 sources) Lincomycin; Translations: [LINCOMYCIN] Drug Allergy 08-26-19 12 [facility] (13 sources) Sulfamethoxazole / Trimethoprim; Translations: [SULFAMETHOXAZOLE-TR IMETHOPRIM] Drug Allergy 04-19-20 [facility] (1 source) Lisinopril Drug Allergy 09-23-19 [facility] Repository (1 source) Sulfacetamide Drug Allergy 09-23-19 [facility] Repository (20 sources) Sulfonamides (Antibiotic) Propensity to adverse reactions to drug 08-17-19 12 [facility] (1 source) Sulfonamides (Antibiotic); Translations: [sulfa drugs] Propensity to adverse reactions (disorder) [facility] Repository Medications Current Medications Medication Drug Class(es) [...] D2 Compound ergocalciferol (Vitamin D2) 1.25 MG (34562 UT) capsule 1 capsule 1 (one) time [...] 19, 2020 12:00am take 1 capsule by il ut twice daily gabapentin (NEURONTIN) 100 MG capsule [...] Discharge) docusate sodium 50 mg / sennosides, longterm 8.6 mg oral tablet (1 source) Start: [...] Last dose on Wed06/01/24 at 0600, Post-op/Post-Proc Start: 07-31-2018 Toradol per [...] 2020 12:00am November 19, 2020 12:04pm thyroid (longterm) 60 mg oral tablet (17 sources) Start: 02-19-2020 End: 07-11-2021 take 1 tablet by mouth once daily Thyroid (Pork) ([place] Thyroid) 60 mg tablet Discontinued 90 MG PO Daily February 19, 2020 12:00am July 11, 2021 3:26pm take 1 tablet by mouth once reynaldo y BANK CLERK Thyroid 90 MG take 1 tablet by [...] 08-18-2022 Episodic Other aftercare (1 source) Other fdc (current) drug therapy; Translations: [OTH SECTION CHIEF CURRENT DRUG THERAPY] Onset: 08-20-2022 Episodic Other [...] (1 source) Other specified postprocedural states Onset: 05-23-2022 Resolved: 11-24-2021 Episodic Screening and history of [...] Test Name Value Interpretation Reference Range Facility Reminderson 11-09-2024 Reminders Reminders From: Landy Mendoza LPN To: N - Clinical; Sent: 11/09/2024 09:29:14 EDT Show up: 10/09/2034 07:00:00 EDT Subject: colonoscopy recall Due Date/Time: 11/08/2034 07:00:00 EDT Reminder/Recall Patient due for screening colonoscopy 11/08/2034. Normal [facility] Ambulatory Visit Summaryon 0 10-31-2024 Ambulatory Visit Summary Ambulatory Visit Summary JULIA CHAVARRIA :1960 Visit Date:10/31/2024 Ambulatory Visit Instructions Your Diagnosis Personal history of adenomatous and serrated colon polyps Screening for malignant neoplasm of colon Your Care Team Attending Physician - Poli NDIAYE MD Primary Care Physician - JANET HERMOSILLO CNP Referring Physician - JANET HERMOSILLO CNP This Is Your Medications List Contact prescribing physician if questions or concerns albuterol (Albuterol (Eqv-ProAir HFA)) calcium carbonate (calcium (as carbonate) 600 mg oral tablet) cyanocobalamin (cyanocobalamin 1000 mcg/mL Inj) ergocalciferol (Vitamin D 50,000 intl units (1.25 mg) oral capsule) gabapentin (gabapentin 100 mg Cap) gemfibrozil (gemfibrozil 600 mg Tab) irbesartan (irbesartan 150 mg Tab) levothyroxine (levothyroxine 125 mcg (0.125 mg) Tab) multivitamin omeprazole (omeprazole 40 mg Cap-DR) potassium gluconate tiotropium (Spiriva Respimat 1.25 mcg/inh inhalation aerosol) Procedures Performed EGD - esophagogastroduodenoscopy (2019), Colonoscopy (2012), Appendectomy, Arthroplasty of knee, Arthroplasty of left hip, section, section, Cholecystectomy, Tear of hip abductor tendon, Transposition of ureter. Discharge Vitals Heart Rate (Peripheral) 72 Respiratory Rate 16 Blood Pressure 126/82 Height 166 cm Height 65 in Weight 84.6 kg Weight 186.511 lb BMI 30.7 Medications What How Much When Instructions Unchanged albuterol (Albuterol (Eqv-ProAir HFA)) 2 Puffs Inhalation Every 4 hours as needed for Shortness of breath or wheezing Contact prescribing physician if questions or concerns Unchanged calcium carbonate (calcium (as carbonate) 600 mg oral tablet) 1 Tablets By Mouth Every day Contact prescribing physician if questions or concerns Unchanged cyanocobalamin (cyanocobalamin 1000 mcg/ mL Inj) 1,000 Microgram Intramuscular Once a month Contact prescribing physician if questions or concerns Unchanged ergocalciferol (Vitamin D 50,000 intl units (1.25 mg) oral capsule) 1 Capsules By Mouth Every day Contact prescribing physician if questions or concerns Unchanged gabapentin (gabapentin 100 mg Cap) 1 Capsules By Mouth 2 times a day Contact prescribing physician if questions or concerns Unchanged gemfibrozil (gemfibrozil 600 mg Tab) 1 Tablets By Mouth 2 times a day Contact prescribing physician if questions or concerns Unchanged irbesartan (irbesartan 150 mg Tab) 1 Tablets By Mouth Every day Contact prescribing physician if questions or concerns Unchanged levothyroxine (levothyroxine 125 mcg (0.125 mg) Tab) 1 Tablets By Mouth Every day Contact prescribing physician if questions or concerns Unchanged multivitamin 1 Tablets By Mouth Every day Contact prescribing physician if questions or concerns Unchanged omeprazole (omeprazole 40 mg Cap-DR) 1 Capsules By Mouth Every day Contact prescribing physician if questions or concerns Unchanged potassium gluconate 1 Tablets By Mouth Every day Contact prescribing physician if questions or concerns Unchanged tiotropium (Spiriva Respimat 1.25 mcg/ inh inhalation aerosol) 2 Inhalation Inhalation Every day Contact prescribing physician if questions or concerns Allergies sulfa drugs (Rash) Problems Ongoing - Any problem that you are currently receiving treatment for. BMI 30.0-30.9,adult Chronic cough DDD (degenerative disc disease), cervical GERD (gastroesophageal reflux disease) History of nephrolithiasis Hypercholesterolemia Hypertension Hypothyroidism Lumbar spondylosis Overweight Personal history of adenomatous and serrated colon polyps Scoliosis Screening for malignant neoplasm of colon Vitamin B 12 deficiency Patient Survey You may receive a survey via text or e-mail asking about your office visit. Please share your experience with us by completing your survey. We appreciate your feedback and thank you for choosing us for your care. Normal [facility] XR PELVIS 1-2 VIEWSon 2023 XR PELVIS [...] hip arthroplasty with intact orthopedic hardware. Normal [facility]3] CBCon 05-18-2024 ABSOLUTE BAS 0.1 10*3/uL Normal 0.0-0.2 [facility]3] Comment on above: Performed By: #### C MPF, ACBC, PT #### Testing performed at [address] [address] ABSOLUTE EOS 0.1 10*3/uL Normal 0.0-0.7 [facility]3] Comment on above: Performed By: #### C MPF, ACBC, PT #### Testing performed at [address] [address] ABSOLUTE NEUTROPHIL COUNT 5.3 10*3/uL Normal 1.4-6.5 [facility]3] Comment on above: Performed By: #### C MPF, ACBC, PT #### Testing performed at [address] [address] Basophils/100 WBC (Bld) 0.9 % Normal 0.0-2.0 [facility]3] Comment on above: Performed By: #### C MPF, ACBC, PT #### Testing performed at [address] [address] DTYPE AUTO DIFF Normal [facility]3] Comment on above: Performed By: #### C MPF, ACBC, PT #### Testing performed at [address] [address] Eosinophils/100 WBC (Bld) 1.7 % Normal 0.0-11.0 [facility]3] Comment on above: Performed By: #### C MPF, ACBC, PT #### Testing performed at [address] [address] Lymphocytes (Bld) [#/Vol] 1.9 10*3/uL Normal 1.2-3.4 [facility]3] Comment on above: Performed By: #### C MPF, ACBC, PT #### Testing performed at [address] [address] Lymphocytes/100 WBC (Bld) 23.0 % Normal 20.0-55.0 [facility])[3] Comment on above: Performed By: #### C MPF, ACBC, PT #### Testing performed at [address] [address] Monocytes (Bld) [#/Vol] 0.7 10*3/uL Normal 0.0-0.7 [facility]3] Comment on above: Performed By: #### C MPF, ACBC, PT #### Testing performed at [address] [address] Monocytes/100 WBC (Bld) 9.1 % Normal 0.0-10.0 [facility]3] Comment on above: Performed By: #### C MPF, ACBC, PT #### Testing performed at [address] [address] Neutrophils/100 WBC (Bld) 65.3 % Normal 37.0-75.0 [facility]3] Comment on above: Performed By: #### C MPF, ACBC, PT #### Testing performed at [address] [address] Erythrocyte distribution width (RBC) [Ratio] 12.5 % Normal 11.5-14.5 [facility]3] Comment on above: Performed By: #### C MPF, ACBC, PT #### Testing performed at [address] [address] Hematocrit (Bld) [Volume fraction] 40.5 % Normal 36.0-48.0 [facility]3] Comment on above: Performed By: #### C MPF, ACBC, PT #### Testing performed at [address] [address] Hemoglobin (Bld) [Mass/Vol] 13.6 g/dL Normal 12.0-16.0 [facility]3] Comment on above: Performed By: #### C MPF, ACBC, PT #### Testing performed at [address] [address] MCH (RBC) [Entitic mass] 31.2 pg Normal 26.0-35.0 [facility]3] Comment on above: Performed By: #### C MPF, ACBC, PT #### Testing performed at [address] [address] MCHC (RBC) [Mass/Vol] 33.6 g/dL Normal 27.0-37.0 [facility] Comment on above: Performed By: #### C MPF, ACBC, PT #### Testing performed at [address] [address] MCV (RBC) [Entitic vol] 93.0 fL Normal 80.0-100.0 [facility]3] Comment on above: Performed By: #### C MPF, ACBC, PT #### Testing performed at [address] [address] Platelet mean volume (Bld) [Entitic vol] 8.9 fL Normal 7.4-11.0 [facility]3] Comment on above: Performed By: #### C MPF, ACBC, PT #### Testing performed at [address] [address] Platelets (Bld) [#/Vol] 351 10*3/uL Normal 130-400 [facility]3] Comment on above: Performed By: #### C MPF, ACBC, PT #### Testing performed at [address] [address] RBC (Bld) [#/Vol] 4.36 10*6/uL Normal 4.0-5.4 [facility]3] Comment on above: Performed By: #### C MPF, ACBC, PT #### Testing performed at [address] [address] WBC (Bld) [#/Vol] 8.1 10*3/uL Normal 3.6-11.0 [facility]3] Comment on above: Performed By: #### C MPF, ACBC, PT #### Testing performed at [address] [address] CMP FASTINGon 05-18-2024 A:G RATIO 1.7 RATIO Normal [facility]3] Comment on above: Performed By: #### C MPF, ACBC, PT #### Testing performed at [address] [address] ALBUMIN 4.7 G/dl Normal 3.5-5.0 [facility]3] Comment on above: Performed By: #### C MPF, ACBC, PT #### Testing performed at [address] [place] [address] ALP [Catalytic activity/Vol] 82 U/L Normal 38-126 [facility]3] Comment on above: Performed By: #### C MPF, ACBC, PT #### Testing performed at [address] [address] ALT [Catalytic activity/Vol] 22 U/L Normal <35 [facility]3] Comment on above: Performed By: #### C MPF, ACBC, PT #### Testing performed at [address] [place] [address] AST [Catalytic activity/Vol] 29 U/L Normal 14-36 [facility]3] Comment on above: Performed By: #### C MPF, ACBC, PT #### Testing performed at [address] [address] Bilirubin [Mass/Vol] 0.7 mg/dL Normal 0.2-1.3 [facility] Comment on above: Performed By: #### C MPF, ACBC, PT #### Testing performed at [address] [address] Calcium [Mass/Vol] 10.1 mg/dL Normal 8.4-10.2 [facility]3] Comment on above: Performed By: #### C MPF, ACBC, PT #### Testing performed at [address] [address] Chloride [Moles/Vol] 106 mmol/L Normal 98-107 [facility] Comment on above: Result Comment: Filemon zapata note: Triglyceride levels of 600mg/dL or higher may positively bias chloride results by approximately 2.1 mmol Performed By: #### C MPF, ACBC, PT #### Testing performed at [address] [address] CO2 [Moles/Vol] 29 mmol/L Normal 22-30 [facility]3] Comment on above: Performed By: #### C MPF, ACBC, PT #### Testing performed at [address] [address] Creatinine [Mass/Vol] 1.00 mg/dL Normal 0.70-1.20 [facility] Comment on above: Performed By: #### C MPF, ACBC, PT #### Testing performed at [address] [address] EST. GFR, 72 ml/min/1.73sq.m [facility] Comment on above: Performed By: #### C MPF, ACBC, PT #### Testing performed at [address] [address] EST. GFR,Non 60 ml/min/1.73sq.m [facility] Comment on above: Performed By: #### C MPF, ACBC, PT #### Testing performed at [address] [address] GFR Information Average GFR for 60-6 9 years old = 85. [facility] Comment on above: Result Comment: Bolt Labeler elsie Kidney disease, GFR = <60. Kidney failure, GFR = <15. The GFR estimate is not adjusted for extreme body surface area or acute process, nor has it been validated for women or ethnic groups other than and . Performed By: #### C MPF ACBC, PT #### Testing performed at [address] [address] Glucose [Mass/Vol] 104 mg/dL High 70-100 [facility]3] Comment on above: Result Comment: NORMAL <100 mg/dL PREDIABETES 101-126 mg/dL DIABETES 126 mg/dL or higher Performed By: #### C MPF ACBC, PT #### Testing performed at [address] [address] Potassium [Moles/Vol] 4.2 mmol/L Normal 3.5-5.1 [facility] Comment on above: Performed By: #### C MPFred ACBC, PT #### Testing performed at [address] [address] Protein [Mass/Vol] 7.5 g/dL Normal 6.3-8.2 [facility]3] Comment on above: Performed By: #### C MPF ACBC, PT #### Testing performed at [address] [address] Sodium [Moles/Vol] 142 mmol/L Normal 137-145 [facility]3] Comment on above: Performed By: #### C MPMARTHA Ibarra, PT #### Testing performed at [address] [address] Urea nitrogen [Mass/Vol] 16 mg/dL Normal 7-20 [facility]3] Comment on above: Performed By: #### C MPF ACBC, PT #### Testing performed at [address] [address] HEMOGLOBIN A1Con 05-18-2024 Glucose [Mass/Vol] 117 mg/dL Normal [facility]3] Comment on above: Performed By: #### H A1CT #### Testing performed at [address] [address] HbA1c (Bld) [Mass fraction] 5.7 % Normal 0-6 [facility]3] Comment on above: Result Comment: NORMAL <5.7% PREDIABETES 5.7-6.4% DIABETES 6.5% OR HIGHER Performed By: #### H A1CT #### Testing performed at [address] [place] [address] MRSA SCREENon 05-18-2024 MRSA DNA JENNIE+probe Ql (Unsp spec) Negative Normal NEGATIVE [facility]3] Comment on above: Performed By: #### M RSAST #### Testing performed at [address] [address] STAPH AUREUS SCREEN Negative Normal NEGATIVE [facility]3] Comment on above: Result Comment: TEST ING PERFORMED BY PCR Performed By: #### M RSAST #### Testing performed at [address] [address] PROTIMEon 05-18-2024 INR Coag (PPP) [Relative time] 0.89 {INR} Normal 0.85-1.10 [facility]3] Comment on above: Result Comment: 2.0-3.0 THERAPEUTIC RANGE 2.5-3.5 MECHANICAL VALVE RANGE Performed By: #### C MPF, ACBC, PT #### Testing performed at [address] [address] PT Coag (PPP) [Time] 12.1 s Normal 11.8-14.4 [facility] Comment on above: Performed By: #### C MPF, ACBC, PT #### Testing performed at [address] [address] URINE MACROSCOPICon 05-18-20 Bilirubin Ql (U) Negative Normal NEGATIVE [facility]3] Comment on above: Performed By: #### U ISAI, UMAC #### Testing performed at [address] [address] Clarity (U) CLEAR Normal CLEAR [facility]3] Comment on above: Performed By: #### U ISAI, UMAC #### Testing performed at [address] [place] [address] Color (U) YELLOW Normal YELLOW [facility]3] Comment on above: Performed By: #### U ISAI, UMAC #### Testing performed at [address] [address] Glucose Ql (U) 100 mg/dl Abnormal NEGATIVE [facility]3] Comment on above: Performed By: #### U ISAI, UMAC #### Testing performed at [address] [address] pH (U) 7.0 [pH] Normal 5.0-7.0 [facility]3] Comment on above: Performed By: #### U ISAI, UMAC #### Testing performed at [address] [place] [address] URINE HEMOGLOBIN Negative Normal NEGATIVE [facility]3] Comment on above: Performed By: #### U ISAI, UMAC #### Testing performed at [address] [place] [address] URINE KETONE Negative Normal NEGATIVE [facility]3] Comment on above: Performed By: #### U ISAI, UMAC #### Testing performed at [address] [place] [address] URINE LEUKOTEST Negative Normal NEGATIVE [facility] ([facility])[3] Comment on above: Performed By: #### U ISAI, UMAC #### Testing performed at [address] [place] [address] URINE NITRATES Negative Normal NEGATIVE [facility] ([facility])[3] Comment on above: Performed By: #### U ISAI, UMAC #### Testing performed at [address] [place] [address] URINE SPEC GRAVITY 1.015 Normal 1.010-1.0 2 5 [facility] ([facility]3] Comment on above: Performed By: #### U ISAI, UMAC #### Testing performed at [address] [place] [address] URINE TOTAL PROTEIN Negative Normal NEGATIVE [facility]3] Comment on above: Performed By: #### U ISAI, UMAC #### Testing performed at [address] [place] [address] Urobilinogen Qn (U) 0.2 {Carlos'U}/dL Normal 0.2-1.0 [facility] ([facility])[3] Comment on above: Performed By: #### U ISAI, UMAC #### Testing performed at [address] [place] [address] URINE MICROSCOPICon 05-18-20 24 BACTERIA TRACE Abnormal NEGATIVE [facility])[3] Comment on above: Performed By: #### U ISAI, UMAC #### Testing performed at [address] [place] [address] CASTS NONE Normal NONE [facility]3] Comment on above: Performed By: #### U ISAI, UMAC #### Testing performed at [address] [address] CRYSTAL NONE Normal NONE [facility]3] Comment on above: Performed By: #### U ISAI, UMAC #### Testing performed at [address] [address] Epithelial cells LM Ql (Urine sed) 5 TO 10 Normal [facility]3] Comment on above: Performed By: #### U ISAI, UMAC #### Testing performed at [address] [address] Mucus Ql (Urine sed) Negative Normal NEGATIVE [facility] Comment on above: Performed By: #### U ISAI, UMAC #### Testing performed at [address] [address] URINE COMMENT CULTURE CRITERIA NOT MET, NO CULTURE PERFORMED. Normal [facility]3] Comment on above: Performed By: #### U ISAI, UMAC #### Testing performed at [address] [address] URINE RBC'S Negative Normal NEGATIVE [facility]3] Comment on above: Performed By: #### U ISAI, UMAC #### Testing performed at [address] [address] URINE WBC'S Negative Normal NEGATIVE [facility]3] Comment on above: Performed By: #### U ISAI, UMAC #### Testing performed at [address] [address] MRI HIP RIGHT WITHOUT CONTRA STon 05-05-2024 [...] of the right gluteus medius muscle belly. Partial-thickness/high-grade tearing of the right gluteus medius tendon. Left abductor tendons are intact. No inguinal or pelvic adenopathy. Sacroiliac joints are normal. No acute edema of the pelvic bones or proximal femurs. No acute fractures. IMPRESSION: 1. Partial-thickness/high-grade tearing of the right gluteus medius tendon. 2. Sigmoid diverticulosis. No diverticulitis. 3. No acute fractures. 4. Overlying bowel gas pattern is nonspecific and nonobstructive. 5. Other findings as described. Normal [facility] MR PELVIS W WO CONTon 2023 MR [...] Watt MD on 11/30/2023 4:52 PM Normal [facility] LINA Antinuclear Antibodieson 11-25-2023 Antinuclear Abs, IFA Positive Critically abnormal . [facility] Comment on above: Result Comment: Nega tive <1:80 Borderline 1:80 Positive >1:80 Performed By: #### E SR, CBC, CRP, ADDONUAPLUS, CMP ####[facility] [id number] [id number] [facility]#### LINA, CH50, C3, C4 ####[facility] , Note 1 Normal . [facility] Comment on above: Result Comment: Katie lawson Potential Disease Association Homogeneous Systemic Lupus Erythematosus, Drug Induced Systemic Lupus Erythematosus, Chronic Autoimmune hepatitis, Juvenile Idiopathic Arthritis Speckled Sjogren Syndrome, Systemic Lupus Erythematosus, Subacute Cutaneous Lupus, Lupus, Congenital Heart Block, Mixed Connective Tissue Disease, Scleroderma-diffuse, Scleroderma-Autoimmune Myositis Overlap Syndrome, Systemic Lupus Nrkqotfzyyoug-Qhsazekqxbx-Rkowcnahgz Myositis Overlap Syndrome, Systemic Autoimmune Rheumatic Disease, [...] Linear Scleroderma, Antiphospholipid Syndrome Performed at: - [facility] [id number] Pig Conveyor Operator: Joe Castillo PhD, Phone: [phone] Performed By: #### E SR, CBC, CRP, ADDONUAPLUS, CMP ####[address]#### LINA, CH50, C3, C4 ####[facility] , Speckled Pattern 1:160 High . [facility] Comment on above: Result Comment: Dens e Fine Speckled pattern is noted. This pattern suggests the presence of DFS70 antibody which has a low prevalence in systemic autoimmune rheumatic diseases. ICAP nomenclature: [id number],29 Performed By: #### E SR, CBC, CRP, ADDONUAPLUS, CMP ####[facility] [id number] [place] [address] [place]#### LINA, CH50, C3, C4 ####[facility] , Alanine aminotransferase [En zymatic activity/volume] in Serum or PlasmaOrdered By: Jaime Tomas on 11-25-2023 ALT [Catalytic activity/Vol] 16 U/L Normal 7-52 [facility] Comment on above: Performed By: #### E SR, CBC, CRP, ADDONUAPLUS, CMP #### [facility] [address] [place] [address] [place] #### LINA, CH50, C3, C4 #### [facility] , Albumin [Mass/volume] in Ser um or Plasma by Bromocresol green (BCG) dye binding methoOrdered By: Jaime Tomas on 11-25-2023 Albumin BCG dye [Mass/Vol] 5.0 g/dL 3.5-5.7 [facility] Alkaline phosphatase [Enzyma tic activity/volume] in Serum or PlasmaOrdered By: Jaime Tomas on 11-25-2023 ALP [Catalytic activity/Vol] 70 U/L Normal 34-104 [facility] Comment on above: Performed By: #### E SR, CBC, CRP, ADDONUAPLUS, CMP #### [place] [address] [place] #### LINA, CH50, C3, C4 #### [facility] , Aspartate aminotransferase [ Enzymatic activity/volume] in Serum or PlasmaOrdered By: Jaime Tomas on 11-25-2023 AST [Catalytic activity/Vol] 18 U/L Normal 13-39 [facility] Comment on above: Performed By: #### E SR, CBC, CRP, ADDONUAPLUS, CMP #### [place] [address] [place] #### LINA, CH50, C3, C4 #### [facility] , Automated basophil %Ordered By: Jaime Tomas on 11-25-2023 Basophils/100 WBC (Bld) 1.1 % Normal . [facility] Comment on above: Performed By: #### E SR, CBC, CRP, ADDONUAPLUS, CMP #### [facility] [address] [place] [address] [place] #### LINA, CH50, C3, C4 #### [facility] , Automated basophil countOrde red By: Jaime Tomas on 11-25-2023 Basophils (Bld) [#/Vol] 0.1 10*3/uL Normal 0.0-0.2 [facility] Comment on above: Performed By: #### E SR, CBC, CRP, ADDONUAPLUS, CMP #### [facility] [address] [place] [address] [place] #### LINA, CH50, C3, C4 #### [facility] , Automated blood monocyte cou ntOrdered By: Jaime Tomas on 11-25-2023 Monocytes (Bld) [#/Vol] 0.7 10*3/uL Normal 0.0-0.8 [facility] Comment on above: Performed By: #### E SR, CBC, CRP, ADDONUAPLUS, CMP #### [place] [address] [place] #### LINA, CH50, C3, C4 #### [facility] , Automated eosinophil %Ordere d By: Jaime Tomas on 11-25-2023 Eosinophils/100 WBC (Bld) 2.0 % Normal . [facility] Comment on above: Performed By: #### E SR, CBC, CRP, ADDONUAPLUS, CMP #### [address] #### LINA, CH50, C3, C4 #### [facility] , Automated eosinophil countOr dered By: Jaime Tomas on 11-25-2023 Eosinophils (Bld) [#/Vol] 0.1 10*3/uL Normal 0.0-0.45 [facility] Comment on above: Performed By: #### E SR, CBC, CRP, ADDONUAPLUS, CMP #### [place] [address] [place] #### LINA, CH50, C3, C4 #### [facility] , Automated epithelial cells c ount in urine sediment (number/area)Ordered By: Jaime Tomas on 11-25-2023 Epithelial cells Auto (Urine sed) [#/Area] None seen [HPF] 0-2 [facility] Automated monocyte %Ordered By: Jaime Tomas on 11-25-2023 Monocytes/100 WBC (Bld) 10.1 % Normal . [facility] Comment on above: Performed By: #### E SR, CBC, CRP, ADDONUAPLUS, CMP #### [address] [place] [address] [place] #### LINA, CH50, C3, C4 #### [facility] , Automated neutrophil %Ordere d By: Jaime Tomas on 11-25-2023 Neutrophils/100 WBC (Bld) 54.2 % Normal . [facility] Comment on above: Performed By: #### E SR, CBC, CRP, ADDONUAPLUS, CMP #### [address] #### LINA, CH50, C3, C4 #### [facility] , Bacteria [Presence] in Urine by AutomatedOrdered By: Jaime Tomas on 11-25-2023 Bacteria Auto Ql (U) None seen [HPF] None Seen [facility] Bilirubin Test strip Ql (U)O rdered By: Jaime Tomas on 11-25-2023 Bilirubin Ql (U) Negative Negative [facility] Bilirubin.total [Mass/volume ] in Serum or PlasmaOrdered By: Jaime Tomas on 11-25-2023 Bilirubin [Mass/Vol] 0.7 mg/dL Normal 0.3-1.0 [facility] Comment on above: Performed By: #### E SR, CBC, CRP, ADDONUAPLUS, CMP #### [address] #### LINA, CH50, C3, C4 #### [facility] , C reactive protein [Mass/vol ume] in Serum or PlasmaOrdered By: Jaime Tomas on 11-25-2023 CRP [Mass/Vol] < 0.5 mg/dL 0.0-0.5 [facility] C-Reactive Proteinon 024 CRP [Mass/Vol] mg/L Normal 0.0-0.5 [facility] Comment on above: Result Comment: PERF ORMED BY: [place] [address] PATHOLOGIST MUSEUM DIRECTOR CAROLINE ESCOBAR M.D. Performed By: #### E SR, CBC, CRP, ADDONUAPLUS, CMP #### [facility] [address] [place] [address] [place] #### LINA, CH50, C3, C4 #### [facility] , Calcium [Mass/volume] in Ser um or PlasmaOrdered By: Jaime Tomas on 11-25-2023 Calcium [Mass/Vol] 10.4 mg/dL High 8.6-10.3 [facility] Comment on above: Performed By: #### E SR, CBC, CRP, ADDONUAPLUS, CMP #### [place] [address] [place] #### LINA, CH50, C3, C4 #### [facility] , Carbon dioxide, total [Moles /volume] in Serum or PlasmaOrdered By: Jaime Tomas on 11-25-2023 CO2 [Moles/Vol] 29.6 mmol/L Normal 21.0-31.0 [facility] Comment on above: Performed By: #### E SR, CBC, CRP, ADDONUAPLUS, CMP #### [place] [address] [place] #### LINA, CH50, C3, C4 #### [facility] , Chloride [Moles/volume] in S melanie or PlasmaOrdered By: Jaime Tomas on 11-25-2023 Chloride [Moles/Vol] 103 mmol/L Normal 98-107 [facility] Comment on above: Performed By: #### E SR, CBC, CRP, ADDONUAPLUS, CMP #### [place] [address] [place] #### LINA, CH50, C3, C4 #### [facility] , Color of Urine by AutoOrdere d By: Jaime Tomas on 11-25-2023 Color (U) Yellow Normal Yellow [facility] Comment on above: Order Comment: Name Collection Type:: Clean-Voided Midstream Performed By: #### E SR, CBC, CRP, ADDONUAPLUS, CMP #### [facility] [address] #### LINA, CH50, C3, C4 #### [facility] , Complement C3on 11-25-2023 Complement C3 162 mg/dL Normal 82-167 [facility] Comment on above: Result Comment: Perf ormed at: [address] [id number] Pig Conveyor Operator: Joe Castillo PhD, Phone: [phone] Performed By: #### E SR, CBC, CRP, ADDONUAPLUS, CMP ####[address]#### LINA, CH50, C3, C4 ####[facility] , Complement C4on 11-25-2023 Complement C4 29 mg/dL Normal 12-38 [facility] Comment on above: Result Comment: PERF ORMED BY: [place] [address] PATHOLOGIST MUSEUM DIRECTOR CAROLINE ESCOBAR M.D. Performed By: #### E SR, CBC, CRP, ADDONUAPLUS, CMP ####[address]#### LINA, CH50, C3, C4 ####[facility] , Complement Total (CH50)on Complement Total (CH50) >60 Normal >41 [facility] Comment on above: Result [...] determine out of range values. Performed at: [address] [id number] Pig Conveyor Operator: Joe Castillo PhD, Phone: [phone] PERFORMED BY: [place] [address] PATHOLOGIST MUSEUM DIRECTOR CAROLINE ESCOBAR M.D. Performed By: #### E SR, CBC, CRP, ADDONUAPLUS, CMP #### [address] #### LINA, CH50, C3, C4 #### [facility] , Complete Blood Count Auto Di ffon 11-25-2023 Mean Corpuscular HGB Conc 34.0 g/dL Normal 32.0-35.0 [facility] Comment on above: Performed By: #### E SR, CBC, CRP, ADDONUAPLUS, CMP #### [place] [address] [place] #### LINA, CH50, C3, C4 #### [facility] , NRBC% 0.1 /100{WBC} Normal 0-0.5 [facility] Comment on above: Performed By: #### E SR, CBC, CRP, ADDONUAPLUS, CMP #### [address] #### LINA, CH50, C3, C4 #### [facility] , Comprehensive Metabolic Pane nathalie 11-25-2023 Albumin [Mass/Vol] 5.0 g/dL Normal 3.5-5.7 [facility] Comment on above: Performed By: #### E SR, CBC, CRP, ADDONUAPLUS, CMP #### [place] [address] [place] #### LINA, CH50, C3, C4 #### [facility] , GFR/1.73 sq M.predicted MDRD (S/P/Bld) [Vol rate/Area] mL/min/{1.73_m2} Normal [facility] Comment on above: Performed By: #### E SR, CBC, CRP, ADDONUAPLUS, CMP #### [place] [address] [place] #### LINA, CH50, C3, C4 #### [facility] , Creatinine [Mass/volume] in Serum or PlasmaOrdered By: Jaime Tomas on 11-25-2023 Creatinine [Mass/Vol] 0.93 mg/dL Normal 0.60-1.20 [facility] Comment on above: Performed By: #### E SR, CBC, CRP, ADDONUAPLUS, CMP #### [facility] [address] [place] [address] [place] #### LINA, CH50, C3, C4 #### [facility] , Dipstick and Microscopicon 0 11-25-2023 Appearance (U) Clear Normal Clear [facility] Comment on above: Order Comment: Name Collection Type:: Clean-Voided Midstream Performed By: #### E SR, CBC, CRP, ADDONUAPLUS, CMP #### [address] #### LINA, CH50, C3, C4 #### [facility] , Bacteria,Urine None Seen Normal None Seen [facility] Comment on above: Order Comment: Name Collection Type:: Clean-Voided Midstream Performed By: #### E SR, CBC, CRP, ADDONUAPLUS, CMP #### [address] #### LINA, CH50, C3, C4 #### [facility] , Bilirubin,Urine Negative Normal Negative [facility] Comment on above: Order Comment: Name Collection Type:: Clean-Voided Midstream Performed By: #### E SR, CBC, CRP, ADDONUAPLUS, CMP #### [facility] [address] [place] [address] [place] #### LINA, CH50, C3, C4 #### [facility] , Glucose Ql (U) Normal Normal Normal [facility] Comment on above: Order Comment: Name Collection Type:: Clean-Voided Midstream Performed By: #### E SR, CBC, CRP, ADDONUAPLUS, CMP #### [address] #### LINA, CH50, C3, C4 #### [facility] , Hyaline Casts,Urine None Seen Normal 0-8 [facility] Comment on above: Order Comment: Name Collection Type:: Clean-Voided Midstream Result Comment: PERF ORMED BY: [place] [address] PATHOLOGIST MUSEUM DIRECTOR CAROLINE ESCOBAR M.D. Performed By: #### E SR, CBC, CRP, ADDONUAPLUS, CMP #### [address] #### LINA, CH50, C3, C4 #### [facility] , Ketones Ql (U) Negative Normal Negative [facility] Comment on above: Order Comment: Name Collection Type:: Clean-Voided Midstream Performed By: #### E SR, CBC, CRP, ADDONUAPLUS, CMP #### [address] #### LINA, CH50, C3, C4 #### [facility] , Leukocyte esterase Test strip Ql (U) Negative Normal Negative [facility] Comment on above: Order Comment: Name Collection Type:: Clean-Voided Midstream Performed By: #### E SR, CBC, CRP, ADDONUAPLUS, CMP #### [address] #### LINA, CH50, C3, C4 #### [facility] , Nitrite,Urine Negative Normal Negative [facility] Comment on above: Order Comment: Name Collection Type:: Clean-Voided Midstream Performed By: #### E SR, CBC, CRP, ADDONUAPLUS, CMP #### [address] #### LINA, CH50, C3, C4 #### [facility] , Occult Blood,Urine Negative Normal Negative [facility] Comment on above: Order Comment: Name Collection Type:: Clean-Voided Midstream Performed By: #### E SR, CBC, CRP, ADDONUAPLUS, CMP #### [address] #### LINA, CH50, C3, C4 #### [facility] , Protein,Urine Negative Normal Negative [facility] Comment on above: Order Comment: Name Collection Type:: Clean-Voided Midstream Performed By: #### E SR, CBC, CRP, ADDONUAPLUS, CMP #### [address] #### LINA, CH50, C3, C4 #### [facility] , RBC,Urine None Seen Normal 0-4 [facility] Comment on above: Order Comment: Name Collection Type:: Clean-Voided Midstream Performed By: #### E SR, CBC, CRP, ADDONUAPLUS, CMP #### [address] #### LINA, CH50, C3, C4 #### [facility] , Specificy [place],Urine 1.004 Normal 1.001-1.03 0 [facility] Comment on above: Order Comment: Name Collection Type:: Clean-Voided Midstream Performed By: #### E SR, CBC, CRP, ADDONUAPLUS, CMP #### [address] #### LINA, CH50, C3, C4 #### [facility] , Squamous Epithelial Cell,Urine None Seen Normal 0-2 [facility] Comment on above: Order Comment: Name Collection Type:: Clean-Voided Midstream Performed By: #### E SR, CBC, CRP, ADDONUAPLUS, CMP #### [address] #### LINA, CH50, C3, C4 #### [facility] , Urobilinogen,Urine Normal Normal Normal [facility] Comment on above: Order Comment: Name Collection Type:: Clean-Voided Midstream Performed By: #### E SR, CBC, CRP, ADDONUAPLUS, CMP #### [address] #### LINA, CH50, C3, C4 #### [facility] , WBC,Urine None Seen Normal 0-4 [facility] Comment on above: Order Comment: Name Collection Type:: Clean-Voided Midstream Performed By: #### E SR, CBC, CRP, ADDONUAPLUS, CMP #### [address] #### LINA, CH50, C3, C4 #### [facility] , Erythrocyte Sedimentation Ra jennifer 11-25-2023 ESR (Bld) [Velocity] 26 mm/h Normal 0-29 [facility] Comment on above: Result Comment: PERF ORMED BY: [place] [address] PATHOLOGIST MUSEUM DIRECTOR CAROLINE ESCOBAR M.D. Performed By: #### E SR, CBC, CRP, ADDONUAPLUS, CMP #### [address] #### LINA, CH50, C3, C4 #### [facility] , Erythrocyte distribution wid th [Ratio] by Automated countOrdered By: Jaime Tomas on 11-25-2023 Erythrocyte distribution width (RBC) [Ratio] 12.4 % Normal 11.9-15.3 [facility] Comment on above: Performed By: #### E SR, CBC, CRP, ADDONUAPLUS, CMP #### [address] #### LINA, CH50, C3, C4 #### [facility] , Erythrocyte sedimentation ra te by Photometric methodOrdered By: Jaime Tomas on 11-25-2023 ESR Photometric method (Bld) [Velocity] 26 mm/hr 0-29 [facility] Erythrocytes [#/area] in Uri ne sediment by Automated countOrdered By: Jaime Tomas on 11-25-2023 RBC Auto (Urine sed) [#/Area] None seen [HPF] 0-4 [facility] Erythrocytes [#/volume] in B lood by Automated countOrdered By: Jaime Tomas on 11-25-2023 RBC (Bld) [#/Vol] 4.50 10*6/uL Normal 3.60-5.00 [facility] Comment on above: Performed By: #### E SR, CBC, CRP, ADDONUAPLUS, CMP #### [facility] [address] [place] [address] [place] #### LINA, CH50, C3, C4 #### [facility] , Glucose [Mass/volume] in Ser um or PlasmaOrdered By: Jaime Tomas on 11-25-2023 Glucose [Mass/Vol] 89 mg/dL Normal 70-100 [facility] Comment on above: ADA recommended refe rence rangeRandom Glucose Reference Range is dependent on time and content of last meal. Glucose of more than 200 mg/dL in a nonstressed, ambulatory subject supports the diagnosis of Diabetes Mellitus. Result Comment: [place] om Glucose Reference Range is dependent on time and content of last meal. Glucose of more than 200 mg/dL in a nonstressed, ambulatory subject supports the diagnosis of Diabetes Mellitus. ADA recommended reference range Performed By: #### E SR, CBC, CRP, ADDONUAPLUS, CMP #### [facility] [address] [place] [address] [place] #### LINA, CH50, C3, C4 #### [facility] , Hematocrit [Volume Fraction] of Blood by Automated countOrdered By: Jaime Tomas on 11-25-2023 Hematocrit (Bld) [Volume fraction] 42.0 % Normal 34.0-46.4 [facility] Comment on above: Performed By: #### E SR, CBC, CRP, ADDONUAPLUS, CMP #### [place] [address] [place] #### LINA, CH50, C3, C4 #### [facility] , Hemoglobin [Mass/volume] in BloodOrdered By: Jaime Tomas on 11-25-2023 Hemoglobin (Bld) [Mass/Vol] 14.3 g/dL Normal 11.8-15.4 [facility] Comment on above: Performed By: #### E SR, CBC, CRP, ADDONUAPLUS, CMP #### [facility] [address] [place] [address] [place] #### LINA, CH50, C3, C4 #### [facility] , Ketones Auto test strip (U) [Mass/Vol]Ordered By: Jaime Tomas on 11-25-2023 Ketones (U) [Mass/Vol] Negative Negative [facility] - UrinalysisOrder ed By: Jaime Tomas on 11-25-2023 Hyaline casts LM Ql (Urine sed) None seen [LPF] 0-8 [facility] Leukocytes [#/area] in Urine sediment by Automated countOrdered By: Jaime Tomas on 11-25-2023 WBC Auto (Urine sed) [#/Area] None seen [HPF] 0-4 [facility] Leukocytes [#/volume] correc uriah for nucleated erythrocytes in Blood by Automated counOrdered By: Jaime Tomas on 11-25-2023 WBC corrected for nucl RBC Auto (Bld) [#/Vol] 7.3 10*3/uL 3.8-11.6 [facility] Leukocytes [#/volume] in Blo od by Automated countOrdered By: Jaime Tomas on 11-25-2023 WBC (Bld) [#/Vol] 7.3 10*3/uL Normal 3.8-11.6 [facility] Comment on above: Performed By: #### E SR, CBC, CRP, ADDONUAPLUS, CMP #### [facility] [address] [place] [address] [place] #### LINA, CH50, C3, C4 #### [facility] , Lymphocytes [#/volume] in Bl ood by Automated countOrdered By: Jaime Tomas on 11-25-2023 Lymphocytes (Bld) [#/Vol] 2.4 10*3/uL Normal 1.00-4.8 [facility] Comment on above: Performed By: #### E SR, CBC, CRP, ADDONUAPLUS, CMP #### [address] #### LINA, CH50, C3, C4 #### [facility] , Lymphocytes/100 leukocytes i n Blood by Automated countOrdered By: Jaime Tomas on 11-25-2023 Lymphocytes/100 WBC (Bld) 32.6 % Normal . [facility] Comment on above: Performed By: #### E SR, CBC, CRP, ADDONUAPLUS, CMP #### [address] #### LINA, CH50, C3, C4 #### [facility] , MCH [Entitic mass] by Automa uriah countOrdered By: Jaime Tomas on 11-25-2023 MCH (RBC) [Entitic mass] 31.7 pg Normal 24.7-34.3 [facility] Comment on above: Performed By: #### E SR, CBC, CRP, ADDONUAPLUS, CMP #### [address] #### LINA, CH50, C3, C4 #### [facility] , MCHC Auto (RBC) [Mass/Vol]Or dered By: Jaime Tomas on 11-25-2023 MCHC (RBC) [Mass/Vol] 34.0 g/dL 32.0-35.0 [facility] MCV [Entitic volume] by Auto mated countOrdered By: Jaime Tomas on 11-25-2023 MCV (RBC) [Entitic vol] 93.2 fL Normal 80-100 [facility] Comment on above: Performed By: #### E SR, CBC, CRP, ADDONUAPLUS, CMP #### [place] [address] [place] #### LINA, CH50, C3, C4 #### [facility] , Neutrophils [#/volume] in Bl ood by Automated countOrdered By: Jaime Tomas on 11-25-2023 Neutrophils (Bld) [#/Vol] 3.9 10*3/uL Normal 1.8-7.7 [facility] Comment on above: Performed By: #### E SR, CBC, CRP, ADDONUAPLUS, CMP #### [facility] [address] [place] [address] #### LINA, CH50, C3, C4 #### [facility] , Nitrite Test strip Ql (U)Ord ered By: Jaime Tomas on 11-25-2023 Nitrite Ql (U) Negative Negative [facility] No Panel InformationOrdered By: Jaime Tomas on 11-25-2023 Estimated GFR (CKD-EPI) > 60.0 mL/Min [facility] Creatinine Clearance (Chem N/A [facility] Nucleated erythrocytes [Pres ence] in Blood by Automated countOrdered By: Jaime Tomas on 11-25-2023 Nucleated RBC Auto Ql (Bld) 0.1 /100{WBC} 0-0.5 [facility] Platelet mean volume [Entiti c volume] in Blood by Automated countOrdered By: Jaime Tomas on 11-25-2023 Platelet mean volume (Bld) [Entitic vol] 9.2 fL Normal 6.3-10.7 [facility] Comment on above: Performed By: #### E SR, CBC, CRP, ADDONUAPLUS, CMP #### [facility] [address] [place] [address] [place] #### LINA, CH50, C3, C4 #### [facility] , Platelets [#/volume] in Bloo d by Automated countOrdered By: Jaime Tomas on 11-25-2023 Platelets (Bld) [#/Vol] 336 10*3/uL Normal 150-450 [facility] Comment on above: Performed By: #### E SR, CBC, CRP, ADDONUAPLUS, CMP #### [facility] [address] [place] [address] #### LINA, CH50, C3, C4 #### [facility] , Potassium [Moles/volume] in Serum or PlasmaOrdered By: Jaime Tomas on 11-25-2023 Potassium [Moles/Vol] 4.8 mmol/L Normal 3.5-5.1 [facility] Comment on above: Performed By: #### E SR, CBC, CRP, ADDONUAPLUS, CMP #### [facility] [address] [place] [address] #### LINA, CH50, C3, C4 #### [facility] , Protein Auto test strip (U) [Mass/Vol]Ordered By: Jaime Tomas on 11-25-2023 Protein (U) [Mass/Vol] Negative Negative [facility] Protein [Mass/volume] in Ser um or PlasmaOrdered By: Jaime Tomas on 11-25-2023 Protein [Mass/Vol] 7.6 g/dL Normal 6.4-8.9 [facility] Comment on above: Performed By: #### E SR, CBC, CRP, ADDONUAPLUS, CMP #### [facility] [address] [place] [address] #### LINA, CH50, C3, C4 #### [facility] , Serum globulin measurement b y calculation (mass/volume)Ordered By: Jaime Tomas on 11-25-2023 Globulin (S) [Mass/Vol] 2.6 g/dL [facility] Comment on above: Performed By: #### E SR, CBC, CRP, ADDONUAPLUS, CMP #### [facility] [address] [place] [address] [place] #### LINA, CH50, C3, C4 #### [facility] , Serum or plasma albumin/glob ulin mass ratioOrdered By: Jaime Tomas on 11-25-2023 Albumin/Globulin [Mass ratio] 1.9 {ratio} [facility] Comment on above: Performed By: #### E SR, CBC, CRP, ADDONUAPLUS, CMP #### [place] [address] [place] #### LINA, CH50, C3, C4 #### [facility] , Serum or plasma anion gap de terminationOrdered By: Jaime Tomas on 11-25-2023 Anion gap [Moles/Vol] 13.2 mmol/L Normal 6.0-15.0 [facility] Comment on above: Performed By: #### E SR, CBC, CRP, ADDONUAPLUS, CMP #### [address] #### LINA, CH50, C3, C4 #### [facility] , Sodium [Moles/volume] in Ser um or PlasmaOrdered By: Jaime Tomas on 11-25-2023 Sodium [Moles/Vol] 141 mmol/L Normal 136-145 [facility] Comment on above: Performed By: #### E SR, CBC, CRP, ADDONUAPLUS, CMP #### [address] #### LINA, CH50, C3, C4 #### [facility] , Specific gravity Auto test s trip (U) [Rel density]Ordered By: Jaime Tomas on 11-25-2023 Specific gravity (U) [Rel density] 1.004 1.001-1.03 0 [facility] Urea nitrogen [Mass/volume] in Serum or PlasmaOrdered By: Jaime Tomas on 11-25-2023 Urea nitrogen [Mass/Vol] 19 mg/dL Normal 7-25 [facility] Comment on above: Performed By: #### E SR, CBC, CRP, ADDONUAPLUS, CMP #### [facility] [address] [place] [address] [place] #### LINA, CH50, C3, C4 #### [facility] , Urine clarity by refractomet ry automatedOrdered By: Jaime Tmoas on 11-25-2023 Clarity Refractometry automated (U) Clear Clear [facility] Urine glucose measurement by automated test strip (mass/volume)Ordered By: Jaime Tomas on 11-25-2023 Glucose Auto test strip (U) [Mass/Vol] Normal mg/dL Normal [facility] Urine hemoglobin detection b y automated test stripOrdered By: Jaime Tomas on 11-25-2023 Hemoglobin Auto test strip Ql (U) Negative Negative [facility] Urine leukocyte esterase det ection by automated test stripOrdered By: Jaime Tomas on 11-25-2023 Leukocyte esterase Auto test strip Ql (U) Negative Negative [facility] Urine pH measurement by auto mated test stripOrdered By: Jaime Tomas on 11-25-2023 pH (U) 7.5 [pH] Normal 5.0-9.0 [facility] Comment on above: Order Comment: Name Collection Type:: Clean-Voided Midstream Performed By: #### E SR, CBC, CRP, ADDONUAPLUS, CMP #### [facility] [address] [place] [address] #### LINA, CH50, C3, C4 #### [facility] , Urobilinogen Auto test strip (U) [Mass/Vol]Ordered By: Jaime Tomas on 11-25-2023 Urobilinogen (U) [Mass/Vol] Normal mg/dL Normal [facility] XR HIP RT 2-3 VIEWS W [...] Efren Vivar MD on 11/18/2023 9:43 AM [facility] venous duplex LE RTon US venous duplex LE RT [facility] Main [place] [id number] Ultrasound Report Signed Patient: Julia Chavarria MR#: [id number] : 1960 Acct:[id number] Age/Sex: 63 / F ADM Date: 09/14/23 Loc: Room: Type: [facility] CLI Attending Dr: Ramu Mancuso [...] Christopher Subramanian MD09/15/2023 2:44 PM Dictation Location: [place] [address] Tech: Bessie Tenorio Transcribed By: AKILAH 09/15/23 1444 Dictated By: Christopher Subramanian MD 09/15/23 1435 Signed By: 09/15/23 1444 Normal [facility] MR lumbar spine wo/w conon 0 09-10-2023 MR lumbar spine wo/w con [facility] Main [address] [address] MRI Report Signed Patient: Julia Chavarria MR#: [id number] : 1960 Acct:[id number] Age/Sex: 62 / F ADM Date: 09/09/23 Loc: Room: Type: [facility] CLI Attending Dr: Ramu Mancuso [...] Lilly Carroll M.D.09/10/2023 12:36 PM Dictation Location: [place] [address] Transcribed By: [facility] 09/10/23 1236 Dictated By: Lilly Carroll MD 09/10/23 1213 Signed By: 09/10/23 1236 Normal [facility] ISTAT XRay CREon 2023 ISTAT GFR 56.813 Normal [facility] Comment on above: Result Comment: PERF ORMED BY: [place] [address] PATHOLOGIST MUSEUM DIRECTOR CAROLINE ESCOBAR M.D. Performed By: #### I SCRE #### [address] No Panel InformationOrdered By: Ramu Mancuso on 2023 Bedside Estimated GFR (eGFR) 56.813 [facility] Whole blood creatinine measu rementOrdered By: Ramu Mancuso on 2023 Creatinine [Mass/Vol] 1.1 mg/dL Normal 0.6-1.3 [facility] Comment on above: ER/ESD physician is notified/shown all ISTAT results.Critical values may be confirmed by laboratory testing ifdeemed necessary by ER attending doctor. Result Comment: ER/E SD physician is notified/shown all ISTAT results. Critical values may be confirmed by laboratory testing if deemed necessary by ER attending doctor. Performed By: #### I SCRE #### [facility] [address] XR hip RT min 2V(w/wo pelvis )*on 04-16-2023 XR hip RT min 2V(w/wo pelvis)* [facility] Main [place] [address] [place] [address] XRay Report Signed Patient: Julia Chavarria MR#: [id number] : 1960 Acct:[id number] Age/Sex: 62 / F ADM Date: 04/16/23 Loc: [facility] [place] Room: Type: [facility] Attending Dr: Jaime Molina II, MD [...] Conde Jr., D.O.04/16/2023 1:20 PM Dictation Location: [place] [address] Transcribed By: [facility] 04/16/23 1320 Dictated By: Bravo Conde Jr, DO 04/16/23 1318 Signed By: 04/16/23 1320 Normal [facility] MG MAMM SCREEN 3D BILL CADon 10-29-2022 MG MAMM SCREEN 3D BILL CAD Patient: JULIA CHAVARRIA Exam Date: 10/29/2022 : 1960 Gender:F Ordering : JANET HERMOSILLO [facility] Admission #: [id number] Family : Order #: [id number] CLICK HERE TO VIEW EXAM RADIOLOGY REPORT PROCEDURE: MAMMOGRAM SCREENING 3D BILATERAL CAD COMPARISON: None. INDICATIONS: Screening mammography Calculator Name NCI Breast Cancer Risk Assessment Tool 5 Year Breast Cancer Risk 1.70% Lifetime Breast Cancer Risk 7.70% Personal Breast Cancer No Personal Ovarian Cancer No Treatments None Family Cancers None LOCATION: [facility] BREAST COMPOSITION: Scattered areas fibroglandular [...] MD on 12/01/2022 at 07:07 Normal [facility] INSULINon 10-22-2022 Insulin 8.9 uIU/mL Normal 2.6-24.9 [facility] Comment on above: Performed By: #### I NSULIN #### [facility] [address] [place] [address] [address] Natalie Sood CBC AUTO DIFFon 10-21-2022 BASO # 0.1 103/ul Normal 0.0-0.1 [facility] Comment on above: Performed By: #### L IPID, TSH, T7, CMP #### [facility] [address] [place] [address] [address] Natalie Sood Basophils/100 WBC (Bld) 0.9 % Normal 0.2-2.0 [facility] Comment on above: Performed By: #### L IPID, TSH, T7, CMP #### [facility] [address] [place] [address] [address] Natalie Sood EO # 0.2 103/ul Normal 0.0-0.7 [facility] Comment on above: Performed By: #### L IPID, TSH, T7, CMP #### [facility] [address] [place] [address] Dr. Natalie Sood Eosinophils/100 WBC (Bld) 3.2 % Normal 0.9-7.0 [facility] Comment on above: Performed By: #### L IPID, TSH, T7, CMP #### [facility] [address] [place] [address] Dr. Natalie Sood Erythrocyte distribution width (RBC) [Ratio] 12.3 % Normal 11.0-15.0 [facility] Comment on above: Performed By: #### L IPID, TSH, T7, CMP #### [facility] [address] [place] [address] Dr. Natalie Sood Hematocrit (Bld) [Volume fraction] 41.4 % Normal 36.0-48.0 [facility] Comment on above: Performed By: #### L IPID, TSH, T7, CMP #### [facility] [address] [place] [address] Dr. Natalie Sood Hemoglobin (Bld) [Mass/Vol] 13.7 g/dL Normal 12.0-16.0 [facility] Comment on above: Performed By: #### L IPID, TSH, T7, CMP #### [facility] [address] [place] [address] Dr. Natalie Sood IG # 0.04 10e3/ul Critically high 0.00-0.03 [facility] Comment on above: Performed By: #### L IPID, TSH, T7, CMP #### [facility] [address] [place] [address] Dr. Natalie Sood IG % 0.6 % Critically high 0.0-0.5 [facility] Comment on above: Performed By: #### L IPID, TSH, T7, CMP #### [facility] [address] [place] [address] Dr. Natalie Sood LYMPH # 2.0 103/ul Normal 1.2-3.8 [facility] Comment on above: Performed By: #### L IPID, TSH, T7, CMP #### [facility] [address] [place] [address] Dr. Natalie Sood Lymphocytes/100 WBC (Bld) 30.7 % Normal 20.5-60.0 [facility] Comment on above: Performed By: #### L IPID, TSH, T7, CMP #### [facility] [address] [place] [address] Dr. Natalie Sood MANUAL DIFF REQ NO Normal [facility] Comment on above: Performed By: #### L IPID, TSH, T7, CMP #### [facility] [address] [place] [address] Dr. Natalie Sood MCH (RBC) [Entitic mass] 31.6 pg Normal 26.7-34.0 [facility] Comment on above: Performed By: #### L IPID, TSH, T7, CMP #### [facility] [address] [place] [address] Dr. Natalie Sood MCHC (RBC) [Mass/Vol] 33.1 g/dL Normal 29.9-35.2 [facility] Comment on above: Performed By: #### L IPID, TSH, T7, CMP #### [facility] [address] [place] [address] Dr. Natalie Sood MCV (RBC) [Entitic vol] 95.6 fL Normal 81.0-99.0 [facility] Comment on above: Performed By: #### L IPID, TSH, T7, CMP #### [facility] [address] [place] [address] Dr. Natalie Sood MONO # 0.6 103/ul Normal 0.3-0.8 [facility] Comment on above: Performed By: #### L IPID, TSH, T7, CMP #### [facility] [address] [place] [address] Dr. Natalie Sood Monocytes/100 WBC (Bld) 9.5 % Normal 1.7-12.0 [facility] Comment on above: Performed By: #### L IPID, TSH, T7, CMP #### [facility] [address] [place] [address] [address] Natalie Sood NEUT # 3.7 103/ul Normal 1.4-6.5 [facility] Comment on above: Performed By: #### L IPID, TSH, T7, CMP #### [facility] [address] [place] [address] Dr. Natalie Sood Neutrophils/100 WBC (Bld) 55.1 % Normal 43.0-75.0 [facility] Comment on above: Performed By: #### L IPID, TSH, T7, CMP #### [facility] [address] [place] [address] [address] Natalie Sood Platelet mean volume (Bld) [Entitic vol] 9.8 fL Normal 9.5-13.5 [facility] Comment on above: Performed By: #### L IPID, TSH, T7, CMP #### [facility] [address] [place] [address] Dr. Natalie Sood PLT 293 103/ul Normal 150-450 [facility] Comment on above: Performed By: #### L IPID, TSH, T7, CMP #### [facility] [address] [place] [address] Dr. Natalie Sood RBC 4.33 106/ul Normal 4.20-5.40 [facility] Comment on above: Performed By: #### L IPID, TSH, T7, CMP #### [facility] [address] [place] [address] Dr. Natalie Sood WBC 6.6 103/ul Normal 4.0-11.0 [facility] Comment on above: Performed By: #### L IPID, TSH, T7, CMP #### [facility] [address] [place] [address] Dr. Natalie Sood FREE THYROXINE INDEX T7on FTI 3.36 Normal 1.30-4.50 [facility] Comment on above: Performed By: #### L IPID, TSH, T7, CMP #### [facility] [address] [place] [address] Dr. Natalie Sood T3U 35.0 % Normal 30.0-39.0 [facility] Comment on above: Performed By: #### L IPID, TSH, T7, CMP #### [facility] [address] [place] [address] Dr. Natalie Sood T4 [Mass/Vol] 9.60 ug/dL Normal 4.80-13.90 [facility] Comment on above: Performed By: #### L IPID, TSH, T7, CMP #### [facility] [address] [place] [address] Dr. Natalie Sood GLYCOHEMOGLOBIN A1Con 2022 ADA RECOMMENDATION SEE BELOW Normal [facility] Comment on above: Result Comment: ADA RECOMMENDED LIMIT 4.0 - 6.0 ADA THERAPEUTIC TARGET < 7.0 ACTION SUGGESTED > 7.0 Performed By: #### A 1C #### [facility] [address] [place] [address] Dr. Natalie Sood Glucose [Mass/Vol] 97 mg/dL Normal [facility] Comment on above: Performed By: #### A 1C #### [facility] [address] [place] [address] Dr. Natalie Sood HbA1c (Bld) [Mass fraction] 5.0 % Normal 4.5-6.2 [facility] Comment on above: Performed By: #### A 1C #### [facility] [address] [place] [address] Dr. Natalie Sood IRONon 10-21-2022 Iron [Mass/Vol] 126.0 ug/dL Normal 50.0-170.0 [facility] Comment on above: Performed By: #### L IPID, TSH, T7, CMP #### [facility] [address] [place] [address] Dr. Natalie Sood LIPID PROFILEon 10-21-2022 CHOL-HDL RATIO NORM SEE BELOW Normal [facility] Comment on above: Result Comment: 3.3 - 4.4 LOW RISK 4.4 - 7.1 AVERAGE RISK 7.1 - 11.0 MODERATE RISK >11.0 HIGH RISK Performed By: #### L IPID, TSH, T7, CMP #### [facility] [address] [place] [address] Dr. Natalie Sood Cholesterol [Mass/Vol] 231 mg/dL Critically high <=200 [facility] Comment on above: Performed By: #### L IPID, TSH, T7, CMP #### [facility] [address] [place] [address] [address] Natalie Sood Cholesterol in HDL [Mass/Vol] 59 mg/dL Normal 40-60 [facility] Comment on above: Performed By: #### L IPID, TSH, T7, CMP #### [facility] [address] [place] [address] [address] Natalie Sood Cholesterol in LDL [Mass/Vol] 144.8 mg/dL Normal [facility] Comment on above: Performed By: #### L IPID, TSH, T7, CMP #### [facility] [address] [place] [address] Dr. Natalie Sood Cholesterol.total/Chol esterol in HDL [Mass ratio] 3.9 {ratio} Normal [facility] Comment on above: Performed By: #### L IPID, TSH, T7, CMP #### [facility] [address] [place] [address] [address] Natalie Sood HDL NORMAL > or = 60 mg/dl - LO W CARDIOVASCULAR RISK <40 mg/dl - HIGH CARDIOVASCULAR RISK Normal [facility] Comment on above: Performed By: #### L IPID, TSH, T7, CMP #### [facility] [address] [place] [address] [address] Natalie Sood LDL CALC NORMAL SEE BELOW Normal [facility] Comment on above: Result Comment: <100 mg/dl OPTIMAL 100 - 129 mg/dl NEAR OR ABOVE OPTIMAL 130 - 159 mg/dl BORDERLINE HIGH 160 - 189 mg/dl HIGH >190 mg/dl VERY HIGH Performed By: #### L IPID, TSH, T7, CMP #### [facility] [address] [place] [address] [address] Natalie Sood Triglyceride [Mass/Vol] 136 mg/dL Normal <=150 [facility] Comment on above: Performed By: #### L IPID, TSH, T7, CMP #### [facility] [address] [place] [address] [address] Natalie Sood VLDL CALC 27.2 mg/dL Normal [facility] Comment on above: Performed By: #### L IPID, TSH, T7, CMP #### [facility] [address] [place] [address] [address] Natalie Sood OCC BLD IMMUNO SCREENon 10-03 OCCULT BLOOD Negative Normal NEGATIVE [facility] Comment on above: Performed By: #### L IPID, TSH, T7, CMP #### [facility] [address] [place] [address] [address] Natalie Sood PROF 14(COMP METB)on 023 Albumin [Mass/Vol] 4.0 g/dL Normal 3.4-5.0 [facility] Comment on above: Performed By: #### L IPID, TSH, T7, CMP #### [facility] [address] [place] [address] Dr. Natalie Sood Albumin/Globulin [Mass ratio] 1.1 {ratio} Normal [facility] Comment on above: Performed By: #### L IPID, TSH, T7, CMP #### [facility] [address] [place] [address] Dr. Natalie Sood ALP [Catalytic activity/Vol] 73 U/L Normal 46-116 [facility] Comment on above: Performed By: #### L IPID, TSH, T7, CMP #### [facility] [address] [place] [address] Dr. Natalie Sood ALT [Catalytic activity/Vol] 23 U/L Normal 14-59 [facility] Comment on above: Performed By: #### L IPID, TSH, T7, CMP #### [facility] [address] [place] [address] [address] Natalie Sood Anion gap [Moles/Vol] 15.1 mmol/L Normal [facility] Comment on above: Performed By: #### L IPID, TSH, T7, CMP #### [facility] [address] [place] [address] [address] Natalie Sood AST [Catalytic activity/Vol] 14 U/L Critically low 15-37 [facility] Comment on above: Performed By: #### L IPID, TSH, T7, CMP #### [facility] [address] [place] [address] [address] Natalie Sood Bilirubin [Mass/Vol] 1.1 mg/dL Critically high 0.2-1.0 [facility] Comment on above: Performed By: #### L IPID, TSH, T7, CMP #### [facility] [address] [place] [address] Dr. Natalie Sood Calcium [Mass/Vol] 9.7 mg/dL Normal 8.5-10.1 [facility] Comment on above: Performed By: #### L IPID, TSH, T7, CMP #### [facility] [address] [place] [address] Dr. Natalie Sood Chloride [Moles/Vol] 106 mmol/L Normal 98-107 [facility] Comment on above: Performed By: #### L IPID, TSH, T7, CMP #### [facility] [address] [place] [address] Dr. Natalie Sood CO2 [Moles/Vol] 27.2 mmol/L Normal 21.0-32.0 [facility] Comment on above: Performed By: #### L IPID, TSH, T7, CMP #### [facility] [address] [place] [address] Dr. Natalie Sood Creatinine [Mass/Vol] 1.00 mg/dL Normal 0.55-1.02 [facility] Comment on above: Performed By: #### L IPID, TSH, T7, CMP #### [facility] [address] [place] [address] Dr. Natalie Sood EGFR-AF GREEK >60 Normal >=60 [facility] Comment on above: Performed By: #### L IPID, TSH, T7, CMP #### [facility] [address] [place] [address] Dr. Natalie Sood EGFR-NON AF GREEK 56 mL/min/1.73m2 Critically low >=60 [facility] Comment on above: Performed By: #### L IPID, TSH, T7, CMP #### [facility] [address] [place] [address] [address] Natalie Sood Globulin (S) [Mass/Vol] 3.6 g/dL Normal [facility] Comment on above: Performed By: #### L IPID, TSH, T7, CMP #### [facility] [address] [place] [address] [address] Natalie Sood Glucose [Mass/Vol] 89 mg/dL Normal 74-106 [facility] Comment on above: Performed By: #### L IPID, TSH, T7, CMP #### [facility] [address] [place] [address] [address] Natalie Sood Potassium [Moles/Vol] 4.3 mmol/L Normal 3.5-5.1 [facility] Comment on above: Performed By: #### L IPID, TSH, T7, CMP #### [facility] [address] [place] [address] Dr. Natalie Sood Protein [Mass/Vol] 7.6 g/dL Normal 6.4-8.2 [facility] Comment on above: Performed By: #### L IPID, TSH, T7, CMP #### [facility] [address] [place] [address] Dr. Natalie Sood Sodium [Moles/Vol] 144 mmol/L Normal 136-145 [facility] Comment on above: Performed By: #### L IPID, TSH, T7, CMP #### [facility] [address] [place] [address] Dr. Natalie Sood Urea nitrogen [Mass/Vol] 18.0 mg/dL Normal 7.0-18.0 [facility] Comment on above: Performed By: #### L IPID, TSH, T7, CMP #### [facility] [address] [place] [address] Dr. Natalie Sood Urea nitrogen/Creatinine [Mass ratio] 18.0 mg/mg Normal [facility] Comment on above: Performed By: #### L IPID, TSH, T7, CMP #### [facility] [address] [place] [address] Dr. Natalie Sood TSHon 10-21-2022 TSH 0.157 uIU/mL Critically low 0.358-3.74 0 [facility] Comment on above: Performed By: #### L IPID, TSH, T7, CMP #### [facility] [address] [place] [address] Dr. Natalie Sood VITAMIN B12on 10-21-2022 Cobalamin (Vitamin B12) [Mass/Vol] 1101.0 pg/mL Critically high 193.0-986. 0 [facility] Comment on above: Performed By: #### L IPID, TSH, T7, CMP #### [facility] [address] [place] [address] Dr. Natalie Sood VITAMIN D 25 OHon 10-21-2022 VIT D 25-OH 68.0 ng/mL Normal [facility] Comment on above: Performed By: #### L IPID, TSH, T7, CMP #### [facility] [address] [place] [address] Dr. Natalie Sood VIT D RANGES SEE BELOW Normal [facility] Comment on above: Result Comment: <20 ng/mL Vit D deficient 20 - <30 ng/mL Vit D insufficient 30 - 100 ng/mL Vit D sufficient >100 ng/mL Potential Toxicity Performed By: #### L IPID, TSH, T7, CMP #### [facility] [address] [place] [address] Dr. Natalie Sood CBC AUTO DIFFon 08-18-2022 BASO # 0.0 103/ul Normal 0.0-0.1 [facility] Comment on above: Performed By: #### L IPID, TSH, T7, CMP #### [facility] [address] [place] [address] Dr. Natalie Sood Basophils/100 WBC (Bld) 0.2 % Normal 0.2-2.0 [facility] Comment on above: Performed By: #### L IPID, TSH, T7, CMP #### [facility] [address] [place] [address] Dr. Natalie Sood EO # 0.2 103/ul Normal 0.0-0.7 [facility] Comment on above: Performed By: #### L IPID, TSH, T7, CMP #### [facility] [address] [place] [address] Dr. Natalie Sood Eosinophils/100 WBC (Bld) 1.0 % Normal 0.9-7.0 [facility] Comment on above: Performed By: #### L IPID, TSH, T7, CMP #### [facility] [address] [place] [address] Dr. Natalie Sood Erythrocyte distribution width (RBC) [Ratio] 13.1 % Normal 11.0-15.0 [facility] Comment on above: Performed By: #### L IPID, TSH, T7, CMP #### [facility] [address] [place] [address] Dr. Natalie Sood Hematocrit (Bld) [Volume fraction] 44.1 % Normal 36.0-48.0 [facility] Comment on above: Performed By: #### L IPID, TSH, T7, CMP #### [facility] [address] [place] [address] Dr. Natalie Sood Hemoglobin (Bld) [Mass/Vol] 14.6 g/dL Normal 12.0-16.0 [facility] Comment on above: Performed By: #### L IPID, TSH, T7, CMP #### [facility] [address] [place] [address] Dr. Natalie Sood IG # 0.11 10e3/ul Critically high 0.00-0.03 [facility] Comment on above: Performed By: #### L IPID, TSH, T7, CMP #### [facility] [address] [place] [address] Dr. Natalie Sood IG % 0.7 % Critically high 0.0-0.5 [facility] Comment on above: Performed By: #### L IPID, TSH, T7, CMP #### [facility] [address] [place] [address] Dr. Natalie Sood LYMPH # 1.0 103/ul Critically low 1.2-3.8 [facility] Comment on above: Performed By: #### L IPID, TSH, T7, CMP #### [facility] [address] [place] [address] Dr. Natalie Sood Lymphocytes/100 WBC (Bld) 6.1 % Critically low 20.5-60.0 [facility] Comment on above: Performed By: #### L IPID, TSH, T7, CMP #### [facility] [address] [place] [address] Dr. Natalie Sood MANUAL DIFF REQ NO Normal [facility] Comment on above: Performed By: #### L IPID, TSH, T7, CMP #### [facility] [address] [place] [address] Dr. Natalie Sood MCH (RBC) [Entitic mass] 31.1 pg Normal 26.7-34.0 [facility] Comment on above: Performed By: #### L IPID, TSH, T7, CMP #### [facility] [address] [place] [address] Dr. Natalie Sood MCHC (RBC) [Mass/Vol] 33.1 g/dL Normal 29.9-35.2 [facility] Comment on above: Performed By: #### L IPID, TSH, T7, CMP #### [facility] [address] [place] [address] Dr. Natalie Sood MCV (RBC) [Entitic vol] 94.0 fL Normal 81.0-99.0 [facility] Comment on above: Performed By: #### L IPID, TSH, T7, CMP #### [facility] [address] [place] [address] Dr. Natalie Sood MONO # 1.0 103/ul Critically high 0.3-0.8 [facility] Comment on above: Performed By: #### L IPID, TSH, T7, CMP #### [facility] [address] [place] [address] Dr. Natalie Sood Monocytes/100 WBC (Bld) 6.3 % Normal 1.7-12.0 [facility] Comment on above: Performed By: #### L IPID, TSH, T7, CMP #### [facility] [address] [place] [address] Dr. Natalie Sood NEUT # 13.9 103/ul Critically high 1.4-6.5 [facility] Comment on above: Performed By: #### L IPID, TSH, T7, CMP #### [facility] [address] [address] [address] Natalie Sood Neutrophils/100 WBC (Bld) 85.7 % Critically high 43.0-75.0 [facility] Comment on above: Performed By: #### L IPID, TSH, T7, CMP #### [facility] [address] [place] [address] Dr. Natalie Sood Platelet mean volume (Bld) [Entitic vol] 9.9 fL Normal 9.5-13.5 [facility] Comment on above: Performed By: #### L IPID, TSH, T7, CMP #### [facility] [address] [place] [address] Dr. Natalie Sood PLT 338 103/ul Normal 150-450 [facility] Comment on above: Performed By: #### L IPID, TSH, T7, CMP #### [facility] [address] [address] [address] Natalie Sood RBC 4.69 106/ul Normal 4.20-5.40 [facility] Comment on above: Performed By: #### L IPID, TSH, T7, CMP #### [facility] [address] [place] [address] Dr. Natalie Sood WBC 16.3 103/ul Critically high 4.0-11.0 [facility] Comment on above: Performed By: #### L IPID, TSH, T7, CMP #### [facility] [address] [place] [address] Dr. Natalie Sood CTA CHEST WO W CONon 023 CTA CHEST WO W CON EXAMINATION: CTA JANELLE ST WO W CON, 08/18/2022 HISTORY: CHEST PAIN, [...] ADALBERTO CARVALHO Date: 2022-08-18 13:58 Normal [facility] PROF 14(COMP METB)on 023 Albumin [Mass/Vol] 4.4 g/dL Normal 3.4-5.0 [facility] Comment on above: Performed By: #### C KYM, HSTROPN #### [facility] [address] [place] [address] Dr. Natalie Sood Albumin/Globulin [Mass ratio] 1.3 {ratio} Normal [facility] Comment on above: Performed By: #### C KYM, HSTROPN #### [facility] [address] [place] [address] Dr. Natalie Sood ALP [Catalytic activity/Vol] 86 U/L Normal 46-116 [facility] Comment on above: Performed By: #### C KYM, HSTROPN #### [facility] [address] [address] [address] Natalie Sood ALT [Catalytic activity/Vol] 23 U/L Normal 14-59 [facility] Comment on above: Performed By: #### C KYM, HSTROPN #### [facility] [address] [address] [address] Natalie Sood Anion gap [Moles/Vol] 13.7 mmol/L Normal [facility] e [facility] Comment on above: Performed By: #### C MP, HSTROPN #### [facility] [address] [address] [address] Natalie Sood AST [Catalytic activity/Vol] 19 U/L Normal 15-37 [facility] Comment on above: Performed By: #### C KYM, HSTROPN #### [facility] [address] [address] [address] Natalie Sood Bilirubin [Mass/Vol] 1.2 mg/dL Critically high 0.2-1.0 [facility] Comment on above: Performed By: #### C KYM, HSTROPN #### [facility] [address] [place] [address] Dr. Natalie Sood Calcium [Mass/Vol] 9.3 mg/dL Normal 8.5-10.1 [facility] Comment on above: Performed By: #### C KYM, HSTROPN #### [facility] [address] [place] [address] Dr. Natalie Sood Chloride [Moles/Vol] 105 mmol/L Normal 98-107 [facility] Comment on above: Performed By: #### C KYM, HSTROPN #### [facility] [address] [place] [address] Dr. Natalie Sood CO2 [Moles/Vol] 26.7 mmol/L Normal 21.0-32.0 [facility] Comment on above: Performed By: #### C KYM, HSTROPN #### [facility] [address] [place] [address] Dr. Natalie Sood Creatinine [Mass/Vol] 0.97 mg/dL Normal 0.55-1.02 [facility] Comment on above: Performed By: #### C KYM, HSTROPN #### [facility] [address] [place] [address] Dr. Natalie Sood EGFR-AF GREEK >60 Normal >=60 [facility] Comment on above: Performed By: #### C KYM, HSTROPN #### [facility] [address] [place] [address] Dr. Natalie Sood EGFR-NON AF GREEK 58 mL/min/1.73m2 Critically low >=60 [facility] Comment on above: Performed By: #### C MP, HSTROPN #### [facility] [address] [address] [address] Natalie Sood Globulin (S) [Mass/Vol] 3.3 g/dL Normal [facility] Comment on above: Performed By: #### C MP, HSTROPN #### [facility] [address] [address] [address] Natalie Sood Glucose [Mass/Vol] 93 mg/dL Normal 74-106 [facility] Comment on above: Performed By: #### C MP, HSTROPN #### [facility] [address] [place] [address] Dr. Natalie Sood Potassium [Moles/Vol] 4.4 mmol/L Normal 3.5-5.1 [facility] Comment on above: Performed By: #### C MP, HSTROPN #### [facility] [address] [address] [address] Natalie Sood Protein [Mass/Vol] 7.7 g/dL Normal 6.4-8.2 [facility] Comment on above: Performed By: #### C MP, HSTROPN #### [facility] [address] [place] [address] Dr. Natalie Sood Sodium [Moles/Vol] 141 mmol/L Normal 136-145 [facility] Comment on above: Performed By: #### C MP, HSTROPN #### [facility] [address] [address] [address] Natalie Sood Urea nitrogen [Mass/Vol] 24.0 mg/dL Critically high 7.0-18.0 [facility] Comment on above: Performed By: #### C MP, HSTROPN #### [facility] [address] [address] [address] Natalie Sood Urea nitrogen/Creatinine [Mass ratio] 24.7 mg/mg Normal [facility] Comment on above: Performed By: #### C MP, HSTROPN #### [facility] [address] [place] [address] Dr. Natalie Sood PROTIMEon 08-18-2022 INR Coag (PPP) [Relative time] 0.95 {INR} Normal [facility] Comment on above: Performed By: #### L IPID, TSH, T7, CMP #### [facility] [address] [place] [address] Dr. Natalie Sood INR GUIDELINES SEE BELOW Normal [facility] Comment on above: Result Comment: JEROME RED INR: 2.0 - 3.0 CONDITIONS NOT LISTED BELOW 2.5 - 3.5 FOR PROSTHETIC HEART VALVE REPLACEMENT 2.5 - 3.5 RECURRENT THROMBOSIS Performed By: #### L IPID, TSH, T7, CMP #### [facility] [address] [place] [address] Dr. Natalie Sood PT Coag (PPP) [Time] 10.1 s Normal 9.0-11.6 [facility] Comment on above: Performed By: #### L IPID, TSH, T7, CMP #### [facility] [address] [place] [address] Dr. Natalie Sood PTTon 08-18-2022 aPTT Coag (Bld) [Time] 26.5 s Normal 22.3-36.2 [facility] Comment on above: Performed By: #### L IPID, TSH, T7, CMP #### [facility] [address] [place] [address] Dr. Natalie Sood TROPONIN, HIGH SENSITIVITYon 08-18-2022 HSTROP 5.5 pg/mL Normal 4.0-51.3 [facility] Comment on above: Result Comment: CUT- OFF POINTS HAVE BEEN ESTABLISHED BASED ON THE FOURTH UNIVERSAL DEFINITIONS OF MYOCARDIAL INFARCTION. THE UPPER REFERENCE LIMIT (URL) OF TROPONIN, DEFINED THE 99TH PERCENTILE OF cTnI DISTRIBUTION IN A REFERENCE POPULATION, HAS BEEN CONFIRMED THE DECISION THRESHOLD FOR [place] DIAGNOSIS. Performed By: #### C MP, HSTROPN #### [facility] [address] [place] [address] Dr. Natalie Sood Covid-19 PCR (CVDTBH)on 06-05 SARS-CoV-2 (COVID-19) RNA JENNIE+probe Ql (Unsp spec) Not detected Normal NOT DETECTED [facility] Comment on above: Result Comment: [...] for this test is supported by the Chemistry Professor of Health and Human Service's declaration that [...] used). Performed By: #### C VDTB #### [facility] [address] [place] [address] Dr. Natalie Sood INFLUENZA A AND B AGon 06-24 [facility] SEE BELOW Normal [facility] Comment on above: Result Comment: Nega tive for Flu A protein angiten. Infection due to Flu A cannot be ruled out. Flu A angiten in the sample may be below the detection limit of the test. Performed By: #### L IPID, TSH, T7, CMP #### [facility] [address] [place] [address] Dr. Natalie [facility] Normal [facility] Comment on above: Result Comment: Nega tive for Flu B protein antigen. Infection due to Flu B cannot be ruled out. Flu B antigen in the sample may be below the detection limit of the test. Performed By: #### L IPID, TSH, T7, CMP #### [facility] [address] [place] [address] Dr. Natalie Sood INFLUENZA A AG Negative Normal NEGATIVE SEE COMMENT [facility] Comment on above: Performed By: #### L IPID, TSH, T7, CMP #### [facility] [address] [place], [place] [address] Dr. Natalie Sood INFLUENZA B AG Negative Normal NEGATIVE SEE COMMENT [facility] Comment on above: Performed By: #### L IPID, TSH, T7, CMP #### [facility] [address] [place], [place] [address] Dr. Natalie Sood INTERNAL CONTROLS Within Normal Limits Normal Wi thin Normal Limits [facility] Comment on above: Performed By: #### L IPID, TSH, T7, CMP #### [facility] [address] [place], [place] [address] ABD/PELVIS WO CONon 03-05 CT ABD/PELVIS WO CON EXAMINATION: CT ABD /PELVIS WO CON HISTORY: H/O: urinary stone ; [...] VICTORIA SAUNDERS Date: 2022-03-05 17:03 Normal [facility] CULTURE URINEon 03-05-2022 CULTURE URINE Culture Observations : MODERATE GROWTH OF MIXED GENITAL CRYSTAL. NO POTENTIAL PATHOGENS SEEN. Normal [facility] Comment on above: Performed By: #### L IPID, TSH, T7, CMP #### [facility] [address] [place] [address] Dr. Natalie Sood UA RANDOM W/MICROSCOPICon BACTERIA NONE SEEN Normal NONE SEEN [facility] Comment on above: Performed By: #### U AMIC #### [facility] [address] [place] [address] Dr. Natalie Sood Bilirubin Ql (U) Negative Normal NEGATIVE [facility] Comment on above: Performed By: #### U AMIC #### [facility] [address] [place] [address] Dr. Natalie Sood CAST NONE SEEN Normal NONE SEEN [facility] Comment on above: Performed By: #### U AMIC #### [facility] [address] [place] [address] Dr. Natalie Sood Clarity (U) SL CLOUDY Abnormal CLEAR [facility] Comment on above: Performed By: #### U AMIC #### [facility] [address] [place] [address] Dr. Natalie Sood Color (U) LT. YELLOW Normal YELLOW [facility] Comment on above: Performed By: #### U AMIC #### [facility] [address] [place] [address] Dr. Natalie Sood Crystals LM Nom (Urine sed) NONE SEEN Normal NONE SEEN [facility] Comment on above: Performed By: #### U AMIC #### [facility] [address] [place] [address] Dr. Natalie Sood Epithelial cells LM Ql (Urine sed) RARE Normal NONE SEEN /RARE [facility] Comment on above: Performed By: #### U AMIC #### [facility] [address] [place] [address] Dr. Natalie Sood Glucose Ql (U) Negative Normal NEGATIVE [facility] Comment on above: Performed By: #### U AMIC #### [facility] [address] [address] [address] Natalie Sood Hemoglobin Ql (U) Negative Normal NEGATIVE [facility] Comment on above: Performed By: #### U AMIC #### [facility] [address] [address] [address] Natalie Sood Ketones Ql (U) Negative Normal NEGATIVE [facility] Comment on above: Performed By: #### U AMIC #### [facility] [address] [address] [address] Natalie Sood LEUKOCYTES Negative Normal NEGATIVE [facility] Comment on above: Performed By: #### U AMIC #### [facility] [address] [address] [address] Natalie Sood MUCOUS MODERATE Abnormal NONE SEEN [facility] Comment on above: Performed By: #### U AMIC #### [facility] [address] [address] [address] Natalie Sood Nitrite Ql (U) Negative Normal NEGATIVE [facility] Comment on above: Performed By: #### U AMIC #### [facility] [address] [address] [address] Natalie Sood pH (U) 6.0 [pH] Normal 5-9 [facility] Comment on above: Performed By: #### U AMIC #### [facility] [address] [place] [address] Dr. Natalie Sood RBC 0-2 Normal 0-2 [facility] Comment on above: Performed By: #### U AMIC #### [facility] [address] [place] [address] Dr. Natalie Sood SPEC GRAVITY <=1.005 Abnormal 1.005-<=1. 025 [facility] Comment on above: Performed By: #### U AMIC #### [facility] [address] [place] [address] Dr. Natalie Sood UA PROTEIN Negative Normal NEGATIVE/ TRACE [facility] Comment on above: Performed By: #### U AMIC #### [facility] [address] [address] [address] Natalie Sood Urobilinogen Qn (U) 0.2 {Carlos'U}/dL Normal 0.2 - 1. 0 [facility] Comment on above: Performed By: #### U AMIC #### [facility] [address] [address] [address] Natalie Sood WBC 0-2 Abnormal NONE SEEN [facility] Comment on above: Performed By: #### U AMIC #### [facility] [address] [address] [address] Natalie Sood Basophils Auto (Bld) [#/Vol] on 11-19-2020 Basophils (Bld) [#/Vol] 0.0 10*3/uL 0.0-0.2 [facility] Basophils/100 WBC Auto (Bld) on 11-19-2020 Basophils/100 WBC (Bld) 0.6 % [facility] Bilirubin Test strip Ql (U)o n 11-19-2020 Bilirubin Ql (U) Negative Negative [facility] Blood hemoglobin measurement (mass/volume)on 11-19-2020 Hemoglobin (Bld) [Mass/Vol] 13.7 g/dL 11.8-15.4 [facility] Blood leukocytes automated c ount (number/volume)on 11-19-2020 WBC (Bld) [#/Vol] 6.7 10*3/uL 4.5-11.0 [facility] Color Auto (U)on 11-19-2020 Color (U) Yellow Yellow [facility] Creatinine and Glomerular fi ltration rate.predicted panel (S/P/Bld)on 11-19-2020 Creatinine [Mass/Vol] 0.86 mg/dL 0.44-1.03 [facility] Eosinophils Auto (Bld) [#/Vo l]on 11-19-2020 Eosinophils (Bld) [#/Vol] 0.1 10*3/uL 0.0-0.45 [facility] Eosinophils/100 WBC Auto (Bl d)on 11-19-2020 Eosinophils/100 WBC (Bld) 1.0 % [facility] Erythrocyte distribution wid th Auto (RBC) [Ratio]on 11-19-2020 Erythrocyte distribution width (RBC) [Ratio] 12.2 % 11.9-15.3 [facility] Estimated glomerular filtrat ion rate (GFR) non- Americanon 11-19-2020 GFR/1.73 sq M.predicted among non-blacks MDRD (S/P/Bld) [Vol rate/Area] > 60 mL/Min [facility] Hematocrit Auto (Bld) [Volum e fraction]on 11-19-2020 Hematocrit (Bld) [Volume fraction] 39.8 % 34.0-46.4 [facility] Ketones Auto test strip (U) [Mass/Vol]on 11-19-2020 Ketones (U) [Mass/Vol] Negative Negative [facility] - Hematology and Cell countson 11-19-2020 Nucleated RBC/100 WBC (Bld) [Ratio] 0.2 % 0-0.5 [facility] Lymphocytes Auto (Bld) [#/Vo l]on 11-19-2020 Lymphocytes (Bld) [#/Vol] 2.1 10*3/uL 1.00-4.8 [facility] Lymphocytes/100 WBC Auto (Bl d)on 11-19-2020 Lymphocytes/100 WBC (Bld) 31.5 % [facility] MCH Auto (RBC) [Entitic mass ]on 11-19-2020 MCH (RBC) [Entitic mass] 32.0 pg 24.7-34.3 [facility] MCHC Auto (RBC) [Mass/Vol]on 11-19-2020 MCHC (RBC) [Mass/Vol] 34.4 g/dL 32.0-35.0 [facility] MCV Auto (RBC) [Entitic vol] on 11-19-2020 MCV (RBC) [Entitic vol] 93.1 fL 80-100 [facility] Monocytes Auto (Bld) [#/Vol] on 11-19-2020 Monocytes (Bld) [#/Vol] 0.5 10*3/uL 0.0-0.8 [facility] Monocytes/100 WBC Auto (Bld) on 11-19-2020 Monocytes/100 WBC (Bld) 8.1 % [facility] Neutrophils Auto (Bld) [#/Vo l]on 11-19-2020 Neutrophils (Bld) [#/Vol] 3.9 10*3/uL 1.8-7.7 [facility] Neutrophils/100 WBC Auto (Bl d)on 11-19-2020 Neutrophils/100 WBC (Bld) 58.8 % [facility] Nitrite Test strip Ql (U)on 11-19-2020 Nitrite Ql (U) Negative Negative [facility] No Panel Informationon 11-19 Estimated GFR () > 60 mL/Min [facility] Comment on above: GFR estimated refere nce range: According to KDOQI guidelines, <60 ml/min/1.73m2 is sufficient to diagnose a patient with chronic kidney disease. Pharmacy Creatinine Clearance (Chem N/A [facility] Platelet mean volume Auto (B ld) [Entitic vol]on 11-19-2020 Platelet mean volume (Bld) [Entitic vol] 8.0 fL 6.3-10.7 [facility] Platelets Auto (Bld) [#/Vol] on 11-19-2020 Platelets (Bld) [#/Vol] 339 10*3/uL 150-450 [facility] [facility] Protein Auto test strip (U) [Mass/Vol]on 11-19-2020 Protein (U) [Mass/Vol] Negative Negative [facility] RBC Auto (Bld) [#/Vol]on RBC (Bld) [#/Vol] 4.28 10*6/uL 3.60-5.00 [facility] Serum or plasma calcium tania urement (mass/volume)on 11-19-2020 Calcium [Mass/Vol] 10.2 mg/dL 8.2-10.2 [facility] Serum or plasma chloride parvin surement (moles/volume)on 11-19-2020 Chloride [Moles/Vol] 100 mmol/L 95-114 [facility] Serum or plasma glucose tania urement (mass/volume)on 11-19-2020 Glucose [Mass/Vol] 91 mg/dL 70-100 [facility] Comment on above: ADA recommended refe rence rangeRandom Glucose Reference Range is dependent on time and content of last meal. Glucose of more than 200 mg/dL in a nonstressed, ambulatory subject supports the diagnosis of Diabetes Mellitus. Serum or plasma potassium me asurement (moles/volume)on 11-19-2020 Potassium [Moles/Vol] 4.1 mmol/L 3.5-5.1 [facility] Serum or plasma sodium measu rement (moles/volume)on 11-19-2020 Sodium [Moles/Vol] 139 mmol/L 136-146 [facility] Serum or plasma total carbon dioxide measurement (moles/volume)on 11-19-2020 CO2 [Moles/Vol] 27.6 mmol/L 22.0-30.0 [facility] Serum or plasma urea nitroge n measurement (mass/volume)on 11-19-2020 Urea nitrogen [Mass/Vol] 9 mg/dL 9-23 [facility] Specific gravity Auto test s trip (U) [Rel density]on 11-19-2020 Specific gravity (U) [Rel density] 1.009 1.001-1.03 0 [facility] Urine clarity by refractomet ry automatedon 11-19-2020 Clarity Refractometry automated (U) Clear Clear [facility] Urine glucose measurement by automated test strip (mass/volume)on 11-19-2020 Glucose Auto test strip (U) [Mass/Vol] Normal mg/dL Normal [facility] Urine hemoglobin detection b y automated test stripon 11-19-2020 Hemoglobin Auto test strip Ql (U) Negative Negative [facility] Urine leukocyte esterase det ection by automated test stripon 11-19-2020 Leukocyte esterase Auto test strip Ql (U) Negative Negative [facility] Urobilinogen Auto test strip (U) [Mass/Vol]on 11-19-2020 Urobilinogen (U) [Mass/Vol] Normal mg/dL Normal [facility] pH Auto test strip (U)on pH (U) 7.5 [pH] 5.0-9.0 [facility] Otheron 03-18-2020 1. Lumbar spine: No evidence of acute compression fracture or malalignment. Severe multilevel degenerative changes. 2. Sacrum/coccyx: No acute osseous abnormality. [place] EXAMINATION: THREE X RAY VIEWS OF THE SACRUM/COCCYX; THREE XRAY VIEWS [...] joints are symmetric. Sacrococcygeal alignment is stable. [place] Jimmy, Mhpn Incoming R adiant Results From [employer] - 03/18/2020 4:50 PM EDT EXAMINATION: THREE [...] changes. 2. Sacrum/coccyx: No acute [facility]seous abnormality[facility]IEWS )on 03-18-2020 [...] Conde Jr., DO 03/18/20 Final result Normal [facility] 1. No acute bony pro cess. 2. Straightening of the normal cervical lordosis which may relate to muscle spasm. 3. Moderate spondylosis C4 through C7. [place] EXAMINATION: 4 XRAY VIEWS OF THE [...] tissue swelling. Visualized lung apices are clear. [place] Jimmy, Mhpn Incoming R adiant Results From [employer] - 03/18/2020 12:37 PM EDT EXAMINATION: 4 [...] spasm. 3. Moderate spondylosis C4 through C7. [facility], [place] XR LUMBAR SPINE (2-3 VIEWS)o n 03-18-2020 [...] Francheska Box DO 03/18/20 Final result Normal [facility] XR SACRUM COCCYX (MIN 2 VIEW [...] Francheska Box DO 03/18/20 Final result Normal [facility] Basic Metabolic Panelon 03-05 Anion gap [Moles/Vol] 13 mmol/L 9 - 17 mmol/L [place] Calcium [Mass/Vol] 9.5 mg/dL 8.6 - 10. 4 mg/dL [place] Chloride [Moles/Vol] 101 mmol/L 98 - 10 7 mmol/L [place] CO2 [Moles/Vol] 24 mmol/L 20 - 31 mmol/L [place] Creatinine [Mass/Vol] 0.96 mg/dL High 0.5 - 0.9 mg/dL [place] GFR >60 >60 mL/min [place] GFR Non- 60 mL/min Low >60 [place] GFR/1.73 sq M predicted among non-blacks MDRD (S/P/Bld) [Vol rate/Area] NOT REPORTED [place] GFR/1.73 sq M predicted among non-blacks MDRD (S/P/Bld) [Vol rate/Area] [place] Comment on above: Average GFR for 50-5 9 years old: 93 mL/min/1.73sq m Chronic Kidney Disease: <60 mL/min/1.73sq m Kidney failure: <15 mL/min/1.73sq m eGFR calculated using average adult body mass. Additional eGFR calculator available at: http://www.[employer]/multiple_crcl_2012.htm Glucose [Mass/Vol] 97 mg/dL 70 - 99 mg/dL [place] Interpretation and review of laboratory results Abnormal [place] Potassium [Moles/Vol] 3.9 mmol/L 3.7 - 5.3 mmol/L [place] Sodium [Moles/Vol] 138 mmol/L 135 - 144 mmol/L [place] Urea nitrogen [Mass/Vol] 14 mg/dL 6 - 20 mg/dL [place] Basic Metabolic Profon 03-16 (cont.) Normal [facility] Comment on above: Result Comment: Aver age GFR for 50-59 years old: 93 mL/min/1.73sq m Chronic Kidney Disease: <60 mL/min/1.73sq m Kidney failure: <15 mL/min/1.73sq m eGFR calculated using average adult body mass. Additional eGFR calculator available at: http://www.[employer]/multiple_crcl_2012.htm Performed By: #### B YVONNE MEJÍA CDP #### [facility] [address] [place], [place] [id number] Pig Conveyor Operator: Bernard Gonzalez DO Anion gap [Moles/Vol] 13 mmol/L Normal 9-17 [facility] Comment on above: Performed By: #### B YVONNE MEJÍA CDP #### [facility] [address] [place], [place] [id number] Pig Conveyor Operator: Bernard Gonzalez DO Calcium [Mass/Vol] 9.5 mg/dL Normal 8.6-10.4 [facility] Comment on above: Performed By: #### B YVONNE MEJÍA, CDP #### [facility] [address] [place] [address] Pig Conveyor Operator: Bernard Gonzalez DO Chloride [Moles/Vol] 101 mmol/L Normal 98-107 [facility] Comment on above: Performed By: #### B YVONNE MEJÍA, CDP #### [facility] [address] [place] [address] Pig Conveyor Operator: Bernard Gonzalez DO CO2 [Moles/Vol] 24 mmol/L Normal 20-31 [facility] Comment on above: Performed By: #### B YVONNE MEJÍA, CDP #### [facility] [address] [place] [address] Pig Conveyor Operator: Bernard Gonzalez DO Creatinine [Mass/Vol] 0.96 mg/dL High 0.50-0.90 [facility] Comment on above: Performed By: #### B YVONNE MEÍJA, CDP #### [facility] [place] [address] Pig Conveyor Operator: Bernard Gonzalez DO GFR, Amer >60 Normal >60 [facility] Comment on above: Performed By: #### B YVONNE MEJÍA, CDP #### [facility] [address] [place] [address] Pig Conveyor Operator: Bernard Gonzalez DO GFR,non Amer 60 mL/min Low >60 [facility] Comment on above: Performed By: #### B YVONNE MEJÍA, CDP #### [facility] [address] [place] [address] Pig Conveyor Operator: Bernard Gonzalez DO Glucose [Mass/Vol] 97 mg/dL Normal 70-99 [facility] Comment on above: Performed By: #### B YVONNE MEJÍA, PATTI #### [facility] [address] [place] [address] Pig Conveyor Operator: Bernard Gonzalez DO Potassium [Moles/Vol] 3.9 mmol/L Normal 3.7-5.3 [facility] Comment on above: Performed By: #### B YOVNNE MEJÍA, PATTI #### [facility] [address] [place] [address] Pig Conveyor Operator: Bernard Gonzalez DO Sodium [Moles/Vol] 138 mmol/L Normal 135-144 [facility] Comment on above: Performed By: #### B YVONNE MEJÍA, PATTI #### [facility] [address] [facility] [place] [address] Pig Conveyor Operator: Bernard Gonzalez DO Urea nitrogen [Mass/Vol] 14 mg/dL Normal 6-20 [facility] Comment on above: Performed By: #### B YVONNE MEJÍA, PATTI #### [facility] [address] [facility] [place] [address] Pig Conveyor Operator: Bernard Gonzalez DO Staging: NOT REPORTED Normal [facility] Comment on above: Performed By: #### B YVONNE MEJÍA, PATTI #### [facility] [place] [address] Pig Conveyor Operator: Bernard Gonzalez DO Bun/Cre Ratio NOT REPORTED Normal 9-20 [place] Comment on above: Performed By: #### B YVONNE MEJÍA, PATTI #### [facility] [facility] [place] [address] Pig Conveyor Operator: Bernard Gonzalez DO CBC Auto Differentialon - Absolute Bands # 0.10 [facility] [place] Bands 1 % 0 - 10 % [place] Basophils (Bld) [#/Vol] 0.00 10*3/uL [place] Basophils/100 WBC (Bld) 0 % 0 - 2 % [place] Differential Type NOT REPORTED [place] Eosinophils (Bld) [#/Vol] 0.19 10*3/uL [place] Eosinophils/100 WBC (Bld) 2 % 0 - 4 % [place] Erythrocyte distribution width (RBC) [Ratio] 12.6 % 11.5 - 14.9 % [place] Hematocrit (Bld) [Volume fraction] 39.6 % 36 - 46 % [place] Hemoglobin (Bld) [Mass/Vol] 13.5 g/dL 12 - 16 g/dL [place] Interpretation and review of laboratory results Abnormal [place] Lymphocytes (Bld) [#/Vol] 2.19 10*3/uL [place] Lymphocytes/100 WBC (Bld) 23 % Low 24 - 44 % [place] MCH (RBC) [Entitic mass] 31.3 pg 26 - 34 pg [place] MCHC (RBC) [Mass/Vol] 34.1 g/dL 31 - 3 7 g/dL [place] MCV (RBC) [Entitic vol] 91.7 fL 80 - 100 fL [place] Metamyelocytes 2 % High 0 [place] Metamyelocytes Absolute 0.19 High 0 k/uL [place] Monocytes (Bld) [#/Vol] 0.38 10*3/uL [place] Monocytes/100 WBC (Bld) 4 % 1 - 7 % [place] Morphology Reginald (Bld) [Interp] Normal [place] Platelet mean volume (Bld) [Entitic vol] 8.2 fL 6 - 12 fL [place] Platelets (Bld) [#/Vol] 250 10*3/uL [place] RBC (Bld) [#/Vol] 4.32 10*6/uL 4 - 5.2 m/uL [place] Segmented neutrophils/100 WBC (Bld) 68 % High 36 - 66 % [place] Segs Absolute 6.45 [place] WBC (Bld) [#/Vol] NOT REPORTED per 100 WBC [place] WBC (Bld) [#/Vol] 9.5 10*3/uL [place] CBC with Diffon 03-16-2020 Abs. Bands 0.10 k/uL Normal 0.0-1.0 [facility] Comment on above: Performed By: #### B YVONNE MEJÍA, PATTI #### [facility] [address] [facility] [place] [address] Pig Conveyor Operator: Bernard Gonzalez DO Abs. Basophil 0.00 k/uL Normal 0.0-0.2 [facility] Comment on above: Performed By: #### B YVONNE MEJÍA, PATTI #### [facility] [facility] [place] [address] Pig Conveyor Operator: Bernard Gonzalez DO Abs. [place] 0.19 k/uL High 0 [facility] Comment on above: Performed By: #### B YVONNE MEJÍA, PATTI #### [facility] [facility] [place] [address] Pig Conveyor Operator: Bernard Gonzalez DO Abs.Neutrophil (Seg) 6.45 k/uL Normal 1.3-9.1 [facility] Comment on above: Performed By: #### B YVONNE MEJÍA, PATTI #### [facility] [facility] [place] [address] Pig Conveyor Operator: Bernard Gonzalez DO Bands 1 % Normal 0-10 [facility] Comment on above: Performed By: #### B YVONNE MEJÍA, CDP #### [facility] [facility] [place] [address] Pig Conveyor Operator: Bernard Gonzalez DO Basophils/100 WBC (Bld) 0 % Normal 0-2 [facility] Comment on above: Performed By: #### B YVONNE MEJÍA, CDP #### [facility] [address] [place] [address] Pig Conveyor Operator: Bernard Gonzalez DO Eosinophils (Bld) [#/Vol] 0.19 10*3/uL Normal 0.0-0.4 [facility] Comment on above: Performed By: #### B YVONNE MEJÍA, CDP #### [facility] [address] [place] [address] Pig Conveyor Operator: Bernard Gonzalez DO Eosinophils/100 WBC (Bld) 2 % Normal 0-4 [facility] Comment on above: Performed By: #### B YVONNE MEJÍA, CDP #### [facility] [address] [facility] [place] [address] Pig Conveyor Operator: Bernard Gonzalez DO Lymphocytes (Bld) [#/Vol] 2.19 10*3/uL Normal 1.0-4.8 [facility] Comment on above: Performed By: #### B YVONNE MEJÍA, CDP #### [facility] [address] [facility] [place] [address] Pig Conveyor Operator: Bernard Gonzalez DO Lymphocytes/100 WBC (Bld) 23 % Low 24-44 [facility] Comment on above: Performed By: #### B YVONNE MEJÍA, CDP #### [facility] [address] [facility] [place] [address] Pig Conveyor Operator: Bernard Gonzalez DO Metamyelocytes/100 WBC (Bld) 2 % High 0 [facility] Comment on above: Performed By: #### B YVONNE MEJÍA, CDP #### [facility] [address] [facility] [place] [address] Pig Conveyor Operator: Bernard Gonzalez DO Monocytes (Bld) [#/Vol] 0.38 10*3/uL Normal 0.1-1.3 [facility] Comment on above: Performed By: #### B YVONNE MEJÍA, PATTI #### [facility] [address] [place] [address] Pig Conveyor Operator: Bernard Gonzalez DO Monocytes/100 WBC (Bld) 4 % Normal 1-7 [facility] Comment on above: Performed By: #### B YVONNE MEJÍA, CDP #### [facility] [address] [place] [address] Pig Conveyor Operator: Bernard Gonzalez DO Morphology Reginald (Bld) [Interp] Normal Normal [facility] Comment on above: Performed By: #### B YVONNE MEJÍA, CDP #### [facility] [address] [place] [address] Pig Conveyor Operator: Bernard Gonzalez DO Neutrophil (Seg) 68 % High 36-66 [facility] Comment on above: Performed By: #### B YVONNE MEJÍA, PATTI #### [facility] [place] [address] Pig Conveyor Operator: Bernard Gonzalez DO Erythrocyte distribution width (RBC) [Ratio] 12.6 % Normal 11.5-14.9 [facility] Comment on above: Performed By: #### B YVONNE MEJÍA, PATTI #### [facility] [place] [address] Pig Conveyor Operator: Bernard Gonzalez DO Hematocrit (Bld) [Volume fraction] 39.6 % Normal 36-46 [facility] Comment on above: Performed By: #### B YVONNE MEJÍA, CDP #### [facility] [place] [address] Pig Conveyor Operator: Bernard Gonzalez DO Hemoglobin (Bld) [Mass/Vol] 13.5 g/dL Normal 12.0-16.0 [facility] Comment on above: Performed By: #### B YVONNE MEJÍA, PATTI #### [facility] [place] [address] Pig Conveyor Operator: Bernard Gonzalez DO MCH (RBC) [Entitic mass] 31.3 pg Normal 26-34 [facility] Comment on above: Performed By: #### B YVONNE MEJÍA, CDP #### [facility] [address] [place] [address] Pig Conveyor Operator: Bernard Gonzalez DO MCHC (RBC) [Mass/Vol] 34.1 g/dL Normal 31-37 [facility] Comment on above: Performed By: #### B YVONNE MEJÍA, CDP #### [facility] [address] [place] [address] Pig Conveyor Operator: Bernard Gonzalez DO MCV (RBC) [Entitic vol] 91.7 fL Normal 80-100 [facility] Comment on above: Performed By: #### B YVONNE MEJÍA, PATTI #### [facility] [address] [place] [address] Pig Conveyor Operator: Bernard Gonzalez DO Platelet mean volume (Bld) [Entitic vol] 8.2 fL Normal 6.0-12.0 [facility] Comment on above: Performed By: #### B YVONNE MEJÍA, PATTI #### [facility] [address] [place] [address] Pig Conveyor Operator: Bernard Gonzalez DO Platelets (Bld) [#/Vol] 250 10*3/uL Normal 150-450 [facility] Comment on above: Performed By: #### B YVONNE MEJÍA, CDP #### [facility] [address] [place] [address] Pig Conveyor Operator: Bernard Gonzalez DO RBC (Bld) [#/Vol] 4.32 10*6/uL Normal 4.0-5.2 [facility] Comment on above: Performed By: #### B YVONNE MEJÍA, PATTI #### [facility] [address] [facility] [place] [address] Pig Conveyor Operator: Bernard Gonzalez DO WBC (Bld) [#/Vol] 9.5 10*3/uL Normal 3.5-11.0 [facility] Comment on above: Performed By: #### B YVONNE MEJÍA, PATTI #### [facility] [facility] [place] [address] Pig Conveyor Operator: Bernard Gonzalez DO Abs.Imm.Granulocyte NOT REPORTED Normal 0.00-0.30 [facility] Comment on above: Performed By: #### B YVONNE MEJÍA, PATTI #### [facility] [facility] [place] [address] Pig Conveyor Operator: Bernard Gonzalez DO Auto Diff Performed NOT REPORTED Normal [facility] Comment on above: Performed By: #### B YVONNE MEJÍA, PATTI #### [facility] [facility] [place] [address] Pig Conveyor Operator: Bernard Gonzalez DO NRBC Automated NOT REPORTED Normal [facility] Comment on above: Performed By: #### B YVONNE MEJÍA, CDP #### [facility] [facility] [place] [address] Pig Conveyor Operator: Bernard Gonzalez DO Immature granulocytes (Bld) [#/Vol] NOT REPORTED Normal 0 [facility] [place] Comment on above: Performed By: #### B YVONNE MEJÍA, PATTI #### [facility] [facility] [place] [address] Pig Conveyor Operator: Bernard Gonzalez DO Platelets (Bld) [#/Vol] NOT REPORTED Normal [facility] Comment on above: Performed By: #### B YVONNE MEJÍA, PATTI #### [facility] [address] [facility] [place] [address] Pig Conveyor Operator: Bernard Gonzalez DO RBC morphology finding Nom (Bld) NOT REPORTED Normal [facility] Comment on above: Performed By: #### B YVONNE MEJÍA, CDP #### [facility] [address] [facility] [place] [address] Pig Conveyor Operator: Bernard Gonzalez DO WBC Morphology NOT REPORTED Normal [place] Comment on above: Performed By: #### B YVONNE MEJÍA, CDP #### [facility] [address] [facility] [place] [address] Pig Conveyor Operator: Bernard Gonzalez DO CT HEAD WO CONTRASTon [...] Poli Guevara MD 03/16/20 Final result Normal [facility] Jimmy, Mhpn Incoming R adiant Results From [employer] - 03/16/2020 12:30 PM EDT EXAMINATION: CT [...] frontal bone. IMPRESSION: No acute intracranial abnormality. [place] EXAMINATION: CT OF T HE HEAD WITHOUT CONTRAST 03/16/2020 12:18 pm TECHNIQUE: [...] tissue injury overlying the left frontal bone. [place] No acute intracrania l abnormality. [place] TROP/MYOGLOBINon 03-16-2020 Interpretation and review of laboratory results Abnormal [place] Myoglobin [Mass/Vol] 504 ng/mL High 25 - 58 ng/mL [place] Troponin, High Sensitivity 10 ng/L 0 - 14 ng/L [place] Comment on above: High Sensitivity Troponin values cannot be compared with other Troponin methodologies. Patients with high levels of Biotin oral intake (i.e >5mg/day) may have falsely decreased Troponin levels. Samples collected within 8 hours of biotin intake may require additional information for diagnosis. Trop/Myoglobinon 03-16-2020 Myoglobin [Mass/Vol] 504 ng/mL High 25-58 [facility] Comment on above: Performed By: #### B YVONNE MEJÍA, PATTI #### [facility] [address] [place] [address] Pig Conveyor Operator: Bernard Gonzalez DO Troponin, High Sens 10 ng/L Normal 0-14 [facility] Comment on above: Result Comment: High Sensitivity Troponin values cannot be compared with other Troponin methodologies. Patients with high levels of Biotin oral intake (i.e >5mg/day) may have falsely decreased Troponin levels. Samples collected within 8 hours of biotin intake may require additional information for diagnosis. Performed By: #### B YVONNE MEJÍA, PATTI #### [facility] [address] [facility] [place] [address] Pig Conveyor Operator: Bernard Gonzalez DO Troponin I.cardiac [Mass/Vol] NOT REPORTED Normal [place] Comment on above: Performed By: #### B YVONNE MEJÍA, PATTI #### [facility] [address] [facility] [place] [address] Pig Conveyor Operator: Bernard Gonzalez DO Troponin T.cardiac [Mass/Vol] NOT REPORTED Normal <0.03 [place] Comment on above: Performed By: #### B YVONNE MEJÍA, PATTI #### [facility] [address] [place] [address] Pig Conveyor Operator: Bernard Gonzalez DO XR CHEST PORTABLEon 03-16-20 [...] Bao Sher MD 03/16/20 Final result Normal [facility] Jimmy, Mhpn Incoming R adiant Results From [employer] - 03/16/2020 12:32 PM [...] identified. IMPRESSION: No acute airspace disease identified. [place] EXAMINATION: ONE XRA Y VIEW OF THE CHEST 03/16/2020 12:25 pm COMPARISON: 10/09/2012 HISTORY: ORDERING SYSTEM PROVIDED HISTORY: Syncope TECHNOLOGIST PROVIDED HISTORY: Syncope Reason for Exam: syncope Acuity: Acute Type of Exam: Initial FINDINGS: Shallow inflation. The cardiomediastinal silhouette is within normal limits. There is no consolidation, pneumothorax or evidence for edema. No evidence for effusion. No acute osseous abnormality is identified. [place] No acute airspace di sease identified. [place] Vital Signs Date Time Vital Sign Value Performing Clinician Facility 10-04-2024 10:040 Body height 162.6 cm Feliciano Portillo MD Work Phone: [facility] 10-04-2024 10:030400 Body mass index (BMI) [Ratio] 30.9 kg/m2 Feliciano Portillo MD Work Phone: [facility] 10-04-2024 10:030400 Body weight 81.65 kg Feliciano Portillo MD Work Phone: [employer] 07-19-2024 11:24-0500 Body height 162.6 cm Bessie Cardona Work Phone: [facility] 07-19-2024 11:24-0500 Body mass index (BMI) [Ratio] 30.9 kg/m2 Bessie Cardona Work Phone: [facility] 07-19-2024 11:24-0500 Body weight 81.65 kg Bessie Cardona Work Phone: [employer] [facility] 06-14-2024 13:08-0500 Body height 162.6 cm Bessie Cardona Work Phone: [employer] 06-14-2024 13:08-0500 Body mass index (BMI) [Ratio] 30.9 kg/m2 Bessie Cardona Work Phone: [facility] 06-14-2024 13:08-0500 Body weight 81.65 kg Bessie Cardona Work Phone: [facility] 05-29-2024 14:45-0500 Diastolic blood pressure 61 mm[Hg] Feliciano Portillo MD Work Phone: [employer] [facility] 05-29-2024 14:45-0500 Heart rate 72 /min Feliciano Portillo MD Work Phone: [facility] 05-29-2024 14:45-0500 Respiratory rate 16 /min Feliciano Portillo MD Work Phone: [facility] 05-29-2024 14:45-0500 Systolic blood pressure 120 mm[Hg] Feliciano Portillo MD Work Phone: [facility] 05-29-2024 14:00-0500 SaO2% (BldA) [Mass fraction] 97 % Feliciano Portillo MD Work Phone: [employer] [facility] 05-29-2024 10:10-0500 Body temperature 97.3 [degF] Feliciano Portillo MD Work Phone: [facility] 05-29-2024 05:59-0500 Body height 162.6 cm Feliciano Portillo MD Work Phone: [facility] 05-29-2024 05:59-0500 Body mass index (BMI) [Ratio] 30.9 kg/m2 Feliciano Portillo MD Work Phone: [facility] 05-29-2024 05:59-0500 Body weight 81.65 kg Feliciano Portillo MD Work Phone: [facility] 05-18-2024 08:55-0500 Body height 162.6 cm Feliciano Portillo MD Work Phone: [facility] 05-18-2024 08:55-0500 Body mass index (BMI) [Ratio] 29.52 kg/m2 Feliciano Portillo MD Work Phone: [facility] 05-18-2024 08:55-0500 Body weight 78.02 kg Feliciano Portillo MD Work Phone: [facility] 02-10-2024 15:17-0400 Body height 162.6 cm Feliciano Portillo MD Work Phone: [facility] 02-10-2024 15:17-0400 Body mass index (BMI) [Ratio] 29.52 kg/m2 Feliciano Portillo MD Work Phone: [facility] 02-10-2024 15:17-0400 Body weight 78.02 kg Feliciano Portillo MD Work Phone: [facility] 09-23-2023 09:29-0400 Body height 162.56 cm BANK CLERK-C Janet Hermosillo Work Phone: [facility] 09-23-2023 09:29-0400 Body mass index (BMI) [Ratio] 30.9 kg/m2 BANK CLERK-Mart Hermosillo Work Phone: [facility] 09-23-2023 09:29-0400 Body weight 81.64 kg BANK CLERK-C Janet Hermosillo Work Phone: [facility] 2023 12:35-0500 Body height 162.56 cm BANK CLERK-C Janet Bay Work Phone: [facility] 2023 12:35-0500 Body weight 77.11 kg BANK CLERK-C Janet Bay Work Phone: [facility] 07-27-2023 09:43-0500 Diastolic blood pressure 77 mm[Hg] BANK CLERK-C Janet Bay Work Phone: [facility] 07-27-2023 09:43-0500 Heart rate 95 /min BANK CLERK-C Janet Bay Work Phone: [facility] 07-27-2023 09:43-0500 Respiratory rate 16 /min BANK CLERK-C Janet Bay Work Phone: [facility] 07-27-2023 09:43-0500 SaO2% (BldA) [Mass fraction] 91 % BANK CLERK-C Janet Bay Work Phone: [facility] 07-27-2023 09:43-0500 Systolic blood pressure 111 mm[Hg] BANK CLERK-C Janet Bay Work Phone: [facility] 07-27-2023 09:06-0500 Inhaled oxygen flow rate 3 L/min BANK CLERK-C Janet Bay Work Phone: [facility] 07-27-2023 07:58-0500 Body height 162.56 cm BANK CLERK-C Janet Bay Work Phone: [facility] 07-27-2023 07:58-0500 Body weight 77.11 kg BANK CLERK-C Janet Bay Work Phone: [facility] 11-24-2021 16:00-0400 Body height 161.29 cm Charles Jensen Other [employer] Other 11-24-2021 16:00-0400 Body mass index (BMI) [Ratio] 29.64 kg/m2 Charles Jensen Other [employer] Other 11-24-2021 16:00-0400 Body weight 77.11 kg Charles Jensen Other [employer] Other 11-03-2021 15:00-0400 Body height 161.29 cm Charles Jensen Other [employer] Other 11-03-2021 15:00-0400 Body mass index (BMI) [Ratio] 29.64 kg/m2 Charles Jensen Other [employer] Other 11-03-2021 15:00-0400 Body weight 77.11 kg Charles Jensen Other [employer] Other 10-02-2021 16:40-0400 Body height 161.29 cm Jaime Riojas Other [employer] Other 10-02-2021 16:40-0400 Body mass index (BMI) [Ratio] 29.99 kg/m2 Jaime Riojas Other [employer] Other 10-02-2021 16:40-0400 Body weight 78.02 kg Jaime Riojas Other [employer] Other 08-25-2021 11:30-0500 Body height 161.29 cm Prabhu Spring Other [employer] Other 08-25-2021 11:30-0500 Body mass index (BMI) [Ratio] 29.99 kg/m2 Prabhu Spring Other [employer] Other 08-25-2021 11:30-0500 Body weight 78.02 kg Prabhu Spring Other [employer] Other 07-01-2021 10:00-0500 Body height 161.29 cm Jaime Riojas Other [employer] Other 07-01-2021 10:00-0500 Body mass index (BMI) [Ratio] 29.99 kg/m2 Jaime Riojas Other [employer] Other 07-01-2021 10:00-0500 Body weight 78.02 kg Jaime Riojas Other [employer] Other 05-23-2021 11:00-0500 Body height 161.29 cm Jaime Riojas Other [employer] Other 05-23-2021 11:00-0500 Body mass index (BMI) [Ratio] 29.99 kg/m2 Jaime Riojas Other [employer] Other 05-23-2021 11:00-0500 Body weight 78.02 kg Jaime Riojas Other [employer] Other 05-23-2021 11:00-0500 Diastolic blood pressure 69 mm[Hg] Jaime Riojas Other [employer] Other 05-23-2021 11:00-0500 Systolic blood pressure 126 mm[Hg] Jaime Riojas Other [employer] Other 03-16-2020 14:31-0400 BP Diastolic 74 mm[Hg] Janett [employer] , [place] 03-16-2020 14:31-0400 BP Systolic 132 mm[Hg] Janett [employer] , [place] 03-16-2020 14:31-0400 Pulse (Heart Rate) 81 /min Janett Chew [employer] 03-16-2020 14:31-0400 Pulse Oximetry 94 % Janett [employer] , [place] 03-16-2020 14:31-0400 Respiratory Rate 16 /min Janett Manriquez [facility], [place] 03-16-2020 11:34-0400 BMI (Body Mass Index) 32.27 kg/m2 Janett Manriquez [facility], [place] 03-16-2020 11:34-0400 Body Temperature 98.01 [degF] Janett Simeon O , [place] 03-16-2020 11:34-0400 Body weight 85.28 kg Janett Manriquez [facility] , [place] 03-16-2020 11:34-0400 Height 162.6 cm Janett Manriquez [facility] , [place] Encounters Encounter Date Encounter Type Care Provider Facility Start: 10-31-2024 End: 10-31-2024 ambulatory Poli Lyndsey NDIAYE Facility:[facility] Start: 10-09-2024 ambulatory Poli SENTHIL Facility:[facility] [place] Start: 10-04-2024 End: 10-04-2024 Office outpatient visit 15 minutes Feliciano Portillo MD Work Phone: [facility] Comment on above: Strain of gluteus me dius, right, initial encounter (Primary Dx) Start: 10-04-2024 End: 10-04-2024 Subsequent hospital visit by physician Feliciano Portillo MD Work Phone: [facility] Start: 10-04-2024 ambulatory FELICIANO PORTILLO [facility] Start: 09-18-2024 End: 09-18-2024 ambulatory JESSE BERNARD Not Available Start: 09-13-2024 End: 09-13-2024 ambulatory JESSE BERNARD Not Available Start: 09-11-2024 End: 09-11-2024 ambulatory JESSE BERNARD Not Available Start: 09-08-2024 End: 09-08-2024 ambulatory JESSE BERNARD Not Available Start: 09-06-2024 End: 09-06-2024 Bamboo flowsheet Jesse Bernard [facility] Start: 09-06-2024 End: 09-06-2024 Bamboo flowsheet Jesse Bernard [facility] Start: 09-06-2024 End: 09-06-2024 ambulatory Jesse Bernard [facility] Comment on above: Strain of muscle, fa scia and tendon of right hip, initial encounter (Primary Dx); Chronic right hip pain; Muscle weakness of lower extremity; Chronic gluteal pain Start: 09-04-2024 End: 09-04-2024 Bamboo flowsheet Simona Presley [facility] Start: 09-04-2024 End: 09-04-2024 Bamboo flowsheet Simona Presley [facility] MA[facility] Start: 09-04-2024 End: 09-04-2024 ambulatory Simona Presley [facility] Comment on above: Strain of muscle, fa scia and tendon of right hip, initial encounter (Primary Dx); Chronic right hip pain; Muscle weakness of lower extremity; Chronic gluteal pain Start: 09-01-2024 End: 09-01-2024 Bamboo flowsheet Jesse Wagner [facility] Start: 09-01-2024 End: 09-01-2024 Bamboo flowsheet Jesse Wagner [facility] Start: 09-01-2024 End: 09-01-2024 ambulatory Jesse Wagner [facility] Comment on above: Strain of muscle, fa scia and tendon of right hip, initial encounter (Primary Dx); Chronic right hip pain; Muscle weakness of lower extremity; Chronic gluteal pain Start: 08-30-2024 End: 08-30-2024 Bamboo flowsmayur Jesse Wagner [facility] MA[facility] Start: 08-30-2024 End: 08-30-2024 Bamboo Riptide IOheet Jesse Wagner [facility] MA[facility] Start: 08-30-2024 End: 08-30-2024 ambulatory Jesse Wagner [facility] Comment on above: Strain of muscle, fa scia and tendon of right hip, initial encounter (Primary Dx); Chronic right hip pain; Muscle weakness of lower extremity; Chronic gluteal pain Start: 08-28-2024 End: 08-28-2024 Bamboo flowsheet Jesse Wagner [facility] Start: 08-28-2024 End: 08-28-2024 Bamboo flowsheet Jesse Wagner [facility] Start: 08-28-2024 End: 08-28-2024 ambulatory Jesse Wagner [facility] Comment on above: Strain [...] Start: 08-23-2024 End: 08-23-2024 Bamboo flowsheet Jesse Wagner [facility] Start: 08-23-2024 End: 08-23-2024 Bamboo flowsheet Jesse Wagner [facility] Start: 08-23-2024 End: 08-23-2024 ambulatory Jesse Wagner [facility] Comment on above: Strain of muscle, fa scia and tendon of right hip, initial encounter (Primary Dx); Chronic right hip pain; Muscle weakness of lower extremity; Chronic gluteal pain Start: 08-21-2024 End: 08-21-2024 Bamboo flowsheet Jesse Wagner [facility] Start: 08-21-2024 End: 08-21-2024 Bamboo flowsheet Jesse Wagner [facility] Start: 08-21-2024 End: 08-21-2024 ambulatory Jesse Wagner [facility] Comment on above: Strain of muscle, fa scia and tendon of right hip, initial encounter (Primary Dx); Chronic right hip pain; Muscle weakness of lower extremity; Chronic gluteal pain Start: 08-18-2024 End: 08-18-2024 Bamboo flowsheet Jesse Wagner [facility] Start: 08-18-2024 End: 08-18-2024 Bamboo flowsheet Jesse Wagner [facility] Start: 08-18-2024 End: 08-18-2024 ambulatory Jesse Wagner [facility] Comment on above: Strain of muscle, fa scia and tendon of right hip, initial encounter (Primary Dx); Chronic right hip pain; Muscle weakness of lower extremity; Chronic gluteal pain Start: 08-16-2024 End: 08-16-2024 Bamboo flowsheet Jesse Bernard [facility] Start: 08-16-2024 End: 08-16-2024 Bamboo flowsheet Jesse Bernard [facility] Start: 08-16-2024 End: 08-16-2024 ambulatory Jesse Wagner [facility] Comment on above: Strain [...] Start: 08-11-2024 End: 08-11-2024 Bamboo flowsheet Jesse Bernard [facility] Start: 08-11-2024 End: 08-11-2024 Bamboo flowsheet Jesse Wagner [facility] Start: 08-11-2024 End: 08-11-2024 ambulatory Jesse Bernard [facility] Comment on above: Strain of muscle, fa scia and tendon of right hip, initial encounter (Primary Dx); Chronic right hip pain; Muscle weakness of lower extremity Start: 08-09-2024 End: 08-09-2024 Bamboo flowsheet Jesse Bernard [facility] Start: 08-09-2024 End: 08-09-2024 Bamboo flowsheet Jesse Bernard [facility] Start: 08-09-2024 End: 08-09-2024 ambulatory Jesse Bernard [facility] Comment on above: Strain of muscle, fa scia and tendon of right hip, initial encounter (Primary Dx); Chronic right hip pain; Muscle weakness of lower extremity Start: 08-07-2024 End: 08-07-2024 Bamboo flowsheet Cady Ruff PT [facility] Start: 08-07-2024 End: 08-07-2024 Bamboo flowsheet Cady Ruff PT [facility] Start: 08-07-2024 End: 08-07-2024 ambulatory Cady Ruff PT [facility] [...] initial encounter (Primary Dx) Start: 07-19-2024 ambulatory [facility] Start: 06-14-2024 End: 06-14-2024 Postop follow up visit related to original px Bessie Cardona Work Phone: [facility] Comment on above: Tear of right gluteu s minimus tendon, initial encounter (Primary Dx) Start: 06-14-2024 End: 06-14-2024 Subsequent hospital visit by physician Bessie Cardona Work Phone: [facility] Start: 06-14-2024 ambulatory [facility] Start: 05-29-2024 End: [facility] Start: 05-29-[facility]24 End: 05-29-2024 Subsequent hospital visit by physician Feliciano Portillo MD Work Phone: [facility] Comment on above: Tear of rotator cuff of right hip, initial encounter Start: 05-18-2024 ambulatory [facility] Start: 05-18-2024 Encounter for other preprocedural examination [facility] Start: 05-18-2024 End: 05-18-2024 Office outpatient visit 40 minutes Feliciano Portillo MD Work Phone: [facility] Comment on above: Right hip pain (Prim ivis Dx) Start: 05-18-2024 [facility] Start: 05-04-[address] [facility] Start: 05-04-2024 End: 05-04-2024 Subsequent hospital visit by physician Feliciano Portillo MD Work Phone: [facility] Comment on above: Arrived Start: 04-24-2024 End: 04-24-2024 Bamboo flowsheet Petar Linton PT Work Phone: [facility] Start: 04-24-2024 End: 04-24-2024 Bamboo flowsheet Petar Linton PT Work Phone: [facility] Start: 04-24-2024 End: 04-24-2024 ambulatory Petar Olivares PT Work Phone: [facility] Comment on above: Chronic right hip pa in (Primary Dx); Chronic gluteal pain; Muscle weakness of lower extremity Start: 04-18-2024 End: 04-18-2024 Bamboo flowsheet Simona Kelbley [facility] MA[facility] Start: 04-18-2024 End: 04-18-2024 Bamboo flowsheet Simona Kelbley [facility] Start: 04-18-2024 End: 04-18-2024 ambulatory Simona Kelbley [facility] Comment on above: Chronic right hip pa in (Primary Dx); Chronic gluteal pain; Muscle weakness of lower extremity Start: 04-11-2024 End: 04-11-2024 Bamboo flowsheet Simona Kelbley [facility] MA[facility] Start: 04-11-2024 End: 04-11-2024 Bamboo flowsheet Simona Kelbley [facility] MA[facility] Start: 04-11-2024 End: 04-11-2024 ambulatory Simona Kelbley [facility] Comment on above: Chronic right hip pa in (Primary Dx); Chronic gluteal pain; Muscle weakness of lower extremity Start: 04-04-2024 End: 04-04-2024 Bamboo flowsheet Simona Reinay [facility] Start: 04-04-2024 End: 04-04-2024 Bamboo flowsheet Simona Reinay [facility] Start: 04-04-2024 End: 04-04-2024 ambulatory Simona Presley [facility] Comment on above: Chronic right hip pa in (Primary Dx); Chronic gluteal pain; Muscle weakness of lower extremity Start: 03-30-2024 End: 03-30-2024 Bamboo flowsheet Simona Reinay [facility] Start: 03-30-2024 End: 03-30-2024 Bamboo flowsheet Simona Reinay [facility] MANA[facility] Start: 03-30-2024 End: 03-30-2024 ambulatory Simona Presley [facility] Comment on above: Chronic right hip pa in (Primary Dx); Chronic gluteal pain; Muscle weakness of lower extremity Start: 03-27-2024 End: 03-27-2024 ambulatory Petar Olivares PT Work Phone: [facility] Comment on above: Chronic right hip pa in (Primary Dx); Chronic gluteal pain; Muscle weakness of lower extremity Start: 03-23-2024 End: 03-23-2024 Bamboo flowsheet Simona Presley [facility] Start: 03-23-2024 End: 03-23-2024 Bamboo flowsheet Simona Presley [facility] Start: 03-23-2024 End: 03-23-2024 ambulatory Jesse Wagner [facility] Comment on above: Chronic right hip pa in (Primary Dx); Chronic gluteal pain; Muscle weakness of lower extremity Start: 03-21-2024 End: 03-21-2024 Bamboo flowsheet Simona Reinay [facility] MA[facility] Start: 03-21-2024 End: 03-21-2024 Bamboo flowsheet Simona Reinay P[facility] MANA[facility] Start: 03-21-2024 End: 03-21-2024 ambulatory Simona Presley [facility] Comment on above: Chronic right hip pa in (Primary Dx); Chronic gluteal pain; Muscle weakness of lower extremity Start: 03-17-2024 End: 03-17-2024 Bamboo flowsheet Simona Reinay [facility] Start: 03-17-2024 End: 03-17-2024 Bamboo flowsheet Simona Reinay [facility] Start: 03-17-2024 End: 03-17-2024 ambulatory Simona Reinay [facility] Comment on above: Chronic right hip pa in (Primary Dx); Chronic gluteal pain; Muscle weakness of lower extremity Start: 03-15-2024 End: 03-15-2024 Bamboo flowsheet Simona Reinay [facility] Start: 03-15-2024 End: 03-15-2024 Bamboo flowsheet Simona Reinay P[facility] MANA[facility] Start: 03-15-2024 End: 03-15-2024 ambulatory Simona Reinay [facility]NA[facility] Comment on above: Chronic right hip pa in (Primary Dx); Chronic gluteal pain; Muscle weakness of lower extremity Start: 03-13-2024 End: 03-13-2024 Bamboo flowsheet Lindsay Brink P[facility] MANAGER [facility] Start: 03-13-2024 End: 03-13-2024 Bamboo flowsheet Lindsay Brink [facility] MA[facility] Start: 03-13-2024 End: 03-13-2024 ambulatory Lindsay Brink [facility] MANA[facility] Comment on above: Chronic right hip pa in (Primary Dx); Chronic gluteal pain; Muscle weakness of lower extremity Start: 03-09-2024 End: 03-09-2024 Bamboo flowsheet Simona Reinay [facility] MANA[facility] Start: 03-09-2024 End: 03-09-2024 Bamboo flowsheet Simona Reinay [facility] MA[facility] Start: 03-09-2024 End: 03-09-2024 ambulatory Simona Reinay P[facility] MANA[facility] Comment on above: Chronic right hip pa in (Primary Dx); Chronic gluteal pain; Muscle weakness of lower extremity Start: 02-28-2024 End: 02-28-2024 Bamboo flowsheet Lindsay Brink P[facility] MANAGER [facility] Start: 02-28-2024 End: 02-28-2024 Bamboo flowsheet Lindsay Rodriguez P[facility] MANAGER [facility] Start: 02-28-2024 End: 02-28-2024 ambulatory Lindsay Rodriguez [facility] MANA[facility] Comment on above: Chronic right hip pa in (Primary Dx); Chronic gluteal pain; Muscle weakness of lower extremity Start: 02-24-2024 End: 02-24-2024 Bamboo flowsheet Petar Linton PT Work Phone: [facility] Start: 02-24-2024 End: 02-24-2024 Bamboo flowsheet Petar Linton PT Work Phone: [facility] Start: 02-24-2024 End: 02-24-2024 ambulatory Petar T Rileyton PT Work Phone: [facility] Comment on above: Chronic right hip pa in (Primary Dx); Chronic gluteal pain; Muscle weakness of lower extremity Start: 02-22-2024 End: 02-22-2024 Bamboo flowsheet Simona Presley P[facility] MANAGER [facility] Start: 02-22-2024 End: 02-22-2024 Bamboo flowsheet Simona Reinay PIT MANAGER [facility] Start: 02-22-2024 End: 02-22-2024 ambulatory Simona Presley [facility] MANA[facility] Comment on above: Chronic right hip pa in (Primary Dx); Chronic gluteal pain; Muscle weakness of lower extremity Start: 02-16-2024 End: 02-16-2024 ambulatory PETAR T MARSHALL Not Available Start: 02-10-2024 End: 02-10-2024 Office outpatient new 45 minutes Feliciano Portillo MD Work Phone: [facility] Comment on above: Right hip pain (Prim ivis Dx) Start: 02-10-2024 End: 02-10-2024 Subsequent hospital visit by physician Feliciano Portillo MD Work Phone: [facility] Start: 02-10-2024 ambulatory FELICIANO PORTILLO [facility] Start: 01-05-2024 End: 01-05-2024 ambulatory SAMMIE DUONG Not Available Start: 12-30-2023 End: 12-30-2023 ambulatory SAMMIE Cevallos [facility] Start: 12-30-2023 End: 12-30-2023 ambulatory [place] FLATS Mart [facility] Start: 12-22-2023 End: 12-22-2023 ambulatory .SAMMIE Mart DUONG Not Available Start: 12-15-2023 End: 12-15-2023 ambulatory .SAMMIE CANDELARIO Not Available Start: 11-26-2023 End: 11-26-2023 ambulatory [facility] Start: 11-25-2023 End: 11-25-2023 Patient encounter procedure BANK CLERK-C Janet Hermosillo Work Phone: [facility] [address] Work Phone: Start: 11-25-2023 End: 11-25-2023 ambulatory BANK CLERK-C Janet Hermosillo Work Phone: [facility] Work Phone: Start: 11-17-2023 End: 11-18-2023 ambulatory [facility] Start: 11-17-2023 End: 11-18-2023 ambulatory [facility] Start: 11-12-2023 ambulatory [facility] Start: 10-27-2023 ambulatory [facility] Start: 10-25-2023 End: 10-25-2023 ambulatory . SAMMIE DUONG Not Available Start: 10-21-2023 End: 10-21-2023 ambulatory YAMILET BRYAN Not Available Start: 09-27-2023 End: 09-27-2023 ambulatory . SAMMIE DUONG Not Available Start: 09-23-2023 End: 09-23-2023 ambulatory BANK CLERK-C Janet Hermosillo Work Phone: [facility] Work Phone: Start: 09-23-2023 End: 09-23-2023 Patient encounter procedure BANK CLERK-C Janetwin Hermosillo Work Phone: [facility] Work Phone: Start: 09-14-2023 End: 09-14-2023 Patient encounter procedure BANK CLERK-C Janet Hermosillo Work Phone: [facility] [place] Work Phone: Start: 09-14-2023 End: 09-14-2023 ambulatory Janet Hermosillo Facility:[facility] Start: 09-14-2023 End: 09-14-2023 Patient encounter procedure BANK CLERK-C Janet Bay Work Phone: [facility] [place] Work Phone: Start: 2023 End: 2023 Patient encounter procedure BANK CLERK-C Janet Bay Work Phone: [facility] [place] Work Phone: Start: 2023 End: 2023 ambulatory Janetwin Hermosillo Facility:[facility] Start: 08-31-2023 End: 08-31-2023 Patient encounter procedure BANK CLERK-C Janet Hermosillo Work Phone: [facility] Work Phone: Start: 08-04-2023 End: 08-04-2023 ambulatory Ramu Mancuso Other [facility] [employer] Other Start: 08-04-2023 Office outpatient vi sit 25 minutes Ramu Mancuso [facility] [place] Start: 08-04-2023 Patient encounter procedure BANK CLERK-C Janet Bay Work Phone: [facility]- Start: 07-27-2023 (Procedure) Short Ramu Mancuso [facility] Start: 07-27-2023 End: 07-27-2023 Admission to same day surgery center BANK CLERK-C Jaent Hermosillo Work Phone: [facility] Work Phone: Start: 07-27-2023 End: 07-27-2023 ambulatory BANK CLERK-C Janet Mady Bay Work Phone: [facility] Work Phone: Start: 07-19-2023 End: 07-19-2023 ambulatory Ramu Mancuso Other [employer] [facility] [employer] Other Start: 07-19-2023 Office outpatient vi sit 25 minutes Ramu Mancuso [facility] [place] Start: 07-19-2023 End: 07-19-2023 Patient encounter procedure BANK CLERK-C Janet Bay Work Phone: [facility] Work Phone: Start: 06-16-2023 End: 06-16-2023 ambulatory Jaime Jesse II Other [facility] [employer] Other Start: 06-16-2023 Office outpatient vi sit 15 minutes Jaime Wallace II [facility] Start: 04-16-2023 End: 04-16-2023 Patient encounter procedure BANK CLERK-C Janetwin Arayamer Work Phone: [facility] [place] [facility] Start: 04-16-2023 End: 04-16-2023 ambulatory BANK CLERK-C Janet Mady Bay Work Phone: [facility] Work Phone: Start: 10-29-2022 End: 10-30-2022 ambulatory JANET HERMOSILLO Facility:[facility] Start: 10-21-2022 End: 10-22-2022 ambulatory JANET HERMOSILLO Facility:[facility] Start: 08-18-2022 End: 08-18-2022 ambulatory ADALBERTO CARVALHO Facility:[facility] Start: 06-24-2022 End: 06-24-[address] LEONEL MANUEL . Facility:[facility] Start: 03-05-2022 End: 03-06-[address] MARIA VICTORIA SAUNDERS Facility:[facility] Start: 11-24-2021 End: 11-24-2021 ambulatory Charles Jensen Other [employer] Other Start: 11-24-2021 Postop follow up vis it related to original px Charles Jensen [facility] Start: 11-04-2021 End: 11-04-2021 ambulatory Charles Camila Other [employer] Other Start: 11-04-2021 Telephone encounter Charles PATTERSON [employer] Start: 11-03-2021 End: 11-03-2021 ambulatory Charles Jensen Other [employer] Other Start: 11-03-2021 Encounter for other preprocedural examination Charles Jensen [facility] Start: 11-03-2021 Office outpatient vi sit 15 minutes Charles Camila [facility] Start: 10-02-2021 End: 10-02-2021 ambulatory Jaime Riojas Other [employer] Other Start: 10-02-2021 Postop follow up vis it related to original px Jaime Riojas [facility] Start: 08-25-2021 End: 08-25-2021 ambulatory Prabhu Spring Other [employer] Other Start: 08-25-2021 Postop follow up vis it related to original px Prabhu [facility] Start: 08-15-2021 Admission to same [facility] surgery center Jaime Riojas [facility] Start: 08-15-2021 End: 08-15-2021 ambulatory Jaime Riojas Other [employer] Other Start: 08-06-2021 End: 08-06-2021 ambulatory Jaime Riojas Other [employer] Other Start: 08-06-2021 Telephone encounter Jaime Riojas [facility] Neurosurgery Start: 07-08-2021 End: 07-08-2021 ambulatory Jaime Riojas Other [facility] [employer] Other Start: 07-08-2021 Telephone encounter Jaime Riojas [facility] Neurosurgery Start: 07-01-2021 End: 07-01-2021 ambulatory Jaime Riojas Other [facility] [employer] Other Start: 07-01-2021 Office outpatient ne w 45 minutes Jaime Riojas [facility] Neurosurgery Start: 05-23-2021 End: 05-23-2021 ambulatory Jaime Riojas Other [facility] [employer] Other Start: 05-23-2021 Office outpatient vi sit 15 minutes Jaime Shine [facility] Start: 11-27-2020 End: 11-27-2020 Patient encounter procedure João Cruz Work Phone: -[facility] Start: 11-27-2020 Registered Recurring João montanez Work Phone: -Physical Therapy [facility] [place] Start: 11-19-2020 End: 11-19-2020 Patient encounter procedure João Cruz Work Phone: -Pre-Surgical Testing Start: 03-18-2020 End: 03-21-2020 Patient encounter procedure [facility] Start: 03-18-2020 End: 03-20-2020 Subsequent hospital visit by physician Kevin Xr Room 4 [facility] Comment on above: Concussion with loss of consciousness of 30 minutes or less, initial encounter Start: 03-16-2020 End: 03-16-2020 Emergency department patient visit [facility] Start: 03-16-2020 End: 03-16-2020 Emergency department patient visit Janett Chew [facility] ED Comment on above: Closed head injury, initial encounter (Primary Dx) Start: 02-10-2020 End: 02-15-2020 Patient encounter procedure YOVANI CASEY [facility] Start: 02-10-2020 End: 02-14-2020 Subsequent hospital visit by physician Zachary Andres Rm 4 [facility] PRE-ADMIT TESTING Procedures Date Procedure Procedure Detail Performing Clinician Start: 09-14-2023 Duplex scan of lower limb veins BANK CLERK-C Janet Hermosillo Work Phone: Start: 2023 MRI of lumbar spine with contrast BANK CLERK-C Janet Hermosillo Work Phone: Start: 07-27-2023 Injection of local anesthetic into sacroiliac joint BANK CLERK-C Janet Hermosillo Work Phone: Start: 04-16-2023 Plain X-ray of right hip BANK CLERK-C Janet Hermosillo Work Phone: Start: 11-27-2020 Plain [...] Blood count complete auto&auto difrntl wbc Janett Solorio Jeevan Start: 03-16-2020 TROP/MYOGLOBIN Janett R Jeevan Start: 03-16-2020 Ecg routine ecg w/le ast 12 lds w/i&r Janett Lyndsey Jeevan Start: 02-09-2020 COVID-19 YOVANI HAGAN Start: 01-31-2020 Mammography Simona schaffer PIT MANAGER Start: 03-18-2018 Colonoscopy Simona schaffer PIT MANAGER Start: 11-17-2000 Lipid 1996 panel - S melanie or Plasma Feliciano Portillo MD Work Phone: Plan of Treatment Date Care Activity Detail Author Start: 03-18-2028 Screening for malign ant neoplasm of colon [facility] Start: 05-24-2025 End: 05-24-2025 Patient encounter procedure 05/24/2025 1:00 PM EST Office Visit [facility] [address] [place] [address], [place] [address] Bessie Cardona [address] [place] [address] [facility] Start: 03-05-2025 Influenza vaccination INFLUENZ A VACCINE (Season Ended) [facility] Start: 10-04-2024 End: 10-04-2024 Patient encounter procedure 10/04/2024 10:00 AM EDT Office Visit [facility] [address] [place] [address] Feliciano Portillo MD [address] [place] [address] [facility] Start: 09-18-2024 End: 09-18-2024 ambulatory 09/18/2024 8:30 AM EDT Treatment [facility] [address] [facility] [address] [place] [id number] Jesse Wagner PTA [facility] Start: 09-13-2024 End: 09-13-2024 ambulatory 09/13/2024 8:00 AM EDT Treatment [facility] [address] [place] [address] [place] [id number] Jesse Wagner, PIT MANAGER [facility] Start: 09-11-2024 End: 09-11-2024 ambulatory 09/11/2024 8:00 AM EDT Treatment [facility] [address] [facility] [place] [address] Jesse Wagner, PIT MANAGER [facility] Start: 09-08-2024 End: 09-08-2024 [...] EST Treatment [facility] [address] [facility] [place] [place] [address] Cady Ruff, PT [facility] Start: [...] [address] [place] [address] [place] [address] Jesse Wagner, PIT MANAGER [facility] Start: 08-16-2024 End: 08-16-2024 ambulatory [facility] Comment on above: Strain of muscle, fa scia and tendon of right hip, initial encounter (Primary Dx) Start: 08-14-2024 End: 08-14-2024 ambulatory 08/14/2024 8:30 AM EST Treatment [facility] [address] [place] [address] [place] [address] Cady Ruff, PT [facility] Start: [...] Evaluation [facility] [address] [facility] [address] [place] [address] Cady Ruff, PT Arrived [facility] Comment on above: Arrived Start: 07-19-2024 End: 07-19-2024 Patient encounter procedure 07/19/2024 11:30 AM EST Office Visit [facility] [address] [place] [phone] Bessie Cardona [address] [place] [address] [facility] Start: 06-14-2024 End: 06-14-2024 Patient encounter procedure 06/14/2024 1:00 PM EST Office Visit [facility] [address] [place] [address] Bessie Cardona [address] [place] [address], [place] [address] [facility] Start: 05-29-2024 End: 05-29-2024 Admission to same day surgery center 05/29/2024 5:00 PM EST - 05/29/2024 6:15 PM EST Surgery [facility] [address] [place] [address] Feliciano Portillo MD [address] [place] [address] OPEN HIP ABDUCTOR TEAR REPAIR [facility] Comment on above: OPEN HIP ABDUCTOR TE AR REPAIR Start: 05-29-2024 Subsequent hospital visit by physician 05/29/2024 5:00 PM EST Hospital Encounter [facility] [address] [place] [address] Feliciano Portillo MD [address] [place] [address] Tear of rotator cuff of right hip, initial encounter [facility] Comment on above: Tear of rotator cuff of right hip, initial encounter Start: 05-29-2024 End: 05-29-2024 Unlisted procedure pelvis/hip joint GLUTEUS MEDIUS TENDON REPAIR Tear of rotator cuff of right hip, initial encounter 05/29/2024 5:00 PM EST [facility] Start: 05-25-2024 End: 05-25-2024 Admission to establishment 05/25/2024 10:00 AM EST Pre-Operative Nurse Assessment [facility] Pre Admission [address] [place] [address] [facility] Start: 04-24-2024 End: 04-24-2024 ambulatory 04/24/2024 7:30 AM EDT Treatment [facility] [address] [facility] [address] [place] [address] Petar Olivares, PT [address] [place] [address] [place] [address] [facility] Start: 04-18-2024 End: 04-18-2024 ambulatory 04/18/2024 7:30 AM EDT Treatment [facility] [address] [place] [address] [place] [address] Simona Presley, PIT MANAGER [facility] Start: 04-11-2024 End: 04-11-2024 ambulatory [facility] Comment on above: Arrived Start: 04-04-2024 End: 04-04-2024 ambulatory 04/04/2024 8:00 AM EDT Treatment [facility] [address] [place] [address] [place] [address] Simona Presley PTA [facility] Start: 03-30-2024 End: 03-30-2024 ambulatory [facility] Comment on above: Arrived Start: 03-27-2024 End: 03-27-2024 ambulatory 03/27/2024 8:30 AM EDT Treatment [facility] [address] [facility] [address] [place] [address] Petar Olivares, PT [address] [facility] [address] [place] [address] [facility] Start: 03-23-2024 End: 03-23-2024 ambulatory [facility] Comment on above: Arrived Start: 03-21-2024 End: 03-21-2024 ambulatory [facility] Comment on above: Arrived Start: 03-17-2024 End: 03-17-2024 ambulatory [facility] Start: 03-15-2024 End: 03-15-2024 ambulatory 03/15/2024 9:00 AM EDT Treatment [facility] [address] [place] [address] [place] [address] Simona Presley PIT MANAGER [facility] Start: 03-13-2024 End: 03-13-2024 ambulatory [facility] Comment on above: Chronic right hip pa in (Primary Dx); Chronic gluteal pain; Muscle weakness of lower extremity Start: 03-09-2024 End: 03-09-2024 ambulatory 03/09/2024 9:00 AM EDT Treatment [facility] [address] [facility] [address] [place] [address] Simona Presley, PIT MANAGER [facility] Start: 03-05-2024 COVID-19 VACCINE () COVID-19 VACCINE () [facility] Start: 03-05-2024 COVID-19 VACCINE () COVID-19 VACCINE () [facility] Start: 03-05-2024 Influenza vaccination INFLUENZA VACC INE (#1) [facility] Start: 02-28-2024 End: 02-28-2024 ambulatory [facility] Comment on above: Arrived Start: 02-24-2024 End: 02-24-2024 ambulatory [facility] Comment on above: Arrived Start: 02-22-2024 End: 02-22-2024 ambulatory 02/22/2024 8:00 AM EDT Treatment [facility] [address] [facility] [address] [place] [address] Simona Presley, PIT MANAGER Chronic right hip pain (Primary Dx); Chronic gluteal pain; Muscle weakness of lower extremity [facility] Comment on above: Chronic right hip pa in (Primary Dx); Chronic gluteal pain; Muscle weakness of lower extremity Start: 11-25-2023 Hemolytic complement CH50 level [facility] Start: 11-25-2023 [facility] Start: 07-27-2023 [facility] Start: 03-05-2023 COVID-19 VACCINE ( season) COVID-19 VACCINE () [facility] Start: 10-24-2022 Screening for malign ant neoplasm of colon Colon cancer screen colonoscopy [place], [place] Start: 04-04-2021 Lipid panel Lipid screen [place], [place] Start: 01-30-2021 Screening for malign ant neoplasm of breast [facility] Start: 2020 RSV VACCINE (1 - 1-d ose 60+ series) RSV VACCINE (1 - 1-dose 60+ series) [facility] Start: 2020 RSV VACCINE (1 - Ris k 60-74 years 1-dose series) RSV VACCINE (1 - Risk 60-74 years 1-dose series) [facility] Start: 03-05-2020 Influenza vaccination Flu vaccine (# 1) [place] Start: 03-18-2019 Screening for malign ant neoplasm of colon COLORECTAL CANCER SCREENING DISCUSSION [facility] Start: 12-30-2018 Screening for malign ant neoplasm of breast MAMMOGRAM SCREENING DISCUSSION [facility] Start: 04-02-2018 Screening for malign ant neoplasm of breast Breast cancer screen [place], [place] Start: 2010 Shingles Vaccine (1 of 2) Shingles Vaccine (1 of 2) [place] Start: 2010 Zoster vaccine hzv l alberta for subcutaneous use ZOSTER (SHINGLES) VACCINE (1 of 2) [facility] Start: 11-17-2005 Lipid panel LIPID SCREENING [facility] Start: 11-17-2001 Thyroid stimulating hormone measurement TSH [facility] Start: 2000 Diabetes screen Diabetes screen [place], [place] Start: 1990 Screening for malign ant neoplasm of cervix [facility] Start: 1981 Screening for malign ant neoplasm of cervix [facility] Start: 09-10-1979 DTaP/Tdap/Td vaccine (1 - Tdap) DTaP/Tdap/Td vaccine (1 - Tdap) [place] Start: 09-10-1979 Pneumococcal vaccination PNEUM OCOCCAL VACCINE SERIES (1 of 2 - PCV) [facility] Start: 09-10-1979 Third diphtheria, tetanus and acellular pertussis (DTaP) vaccination TDAP (ADULT) [facility] Start: 09-10-1975 HIV screening HIV SCREENING DISCUSSION [facility] Start: 1966 Pneumococcal 0-64 ye ars Vaccine (1 of 1 - PPSV23) Pneumococcal 0-64 years Vaccine (1 of 1 - PPSV23) [place], [place] Start: 1966 PNEUMOCOCCAL VACCINE SERIES (1 of 2 - PCV) PNEUMOCOCCAL VACCINE SERIES (1 of 2 - PCV) [facility] Start: 1960 Hepatitis C screening A [facility] Start: 1960 Screening for malign ant neoplasm of colon [facility] Start: 1960 Tetanus vaccination TETANUS [employer] End: 02-10-2020 COVID-19 COVID-19 Lab Routine Tomorrow AM for 1 Occurrences starting 02/10/2020 until 02/10/2020 [facility] Tomorrow AM for 1 Oc currences starting 02/10/2020 until 02/10/2020 End: 03-16-2020 EKG 12 Lead EKG 12 Lead ECG STAT Every 2hr for 2 Occurrences starting 03/16/2020 until 03/16/2020, 1 completed [employer] [facility] Comment on above: Every 2hr for 2 Occu rrences starting 03/16/2020 until 03/16/2020, 1 completed EKG 12 Lead EKG 12 Lead ECG STAT 03/16/2020 11:50 AM EDT [employer] [facility] End: 05-04-2024 MR Hip - right WO contrast Breaker Comment on above: 1 Occurrences starti ng 05/04/2024 until 05/04/2024 MR Lumbar spine WO a nd W contrast IV [facility] Nuclear Ab [Titer] i n Serum [facility] Patient Education Felter Non Gabri[facility] Work Phone: Patient referral [facility] Work Phone: End: 05-29-2024 XR Pelvis 2 Views Breaker Comment on above: One Time for 1 Occur rences starting 05/29/2024 until 05/29/2024 XR Pelvis and Hip - right Views XR HIP WITH PELVIS RIGHT Imaging Routine Right hip pain 02/10/2024 3:03 PM EDT Breaker XR Pelvis and Hip - right Views XR HIP WITH PELVIS RIGHT Imaging Routine Tear of right gluteus minimus tendon, initial encounter 06/14/2024 12:55 PM EST Breaker XR Pelvis and Hip - right Views XR HIP WITH PELVIS RIGHT Imaging Routine Tear of right gluteus minimus tendon, initial encounter 07/19/2024 11:15 AM EST Breaker XR Pelvis and Hip - right Views XR HIP WITH PELVIS RIGHT Imaging Routine Strain of gluteus medius, right, initial encounter 10/04/2024 10:14 AM EDT [facility] Work Phone: Immunizations Immunization Date Immunization Notes Care Provider Rufino ramos 04-29-2022 influenza virus vaccine, unspecified formulation Feliciano Portillo MD Work Phone: [facility] 08-13-2021 COVID-19 Moderna Charles mcguire Other [facility] 10-12-2020 COVID-19 mRNA-1273 (Moderna) João Cruz Work Phone: [facility] 09-14-2020 COVID-19 mRNA-1273 (Moderna) João Cruz Work Phone: [facility] Payers Date Payer Category Payer [employer] ( [employer] others) [id number] 2023 () [id number] 2023 [employer] ( and others) [id number] 2023 [employer] ( and others) [id number] 2023 Self-pay [id number] 2017 [employer] ( and others) [id number] 2015 Unknown [id number] 1.2.840.233586.1.13.239.2.7.3.6786 71.315 1960 Unknown [id number] 2.16.840.1.294863.3.579.2.177 1960 Unknown [id number] 2.16.840.1.328222.3.579.2.176 1960 Unknown [id number] 2.16.840.1.063687.3.579.2.176 1960 Unknown [id number] 2.16.840.1.179974.3.579.2.176 1960 Unknown [id number] 2.16.840.1.013510.3.579.2.593 1960 Unknown [id number] 2.16.840.1.559017.3.579.2.593 1960 Unknown [id number] 2.16.840.1.272559.3.579.2.593 1960 Unknown [id number] 2.16.840.1.852017.3.579.2.593 1960 Unknown [id number] 2.16.840.1.722996.3.579.2.593 1960 Unknown [id number] 2.16.840.1.369855.3.579.2.1286 1960 Unknown [id number] 2.16.840.1.384501.3.579.2.1286 1960 Unknown [id number] 2.16.840.1.228690.3.579.2.1286 1960 Unknown [id number] 2.16.840.1.666393.3.579.2.1286 1960 Unknown [id number] 2.16.840.1.604291.3.579.2.1286 1960 Unknown [id number] 2.16.840.1.217524.3.579.2.1286 1960 Unknown [id number] 2.16.840.1.290363.3.579.2.1286 1960 Unknown [id number] 2.16.840.1.136559.3.579.2.1286 1960 Unknown [id number] 2.16.840.1.944860.3.579.2.1286 1960 Unknown [id number] 2.16.840.1.355231.3.579.2.983 1960 Unknown [id number] 2.16.840.1.120986.3.579.2.1259 1960 Unknown [id number] 2.16.840.1.590980.3.579.2.1259 1960 Unknown [id number] 2.16.840.1.264791.3.579.2.1259 1960 Unknown [id number] 2.16.840.1.565073.3.579.2.1259 1960 Unknown [id number] 2.16.840.1.814145.3.579.2.1259 1960 Unknown [id number] 2.16.840.1.883923.3.579.2.1259 1960 Unknown [id number] 2.16.840.1.691837.3.579.2.1259 1960 Unknown [id number] 2.16.840.1.564282.3.579.2.1259 1960 Unknown [id number] 2.16.840.1.838389.3.579.2.1259 1960 Unknown [id number] 2.16.840.1.262775.3.579.2.1259 1960 Unknown [id number] 2.16.840.1.820844.3.579.2.1259 1960 Unknown [id number] 2.16.840.1.566059.3.579.2.1259 1960 Unknown [id number] 2.16.840.1.077513.3.579.2.1259 1960 Unknown [id number] 2.16.840.1.918606.3.579.2.1258 1960 Unknown [id number] 2.16.840.1.896346.3.579.2.1258 1960 Unknown [id number] 2.16.840.1.919110.3.579.2.1258 1960 Unknown [id number] 2.16.840.1.816174.3.579.2.1258 1960 Unknown [id number] 2.16.840.1.941167.3.579.2.1258 1960 Unknown [id number] 2.16.840.1.410876.3.579.2.1258 1960 Unknown [id number] 2.16.840.1.524816.3.579.2.1258 1960 Unknown [id number] 2.16.840.1.660917.3.579.2.1258 1960 Unknown [id number] 2.16.840.1.404623.3.579.2.1258 1960 Unknown [id number] 2.16.840.1.320637.3.579.2.1258 1960 Unknown [id number] 2.16.840.1.062152.3.579.2.1258 1960 Unknown [id number] 2.16.840.1.740376.3.579.2.1258 1960 Unknown [id number] 2.16.840.1.148251.3.579.2.1258 1960 Unknown [id number] 2.16.840.1.499040.3.579.2.1258 1960 Unknown [id number] 2.16.840.1.105649.3.579.2.1258 1960 Unknown [id number] 2.16.840.1.102516.3.579.2.1259 1960 Unknown [id number] 2.16.840.1.356202.3.579.2.1259 1960 Unknown [id number] 2.16.840.1.324183.3.579.2.1259 1960 Unknown [id number] 2.16.840.1.595096.3.579.2.1259 1960 Unknown [id number] 2.16.840.1.753304.3.579.2.1259 1960 Unknown [id number] 2.16.840.1.303599.3.579.2.1258 1960 Unknown [id number] 2.16.840.1.913740.3.579.2.9 1960 Unknown [id number] 2.16.840.1.106573.3.579.2.1259 1960 Unknown [id number] 2.16.840.1.562242.3.579.2.1259 1960 Unknown [id number] 2.16.840.1.837933.3.579.2.1259 1960 Unknown [id number] 2.16.840.1.933323.3.579.2.1259 1960 Unknown [id number] 2.16.840.1.007753.3.579.2.1259 1960 Unknown [id number] 2.16.840.1.754876.3.579.2.1259 1960 Unknown [id number] 2.16.840.1.262010.3.579.2.983 1960 Unknown [id number] 2.16.840.1.396858.3.579.2.983 1960 Unknown [id number] 2.16.840.1.460860.3.579.2.983 1960 Unknown [id number] 2.16.840.1.424845.3.579.2.983 1960 Unknown [id number] 2.16.840.1.515236.3.579.2.983 1960 Unknown [id number] 2.16.840.1.685262.3.579.2.983 1960 Unknown [id number] 2.16.840.1.126916.3.579.2.983 1960 Unknown [id number] 2.16.840.1.236298.3.579.2.983 1960 Unknown [id number] 2.16.840.1.512999.3.579.2.983 1960 Unknown [id number] 2.16.840.1.296386.3.579.2.98 1960 Unknown [id number] 2.16.840.1.445990.3.579.2.983 1960 Unknown [id number] 2.16.840.1.805283.3.579.2.727 1960 Unknown [id number] 2.16.840.1.452601.3.579.2.727 1959 [employer] ( and others) [id number] [employer] ( and others) [id number] Unknown [id number] 2.16.840.1.507042.3.579.2.531 Unknown [id number] 2.16.840.1.431998.3.579.2.531 Unknown [id number] 2.16.840.1.426442.3.579.2.531 Unknown [id number] 2.16.840.1.860636.3.579.2.531 Unknown [id number] 2.16.840.1.440604.3.579.2.531 Social History Date Type Detail Facility Start: 04-27-2016 End: 05-18-2024 Tobacco smoking status NHIS Former smoker [facility] End: 08-12-1994 History of tobacco use Current smoker [place] Start: 04-27-2016 End: 02-10-2024 Cigarettes smoked current (pack per day) - Reported [place] Start: 04-27-2016 End: 05-18-2024 Tobacco use and exposure Never used [place] Start: 04-27-2016 End: 03-16-2020 Alcohol intake Current drinker of alcohol (finding) [place] Start: 01-19-2013 Alcohol Comment occasionally [place] Start: 1960 Sex Assigned At Not on file [place] Exposure to SARS-CoV -2 (event) Not sure [place] Start: 1960 Sex Assigned At Female [facility] Start: 02-10-2024 End: 10-04-2024 Sex Assigned At [employer] Other End: 08-12-1994 [facility] Start: 02-10-2024 End: 10-04-2024 Alcoholic beverage intake Ex-drinker (finding) [facility] In the past 12 month s, was there a time when you were not able to pay the mortgage or rent on time? No [facility] Number of Places Melissa ed in the Last Year Not on file [facility] Start: 02-10-2024 Alcohol Comment Have drink in 20 years [employer] [facility] Start: 06-11-2024 Gender identity Identifies as female gender (finding) [employer] [facility] Start: 06-11-2024 Sexual orientation Heterosexual (finding) [employer] Start: 01-10-2024 Sex Female (finding) [facility] Medical Equipment Procedure Code Equipment Code Equipment Origin al Text Equipment Identifier Dates Arthroplasty, hip, total, anterior approach Acetabular shell ([id number] [facility] Start: 12-03-2020 Arthroplasty, hip, total, anterior approach Non-constrained polyethylene acetabular liner ()[id number] FDA Start: 12-03-2020 Arthroplasty, hip, total, anterior approach Coated hip femur prosthesis, modular ()[id number] FDA Start: 12-03-2020 Arthroplasty, hip, total, anterior approach Ceramic femoral head prosthesis ()[id number] FDA Start: 12-03-2020 Arthroplasty, hip, total, anterior approach Orthopaedic bone screw, non-bioabsorbable, sterile ()[id number] FDA Start: 12-03-2020 Arthroplasty, hip, total, anterior approach Orthopaedic bone wire ()[id number] FDA Start: 12-03-2020 Anchors, 5.5 Non Punching - [id number] Start: 05-29-2024 Goals Date Patient Goal Desired Activity /State Clinical Notes 05-23-2021 to 10-31-2024 Sofia Kamara - 10/04/2024 10:00 AM Ruiz Portillo MD - 10/04/2024 10:00 AM Melissa Ruff, PT - 08/25/2024 8:00 AM Tamar Ruff, PT - 08/14/2024 8:30 AM EST Note Date & Type Note Facility 10-31-2024 Note General Surgery Offi ce/Clinic Note Chief Complaint consultation for colonoscopy HPI Staff 64 year old female presents on consultation from Rosalind Hermosillo for screening colonoscopy. Denies abdominal or rectal pain. No rectal bleeding or change in bowel habits. Denies nausea or vomiting. No unexplained weight loss. Last colonoscopy that could be found was 10/2012 with tubular adenoma; patient believes she may have had a colonoscopy in 2018 but can not recall details of this. No known family history of colon cancer. History of Present Illness 64 yo female with h/o htn, hyperlipidemia, hypothyroidism, lumbar spondylosis, nephrolithiasis, DDD, cervical spine, referred for colorectal screening; denies change in bms or blood in stools, no abd complaints; abd operations significant for appendectomy, x 2, cholecystectomy; last known colonoscopy 2012 with removal of small tubular adenoma from cecum; believes she had another colonoscopy, unsure of where or when or findings; no asa or NSAID use; no tobacco use; no fmhx of GI malignancy or IBD. Review of Systems PHQ Score Initial Depression Screen Score: 0 SCORE ROS - Provider Constitutional: no fever, no sweats, no weight loss. Eyes: no glasses, no blurred vision, no visual loss. ENMT: no dentures, no hoarseness, no swallowing difficulties, no hearing loss, no ear infection(s), no nose bleeds. Cardiovascular: normal blood pressure, no chest pain, regular heartbeat, no heart murmur. Respiratory: no shortness of breath, no cough, no asthma, no wheezing. Gastrointestinal: no nausea, no vomiting, no diarrhea, no constipation, no blood in stool, no change in bowel habits, no abdominal pain, no hepatitis. Genitourinary: no kidney stones, no urine infection, no dysuria. Musculoskeletal: no pain, no weakness. Skin: no changing moles, no rash, no skin lumps. Neurologic: no seizures, no epilepsy, no headache. Psychiatric: no emotional or psychiatric problem. Heme/Lymph: no bleeding problems, no anemia, no blood clots, no transfusions. Allergy/Immunologic: no swollen lymph nodes/glands, no IV drug abuse. Other: Additional ROS info: Except as noted in the above Review of Systems and in the History of Present Illness, all other systems have been reviewed and are negative or noncontributory. Physical Exam Vitals & Measurements HR: 72(Peripheral) RR: 16 BP: 126/82 HT: 166 cm HT: 65 in WT: 84.6 kg WT: 186.511 lb BMI: 30.7 HEENT: normal conjunctiva, sclera clear, no scleral icterus, EOM intact, PERRLA, oral mucosa moist without lesions. Neck: trachea midline, no mass, symmetric, no thyromegaly or nodules, no adenopathy Respiratory: lungs CTA, respirations non labored. Cardiovascular: regular rate and rhythm, no murmur, no pedal edema or varicosities. Gastrointestinal: soft, non distended, no tenderness, no masses, no palpable hernias, diastasis recti no, no hepatosplenomegaly; normal bs Lymphatic: no cervical adenopathy, no supraclavicular adenopathy. Musculoskeletal: normal gait, digits and nails without infection, nodes, cyanosis, clubbing. Skin: no rashes, no lesions, no ulcers, no subcutaneous nodules, induration. Psychiatric/Neuro: oriented to time, place, person, judgement normal, affect appropriate for age, insight intact, no focal deficits. Tests: , review of old records completed , Discussed surgical options, risks, and possible complications with patient. Assessment/Plan 1. Personal history of adenomatous and serrated colon polyps (Z86.0101: Personal history of adenomatous and serrated colon polyps) plan colonoscopy under anesthesia, informed consent obtained. 2. Screening for malignant neoplasm of colon (Z12.11: Encounter for screening for malignant neoplasm of colon) see # 1 Follow-up No qualifying data available Problem List/Past Medical History Ongoing BMI 30.0-30.9,adult Chronic cough DDD (degenerative disc disease), cervical GERD (gastroesophageal reflux disease) History of nephrolithiasis Hypercholesterolemia Hypertension Hypothyroidism Lumbar spondylosis Overweight Personal history of adenomatous and serrated colon polyps Scoliosis Screening for malignant neoplasm of colon Vitamin B 12 deficiency Historical No qualifying data Procedure/Surgical History EGD - esophagogastroduodenoscopy (2019), Colonoscopy (2012), Appendectomy, Arthroplasty of knee, Arthroplasty of left hip, section, section, Cholecystectomy, Tear of hip abductor tendon, Transposition of ureter. Medications Albuterol (Eqv-ProAir HFA), 2 puff(s), Inhalation, q4hr, PRN calcium (as carbonate) 600 mg oral tablet, 600 mg= 1 tab(s), Oral, Daily cyanocobalamin 1000 mcg/mL Inj, 1000 mcg, IntraMuscular, qMonth gabapentin 100 mg Cap, 100 mg= 1 cap(s), Oral, BID gemfibrozil 600 mg Tab, 600 mg= 1 tab(s), Oral, BID irbesartan 150 mg Tab, 150 mg= 1 tab(s), Oral, Daily levothyroxine 125 mcg (0.125 mg) Tab, 125 mcg= 1 tab(s), Oral, Daily multivi (more content not included)... [facility] Comment on above: Result Comment: Elec tronically Signed By: SENTHIL KINNEY, Poli R\.br\Date and Time Signed: 10/31/24 13:37 EDT 10-04-2024 History of Present illness Narrative Ortho Nurse - Established Patient [...] 10/04/2024 10:03 AM Patient: Julia Chavarria MR#: [id number] : 1960 Age: 64 y.o. Referring Physician: Self, Self Insurance: Payor: [employer] / Plan: [employer] [facility] / Product Type: *No Product type* / [...] 10/04/2024 10:03 AM Patient: Julia Chavarria MR#: [id number] : 1960 Age: 64 y.o. Referring Physician: Self, Self Insurance: Payor: [employer] / Plan: [facility] / Product Type: *No Product type* [...] and sulfa antibiotics. documented in this encounter [facility] 08-25-2024 History of Present illness Narrative Images from the original note [...] Total Treatment Time: 76 minutes Time In: 744 Time Out: 907 History: Pt presents to PT following right [...] about 2 years prior to surgery. Precautions: [place], left MARIZOL Subjective: Pt states her hip is gradually getting better. Will see again October 06. Stiff this morning coming in. Pain: 3/10 Objective: PT Evaluation (08/07/2024) RIGHT [...] benefit from further PT to progress toward fdc goals. Outcome Measure: Lower Extremity Functional Scale (LEFS): 11/80; 36/80 on 08/25/24 Rehab Diagnosis: right hip pain and weakness, difficulty walking, limited ROM and mobility Short Term Goal: To be met in 2 weeks Goal 1: Pt to be instructed in home exercise program. - met Fdc Goals: To be met in 10 weeks [...] sign below. Date: documented in this encounter [facility] 08-14-2024 History of Present illness Narrative Images from the original note [...] Total Treatment Time: 54 minutes Time In: 829 Time Out: 927 [...] about 2 years prior to surgery. Precautions: [place], left MARIZOL Subjective: Right is a little sore this morning. Pt states she woke up laying on right hip. Min soreness following last session. Pain: 3/10 Objective: PT Evaluation (08/07/2024) RIGHT [...] to be instructed in home exercise program. Fdc Goals: To be met in 10 weeks [...] sign below. Date: documented in this encounter [facility] 08-07-2024 History of Present illness Narrative Physical Therapy Evaluation Visit Patient [...] about 2 years prior to surgery. Precautions: [place], left MARIZOL Subjective: Right post and lateral [...] to be instructed in home exercise program. Fdc Goals: To be met in 10 weeks [...] sign below. Date: documented in this encounter [facility] 07-19-2024 History of Present illness Narrative Ortho Nurse - Established Patient Intake Room#: 6 Date: 07/19/2024 11:25 AM Patient: Julia Chavarria MR#: [id number] : 1960 Age: 63 y.o. R ABD REPAIR (05/29/24) Pt stated she is doing ok, the last couple days her knee and where her pocket is that is sore like before she had sx. Pt stated her pain is a 3/10. Pt was using a walker at the time. Referring Physician: Self, Self Insurance: Payor: [employer] / Plan: [employer] [facility] / Product Type: *No Product type* / [...] regimen for DVT prophylaxis along with URIAH rosario. She is having some discomfort in the [...] arise. All pertinant portions of the clinical technical support intern documentation was reviewed and I agree with their assessment. Bessie Cardona Ortho Nurse - Established Patient Intake Room#: 6 Date: 07/19/2024 11:25 AM Patient: Julia Chavarria MR#: [id number] : 1960 Age: 63 y.o. R ABD REPAIR (05/29/24) Pt stated she is doing ok, the last couple days her knee and where her pocket is that is sore like before she had sx. Pt stated her pain is a 3/10. Pt was using a walker at the time. Referring Physician: Self, Self Insurance: Payor: [facility] / Plan: [facility] / Product Type: *No Product type* [...] and sulfa antibiotics. documented in this encounter [facility] 06-14-2024 History of Present illness Narrative Ortho Nurse - Established Patient [...] 06/14/2024 1:08 PM Patient: Julia Chavarria MR#: [id number] : 1960 Age: 63 y.o. Referring Physician: Bessie Cardona Insurance: Payor: [employer] / Plan: [facility] / Product Type: *No Product type* [...] arise. All pertinant portions of the clinical technical support intern documentation was reviewed and I agree with [...] She presents in office using a walker. states she has been taking tylenol in the morning and sometimes in the afternoon if she needs it. She rates her pain on a scale of 3/10. Date: 06/14/2024 1:08 PM Patient: Julia Chavarria MR#: [id number] : 1960 Age: 63 y.o. Referring Physician: Bessie Cardona Insurance: Payor: [employer] / Plan: [employer] [facility] / Product Type: *No Product type* / [...] sulfa antibiotics. ' documented in this encounter [facility] 05-29-2024 Nurse Note [facility] and all belongings. to drive [...] at this time. Transported via cart to [facility] 1. Cart placed in lowest position. Call light within reach. Pulse ox and school bus monitor on pt with alarms set. Report given to BILLIE Eugene at bedside. No change in assessment from previous documentation. Abductor pillow in place. OR 2 Temperature 64.2F Humidity 43.4% documented in this encounter [facility] 05-29-2024 Nurse Surgical operation note Patient taken to front lobby via W/C and all belongings. to drive the patient home.Patient stable and awake. [facility] 05-29-2024 History of Present illness Narrative Physical Therapy Inpatient Initial Assessment [...] educated on hip precautions, use of leg offset platemaker and weight bearing status. Pt educated to [...] bench, hand held shower head, bedside commode, reed fixer, sock aid, long handled sponge, long handled shoe horn Prior level ADL function: Toileting:independent Bathing:independent Upper body dressing:independent Lower body dressing:independent Grooming:independent Current Functional Status: ROM:UE WFL Transfers: CGA Gait:CGA ADLS: Toileting:not completed Bathing:not completed Upper body dressing: independent in sitting Lower body dressing: mod assist in sitting and standing utilizing reed fixer Grooming:not completed OT Treatment Provided:OT evaluation and self care training Education: Pt instructed on LB dressing techniques donning disposable underwear and shorts CGA in sitting and standing utilizing reed fixer to maintain hip precautions and instruction on [...] good in UE's Bed Mobility:SBA with leg offset platemaker Transfers:STS to FWW, CGA Gait:CGA x20ft x2 [...] and pt transported to therapy room. This PIT MANAGER then demonstrated proper technique for navigating steps with TTWB on R LE using R HR and axillary crutch. Pt then practiced steps x4 stairs with said technique with CGA and min verbal cues for proper sequencing with managing TTWB on R LE with no LOB noted. Pt then practiced modified car transfer with leg offset platemaker on R LE with good technique demonstrated. [...] DR PORTILLO. An additional 10 tabs of [place] are given as a rescue opiate. documented in this encounter [facility] 05-29-2024 Nurse Surgical operation note Discharge instructions reviewed per this RN with patient and . They deny any further questions at this time. Discharge packet given to patient for take home. [facility] 05-29-2024 Nurse Surgical operation note Patient to therapy room. Tolerated well. [facility] 05-29-2024 Hospital Discharge instructions Maribell Saucedo RN - 05/29/2024 11:57 [...] put patient in prone position Contact Office ([phone]) if: > Any falls or injuries > [...] or two days. documented in this encounter [facility] 05-29-2024 Nurse Surgical operation note Patient voiced nausea better at this time. [facility] 05-29-2024 Nurse Surgical operation note Patient complains of nausea and dry heaving. Patient medicated for nausea and vomiting. [facility] 05-29-2024 Nurse Surgical operation note Discharged from PACU in stable condition at this time. Transported via cart to [facility] 1. Cart placed in lowest position. Call light within reach. Pulse ox and school bus monitor on pt with alarms set. Report given to BILLIE Eugene at bedside. No change in assessment from previous documentation. Abductor pillow in place. [facility] 05-29-2024 Surgery Postoperative evaluation and management note POST OPERATIVE/PROCEDURE NOTE Julia Chavarria 63 y.o. female [id number] SURGEON Surgeons and Role: * Feliciano Portillo MD - Primary HOTEL DESK CLERK Bessie Cardona ANESTHESIOLOGIST TELEPHONE OPERATOR CHIEF: URMILA Whitney SURGICAL STAFF Steel Pickler: Nia Keita RN; Elke Weaver RN; Louisa [...] Implant Name Type Inv. Item Serial No. Procurement Professional Logistics Lot No. LRB No. Used Action ANCHORS, 5.5 NON PUNCHING - [id number] ANCHORS, 5.5 NON PUNCHING HIST ARTHREX [id number] Right 4 Implanted SPECIMENS * No specimens in log * Bessie Cardona May 29, 2024 9:18 AM [facility] 05-29-2024 Miscellaneous Notes POST OPERATIVE/PROCEDURE NOTE Julia Gutierrez Janelleluisa 63 y.o. female [id number] SURGEON Surgeons and Role: * Feliciano Portillo MD - Primary HOTEL DESK CLERK Bessie Cardona ANESTHESIOLOGIST TELEPHONE OPERATOR CHIEF: URMILA Whitney SURGICAL STAFF Steel Pickler: Nia Keita RN; Elke Weaver RN; Louisa [...] Implant Name Type Inv. Item Serial No. Procurement Professional Logistics Lot No. LRB No. Used Action ANCHORS, 5.5 NON PUNCHING - [id number] ANCHORS, 5.5 NON PUNCHING HIST ARTHREX [id number] Right 4 Implanted SPECIMENS * No specimens in log * Bessie Cardona May 29, 2024 9:18 AM 05/25/24 1045 Referral Information Arrived From home or self-care Information Source Information Source patient Contact Information This Roofer Gypsum is Primary Manager Furniture/SW Yes Manager Furniture Name Belinda Up RNpulp plant supervisor's Phone Number [phone] Living Environment Lives With spouse ( Howie) [...] Financial Concerns none Initial Discharge Planning DME (PIT MANAGER) Walker Patient Goal for Discharge Return home [...] with discharge plans. documented in this encounter [facility] 05-29-2024 Nurse Surgical operation note OR 2 Temperature 64.2F Humidity 43.4% [facility] 05-25-2024 Nurse Note 05/25/24 1045 Referral Information Arrived From home or self-care Information Source Information Source patient Contact Information This Roofer Gypsum is Primary Manager Furniture/SW Yes Manager Furniture Name Belinda Up RNpulp plant supervisor's Phone Number [phone] Living Environment Lives With spouse ( Howie) [...] Financial Concerns none Initial Discharge Planning DME (PIT MANAGER) Walker Patient Goal for Discharge Return home [...] to follow and assist with discharge plans. [facility] 05-18-2024 History of Present illness Narrative Ortho Nurse - Established Patient [...] 05/18/2024 8:55 AM Patient: Julia Chavarria MR#: [id number] : 1960 Age: 63 y.o. Referring Physician: Feliciano Portillo MD Insurance: Payor: [employer] / Plan: [employer] [facility] / Product Type: *No Product type* / [...] HPI: Julia is an established patient of [facility], here today for right hip pain. She is an established patient of mine. Primary complaint is pain, impairment and a [...] joint space, subchondral sclerosis, osteophyte formation, and [id number]-[id number] contact. Plain film radiographs reviewed. She has [...] which is likely worsening pain, atrophied muscles, buttermaker helper loss of muscle, weakness, worsening instability with [...] an open approach involving sutures and anchors. Mischele understands the restrictions and postoperative expectations for recovery. Mischele also understands current medical literature has limited [...] nasal MRSA screening, scheduling an appointment for [facility] [place] and the potential surgical date, and reviewing [...] Hives and Rash documented in this encounter [facility] 04-24-2024 History of Present illness Narrative Physical Therapy Treatment Visit Patient [...] R SI joint(HELD) Assessment: Outcome Measure: LEFS 26/80 Rehab Diagnosis: chronic gluteal pain, chronic R [...] to be instructed in home exercise program. Fdc Goals: To be met in 10 weeks [...] sign below. Date: documented in this encounter [facility] 03-27-2024 History of Present illness Narrative Physical Therapy Progress Visit Patient [...] to be instructed in home exercise program. Commercial Hvac Technician Goals: To be met in 10 weeks [...] sign below. Date: documented in this encounter [facility] 02-10-2024 History of Present illness Narrative Ortho Nurse - Established Patient [...] 02/10/2024 3:11 PM Patient: Julia Chavarria MR#: [id number] : 1960 Age: 63 y.o. Referring Physician: Sammie Duong Jr., DO Insurance: Payor: [facility] / Plan: [facility] / Product Type: *No Product type* [...] HPI: Julia is a new patient of [facility], here today for right hip pain. Primary [...] a right total hip arthroplasty for optimal fdc management. PHYSICAL EXAM: This is an alert, [...] joint space, subchondral sclerosis, osteophyte formation, and guqp-mp-ktgb contact. Plain film radiographs reviewed. She has [...] I will see the patient back in 12-10 if her symptoms persist and we will [...] Hives and Rash documented in this encounter [facility] 08-04-2023 Evaluation note Encounter Date Diagnosis [...] Above note written by Jer Sepulveda MA, Oleomargarine Maker. Edited and approved by Dr. Ramu Mancuso MD. [employer] Other 01-15-2024 Evaluation note* Encounter Date Diagnosis [...] Above note written by Jer Sepulveda MA, Oleomargarine Maker. Edited and approved by Dr. Ramu Mancuso [...] negative findings were considered in medical decision-making. [employer] Other 12-13-2023 Evaluation note* Encounter Date Diagnosis [...] SI joint and right bursa steroid injections. [employer] Other 05-23-2022 Evaluation note* Encounter Date Diagnosis [...] as documented in the electronic medical record. [employer] Other 05-02-2022 Evaluation note* Encounter Date Diagnosis [...] poor healing. I have advised against the fdc use of narcotic pain medication. I have [...] as documented in the electronic medical record. [employer] Other 03-31-2022 Evaluation note* Encounter Date Diagnosis [...] right. I explained to her the issues [employer] Other 02-21-2022 Evaluation note* Encounter Date Diagnosis Assessment Notes Treatment Notes Treatment Clinical Notes Aug, Left carpal tunnel syndrome (ICD-10 - G56.02) Patient will begin to increase use of her hand, she will still keep it covered and protected to keep it mostly dry and we will see her back in 1 month's time. [employer] Other 12-28-2021 Evaluation note* Encounter Date Diagnosis [...] would like to proceed with surgical intervention. [employer] Other 11-19-2021 Evaluation note* Encounter Date Diagnosis [...] has been discussed and a referral given. [employer] Other evaluation noteNo assessment information available [facility] InformationNort [employer] Other evaluation note* Diagnosis Onset Date Resolution Status Lumbar spondylosis with myelopathy acute Other chronic pain acute Sacroiliitis acute Lumbar spondylosis with myelopathy acute Other chronic pain acute Sacroiliitis acute [facility] Work Phone: Evaluation note* Diagnosis Onset Date Resolution Status Lumbar spondylosis with myelopathy acute Other chronic pain acute Sacroiliitis acute Lumbar spondylosis with myelopathy acute Other chronic pain acute Sacroiliitis acute Bursitis, trochanteric acute Osteoarthritis of right hip acute Sacroiliitis acute Spondylosis of lumbar region without myelopathy or radiculopathy acute [facility] Work Phone: Evaluation note* Diagnosis Right hip pain- Primary Pain in joint, pelvic region and thigh [facility] Chronic right hip pain- Primary Chronic gluteal pain Muscle weakness of lower extremity Muscle weakness (generalized) [facility] Diagnosis Chronic right hip pain- Primary Chronic gluteal pain Muscle weakness of lower extremity Muscle weakness (generalized) [facility] Diagnosis Right hip pain Pain in joint, pelvic region and thigh [facility] Diagnosis Right hip pain- Primary Pain in joint, pelvic region and thigh Tear of rotator cuff of right hip, initial encounter [facility] Diagnosis Acute postoperative pain of right hip- Primary [facility] Diagnosis Chronic right hip pain- Primary Chronic gluteal pain Muscle weakness of lower extremity Muscle weakness (generalized) [facility] Diagnosis Tear of right gluteus minimus tendon, initial encounter- Primary [facility] Diagnosis Chronic right hip pain- [...] initial encounter- Primary documented [facility]* Diagnosis Chronic right hip pain- [...] Chronic gluteal pain documented in [facility] encounter [facility]* Diagnosis Strain of muscle, fascia and tendon of right hip, initial encounter- Primary Chronic right hip pain Muscle weakness of lower extremity Muscle weakness (generalized) Chronic gluteal pain documented [facility] encounter [facility]* Diagnosis Strain of gluteus medius, right, initial encounter- Primary [facility] - Reported* Type Description Date [...] total hip 12/03/20 Hospitalization History see above [employer] Other reason for referral (narrative)* Consultation (Routine) - Patient to Arrange Specialty Diagnoses / Procedures Referred By Wesley slaughter Referred To Contact Physical Therapy Diagnoses Tear of right gluteus minimus tendon, initial encounter Bessie Cardona [address] [place] [id number] Referral ID Status Reason Start Date Expiration Date V isits Requested Visits Authorized [id number] Patient to Arrange 07/19/2024 08/13/2025 1 1 Scheduling Instructions . * Diagnostic X-Ray (Routine) - New Request Specialty Diagnoses / Procedures Referred By Contac t Referred To Contact Diagnoses Tear of right gluteus minimus tendon, initial encounter Procedures XR HIP WITH PELVIS RIGHT Bessie Cardona [address] [place] [id number] Referral ID Status Reason Start Date Expiration Date V isits Requested Visits Authorized [id number] New Request 07/17/2024 08/11/2025 1 1 [facility] for visit Narrative* Rehabilitation - Outpatient (Routine) - Authorized Specialty Diagnoses / Procedures Referred By Contac t Referred To Contact Physical Therapy Diagnoses Pain in right hip Procedures CA PHYSICAL THERAPY EVALUATION LOW COMPLEX 20 MINS Feliciano Portillo MD [address] [place] [id number] Phone: tel: fax: Petar Olivares, PT [address] [address] Phone: tel: fax: Referral ID Status Reason Start Date Expiration Date V isits Requested Visits Authorized [id number] Authorized 02/16/2024 08/09/2024 99 99 [facility]* Auth/Cert Specialty Diagnoses / Procedures Referred By Wseley t Referred To Contact Diagnoses Tear of rotator cuff of right hip, initial encounter Tear of rotator cuff of right hip, initial encounter [S76.011A] Procedures CA UNLISTED PROCEDURE PELVIS/HIP JOINT GLUTEUS MEDIUS TENDON REPAIR Feliciano Portillo MD [address] [place] [id number] [place] Referral ID Status Reason Start Date Expiration Date Visits Re quested Visits Authorized [id number] 1 1 [facility] - Outpatient (Routine) - Authorized Specialty Diagnoses / Procedures Referred By Contac t Referred To Contact Physical Therapy Diagnoses Strain of muscle, fascia and tendon of right hip, initial encounter Procedures [place] PHYSICAL THERAPY EVALUATION LOW COMPLEX 20 MINS CA OFFICE/OUTPATIENT [facility] 60 MINUTES Bessie Cardona MD [address] [place] [address] Phone: tel: fax: Cady Ruff, JAMEE Referral ID Status Reason Start Date Expiration Date V isits Requested Visits Authorized [id number] Authorized 08/07/2024 02/03/2025 99 99 [facility] HealthcareReason for visit Narrative* Rehabilitation - Outpatient (Routine) - Authorized Specialty Diagnoses / Procedures Referred By Contac t Referred To Contact Physical Therapy Diagnoses Strain of muscle, fascia and tendon of right hip, initial encounter Procedures CA PHYSICAL THERAPY EVALUATION LOW COMPLEX 20 MINS CA OFFICE/OUTPATIENT NEW HIGH MDM 60 MINUTES Bessie Cardona MD [address] [place] [address] Phone: tel: fax: Cady Ruff PT Referral ID Status Reason Start Date Expiration Date V isits Requested Visits Authorized [id number] Authorized 08/07/2024 07/04/2025 99 99 [facility] Narrative* Diagnostic X-Ray (Routine) - New Request Specialty Diagnoses / Procedures Referred By Contac t Referred To Contact Diagnoses Strain of gluteus medius, right, initial encounter Procedures XR HIP WITH PELVIS RIGHT Feliciano Portillo MD [address] [place] [address] Phone: tel: fax: Referral ID Status Reason Start Date Expiration Date V isits Requested Visits Authorized [id number] New Request 09/28/2024 10/23/2025 1 1 [employer] [facility] [employer] Advance Directives No Advanced Directives Records FoundDocuments on File Type Date Recorded Patient [employer] Social Studies Tutor Expl anation Advance Directives and Living Will Power of Business Support Manager Latest Code Status on File Code Status Date Activated Date Inactivated Comments Full Code 11/06/2015 11:33 AM 11/08/2015 6:10 PM Documents on File Type Date Recorded 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 * Head Injury: Closed: General Info (Djiboutian) documented in this encounter Assessments Diagnosis Closed [...] carpal tunnel s yndrome (G56.02) Referral Organization [facility] Referring Provider First Name Jaime Referring Provider Last Name Shine Referring Provider Specialty Neurologica l Surgery Referred Organization [facility] Referred Provider Yamilet Bryan Referred Address [address] [place] [address],[place], [place],[address] Referred Provider Specialty Neurology Referral Priority Routine General Notes Lucinda Infante 021 11:18:02 AM >Received today. Went to get prior auth forNeurology but stated; Auth Not RequiredThis patient is not enrolled in [facility] so no referral is required for the requested services.April Infanten 05/27/2021 11:25:55 AM >Waiting for office notes to be locked before sending referralApril Infanten 06/03/2021 02:24:04 PM >[facility] request us to fill out their form and attach to Referral and send it to them and they will call patient to schedule. Referral was sent P2P Reason *FU 06/11 Evaluate and Treat Diagnosis 1 Neck pain (M54.2) Referral Organization [facility] Referring Provider First Name Jaime Referring Provider Last Name Shine Referring Provider Specialty Neurologica l Surgery Referred Organization [facility] Referred Provider Jr. Lomeli William Referred Address [address],[place], [place],[address] Referred Provider Specialty Pain Medicin e Referral Priority Routine General Notes Lucinda Infante 021 11:18:47 AM >Received today. Went to get prior auth for Pain Medicine but stated; Auth Not RequiredThis patient is not enrolled in [facility] so no referral is required for the requested services.Lucinda Infante 05/27/2021 11:28:48 AM >Waiting for office notes to be locked before sending referralLucinda Infante 06/03/2021 02:23:26 PM >Dr. Lomeli's office request us to fill out form and fax referral to them and they will review the referral and call patient. Referral was fax Reason *Waiting for appt Evaluate and Treat Diagnosis 1 Trigger finger of ri ght thumb (M65.311) Referral Organization [facility] Referring Provider First Name Jaime Referring Provider Last Name Shine Referring Provider Specialty Neurologica l Surgery Referred Organization [facility] Referred Provider Erica Prasad Referred Address [address] [place],[address] Referred Provider Specialty Hand Surgery Referral Priority Routine General Notes Lucinda Infante 022 04:02:06 PM >Received today. Per [employer] : Auth Not RequiredThis patient is not enrolled in [facility] so no referral is required for the requested services. Referral was sent P2P Specialty Diagnoses / Procedures Referred By Wesley slaughter Referred To Contact Feliciano Portillo MD [address] [place] [address] Referral ID Status Reason Start Date Expiration Date V isits Requested Visits Authorized [id number] Pending Review 1 1 Specialty Diagnoses / Procedures Referred By Contac t Referred To Contact Physical Therapy Diagnoses Right hip pain Feliciano Portillo MD [address] [place] [address] Referral ID Status Reason Start Date Expiration Date V isits Requested Visits Authorized [id number] New Request 02/10/2024 03/06/2025 1 1 Scheduling Instructions . Specialty Diagnoses / Procedures Referred By Contac t Referred To Contact Diagnoses Right hip pain Procedures XR HIP WITH PELVIS RIGHT Feliciano Portillo MD [address] [place] [address] Referral ID Status Reason Start Date Expiration Date V isits Requested Visits Authorized [id number] New Request 01/31/2024 02/24/2025 1 1 Specialty Diagnoses / Procedures Referred By Contac t Referred To Contact Magnetic Resonance Imaging Diagnoses Right hip pain Procedures MRI HIP RIGHT WITHOUT CONTRAST CHG MRI ANY JT LOWER EXTREM W/O CONTRAST MATRL Feliciano Portillo MD [address] [place] [address] Araceli Buc Mri [address] [place] [address] Referral ID Status Reason Start Date Expiration Date Visits Re quested Visits Authorized [id number] Closed 04/28/2024 05/23/2025 1 1 Specialty Diagnoses / Procedures Referred By Contac t Referred To Contact Diagnoses Tear of right gluteus minimus tendon, initial encounter Procedures XR HIP WITH PELVIS RIGHT Bessie Cardona Trell [address] [place] [address] Referral ID Status Reason Start Date Expiration Date V isits Requested Visits Authorized [id number] New Request 06/07/2024 07/02/2025 1 1 Additional Source Comments INFORMATION SOURCE (unrecogn ized section and content) DATE CREATED AUTHOR 02/15/2020 [facility] DATE CREATED AUTHOR AUTHOR'S ORGANIZ ATION 03/21/2020 [facility] DATE CREATED AUTHOR AUTHOR'S ORGANIZ ATION 12/11/2022 [facility] DATE CREATED AUTHOR AUTHOR'S ORGANIZ ATION 11/19/2023 [facility] DATE CREATED AUTHOR AUTHOR'S ORGANIZ ATION 11/19/2023 [facility] DATE CREATED AUTHOR AUTHOR'S ORGANIZ ATION 12/10/2023 [facility] DATE CREATED AUTHOR AUTHOR'S ORGANIZ ATION 01/20/2024 [facility] DATE CREATED AUTHOR AUTHOR'S ORGANIZ ATION 05/06/2024 [facility] DATE CREATED AUTHOR AUTHOR'S ORGANIZ ATION 09/19/2024 [facility] DATE CREATED AUTHOR AUTHOR'S ORGANIZ ATION 10/10/2024 [facility] DATE CREATED AUTHOR AUTHOR'S ORGANIZ ATION 11/11/2024 [facility] Reason for Visit (unrecogniz ed section and content) Reason Comments Fall Loss of Consciousness Specialty Diagnoses / Procedures Referred By Contac t Referred To Contact Diagnoses Right hip pain Procedures XR HIP WITH PELVIS RIGHT Feliciano Portillo MD [address] [place] [address] Referral ID Status Reason Start Date Expiration Date V isits Requested Visits Authorized [id number] New Request 01/31/2024 02/24/2025 1 1 Reason Comments Pain New Patient Specialty Diagnoses / Procedures Referred By Contac t Referred To Contact Physical Therapy Diagnoses Pain in right hip Procedures CA PHYSICAL THERAPY EVALUATION LOW COMPLEX 20 MINS Feliciano Portillo MD [address] [place] [address] [facility] [address] [address] Referral ID Status Reason Start Date Expiration Date V isits Requested Visits Authorized [id number] Authorized 02/16/2024 08/09/2024 99 99 Specialty Diagnoses / Procedures Referred By Contac t Referred To Contact Magnetic Resonance Imaging Diagnoses Right hip pain Procedures MRI HIP RIGHT WITHOUT CONTRAST CHG MRI ANY JT LOWER EXTREM W/O CONTRAST MATRL Feliciano Portillo MD [address] [place] [address] Araceli Buc Mri [address] [place] [address] Referral ID Status Reason Start Date Expiration Date Visits Re quested Visits Authorized [id number] Closed 04/28/2024 05/23/2025 1 1 Reason Comments MRI Results Reason Comments Post Op Visit Specialty Diagnoses / Procedures Referred By Contac t Referred To Contact Diagnoses Tear of right gluteus minimus tendon, initial encounter Procedures XR HIP WITH PELVIS RIGHT Bessie Cardona [address] [place] [address] Referral ID Status Reason Start Date Expiration Date V isits Requested Visits Authorized [id number] New Request 06/07/2024 07/02/2025 1 1 Reason [...] Active Member Role Status Dates Janet Hermosillo NP-C Primary Care Provider Active Team Status: Inactive Member Role Status Dates Janet Hermosillo NP-C Primary Care Provider Active Jaime Molina II, [...] Team Status: Inactive Member Role Status Dates MIS HartmanC Primary Care Provider Active Start: August 31, [...] CHIN Hartman Primary Care Provider Active Start: November 25, 2023 End: November 25, 2023 Jaime Tomas MD Attending Provider Active St art: November 25, 2023 End: November 25, 2023 Marketing Systems Manager Relationship Specialty Start Date End Date Janet Hremosillo CNP [address] [place] [address] PCP - General Nurse Practitioner - Family 02/10/24 Marketing Systems Manager Relationship Specialty Start Date End Date Janet Hermosillo CNP [address] [place] [address] PCP - General Nurse Practitioner - Family 02/10/24 Marketing Systems Manager Relationship Specialty Start Date End Date Leonel Manuel MD [address] [place] [address] PCP - General Family Medicine 09/27/23 Janet Hermosillo MD [address] [place] [address] Referring Physician Family Medicine 09/27/23 Marketing Systems Manager Relationship Specialty Start Date End Date Leonel Manuel MD [address] [place] [address] PCP - General Family Medicine 09/27/23 Janet Hermosillo MD [address] [place], [place] [phone] Referring Physician Family Medicine 09/27/23 Marketing Systems Manager Relationship Specialty Start Date End Date Leonel Manuel MD [address] [place], [place] [phone] PCP - General Family Medicine 09/27/23 Janet Hermosillo MD [address] [place], [place] [phone] Referring Physician Family Medicine 09/27/23 Marketing Systems Manager Relationship Specialty Start Date End Date Leonel Manuel MD [address] [place], [place] [phone] PCP - General Family Medicine 09/27/23 Janet Hermosillo MD [address] [place], [place] [phone] Referring Physician Family Medicine 09/27/23 Marketing Systems Manager Relationship Specialty Start Date End Date Janet Hermosillo CNP [address] [place], [place] [phone] PCP - General Nurse Practitioner - Family 02/10/24 Marketing Systems Manager Relationship Specialty Start Date End Date Janet Hermosillo CNP [address] [place], [place] [phone] PCP - General Nurse Practitioner - Family 02/10/24 Marketing Systems Manager Relationship Specialty Start Date End Date Janet Hermosillo CNP [address] [place] [phone] PCP - General Nurse Practitioner - Family 02/10/24 Marketing Systems Manager Relationship Specialty Start Date End Date Leonel Manuel MD [address] [place] [facility] [address] PCP - General Family Medicine 09/27/23 Janet Hermosillo MD [address] [facility] [place] [address] Referring Physician Family Medicine 09/27/23 Marketing Systems Manager Relationship Specialty Start Date End Date Janet Hermosillo CNP [address] [facility] [place] [address] PCP - General Nurse Practitioner - Family 02/10/24 Marketing Systems Manager Relationship Specialty Start Date End Date Janet Hermosillo CNP [address] [facility] [place] [address] PCP - General Nurse Practitioner - Family 02/10/24 Marketing Systems Manager Relationship Specialty Start Date End Date Leonel Manuel MD [address] [place] [facility] [address] PCP - General Family Medicine 09/27/23 Janet Hermosillo MD [address] [place] [address] Referring Physician Family Medicine 09/27/23 Marketing Systems Manager Relationship Specialty Start Date End Date Leonel Manuel MD [address] [place] [facility] [address] PCP - General Family Medicine 09/27/23 Janet Hermosillo MD [address] [facility] [place] [address] Referring Physician Family Medicine 09/27/23 Marketing Systems Manager Relationship Specialty Start Date End Date Leonel Manuel MD [address] [place] [address] PCP - General Family Medicine 09/27/23 Janet Hermosillo MD [address] [place] [address] Referring Physician Family Medicine 09/27/23 Marketing Systems Manager Relationship Specialty Start Date End Date Leonel Manuel MD [address] [place] [address] PCP - General Family Medicine 09/27/23 Janet Hermosillo MD [address] [place] [address] Referring Physician Family Medicine 09/27/23 Marketing Systems Manager Relationship Specialty Start Date End Date Leonel Manuel MD [address] [place] [address] PCP - General Family Medicine 09/27/23 Janet Hermosillo MD [address] [place] [address] Referring Physician Family Medicine 09/27/23 Marketing Systems Manager Relationship Specialty Start Date End Date Leonel Manuel MD [address] [place] [address] PCP - General Family Medicine 09/27/23 Janet Hermosillo MD [address] [place] [address] Referring Physician Family Medicine 09/27/23 Marketing Systems Manager Relationship Specialty [place] [address] [place] [phone] PCP - General Family Medicine 09/27/23 Janet Hermosillo MD [address] [place] [address] Referring Physician Family Medicine 09/27/23 Marketing Systems Manager Relationship Specialty Start Date End Date Janet Hermosillo CNP [address] [place] [phone] PCP - General Nurse Practitioner - Family 02/10/24 Marketing Systems Manager Relationship Specialty Start Date End Date Leonel Manuel MD [address] [place] [phone] PCP - General Family Medicine 09/27/23 Janet Hermosillo MD [address] [place] [address] Referring Physician Family Medicine 09/27/23 Marketing Systems Manager Relationship Specialty Start Date End Date Leonel Manuel MD [address] [place] [phone] PCP - General Family Medicine 09/27/23 Janet Hermosillo MD [address] [place], [place] [address] Referring Physician Family Medicine 09/27/23 Marketing Systems Manager Relationship Specialty Start Date End Date Leonel Manuel MD [address] [place] [phone] PCP - General Family Medicine 09/27/23 Janet Hermosillo MD [address] [place] [address] Referring Physician Family Medicine 09/27/23 Marketing Systems Manager Relationship Specialty Start Date End Date Leonel Manuel MD [address] [place], [place] [phone] PCP - General Family Medicine 09/27/23 Janet Hermosillo MD [address] [place] [address] Referring Physician Family Medicine 09/27/23 Marketing Systems Manager Relationship Specialty Start Date End Date Leonel Manuel MD [address] [place], [place] [phone] PCP - General Family Medicine 09/27/23 Janet Hermosillo MD [address] [place], [place] [address] Referring Physician Family Medicine 09/27/23 Marketing Systems Manager Relationship Specialty Start Date End Date Leonel Manuel MD [address] [place], [place] [phone] PCP - General Family Medicine 09/27/23 Janet Hermosillo MD [address] [place], [place] [address] Referring Physician Family Medicine 09/27/23 Marketing Systems Manager Relationship Specialty Start Date End Date Leonel Manuel MD [address] [place] [phone] PCP - General Family Medicine 09/27/23 Janet Hermosillo MD [address] [place] [address] Referring Physician Family Medicine 09/27/23 Marketing Systems Manager Relationship Specialty Start Date End Date Leonel Manuel MD [address] [place] [address] PCP - General Family Medicine 09/27/23 Janet Hermosillo MD [address] [place] [address] Referring Physician Family Medicine 09/27/23 Marketing Systems Manager Relationship Specialty Start Date End Date Leonel Manuel MD [address] [place] [phone] PCP - General Family Medicine 09/27/23 Janet Hermosillo MD [address] [place] [phone] Referring Physician Family Medicine 09/27/23 Marketing Systems Manager Relationship Specialty Start Date End Date Leonel Manuel MD [address] [place] [phone] PCP - General Family Medicine 09/27/23 Janet Hermosillo MD [address] [place] [address] Referring Physician Family Medicine 09/27/23 Marketing Systems Manager Relationship Specialty Start Date End Date Leonel Manuel MD [address] [place] [address] PCP - General Family Medicine 09/27/23 Janet Hermosillo MD [address] [place] [address] Referring Physician Family Medicine 09/27/23 Marketing Systems Manager Relationship Specialty Start Date End Date Leonel Manuel MD [address] [place] [address] PCP - General Family Medicine 09/27/23 Janet Hermosillo MD [address] [place] [address] Referring Physician Family Medicine 09/27/23 Marketing Systems Manager Relationship Specialty Start Date End Date Leonel Manuel MD [address] [place] [address] PCP - General Family Medicine 09/27/23 Janet Hermosillo MD [facility] [place] [address] Referring Physician Family Medicine 09/27/23 Marketing Systems Manager Relationship Specialty Start Date End Date Leonel Manuel MD [address] [place] [address] PCP - General Family Medicine 09/27/23 Janet Hermosillo MD [facility] [place] [address] Referring Physician Family Medicine 09/27/23 Marketing Systems Manager Relationship Specialty Start Date End Date Leonel Manuel MD [address] [place] [address] PCP - General Family Medicine 09/27/23 Janet Hermosillo MD [address] [place] [address] Referring Physician Family Medicine 09/27/23 Marketing Systems Manager Relationship Specialty Start Date End Date Leonel Manuel MD [address] [place] [phone] PCP - General Family Medicine 09/27/23 Janet Hermosillo MD [address] [place] [address] Referring Physician Family Medicine 09/27/23 Marketing Systems Manager Relationship Specialty Start Date End Date Leonel Manuel MD [address] [place] [phone] PCP - General Family Medicine 09/27/23 Janet Hermosillo MD [address] [place] [address] Referring Physician Family Medicine 09/27/23 Marketing Systems Manager Relationship Specialty Start Date End Date Leonel Manuel MD [address] [place] [phone] PCP - General Family Medicine 09/27/23 Janet Hermosillo MD [address] [place] [address] Referring Physician Family Medicine 09/27/23 Marketing Systems Manager Relationship Specialty Start Date End Date Leonel Manuel MD [address] [place] [phone] PCP - General Family Medicine 09/27/23 Janet Hermosillo MD [address] [place] [address] Referring Physician Family Medicine 09/27/23 Marketing Systems Manager Relationship Specialty Start Date End Date Leonel Manuel MD [address] [place] [phone] PCP - General Family Medicine 09/27/23 Janet Hermosillo MD [address] [place] [address] Referring Physician Family Medicine 09/27/23 Marketing Systems Manager Relationship Specialty Start Date End Date Leonel Manuel MD [address] [place] [phone] PCP - General Family Medicine 09/27/23 Janet Hermosillo MD [address] [place] [address] Referring Physician Family Medicine 09/27/23 Marketing Systems Manager Relationship Specialty Start Date End Date Janet Hermosillo BRAKE DRUM LATHE OPERATOR [address] [place] [phone] PCP - General Nurse Practitioner - Family [...] 2 g, Intravenous, Administer over 15 Minutes, PAWN SHOP KEEPER TO PROCEDURE, 1 dose, Starting on Wed05/29/24 at 0543, Until Wed05/29/24 at 0810, Other, Pre-operative antibiotic, Pre-op/Pre-Proc 0755 ($$New Bag$$ - Provider: Christine Griffin APRN-TELEPHONE OPERATOR CHIEF) dexAMETHasone (DECADRON) injection 10 mg (COMPLETED) 10 [...] on Wed05/29/24 at 0934, Until Wed05/29/24 at 183, Moderate Pain, Recovery Or HYDROmorphone (DILAUDID) injection 0.5 mgJump to med 0.5 mg, Intravenous, EVERY 15 MINUTES NEEDED, 3 doses, Starting on Wed05/29/24 at 0934, Until Wed05/29/24 at 183, Severe Pain, Recovery FOR RECORDS PERTAINING TO [...] BE BASED ON THE PRIMARY CLINICAL RECORDS. [facility]. provides no warranty or guarantee of the accuracy or completeness of information in this document.
[2024-11-15 10:50] LABS: Bilirubin Urine NEGATIVE (NEGATIVE); Blood Urine NEGATIVE (NEGATIVE); Clarity Urine CLEAR (CLEAR); Color Urine LT. YELLOW (YELLOW); Glucose Urine UA NEGATIVE (NEGATIVE); Ketones Urine NEGATIVE (NEGATIVE); Leukocyte Esterase Urine NEGATIVE (NEGATIVE); Nitrite Urine NEGATIVE (NEGATIVE); Protein Urine NEGATIVE (NEG/TRACE); Specific Gravity Urine <=1.005 (1.005-1.025); Urobilinogen Urine 0.2 EU/dL (0.2-1.0)
[2024-11-15 11:54] LABS: RBC Urine NONE SEEN #/HPF (0-2); WBC Urine NONE SEEN #/HPF (NONE SEEN)
[2024-11-15 11:55] LABS: Bacteria Urine NONE SEEN #/HPF (NONE SEEN); Cast Seen? NONE SEEN #/LPF (NONE SEEN); Crystals Seen? None Seen #/HPF (None Seen); Mucus Urine NONE SEEN (NONE SEEN); Squamous Epithelial Cell Urine RARE #/LPF (NONE/RARE)
== END 2024-11-15 10:36 | disposition home or self-care (01) ==
LOC: LAB 10:35
PROVIDERS: PCP Nurse Practitioner Family; Visit Provider Nurse Practitioner Family
DX: R10.9 Unspecified abdominal pain (principal)
CPT/HCPCS: 81001; 87086